=== PATIENT | female | born 1980 | race Two or more races ===

== ENCOUNTER 2020-03-26 11:53 | Emergency (ER) | payer OTHER, SELFPAY ==
--- NOTE | 2020-03-26 12:16 | XR_ITS ---
EXAMINATION: XR CHEST CLINICAL INFORMATION: Cough, possible pneumonia COMPARISON: Chest radiographs 10/08/2017, 04/09/2016 TECHNIQUE: 2 views of the chest were obtained. FINDINGS: Lungs appear clear. There is no airspace consolidation or definite groundglass opacity. The costophrenic sulci are well-defined. The heart is normal in size. The hilar and mediastinal contours are normal. No visible acute bony abnormality. XR/XR chest 2V IMPRESSION: Unremarkable examination.
[2020-03-26 12:18] VITALS: BP 108/67; PULSE 89; RESP 18; TEMP 36.7; O2SAT 98; BMI 32.2
--- NOTE | 2020-03-26 12:27 | ED_ITS ---
HPI - Asthma General Chief Complaint: Asthma Stated Complaint: asthma Time Seen by Provider: 03/26/20 12:16 Source: patient Mode of arrival: ambulatory Limitations: no limitations History of Present Illness HPI Narrative: Patient presents to ED for slight coughing, wheezing, chest tightness since last night. Patient states she is having asthma attack. Patient states she ran out of her albuterol inhalers. Patient states usually around this time every year due to the change in weather she has asthma exacerbation. Patient denies any chest pain, chest pain on inspiration, shortness of breath on exertion, swelling of lower extremities, calf pain, coughing up blood, recent trauma, recent travel, any history of control use, or history of blood clots. Patient states daughter also have similar symptoms. Patient states she was tested for COVID-19 this past Monday and was negative. Patient states she get tested every Monday for COVID-19 due to her job. Patient states having symptoms for about 5 days. Related Data Previous Rx's Medication Instructions Recorded albuterol sulfate 2 puff INHALATION Q6H PRN #18 g 03/26/20 prednisone 40 mg PO DAILY #10 tab 03/26/20 Allergies Allergy/AdvReac Type Severity Reaction Status Date / Time acetaminophen [Percocet] Allergy Unknown swollen, Verified 08/26/19 00:00 red spots oxycodone [Percocet] Allergy Unknown swollen, Verified 08/26/19 00:00 red spots Wellbutrin Allergy Unknown rash Unverified 08/26/19 00:00 From PERCOCET Allergy Intermediate HIVES Uncoded 02/06/20 16:55 A MED FOR DEPRESSION Allergy Unknown ITCHING Uncoded 02/06/20 16:55 Review of Systems Review of Systems: Yes all other systems are reviewed and are negative Constitutional: Constitutional: Denies snoring Eyes: Eyes: Reports as per HPI and Reports no additional eye complaints ENT: Reports system reviewed and no additional complaints, except as documented and Reports as per HPI Cardiovascular: Cardiovascular: Reports as per HPI, Reports no additional cardiovascular complaints, Denies painful fingertips, Denies chest pain, Denies chest pain at rest, Denies chest pain with activity, Denies Epigastric Pain, Denies epigastric discomfort, Denies syncope, Denies rapid heart rate, Denies pedal edema, Denies edema, Denies irregular heart rhythm, Denies dyspnea, Denies dyspnea on exertion, Denies orthopnea and Denies paroxysmal nocturnal dyspnea Respiratory: Respiratory: Reports cough, Denies hemoptysis, Denies excessive phlegm production, Denies pain on inspiration, Denies pain with cough, Denies dyspnea, Denies dyspnea on exertion, Denies snoring and Reports wheezing Gastrointestinal: Gastrointestinal: Reports as per HPI and Reports no additional gastrointestinal complaints Genitourinary: Genitourinary: Reports no additional female genitourinary complaints and Reports as per HPI Musculoskeletal: Musculoskeletal: Reports no additional musculoskeletal complaints and Reports as per HPI Neurologic: Reports system reviewed and no additional complaints, except as documented, Reports as per HPI and Denies syncope Psychiatric: Psychiatric: Reports no additional psychiatric complaints and Reports as per HPI Endocrine: Endocrine: Reports no additional endocrine complaints and Reports as per HPI Allergic/Immunologic: Allergic/Immunologic: Reports wheezing [facility] Past Medical History Medical History (Updated 03/26/20 @ 13:28 by YANET Quinn) Asthma Social History Social History Alcohol intake: never Smoked in Last 30 Days: No Use of substances other than those prescribed or required for medical reasons: No Advance Directives: No Advance Directives Information Provided: Yes Physical Exam Vital Signs: Vital Signs: Vital Signs Temp Pulse Resp BP Pulse Ox 03/26/20 12:18 98.0 F 89 18 108/67 98 Body Mass Index 32.2 Const: General: cooperative, healthy appearing, comfortable, no acute distress, well developed and alert Orientation/consciousness: oriented to person, oriented to place, oriented to time and patient oriented x3 HENMT: Head: Yes normal to inspection and Yes No palpable skull fracture present Eyes: General: appearance normal, both eyes and all related structures Visual Mora: normal visual mora by confrontation Neck: Neck: Yes normal visual inspection, Yes full ROM, Yes no lymphadenopathy, Yes no meningeal signs and Yes trachea midline Chest: Chest palpation & inspection: normal inspection of the chest, normal palpation of entire chest wall and no localized rib tenderness Resp: Effort & Inspection: normal respiratory effort, able to speak in complete sentences, normal respiratory pattern, no audible wheezes, no cough, respiratory effort not decreased, no grunting, not labored, no nasal flaring, no paradoxical thoraco-abdom movements, no pursed lip breathing, not tachypneic, no tracheal deviation and no tripod positioning Auscultation: wheezes (mild) expiratory wheezes Cardio: Jugular venous distension: no JVD Heart sounds: S1 normal heart sound present and S2 normal heart sound present GI: Inspection: Yes normal to inspection and No abdominal wall ecchymosis Palpation (GI): Soft to palpation, not firm, nontender, no guarding and not rigid : General: No CVA tenderness and Yes no CVA tenderness Back/Spine/Pelvis: Back: no CVA tenderness, No CVA tenderness and No back tenderness Skin: General skin exam: no rashes or lesions noted Neuro: General: oriented to person, oriented to place, oriented to time, patient oriented x3, gait normal, no meningeal signs and CN's II-XI intact bilaterally Cranial nerves: Yes CN's II-XII intact bilaterally Extrem: Other: Lower extremities bilaterally negative for any swelling, erythema, calf tenderness, or pitting edema. General: Yes normal to inspection and Yes full ROM Psych: Appearance: grossly normal, well kempt and not disheveled Course Course Course Narrative: History physical exam indicates asthma exacerbation. Patient presently not in any respiratory distress. No indication for labs. History physical exam does not indicate PE or IN. Patient will be given albuterol nebulizer treatment with steroids. Patient also have chest x-ray demonstrates no pneumonia. Patient informed she is not . Reevaluation(s) Reevaluation #1: patient states she feels better and likely be discharged. Patient's chest x-ray is normal. Patient will be discharged with albuterol inhaler and prednisone. Time: 13:27 MDM - Asthma MDM Narrative Medical decision making narrative: asthma exacerbation Discharge Plan Discharge Clinical Impression: Asthma with acute exacerbation Patient Disposition: Home, Self-Care Instructions: Asthma (ED) Additional Instructions: return to ED for shortness of breath, swelling of lower extremities, calf pain, coughing up blood, shortness of breath on exertion, calf pain on inspiration, weakness, fever, chills, chest pain, or any other concerning symptoms. Please follow up with your PCP. Prescriptions: New prednisone 20 mg tablet 40 mg PO DAILY Qty: 10 RF: 0 albuterol sulfate 90 mcg/actuation HFA aerosol inhaler 2 puff inhalation Q6H PRN (Reason: asthma) Qty: 18 RF: 0 Stand Alone Forms: Work/School Release Interventions: ED Discharge Assessment Last Done: 03/26/20 13:57 Discharge Date/Time: 03/26/20 13:57 Print Language: Italian
[2020-03-26] MEDS: Albuterol/Iprat 2.5/0.5MG 3 ML AMPUL.NEB INHALE (12:39)
[2020-03-26] MEDS: predniSONE 20 MG TABLET 60 MG PO (12:45)
== END 2020-03-26 13:57 | disposition home or self-care (01) ==
PROVIDERS: Emergency Provider Emergency Medicine
DX: J45.901 Unspecified asthma with (acute) exacerbation (principal); Z79.899 Other long term (current) drug therapy
CPT/HCPCS: 71046; 99284

== ENCOUNTER 2021-08-11 08:59 | Outpatient (REF) | payer OTHER, SELFPAY ==
[2021-08-11 09:37] LABS: Hematocrit 41.6 % (37.0-47.0); Hemoglobin 13.1 g/dl (12.0-16.0); Mean Corpuscular HGB Conc 31.5 g/dl (31.0-35.0); Mean Corpuscular Hemoglobin 29.4 pg (27.0-33.0); Mean Corpuscular Volume 93.5 fL (80.0-98.0); Mean Platelet Volume 11.8 fL (9.4-12.3); Platelet Count 200 X10*3/uL (160-400); Red Blood Count 4.45 X10*6/uL (4.20-5.50); White Blood Count 6.9 X10*3/uL (4.8-10.8)
[2021-08-11 09:47] LABS: Estimated Average Glucose 111 mg/dL; Hemoglobin A1c % 5.5 %
[2021-08-11 10:12] LABS: Alanine Aminotransferase 18 U/L (0-31); Albumin Level 4.2 g/dL (3.5-5.0); Alkaline Phosphatase 56 U/L (39-117); Anion Gap 10 (12-20); Aspartate Amino Transferase 19 U/L (5-31); Bilirubin Total 0.9 mg/dL (0.0-1.0); Blood Urea Nitrogen 10 mg/dL (9-16); Calcium 9.6 mg/dL (8.4-10.2); Carbon Dioxide 24 mmol/L (22-29); Chloride 109 mmol/L (96-108); Cholesterol 227 mg/dL; Estimated Glomerular Filt Rate > 60; Glucose Fasting 117 mg/dL (60-99); HDL Cholesterol 43 mg/dL; LDL Cholesterol Calculated 163 mg/dl; Sodium 139 mmol/L (135-145); Total Protein 6.7 g/dL (6.5-8.0); Triglycerides 109 mg/dL
[2021-08-11 10:20] LABS: TSH reflex Free T4 0.37 uIU/mL (0.32-4.0)
[2021-08-13 03:17] LABS: Immunoglobulin E 623 kU/L (<OR=114)
== END 2021-08-11 09:00 | disposition home or self-care (01) ==
LOC: HO.LAB 08:59
PROVIDERS: PCP Physician Assistant; Visit Provider Physician Assistant
DX: Z13.1 Encounter for screening for diabetes mellitus (principal); Z13.29 Encounter for screening for other suspected endocrine disorder; Z13.220 Encounter for screening for lipoid disorders; J45.30 Mild persistent asthma, uncomplicated
CPT/HCPCS: 36415; 80053; 80061; 82785; 83036; 84443; 85027

== ENCOUNTER → 2021-09-13 14:33 | Outpatient (BNVA) | payer OTHER, SELFPAY | PROVIDERS: PCP Physician Assistant; Referring Provider Physician Assistant; Visit Provider Surgery | DX: K64.4 Residual hemorrhoidal skin tags (principal) | CPT/HCPCS: 46600; 99202 ==

== ENCOUNTER 2021-10-08 08:37 | Day surgery (SDC) | payer OTHER, SELFPAY ==
[2021-10-04 13:45] VITALS: BMI 28.7
--- NOTE | 2021-10-06 13:19 | P.CONAN_ITS ---
Documented by User: Leigh Varela NP 10/06/21 13:20 HPI - Anesthesia Eval Consult details Narrative: 41yo F for Hemorrhoidectomy PMFSH Active Problems Active Problems: All Active Problems (Updated 09/13/21 @ 15:06 by Sree Merino MD) Hemorrhoids with complication (Acute) Screening for hypercholesterolemia (Acute) External hemorrhoid (Acute) Annual physical exam (Acute) SUJEY (generalized anxiety disorder) (Acute) Swelling of hand (Acute) Screening for hypothyroidism (Acute) Screening for diabetes mellitus (DM) (Acute) Asthma (Acute) Past Medical History Medical History (Updated 09/13/21 @ 15:06 by Sree Merino MD) Asthma Hemorrhoids with complication Family History Family History Mother No problems noted. Father Diabetes High blood pressure CVA (cerebral vascular accident), Onset Age: 59 Brother Brain tumor Surgical History Surgical History History of surgery Social History Social History Housing: Apartment Alcohol intake: current Alcohol intake frequency: holidays/special occasions only Patient Tobacco Use Status: Former Tobacco user Quit Date: 2018 Tobacco use type: Cigarette Years Smoked: 8 Smoked in Last 30 Days: No e-Cigarette/Vaping Use: Never Used Second Hand Smoke Exposure: No Use of substances other than those prescribed or required for medical reasons: No Are you DNR?: No Advance Directives: No Advance Directives Information Provided: Yes service: No Current occupational status: unemployed Cognitive needs: No Hearing needs: No Vision needs: No Meds Allergies Allergy/AdvReac Type Severity Reaction Status Date / Time acetaminophen [Percocet] Allergy Unknown swollen, Verified 10/08/21 09:23 red spots oxycodone [Percocet] Allergy Unknown swollen, Verified 10/08/21 09:23 red spots Wellbutrin Allergy Unknown rash Verified 10/08/21 09:23 From PERCOCET Allergy Intermediate HIVES Uncoded 02/06/20 16:55 A MED FOR DEPRESSION Allergy Unknown ITCHING Uncoded 02/06/20 16:55 Home Medications Medication Instructions Recorded Confirmed Last Taken Type cetirizine 10 mg tablet 10 mg PO DAILY PRN 09/13/21 09/13/21 Unknown History Exam Exam Date and Time: October 06, 2021 1319 Height,Weight and Vital Signs: Height 5 ft Weight 66.678 kg Pertinent Lab Results Pertinent Lab Results: Laboratory Tests 08/11/21 08/11/21 09:13 09:13 WBC 6.9 Hgb 13.1 Hct 41.6 Plt Count 200 Sodium 139 Potassium 4.0 Chloride 109 H Carbon Dioxide 24 BUN 10 Creatinine 0.78 Assessment and Plan Assessment Anesthesia Assessment: Chart Reviewed Documented by User: Andrea Perez MD 10/08/21 10:57 HPI - Anesthesia Eval Consult details Narrative: 41yo F for Hemorrhoidectomy ex smoker [facility] Past Medical History Medical History (Updated 09/13/21 @ 15:06 by Sree Merino MD) Asthma Hemorrhoids with complication Functional capacity: independent ambulation Family History Family History Mother No problems noted. Father Diabetes High blood pressure CVA (cerebral vascular accident), Onset Age: 59 Brother Brain tumor Family history of problems with anesthesia: No Surgical History Surgical History History of surgery History of Problems with Anesthesia: No Social History Social History Housing: Apartment Alcohol intake: current Alcohol intake frequency: holidays/special occasions only Patient Tobacco Use Status: Former Tobacco user Quit Date: 2018 Tobacco use type: Cigarette Years Smoked: 8 Smoked in Last 30 Days: No e-Cigarette/Vaping Use: Never Used Second Hand Smoke Exposure: No Use of substances other than those prescribed or required for medical reasons: No Are you DNR?: No Advance Directives: No Advance Directives Information Provided: Yes service: No Current occupational status: unemployed Cognitive needs: No Hearing needs: No Vision needs: No Meds Allergies Allergy/AdvReac Type Severity Reaction Status Date / Time acetaminophen [Percocet] Allergy Unknown swollen, Verified 10/08/21 09:23 red spots oxycodone [Percocet] Allergy Unknown swollen, Verified 10/08/21 09:23 red spots Wellbutrin Allergy Unknown rash Verified 10/08/21 09:23 From PERCOCET Allergy Intermediate HIVES Uncoded 02/06/20 16:55 A MED FOR DEPRESSION Allergy Unknown ITCHING Uncoded 02/06/20 16:55 Home Medications Medication Instructions Recorded Confirmed Last Taken Type cetirizine 10 mg tablet 10 mg PO DAILY PRN 09/13/21 09/13/21 Unknown History Exam Airway Mallampati Class: II Neck ROM: Full Loose/Missing/Broken Teeth: Yes (Missing and front chipped . ) Heart: S1, S2 Lungs: b/l breath sounds Assessment and Plan Assessment Anesthesia Assessment: Anesthesia Plan Discussed Final Anesthetic Review Family History of Problems with Anesthesia: No History of Problems with Anesthesia: No NPO: Yes ASA Class: II Final Preanesthetic Review: Meds/Allgs Chart Reviewed, Consent Obtained/Reviewed and Anes Risks/Benef Reviewed Patient Risk: Intermediate Procedure Risk: Intermediate Anesthetic Plan Anesthetic Plan: GA Disposition: Standard PACU
[2021-10-08] VITALS (13 sets, daily range): BP systolic 94–123; BP diastolic 48–87; PULSE 52–71; RESP 14–16; TEMP 36.3–37; O2SAT 95–100; BMI 30.2
[2021-10-08 09:34] LABS: UPreg QC Valid YES; Urine Pregnancy NEGATIVE (NEGATIVE)
[2021-10-08] MEDS: Lactated Ringers 1,000 ML 100 ML IVCONT (10:09)
--- NOTE | 2021-10-08 10:16 | MHC.SHP ---
Pre-Procedural Eval Section A Date of Service: 10/08/21 Section B Chief Complaint: hemorrhoids Details of Present Illness: has had chronic problems with pain, bleeding and prolapse with her hemorrhoids Relevant Family History (Specify if Yes): No Relevant Social History: None Present Medications: see Short Stay Collaborative assessment Medical History: Significant History ( depression anxiety) History of Previous Operations: No relevant previous surgery Allergies: Allergies Allergy/AdvReac Type Severity Reaction Status Date / Time acetaminophen [Percocet] Allergy Unknown swollen, Verified 10/08/21 09:23 red spots oxycodone [Percocet] Allergy Unknown swollen, Verified 10/08/21 09:23 red spots Wellbutrin Allergy Unknown rash Verified 10/08/21 09:23 From PERCOCET Allergy Intermediate HIVES Uncoded 02/06/20 16:55 A MED FOR DEPRESSION Allergy Unknown ITCHING Uncoded 02/06/20 16:55 Review of Systems Sugical H&P ROS: Negative: Constitution, Cardiovascular, Respiratory, Neurological, Psychiatric, Hem-Onc, Allergic/Immunologic, Gastrointestinal, Genitourinary, Musculoskeletal, Integumentary, Endocrine and Eyes/Ears/Nose/Throat Exam Surgical H&P Exam: Normal: HEENT, Normal: Heart, Normal: Lungs, Normal: Extremities, Normal: Abdomen, Normal: Skin and Normal: Neurological Plan Diagnosis/Plan: Unchanged I have reviewed the history and physical and performed a pertinent physical examination on my patient. No changes have occurred unless specified.
--- NOTE | 2021-10-08 11:19 | W.PM.OPN ---
Operative Note Operative Note Date of Service: 10/08/21 Narrative: Preop diagnosis: Internal and external hemorrhoids with pain and bleeding Postop diagnosis: The same Procedure: Exam under anesthesia, hemorrhoidectomy x2 columns Surgeon: Sree Merino MD The patient is a 41-year-old female with chronic problems with pain and bleeding with her hemorrhoidal columns.? She wanted to therefore proceed with hemorrhoidectomy.? She understood the technique of the procedure.? She was aware of the risks, benefits, and alternatives She was brought to the operating room.? She was placed in prone earnestine-knife position under general anesthesia via laryngeal mask airway.? ? The buttocks were retracted with wide tape laterally.? The perianal area was prepped and draped in the usual sterile fashion.? A surgical time-out was done. Examination of the anal orifice revealed bulky hemorrhoidal column on the right.? There was a smaller hemorrhoidal column the left.? The tiny anal area was infiltrated with Lidocaine 1%. I inserted a Ani Marr retractor and examined the anal canal circumferentially.? Again these mixed hemorrhoidal columns on both the left and right side were seen.? There were no lesions or any other pathology noted . I applied a Yao grasper at the hemorrhoidal column on the left.? This was retracted into the field.? I made a figure of 8 stitch? with a chromic 3-0 at the pedicle past the dentate line.? I made an incision around the hemorrhoidal column all the way to the perianal skin using blade 15.? I excised this hemorrhoidal column above the plane of the sphincters along this incision all the way to the pedicle.? I closed the incision with a running chromic 3-0 stitch.? Multiple hemostatic [id number] sutures were placed for oozing areas I then applied a Yao grasper at the hemorrhoidal column on the right.? I made a [id number] stitch at the pedicle using chromic 3-0 and made an incision around this? hemorrhoidal column all to the perianal skin using blade 15. I excised this hemorrhoidal column above the plane of sphincters using scissors.? I closed this incision with a running chromic 3-0 stitch.? Again hemostatic [id number] sutures were placed Once hemostasis was ensured, I proceeded to then infiltrated the perianal area with Marcaine 0.5% for postop analgesia.? I placed a rolled Gelfoam as a packing into the anal canal.? The procedure was then completed. The patient tolerated procedure well.? There were no complications noted.? Initial ? and final counts sponges instruments were correct.? Estimated blood loss was about 30 cc The patient was extubated without difficulty and transferred to the recovery room with stable vital signs.
[2021-10-08] MEDS: fentaNYL citrate/PF 100 MCG/2 ML VIAL 25 MCG IVPUSH ×5 (11:48→12:51)
[2021-10-08] MEDS: traMADoL HCL 50 MG TABLET PO (11:50)
== END 2021-10-08 14:00 | disposition home or self-care (01) ==
PROVIDERS: Nurse Practitioner; PCP Physician Assistant; Visit Provider Surgery
PROC: (CPT 46260; principal; 2021-10-08 11:00)
DX: K64.8 Other hemorrhoids (principal); K64.4 Residual hemorrhoidal skin tags; K59.00 Constipation, unspecified; J45.909 Unspecified asthma, uncomplicated; Z79.51 Long term (current) use of inhaled steroids; Z79.899 Other long term (current) drug therapy; Z88.8 Allergy status to other drugs, medicaments and biological substances; Z87.891 Personal history of nicotine dependence
CPT/HCPCS: 46260; 81025; 88304; J0131; J1100; J1885; J2250; J2405; J3010

== ENCOUNTER → 2021-10-20 11:43 | Outpatient (BNVA) | payer OTHER, SELFPAY | PROVIDERS: PCP Physician Assistant; Referring Provider Physician Assistant; Visit Provider Surgery | DX: Z48.815 Encounter for surgical aftercare following surgery on the digestive system (principal); Z87.19 Personal history of other diseases of the digestive system | CPT/HCPCS: 99212 ==

== ENCOUNTER → 2022-01-13 11:22 | Outpatient (BNVA) | payer OTHER, SELFPAY | PROVIDERS: PCP Physician Assistant; Visit Provider Surgery | DX: K64.8 Other hemorrhoids (principal); Z98.890 Other specified postprocedural states | CPT/HCPCS: 99212 ==

== ENCOUNTER 2022-06-20 12:17 | Emergency (ER) | payer OTHER, SELFPAY | END 2022-06-20 14:57 | disposition left against medical advice (07) | PROVIDERS: Emergency Provider Emergency Medicine; PCP Physician Assistant | DX: M79.10 Myalgia, unspecified site (principal) ==

== ENCOUNTER 2022-08-16 10:10 | Emergency (ER) | payer OTHER, SELFPAY ==
[2022-08-16 10:17] VITALS: BP 156/87; PULSE 76; RESP 18; TEMP 37.2; O2SAT 99; BMI 23.4
--- NOTE | 2022-08-16 11:07 | ED.GENADULT ---
HPI - General Adult General Chief complaint: Back Pain/Injury Stated complaint: Muscle spasm/Shoulder and back pain Time Seen by Provider: 08/16/22 11:01 Source: patient, RN notes reviewed and old records reviewed Mode of arrival: ambulatory Limitations: no limitations History of Present Illness HPI narrative: 42-year-old female presents for evaluation muscle pain. History of mostly right-sided upper back that radiates the left upper back and right mid back The pain started about 1 month ago. 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 She also endorses increase stress at home Denies any chest pain shortness of breath, cough Related Data Home Medications Medication Instructions Recorded Confirmed cetirizine 10 mg tablet 10 mg PO DAILY PRN 09/13/21 09/13/21 Previous Rx's Medication Instructions Recorded albuterol sulfate 2.5 mg/3 mL 2.5 mg (3 mL) inhalation Q6H PRN 05/19/20 (0.083 %) solution for nebulization shortness of breath or wheezing 30 days #360 mL hydroxyzine HCl 10 mg tablet 10 mg PO BID PRN panic attack 10 09/29/21 days #20 tabs docusate sodium 100 mg capsule 100 mg PO BID #60 caps 10/08/21 (Colace) tramadol 50 mg tablet 50 mg PO Q6H PRN pain severe #20 10/19/21 tabs ibuprofen 600 mg tablet 600 mg PO TID PRN pain #30 tabs 10/20/21 menthol 0.44 %-zinc oxide 20.6 % 1 appl topical QID PRN skin 11/02/21 topical ointment (Calmoseptine) irritation #113 grams menthol 0.44 %-zinc oxide 20.6 % 1 appl topical QID PRN perianal 01/13/22 topical ointment (Calmoseptine) irritation #113 grams Advair Diskus 100 mcg-50 mcg/dose 1 inh inhalation Q12H 30 days #60 02/03/22 powder for inhalation (fluticasone ea propion-salmeterol) montelukast 10 mg tablet 10 mg PO DAILY 30 days #30 tabs 02/03/22 (Singulair) Ventolin HFA 90 mcg/actuation 2 puff inhalation Q6H PRN 02/23/22 aerosol inhaler (albuterol sulfate) shortness of breath or wheezing 30 days #18 grams ibuprofen 600 mg tablet 600 mg PO Q6H PRN pain #15 tabs 08/16/22 methocarbamol 500 mg tablet 500 mg PO QID PRN muscle spasm #16 08/16/22 tabs Allergies Allergy/AdvReac Type Severity Reaction Status Date / Time bupropion [From Wellbutrin] Allergy Unknown Rash Verified 08/16/22 10:20 oxycodone [Percocet] Allergy Unknown swollen, Verified 08/16/22 10:20 red spots From PERCOCET Allergy Intermediate HIVES Uncoded 01/13/22 11:26 A MED FOR DEPRESSION Allergy Unknown ITCHING Uncoded 01/13/22 11:26 Review of Systems Constitutional: Constitutional: Reports as per HPI, Denies chills and Denies fever(s) Cardiovascular: Cardiovascular: Denies chest pain and Denies dyspnea Respiratory: Respiratory: Denies cough and Denies dyspnea Gastrointestinal: Gastrointestinal: Denies abdominal pain, Denies constipation and Denies vomiting Musculoskeletal: Musculoskeletal: Reports back pain and Reports myalgias Comments: Right upper back pain Neurologic: Denies focal weakness PMFSH Past Medical History Medical History Asthma Hemorrhoids with complication Surgical History History of hemorrhoidectomy History of surgery Family History Family History Mother No problems noted. Father Diabetes High blood pressure CVA (cerebral vascular accident), Onset Age: 59 Brother Brain tumor Social History Social History Housing: Apartment Alcohol intake: current Alcohol intake frequency: holidays/special occasions only Patient Tobacco Use Status: Former Tobacco user Quit Date: 2018 Tobacco use type: Cigarette Years Smoked: 8 e-Cigarette/Vaping Use: Never Used Second Hand Smoke Exposure: No service: No Current occupational status: unemployed Cognitive needs: No Hearing needs: No Vision needs: No Physical Exam ED Vital Signs: Vital Signs - 24 hr 08/16/22 10:17 Temperature 99.0 F Pulse Rate 76 Respiratory Rate 18 Blood Pressure 156/87 H Pulse Oximetry 99 Oxygen Delivery Method Room Air BMI result Body Mass Index 23.4 Const General: healthy appearing, comfortable, no acute distress, alert and awake Nutritional Appearance: well nourished Orientation/consciousness: patient oriented x3 HENMT Head: Yes normocephalic and Yes atraumatic Throat: Yes posterior oropharynx normal Eyes Eyelids: Yes eyelids normal Conjunctivae: conjunctivae normal Sclerae: sclerae normal Corneas: corneas normal Pupils: Equal, round and reactive pupils present EOM: EOMs intact bilaterally Neck Neck: Yes full ROM Resp Effort & Inspection: normal respiratory effort, able to speak in complete sentences, no audible wheezes and not labored Auscultation: clear to auscultation bilaterally Cardio Rate: regular rate Rhythm: regular rhythm GI Inspection: No distended Palpation (GI): Soft to palpation, not firm, nontender, no guarding and not rigid Auscultation: normoactive bowel sounds General: No no CVA tenderness Back/Spine/Pelvis Other: Patient has right upper and right in bowel marked tenderness without any focal vertebral tenderness. No step-offs or deformities. Back: No no CVA tenderness Cervical Spine: No normal cervical lordosis and No collar present Skin General skin exam: no rashes or lesions noted and elasticity normal Neuro General: patient oriented x3 Cranial nerves: Yes Equal, round and reactive pupils present and Yes Bilaterally intact EOM present Cognition (Neuro): normal cognition Extrem Other: Moving all extremities well without any obvious deformities Medical Decision Making Medical Decision Making MDM Narrative: Patient is seen and evaluated, she has reproducible right upper and mid back pain consistent with musculoskeletal etiology. Will treat with methocarbamol and ibuprofen. Differential Diagnosis Muscle spasm Radiculopathy Contusion Back spasm Discharge Plan Discharge Clinical Impression: Muscle spasm Patient Disposition: Home, Self-Care Instructions: Muscle Spasm (ED) Additional Instructions: Use ibuprofen as needed for discomfort. Use methocarbamol organ for muscle spasms. This may you sleepy, do not drink alcohol or drive after taking it Prescriptions: New ibuprofen 600 mg tablet 600 mg PO Q6H PRN (Reason: pain) Qty: 15 0RF methocarbamol 500 mg tablet 500 mg PO QID PRN (Reason: muscle spasm) Qty: 16 0RF No Action hydroxyzine HCl 10 mg tablet 10 mg PO BID PRN (Reason: panic attack) 10 Days Qty: 20 0RF tramadol 50 mg tablet 50 mg PO Q6H PRN (Reason: pain severe) Qty: 20 0RF Rx Instructions: ok to take 1-2 tablets every 6 hours for severe pain menthol-zinc oxide [Calmoseptine] 0.44-20.6 % ointment 1 appl topical QID PRN (Reason: skin irritation) Qty: 113 0RF fluticasone propion-salmeterol [Advair Diskus] 100-50 mcg/dose blister with device 1 inh inhalation Q12H 30 Days Qty: 60 1RF montelukast [Singulair] 10 mg tablet 10 mg PO DAILY 30 Days Qty: 30 1RF albuterol sulfate [Ventolin HFA] 90 mcg/actuation HFA aerosol inhaler 2 puff inhalation Q6H PRN (Reason: shortness of breath or wheezing) 30 Days Qty: 18 3RF docusate sodium [Colace] 100 mg capsule 100 mg PO BID Qty: 60 2RF albuterol sulfate 2.5 mg /3 mL (0.083 %) solution for nebulization 2.5 mg inhalation Q6H PRN (Reason: shortness of breath or wheezing) 30 Days Qty: 360 1RF menthol-zinc oxide [Calmoseptine] 0.44-20.6 % ointment 1 appl topical QID PRN (Reason: perianal irritation) Qty: 113 0RF cetirizine 10 mg tablet 10 mg PO DAILY PRN ibuprofen 600 mg tablet 600 mg PO TID PRN (Reason: pain) Qty: 30 0RF Stand Alone Forms: Work/School Release Interventions: ED Discharge Assessment Last Done: 08/16/22 11:21 Discharge Date/Time: 08/16/22 11:22
== END 2022-08-16 11:22 | disposition home or self-care (01) ==
PROVIDERS: Emergency Provider Emergency Medicine; PCP Physician Assistant
DX: M62.830 Muscle spasm of back (principal); M54.6 Pain in thoracic spine; Z79.899 Other long term (current) drug therapy
CPT/HCPCS: 99282; 99283

== ENCOUNTER 2022-11-23 12:10 | Emergency (ER) | payer OTHER, SELFPAY ==
--- NOTE | ~2022-11-23 | CT_ITS ---
EXAMINATION: CT ABDOMEN AND PELVIS WITH CONTRAST CLINICAL INFORMATION: Question cancer. Hematuria. COMPARISON: None available. TECHNIQUE: Multidetector volumetric images were obtained from the superior aspect of the liver through the pubic symphysis following administration 85 mL of Omnipaque 350 intravenous contrast. 10 minute delay acquisition performed. Sagittal and coronal reformatted images were obtained on the technologist's workstation. Oral contrast: No This CT examination was performed using dose optimization techniques as appropriate, variously including the following: *Automated exposure control *Adjustment of mA and/or kV according to patient size (this includes techniques or standardized protocols for targeted exams where dose is matched to indication/reason for exam; i.e. extremities or head) *Use of iterative reconstruction technique
[2022-11-23 12:46] VITALS: BP 136/76; PULSE 61; RESP 18; TEMP 36.8; O2SAT 100; BMI 26.4
--- NOTE | 2022-11-23 12:46 | ED_ITS ---
HPI - General Adult General Chief complaint: Urogenital-Female Stated complaint: Blood in Urine Low Back Pain Time Seen by Provider: 11/23/22 14:51 Source: patient Mode of arrival: ambulatory Limitations: no limitations History of Present Illness HPI narrative: This is a 42-year-old female history of anxiety, asthma presenting to the emergency department with complaints of bilateral lower back/flank pain, lower a bdominal/pelvic pain, with associated blood in urine for the past 4 days. Patient states this is never happened to her before. Reports pain is constant in nature, severe at times fluctuates in intensity and feels sharp and stabbing particularly with urination. Patient reports she was 170 lb about 2 years ago in is no 130 lb, she states she has changed her diet however has not done too much to lose weight. Patient also reports associated night sweats, chills, fatigue. At this time denies urinary frequency, urgency, fevers, nausea, vomiting, headache, vision changes, bright red blood per rectum, vaginal bleeding or discharge, saddle paresthesias, weakness, numbness and tingling. Patient ambulatory in without difficulty. Related Data Home Medications Medication Instructions Recorded Confirmed cetirizine 10 mg tablet 10 mg PO DAILY PRN 09/13/21 09/13/21 Previous Rx's Medication Instructions Recorded albuterol sulfate 2.5 mg/3 mL 2.5 mg (3 mL) inhalation Q6H PRN 05/19/20 (0.083 %) solution for nebulization shortness of breath or wheezing 30 days #360 mL menthol 0.44 %-zinc oxide 20.6 % 1 appl topical QID PRN perianal 01/13/22 topical ointment (Calmoseptine) irritation #113 grams Ventolin HFA 90 mcg/actuation 2 puff inhalation Q6H PRN 02/23/22 aerosol inhaler (albuterol sulfate) shortness of breath or wheezing 30 days #18 grams ibuprofen 600 mg tablet 600 mg PO Q6H PRN pain #30 tabs 08/23/22 methocarbamol 500 mg tablet 500 mg PO QID PRN muscle spasm #16 08/23/22 tabs Advair Diskus 100 mcg-50 mcg/dose 1 inh inhalation Q12H 30 days #60 09/02/22 powder for inhalation (fluticasone ea propion-salmeterol) montelukast 10 mg tablet 10 mg PO DAILY 30 days #30 tabs 09/02/22 (Singulair) acetaminophen 325 mg tablet (Aphen) 650 mg PO Q6H PRN pain #20 tabs 11/23/22 Allergies Allergy/AdvReac Type Severity Reaction Status Date / Time bupropion [From Wellbutrin] Allergy Unknown Rash Verified 08/23/22 08:01 oxycodone [Percocet] Allergy Unknown swollen, Verified 08/23/22 08:01 red spots From PERCOCET Allergy Intermediate HIVES Uncoded 08/23/22 08:01 A MED FOR DEPRESSION Allergy Unknown ITCHING Uncoded 08/23/22 08:01 Review of Systems Review of Systems: Constitutional : No Weight loss, No Fever, No Chills, ENT/Mouth : No Hearing loss, No Ear Pain, No Nasal Congestion, No Sinus Pain, No Hoarseness, No sore throat, No Rhinorrhea, No Swallowing Difficulty Cardiovascular : No Chest Pain, No SOB Respiratory : No Cough, No Dyspnea Gastrointestinal : No Nausea, No Vomiting, No Diarrhea, + abdominal Pain/ pelvic pain, No Hematochezia, No Melena Genitourinary : No Dysuria, No Urinary Frequency, + Hematuria, No Urinary Incontinence, Musculoskeletal : positive back pain/ flank Skin : No Skin Lesions, No rash Neuro : No Weakness, No Numbness, No Paresthesias, no loss of bowel or bladder incontinence, no saddle anesthesia Yes all other systems are reviewed and are negative PMFSH Past Medical History Attestation statement: The following information was validated with the patient. Source: old records reviewed and nursing notes reviewed Medical History Asthma Hemorrhoids with complication Surgical History History of hemorrhoidectomy History of surgery Family History Family History Mother No problems noted. Father Diabetes High blood pressure CVA (cerebral vascular accident), Onset Age: 59 Brother Brain tumor Social History Social History Housing: Apartment Alcohol intake: current Alcohol intake frequency: holidays/special occasions only Patient Tobacco Use Status: Former Tobacco user Quit Date: 2018 Tobacco use type: Cigarette Years Smoked: 8 Smoked in Last 30 Days: No e-Cigarette/Vaping Use: Never Used Second Hand Smoke Exposure: No Advance Directives: No Advance Directives Information Provided: Yes service: No Current occupational status: unemployed Cognitive needs: No Hearing needs: No Vision needs: Yes Physical Exam ED Vital Signs: Vital Signs - 24 hr 11/23/22 12:46 Temperature 98.3 F Pulse Rate 61 Respiratory Rate 18 Blood Pressure 136/76 Pulse Oximetry 100 Oxygen Delivery Method Room Air BMI result Body Mass Index 26.4 vss Appearance: Alert.? Oriented X3.? No acute distress.? Head: Normocephalic, atraumatic, no step-offs or deformities Eyes: Pupils equal, round and reactive to light.? Neck: Normal inspection.? Neck supple.? CVS: Normal heart rate and rhythm.? Pulses normal.? Respiratory: No respiratory distress.? Breath sounds normal.? Abdomen: Soft and nontender.? Skin: Skin warm and dry.? Normal skin color.? Normal skin turgor.? Extremities: No lower extremity edema.? No calf ttp. 5/5 strength to bilateral upper and lower extremities Back: No midline tenderness, no C-spine tenderness, full range of motion, no CVA tenderness bilaterally Neuro: Oriented X 3.? No motor deficit.? No sensory deficit. CN 2-12 intact Course Course Course Narrative: RME- 42-year-old female presents for evaluation of blood in her urine, lower abdominal pain and flank pain. Any denies dysuria. She reports that she is not sexually active Reevaluation(s) Reevaluation #1: CBC appears to be within normal limits. Chemistry unremarkable. UA with large amount of blood, no bacteria, , not consistent with UTI, likely pyelonephritis. CT scan pending. Time: 16:07 Reevaluation #2: Dr. Beth reecomends CT urogram today. No need for hospital admission at this t [facility]. Will come and see patient in the department. Recommemds f/u w/ Dr. Ruvalcaba. Time: 16:30 Reevaluation #3: Patient's CT scan back. Patient would like to go home. No indication for hospital admission. Advised her to call Dr. Ruvalcaba's office 1st thing tomorrow morning. Patient can take Tylenol for pain. Educated patient on diagnosis and treatment plan, answered all question, patient verbalizes understanding. At this time patient will be discharged home, advised to return with new or worsening symptoms. Educated on worrisome signs and symptoms and when to return. At this time I feel comfortable discharge home. Time: 18:07 Medications Administered Discontinued Medications Generic Name Dose Route Start Last Admin Trade Name Ricardo PRN Reason Stop Dose Admin Acetaminophen 325 mg 11/23/22 16:07 11/23/22 17:08 Acetaminophen 325 Mg Tablet PO 11/23/22 16:08 Not Given ONCE ONE Fentanyl 25 mcg 11/23/22 16:32 11/23/22 17:25 Fentanyl Citrate/Pf 100 Mcg/2 Ml Vial IVPUSH 11/23/22 16:33 25 mcg ONCE ONE Administration Protocol Sodium Chloride 1,000 mls @ 999 mls/hr 11/23/22 16:30 11/23/22 17:18 Ns IV 11/23/22 17:30 999 mls/hr .Q1H1M GWENDOLYN Administration Iohexol 85 ml 11/23/22 17:10 11/23/22 17:10 Iohexol 350 Mg/Ml 100 Ml Infus..Btl IV 11/23/22 17:11 85 ml ONCE ONE Administration Lidocaine 2 patch 11/23/22 16:07 11/23/22 17:09 Lidocaine 4 % Patch Adh..Patch TRANSDERMA 11/23/22 16:08 Not Given ONCE ONE Protocol Medical Decision Making Medical Decision Making MDM Narrative: 42 year old female presents with bilateral lower flank/back pain, abdominal discomfort and pelvic discomfort for the past 4 days also associated hematuria. Does report a few constitutional symptoms under positive night sweats, fatigue, malaise an unintentional weight loss. Physical examination significant for bilateral CVA discomfort. Bilateral lower abdominal discomfort on palpation. Concerns for possible obstructing uropath, UTI versus bloody cystitis versus kidney stones. Also some concerns for malignancy due to constitutional symptoms being positive. Unlikely that this is an acute abdomen, ovarian torsion, ectopic , ruptured ovarian cyst.NOt sexually active low suspicion for STD/PID Plan labs, imaging, urine. Differential Diagnosis Differential Diagnoses: The differential diagnosis associated with the presentation includes Concerns for possible obstructing uropath, UTI versus bloody cystitis versus kidney stones. Also some concerns for malignancy due to constitutional symptoms being positive. Unlikely that this is an acute abdomen, ovarian torsion, ectopic , ruptured ovarian cyst. .NOt sexually active low suspicion for STD/PID Admission/Observation Consideration of admission/observation: Escalation of care including admission/observation considered Possible Consult Healthcare Provider Management of the patient was discussed with: Sub Plant Manager (Dr. Beth ) Lab Data MDM Lab Attestation statement: I reviewed the patient's lab results. 11/23/22 13:21 11/23/22 13:21 Labs: Lab Results 11/23/22 11/23/22 11/23/22 Range/Units 13:19 13:19 13:21 WBC 9.2 (4.8-10.8) X10*3/uL RBC 4.72 (4.20-5.50) X10*6/uL Hgb 14.2 (12.0-16.0) g/dl Hct 43.8 (37.0-47.0) % MCV 92.8 (80.0-98.0) fL MCH 30.1 (27.0-33.0) pg MCHC 32.4 (31.0-35.0) g/dl RDW 12.1 (11.0-16.0) % Plt Count 210 (160-400) X10*3/uL MPV 11.8 (9.4-12.3) fL Immature Gran % (Auto) 0.2 (0.0-0.4) % Neut % (Auto) 56.5 (45-73) % Lymph % (Auto) 35.4 (20-40) % [facility] % (Auto) 6.3 (2-11) % Eos % (Auto) 0.8 (0-4) % Baso % (Auto) 0.8 (0-2) % Lymph # (Auto) 3.3 (1.2-4.9) X10*3/uL [facility] # (Auto) 0.6 (0.1-1.2) X10*3/uL Eos # (Auto) 0.1 (0.0-0.4) X10*3/uL Baso # (Auto) 0.1 (0.0-0.2) X10*3/uL Abs Immat Gran (auto) 0.02 (0.00-0.03) X10*3/uL Absolute Neuts (auto) 5.2 (2.0-8.3) x10*3/uL Absolute Nucleated RBC 0.000 (0.0-0.012) X10*3/uL Nucleated RBC % (auto) 0.0 (0.0-0.2) /100WBC Sodium (135-145) mmol/L Potassium (3.3-5.1) mmol/L Chloride (96-108) mmol/L Carbon Dioxide (22-29) mmol/L Anion Gap (12-20) BUN (9-16) mg/dL Creatinine (0.5-1.4) mg/dL Estim Creat Clear Calc Estimated GFR Random Glucose (60-115) mg/dL Calcium (8.4-10.2) mg/dL Urine Color Yellow Urine Appearance Clear Urine pH 6.5 (5.0-9.0) Ur Specific [place] <= 1.005 (1.005-1.025) Urine Protein Trace (Neg-Trace) mg/dL Urine Glucose (UA) Negative (Negative) mg/dL Urine Ketones Negative (Negative) mg/dL Urine Blood Large (3+) H (Negative) Urine Nitrite Negative (Negative) Ur Leukocyte Esterase Small (1+) H (Negative) Urine RBC 3-5 H (0-2) /HPF Urine WBC 6-10 (0-5) /HPF Ur Squamous Epith Cells 6-10 (0-2) /HPF Urine Bacteria None Seen (None Seen) Hyaline Casts 0-2 (0-2) /LPF Urine Test NEGATIVE (NEGATIVE) 11/23/22 Range/Units 13:21 WBC (4.8-10.8) X10*3/uL RBC (4.20-5.50) X10*6/uL Hgb (12.0-16.0) g/dl Hct (37.0-47.0) % MCV (80.0-98.0) fL MCH (27.0-33.0) pg MCHC (31.0-35.0) g/dl RDW (11.0-16.0) % Plt Count (160-400) X10*3/uL MPV (9.4-12.3) fL Immature Gran % (Auto) (0.0-0.4) % Neut % (Auto) (45-73) % Lymph % (Auto) (20-40) % [facility] % (Auto) (2-11) % Eos % (Auto) (0-4) % Baso % (Auto) (0-2) % Lymph # (Auto) (1.2-4.9) X10*3/uL [facility] # (Auto) (0.1-1.2) X10*3/uL Eos # (Auto) (0.0-0.4) X10*3/uL Baso # (Auto) (0.0-0.2) X10*3/uL Abs Immat Gran (auto) (0.00-0.03) X10*3/uL Absolute Neuts (auto) (2.0-8.3) x10*3/uL Absolute Nucleated RBC (0.0-0.012) X10*3/uL Nucleated RBC % (auto) (0.0-0.2) /100WBC Sodium 142 (135-145) mmol/L Potassium 4.3 (3.3-5.1) mmol/L Chloride 107 (96-108) mmol/L Carbon Dioxide 26 (22-29) mmol/L Anion Gap 13 (12-20) BUN 12 (9-16) mg/dL Creatinine 0.81 (0.5-1.4) mg/dL Estim Creat Clear Calc 75.5 Estimated GFR > 60 Random Glucose 114 (60-115) mg/dL Calcium 10.3 H D (8.4-10.2) mg/dL Urine Color Urine Appearance Urine pH (5.0-9.0) Ur Specific [place] (1.005-1.025) Urine Protein (Neg-Trace) mg/dL Urine Glucose (UA) (Negative) mg/dL Urine Ketones (Negative) mg/dL Urine Blood (Negative) Urine Nitrite (Negative) Ur Leukocyte Esterase (Negative) Urine RBC (0-2) /HPF Urine WBC (0-5) /HPF Ur Squamous Epith Cells (0-2) /HPF Urine Bacteria (None Seen) Hyaline Casts (0-2) /LPF Urine Test (NEGATIVE) Independent Interpretation I performed an independent interpretation of an: CT Scan Radiology Impression Discussion of test interpretation with radiology: I have reviewed the radiologist's reading. Core Measures AMI core measures followed: Yes Measure exclusions: not indicated Critical Care Time Critical Care Time Critical Care Time: Yes Total Critical Care Time: 35 Attestation: I attest to this time spent taking care of the patient, obtaining history, physical, reviewing labs, imaging, speaking to my attending, speaking to specialist. Discharge Plan Discharge Clinical Impression: Kidney mass, Hematuria, Abnormal weight loss, Kidney stone Patient Disposition: Home, Self-Care Instructions: Kidney Stones (ED), Hematuria (ED) Additional Instructions: Take your medications as prescribed. If you were prescribed antibiotics today, it is important that you take your medication to their entirety, do not skip any doses, do not finish them early. Follow-up with your primary care provider this week. Return to the emergency department with new or worsening symptoms. In case of emergency call 911 I hope you feel better. Keep your head up. CT/CT abdomen pelvis wo IV con IMPRESSION: 1.? Grossly abnormal right kidney with high density material filling the upper pole collecting system with associated hydronephrosis. Differential diagnosis would include blood clot with associated malignancy such as transitional cell carcinoma. CT urography and urologic consultation is recommended. 2.? Bilateral nonobstructing renal calculi. 3.? Other incidental findings as described above. CT/CT abdomen pelvis w IV con IMPRESSION: 1.? Abnormal appearance of the right kidney with soft tissue filling defect in the right renal upper pole collecting system extending into the renal pelvis. This is concerning for neoplasm. There is also abnormal soft tissue thickening at the proximal right ureter suggestive of extension of the neoplasm. 2.? Normal excretion from both kidneys. The right ureter is not fully opacified throughout its course. Cannot exclude a distal process, but there is no significant ureteral dilatation to suggest obstruction. 3.? Nonobstructing 0.3 cm right lower pole renal calculus. 4.? No lymphadenopathy. ? Fleischner guidelines were followed. ? Prescriptions: New acetaminophen [Aphen] 325 mg tablet 650 mg PO Q6H PRN (Reason: pain) Qty: 20 0RF No Action albuterol sulfate [Ventolin HFA] 90 mcg/actuation HFA aerosol inhaler 2 puff inhalation Q6H PRN (Reason: shortness of breath or wheezing) 30 Days Qty: 18 3RF fluticasone propion-salmeterol [Advair Diskus] 100-50 mcg/dose blister with device 1 inh inhalation Q12H 30 Days Qty: 60 1RF montelukast [Singulair] 10 mg tablet 10 mg PO DAILY 30 Days Qty: 30 1RF albuterol sulfate 2.5 mg /3 mL (0.083 %) solution for nebulization 2.5 mg inhalation Q6H PRN (Reason: shortness of breath or wheezing) 30 Days Qty: 360 1RF ibuprofen 600 mg tablet 600 mg PO Q6H PRN (Reason: pain) Qty: 30 0RF Rx Instructions: take with food to prevent GI upset methocarbamol 500 mg tablet 500 mg PO QID PRN (Reason: muscle spasm) Qty: 16 0RF menthol-zinc oxide [Calmoseptine] 0.44-20.6 % ointment 1 appl topical QID PRN (Reason: perianal irritation) Qty: 113 0RF cetirizine 10 mg tablet 10 mg PO DAILY PRN Referrals: Gadiel Ruvalcaba MD [Physician] - 2 days Stand Alone Forms: Work/School Release
[2022-11-23 13:28] LABS: MANUAL DIFF FLAG NO
[2022-11-23 13:32] LABS: Basophils Absolute Auto 0.1 X10*3/uL (0.0-0.2); Basophils Percent Auto 0.8 % (0-2); Eosinophils Absolute Auto 0.1 X10*3/uL (0.0-0.4); Eosinophils Percent Auto 0.8 % (0-4); Hematocrit 43.8 % (37.0-47.0); Hemoglobin 14.2 g/dl (12.0-16.0); Imm Gran Abs Auto 0.02 X10*3/uL (0.00-0.03); Imm Gran Pct Auto 0.2 % (0.0-0.4); Lymphocytes Absolute Auto 3.3 X10*3/uL (1.2-4.9); Lymphocytes Percent Auto 35.4 % (20-40); Mean Corpuscular HGB Conc 32.4 g/dl (31.0-35.0); Mean Corpuscular Hemoglobin 30.1 pg (27.0-33.0); Mean Corpuscular Volume 92.8 fL (80.0-98.0); Mean Platelet Volume 11.8 fL (9.4-12.3); Monocytes Absolute Auto 0.6 X10*3/uL (0.1-1.2); Monocytes Percent Auto 6.3 % (2-11); Neutrophils Absolute Auto 5.2 x10*3/uL (2.0-8.3); Neutrophils Percent Auto 56.5 % (45-73); Platelet Count 210 X10*3/uL (160-400); Red Blood Count 4.72 X10*6/uL (4.20-5.50); Red Cell Distribution Width 12.1 % (11.0-16.0); White Blood Count 9.2 X10*3/uL (4.8-10.8)
--- NOTE | 2022-11-23 16:37 | PC.NURSE ---
nurse present at bedside with provider, pt was told Ct scan indicated that there has been a mass identified in the kidney- aware plan is for Urology consult, repeat CT imaging with IV con- pt agrees with plan
--- NOTE | 2022-11-23 17:26 | PC.NURSE ---
PT MEDICATED PER JUL FOR 09/28 LLQ PAIN- CT SCAN TAKEN PENDING RAD READ, CALL [facility] WITHN REACH
== END 2022-11-23 18:19 | disposition home or self-care (01) ==
PROVIDERS: Physician Assistant; Emergency Provider Emergency Medicine; PCP Physician Assistant
DX: N28.89 Other specified disorders of kidney and ureter (principal); N20.0 Calculus of kidney; R31.9 Hematuria, unspecified; R63.4 Abnormal weight loss; Z68.26 Body mass index [BMI] 26.0-26.9, adult; Z87.891 Personal history of nicotine dependence
CPT/HCPCS: 36415; 74176; 74177; 80048; 81001; 81025; 85025; 87086; 88112; 96361; 96374; 99284; J3010; Q9967

== ENCOUNTER 2022-12-01 09:19 | Outpatient (AMB) | payer OTHER, SELFPAY ==
--- NOTE | 2022-12-01 08:16 | A.OFFVIS_ITS ---
Intake Intake Visit Reasons: ER f/u Hematuria Kidney mass Kidney stone Intake Note: * NEW Patient presents today to established treatment for Hematuria, Kidney Mass & Kidney Stone. * Meds- None * Allergies to Antibiotic- None * Blood Thinner- None Raiser Helper Required: No Accompanied by: Sister Allergies bupropion [From Wellbutrin] Allergy (Unknown, Verified 12/01/22 09:51) Rash oxycodone [Percocet] Allergy (Unknown, Verified 12/01/22 09:51) swollen, red spots From PERCOCET Allergy (Intermediate, Uncoded 12/01/22 09:51) HIVES A MED FOR DEPRESSION Allergy (Unknown, Uncoded 12/01/22 09:51) ITCHING Medication List - Last Reconciled 12/01/22 by Lorena Hall MD acetaminophen (Aphen) 650 mg (2 x 325 mg) PO Q6H PRN Advair Diskus 100-50 mcg/dose (fluticasone propion-salmeterol) 1 inh inhalation Q12H 30 days NS albuterol sulfate 2.5 mg (3 mL) inhalation Q6H PRN 30 days cetirizine 10 mg PO DAILY PRN hydromorphone (Dilaudid) 2 mg PO Q8-12H montelukast (Singulair) 10 mg PO DAILY 30 days phenazopyridine (Pyridium) 200 mg PO BID HPI HPI Comments History of Present Illness0 Details Moraima is a 42-year-old female who presents to the office for ER follow-up of hematuria, kidney mass and kidney stone. 12/01/22-- The patient visited the ER on 11/23/22 for complaints of gross hematuria. She also stated that she had some weight loss over the last 2 years about 40 pounds. She had CAT scan done initially without contrast then followed by contrast. The patient mentions having episodes of gross hematuria even after her ER visit. Mentions discomfort in the bladder area. States having swelling in lower extremities and hands. CAT scan results reviewed--11/23/22--soft tissue filling defect in the right renal upper pole collecting system extending into the renal pelvis. Abnormal soft tissue thickening at the renal pelvis and circumferentially in the proximal right ureter. 3 mm right lower pole stone. Evaluation today UA: Blood: 3+, leukocytes: 2+. Under microscopic exam of the urine-- no bacteria visualized. Renal function test results reviewed-- BUN--11/23/22--12, creatinine-0.81. Urine cytology--11/23/22-- Negative for malignant cells. urine culture--collected 11/23/22-- no growth. Plan: Cystoscopy, right ureteroscopy retrograde biopsy and possible stent discussed to be scheduled. Consent for the procedure was obtained. Pyridium 200 mg BID was ordered. Discussed to take Tylenol PRN. Dilaudid 2 mg 6 tablets were ordered. REPLACED BY [facility] Medical History Asthma Hemorrhoids with complication Surgical History History of hemorrhoidectomy History of surgery Family History Mother No problems noted. Father Diabetes High blood pressure CVA (cerebral vascular accident), Onset Age: 59 Brother Brain tumor Social History Housing: Apartment Alcohol intake: current Alcohol intake frequency: holidays/special occasions only Patient Tobacco Use Status: Former Tobacco user Quit Date: 2018 Tobacco use type: Cigarette Years Smoked: 8 e-Cigarette/Vaping Use: Never Used Second Hand Smoke Exposure: No service: No Current occupational status: unemployed Cognitive needs: No Hearing needs: No Vision needs: Yes Review of Systems Const All systems reviewed & are unremarkable except as noted in HPI and below Reports no additional complaints Eyes Reports no additional complaints ENT Reports no additional complaints Card Denies dyspnea Resp Denies cough and Denies dyspnea GI Reports no additional complaints Reports no additional complaints Musc Reports no additional complaints Skin/Breast Denies rash and Denies unusual bruising Neuro Reports no additional complaints Psych Reports no additional complaints Endo Reports no additional complaints Sunil/Lymph Reports no additional complaints Aller/Immun Reports no additional complaints Physical Exam Const General: cooperative, healthy appearing and no acute distress Orientation/consciousness: patient oriented x3 HEENT Head: Yes normal to inspection, Yes normocephalic and Yes atraumatic Eyes Conjunctivae: conjunctivae normal Neck Neck: Yes normal visual inspection and Yes trachea midline Chest Chest palpation & inspection: normal inspection of the chest Resp Effort & Inspection: normal respiratory effort Cardio Rate: regular rate GI Inspection: Yes normal to inspection Palpation (GI): Soft to palpation Skin General skin exam: no rashes or lesions noted Neuro General: patient oriented x3 Extrem Right upper extremity: full ROM Left upper extremity: full ROM Psych Appearance: grossly normal Results AMB Urinalysis, Automated UA Leukoctes 125 Ping/uL Last Edit by JOSEPHINE Torres on 12/01/22 09:55 2+ Brenda Parada 12/01/22 09:55 UA Nitrite Negative Last Edit by JOSEPHINE Torres on 12/01/22 09:55 UA Urobilinogen 0.2 mg/dL Last Edit by JOSEPHINE Torres on 12/01/22 09:5 5 UA Protein 30 mg/dL Last Edit by JOSEPHINE Torres on 12/01/22 09:55 1+ Brenda Parada 12/01/22 09:55 UA pH 7.0 Last Edit by JOSEPHINE Torres on 12/01/22 09:55 UA Blood 200 Buck/uL Last Edit by JOSEPHINE Torres on 12/01/22 09:55 3+ Brenda Parada 12/01/22 09:55 UA Specific [place] 1.005 Last Edit by JOSEPHINE Torres on 12/01/22 09: 55 UA Ketone Negative Last Edit by JOSEPHINE Torres on 12/01/22 09:55 UA Bilirubin 0 mg/dL Last Edit by JOSEPHINE Torres on 12/01/22 09:55 UA Glucose 0 mg/dL Last Edit by JOSEPHINE Torres on 12/01/22 09:55 Results Reviewed Results Reviewed: Laboratory Last Values Urine pH (Auto) 7.0 12/01/22 09:42 Specific [place] (Auto) 1.005 12/01/22 09:42 Urine Protein (Auto) 30 mg/dL 12/01/22 09:42 Glucose (UA)(Auto) 0 mg/dL 12/01/22 09:42 Urine Ketones (Auto) Negative 12/01/22 09:42 Urine Blood (Auto) 200 Buck/uL 12/01/22 09:42 Urine Nitrite (Auto) Negative 12/01/22 09:42 Urine Bilirubin (Auto) 0 mg/dL 12/01/22 09:42 Urine Urobilinogen (Auto) 0.2 mg/dL 12/01/22 09:42 Leukocyte Esterase (Auto) 125 Ping/uL 12/01/22 09:42 Date of Service: 11/23/22 EXAMINATION: CT ABDOMEN AND PELVIS WITH CONTRAST CLINICAL INFORMATION: Question cancer. Hematuria. COMPARISON: None available. TECHNIQUE: Multidetector volumetric images were obtained from the superior aspect of the liver through the pubic symphysis following administration 85 mL of Omnipaque 350 intravenous contrast. 10 minute delay acquisition performed. Sagittal and coronal reformatted images were obtained on the technologist's workstation. Oral contrast: No This CT examination was performed using dose optimization techniques as appropriate, variously including the following: *Automated exposure control *Adjustment of mA and/or kV according to patient size (this includes techniques or standardized protocols for targeted exams where dose is matched to indication/reason for exam; i.e. extremities or head) *Use of iterative reconstruction technique DLP: 760 mGy-cm FINDINGS: LUNG BASES: The visualized lung bases are unremarkable. LIVER, GALLBLADDER, AND BILIARY TREE: The liver is normal in size, shape, and attenuation. No focal hepatic lesion or biliary ductal dilatation is present. The gallbladder is unremarkable with no evidence of radiopaque gallstones, gallbladder wall thickening, or obvious pericholecystic inflammatory changes. PANCREAS: Unremarkable. SPLEEN: Unremarkable. ADRENAL GLANDS: Unremarkable. KIDNEYS AND URETERS: The kidneys are normal in size, shape, and attenuation. Abnormal right kidney with soft tissue filling defect in the right renal upper pole collecting system extending into the renal pelvis. Abnormal soft tissue thickening at the renal pelvis and circumferentially in the proximal right ureter. There is normal excretion from both kidneys. The right ureter is not fully opacified throughout its course. Cannot exclude a distal process, but there is no significant ureteral dilatation to suggest obstruction. There is an additional 0.3 cm right lower pole renal calculus which is 6 cm from the posterior axillary line. BLADDER: Normally distended without wall thickening. GASTROINTESTINAL TRACT: The stomach is unremarkable. Normal caliber small bowel. No obstruction. No colonic wall thickening or inflammation. Normal appendix. No free air. Trace pelvic free fluid. ABDOMINAL WALL: Small fat-containing umbilical hernia. LYMPH NODES: Normal. VASCULAR: Unremarkable. PELVIC VISCERA: The uterus and adnexa are unremarkable. OSSEOUS STRUCTURES: No acute or suspicious osseous abnormality. Bilateral L5 pars defects. IMPRESSION: 1. Abnormal appearance of the right kidney with soft tissue filling defect in the right renal upper pole collecting system extending into the renal pelvis. This is concerning for neoplasm. There is also abnormal soft tissue thickening at the proximal right ureter suggestive of extension of the neoplasm. 2. Normal excretion from both kidneys. The right ureter is not fully opacified throughout its course. Cannot exclude a distal process, but there is no significant ureteral dilatation to suggest obstruction. 3. Nonobstructing 0.3 cm right lower pole renal calculus. 4. No lymphadenopathy. Date of Service: 11/23/22 EXAMINATION: CT ABDOMEN AND PELVIS WITHOUT CONTRAST CLINICAL INFORMATION: Flank pain COMPARISON: CT abdomen pelvis 01/26/2018 TECHNIQUE: Multidetector volumetric imaging was performed from the superior aspect of the liver through the pubic symphysis. Sagittal and coronal reformatted images were obtained on the technologist's workstation. This CT examination was performed using dose optimization techniques as appropriate, variously including the following: *Automated exposure control *Adjustment of mA and/or kV according to patient size (this includes techniques or standardized protocols for targeted exams where dose is matched to indication/reason for exam; i.e. extremities or head) *Use of iterative reconstruction technique DLP: 380 mGy-cm FINDINGS: LUNG BASES: The visualized lung bases are unremarkable. LIVER, GALLBLADDER, AND BILIARY TREE: The liver is normal in size, shape, and attenuation. No focal hepatic lesion or biliary ductal dilatation is present. The gallbladder is unremarkable with no evidence of radiopaque gallstones, gallbladder wall thickening, or obvious pericholecystic inflammatory changes. PANCREAS: Unremarkable. SPLEEN: Unremarkable. ADRENAL GLANDS: Unremarkable. KIDNEYS AND URETERS: Right: The right kidney is grossly abnormal. There is hyperdensity seen within the proximal right ureter extending up to the ureterovesical junction with a crescentic soft tissue density extending into the renal pelvis with associated intrarenal collecting system dilatation. The entire upper pole right renal collecting system appears to be filled with high density material/mass. There are 2 nonobstructing calculi present in the lower pole of the right kidney measuring about 3 mm in size each. Left: The left kidney is unremarkable aside from the presence of a punctate 1 mm lower pole nonobstructing calculus. The left ureter is normal. BLADDER: Unremarkable. GASTROINTESTINAL TRACT: The small and large bowel are unremarkable. The appendix is unremarkable. ABDOMINAL WALL: Small periumbilical hernia seen containing only fat LYMPH NODES: Normal. VASCULAR: Unremarkable. PELVIC VISCERA: The uterus and adnexa are unremarkable. Small amount of free fluid is present in the cul-de-sac. OSSEOUS STRUCTURES: Unremarkable. IMPRESSION: 1. Grossly abnormal right kidney with high density material filling the upper pole collecting system with associated hydronephrosis. Differential diagnosis would include blood clot with associated malignancy such as transitional cell carcinoma. CT urography and urologic consultation is recommended. 2. Bilateral nonobstructing renal calculi. 3. Other incidental findings as described above. _ Collected: 11/23/22 Received: 11/24/22 Diagnosis Urine:? Negative for high-grade urothelial carcinoma.? See comment. COMMENT: Cellular specimen consisting of single urothelial cells, some moderately enlarged with high nuclear density and viral changes (open, clear chromatin); the background has squamous cells, rare red blood cells and mixed inflammatory cells. Clinical History Blood in urine, lower back pain Material Received Urine Gross Description 7 cc clear pale yellow fluid Collected: 11/23/22 Received: 11/23/22 Ordered: Urine Culture Procedure Result Verified Site Urine Culture Final 11/24/22-1325 No growth. Assessment & Plan Assessment & Plan (1) Gross hematuria: Code(s): R31.0 - Gross hematuria (2) Right kidney mass: Code(s): N28.89 - Other specified disorders of kidney and ureter Plan Cystoscopy, right ureteroscopy retrograde biopsy and possible stent discussed to be scheduled. Consent for the procedure was obtained. Pyridium 200 mg BID was ordered. Discussed to take Tylenol PRN. Dilaudid 2 mg 6 tablets were ordered. Orders: Orders AMB Urinalysis Automated Today Z13.9 - Encounter for screening, unspecified Medications: New phenazopyridine (Pyridium) take with food 200 mg PO BID 40 tabs 0RF hydromorphone (Dilaudid) Partial Fill upon patient request. 2 mg PO Q8-12H 6 tabs 0RF Patient Instructions: The patient had an opportunity to ask questions regarding treatment plan. All questions were answered. Imaging, Laboratory studies and physical exam results were discussed and reviewed in detail. No major barriers to understanding were identified. The patient expressed understanding and agreement with the above treatment plan. The patient is aware they should contact our office by phone for worsening of their current condition or the appearance of new symptoms. Compliance is encouraged with any medications and followup testing that is ordered. It is a privilege to be allowed the opportunity to participate in the urologic care of your patient. If you have any questions or concerns regarding treatment for the above conditions please do not hesitate to contact me. The office telephone contact is [phone]. This note is constructed in part using voice recognition software. While every effort has been made to ensure accuracy flight manager errors may have been included. Yours sincerely, Lorena Hall MD Coding Level of Care Code New Pt Level 4 (38665) Diagnoses Gross hematuria R31.0 Right kidney mass N28.89
== END 2022-12-01 10:41 | disposition home or self-care (01) ==
PROVIDERS: PCP Physician Assistant; Visit Provider Urology
DX: R31.0 Gross hematuria (principal); N28.89 Other specified disorders of kidney and ureter
CPT/HCPCS: 99204

== ENCOUNTER → 2022-12-01 09:19 | Outpatient (BNVA) | payer OTHER, SELFPAY | PROVIDERS: PCP Physician Assistant; Visit Provider Urology | DX: R31.0 Gross hematuria (principal); N28.89 Other specified disorders of kidney and ureter | CPT/HCPCS: 99202 ==

== ENCOUNTER 2022-12-24 13:22 | Emergency (ER) | payer OTHER, SELFPAY ==
--- NOTE | ~2022-12-24 | CT_ITS ---
EXAMINATION: CT abdomen pelvis wo IV con CLINICAL INFORMATION: Reason for Exam back pain, hematuria, hx calculi COMPARISON: Prior CT from November 2022 TECHNIQUE: Multidetector volumetric imaging was performed from the superior aspect of the liver through the pubic symphysis , noncontrast CT Sagittal and coronal reformatted images were obtained on the technologist's workstation. This CT examination was performed using dose optimization techniques as appropriate, variously including the following: *Automated exposure control *Adjustment of mA and/or kV according to patient size (this includes techniques or standardized protocols for targeted exams where dose is matched to indication/reason for exam; i.e. extremities or head) *Use of iterative reconstruction technique DLP: 379 mGy-cm FINDINGS: LOWER THORAX: Included lung bases are clear. HEPATOBILIARY: No focal hepatic lesions. No biliary ductal dilatation. GALLBLADDER: Gallbladder unremarkable. SPLEEN: Spleen is normal in size. PANCREAS: No focal mass or ductal dilatation. STOMACH AND GASTROINTESTINAL TRACT: Stomach is grossly unremarkable. There is no bowel distention or thickening. No CT evidence of appendicitis. ADRENALS: No adrenal nodules. KIDNEYS/URETERS: Redemonstration of moderate to severe right renal hydronephrosis with a transition in the proximal right ureter, no stone found along the course of the right ureter to explain this hydronephrosis which could be due to stricture by crossing vessel, versus ureteric kink versus others. This has not changed from recent CT of 11/23/2022. There is thickening of the wall of the ureter proximally. There are nonobstructing stones in the right kidney lower calyx measure up to 4 mm. There is a tiny 2 mm nonobstructing stone lower calyx left kidney. Nephric fat are clear. URINARY BLADDER: Partially decompressed. PELVIC VISCERA: Unremarkable PERITONEUM: There is a small amount of free fluid in the dependent portion of the pelvis. LYMPH NODES: No lymphadenopathy. VASCULAR:Abdominal aorta normal in size, no aneurysm found. BONES, ABDOMINAL WALL AND SOFT TISSUES: Small periumbilical hernia containing fat only measure about [address]/CT abdomen pelvis wo IV con IMPRESSION: * Redemonstration of moderate to severe right renal hydronephrosis with a transition in the proximal right ureter, no stone found along the course of the right ureter to explain this hydronephrosis, this could be due to ureteric stricture by crossing vessel, versus ureteric kink versus, ureteric lesion, versus others. This has not changed from recent CT of 11/23/2022. If not already acquired, surgical Urology evaluation recommended. * Bilateral nonobstructing kidney stones. * Small periumbilical hernia containing fat only.
[2022-12-24 13:29] VITALS: BP 140/72; PULSE 74; RESP 18; TEMP 36.8; O2SAT 100; BMI 26.4
[2022-12-24 13:49] LABS: MANUAL DIFF FLAG NO
[2022-12-24 13:52] LABS: Basophils Absolute Auto 0.1 X10*3/uL (0.0-0.2); Basophils Percent Auto 0.7 % (0-2); Eosinophils Absolute Auto 0.2 X10*3/uL (0.0-0.4); Eosinophils Percent Auto 2.1 % (0-4); Hematocrit 39.3 % (37.0-47.0); Hemoglobin 12.8 g/dl (12.0-16.0); Imm Gran Abs Auto 0.01 X10*3/uL (0.00-0.03); Imm Gran Pct Auto 0.1 % (0.0-0.4); Lymphocytes Absolute Auto 3.4 X10*3/uL (1.2-4.9); Lymphocytes Percent Auto 44.4 % (20-40); Mean Corpuscular HGB Conc 32.6 g/dl (31.0-35.0); Mean Corpuscular Hemoglobin 30.5 pg (27.0-33.0); Mean Corpuscular Volume 93.8 fL (80.0-98.0); Mean Platelet Volume 11.7 fL (9.4-12.3); Monocytes Absolute Auto 0.6 X10*3/uL (0.1-1.2); Monocytes Percent Auto 7.3 % (2-11); Neutrophils Absolute Auto 3.5 x10*3/uL (2.0-8.3); Neutrophils Percent Auto 45.4 % (45-73); Platelet Count 201 X10*3/uL (160-400); Red Blood Count 4.19 X10*6/uL (4.20-5.50); Red Cell Distribution Width 12.2 % (11.0-16.0); White Blood Count 7.6 X10*3/uL (4.8-10.8)
[2022-12-24 14:02] LABS: Anion Gap 14 (12-20); Blood Urea Nitrogen 9 mg/dL (9-16); Calcium 9.5 mg/dL (8.4-10.2); Carbon Dioxide 24 mmol/L (22-29); Chloride 107 mmol/L (96-108); Creatinine Clr Calc Pharmacy 73.6; Estimated Glomerular Filt Rate > 60; Glucose Random 129 mg/dL (60-115); Potassium 4.3 mmol/L (3.3-5.1); Sodium 141 mmol/L (135-145)
[2022-12-24 14:07] LABS: Appearance Urine Cloudy; Color Urine RED; Glucose Urine UA Negative (Negative); Leukocyte Esterase Urine Moderate (2+) (Negative); Nitrite Urine Positive (Negative); PH 8.5 (5.0-9.0); UMIC TRIGGER UACC YES; Urine Blood Large (3+) (Negative); Urine Ketones Trace mg/dL (Negative); Urine Protein 300 (3+) mg/dL (Neg-Trace)
[2022-12-24 14:10] LABS: Urine Pregnancy NEGATIVE (NEGATIVE)
[2022-12-24 14:11] LABS: UPreg QC Valid YES
[2022-12-24 14:12] LABS: Bacteria Urine Trace (None Seen); RBC Urine >20 /HPF (0-2); UACC Culture Trigger YES; WBC Urine >50 /HPF (0-5)
--- NOTE | 2022-12-24 16:27 | PC.NURSE ---
Attempted to reasses patient, not currently in waiting room, will reattempt
[2022-12-24 17:42] VITALS: BP 114/75; PULSE 65; RESP 18; TEMP 36.6; O2SAT 97
[2022-12-24 19:31] LABS: Lactic Acid 0.7 mmol/L (0.5-2.0)
--- NOTE | 2022-12-24 19:41 | ED.ABDPAIN ---
HPI - Abdominal Pain General Chief Complaint: Abdominal Pain Stated Complaint: blood in urine Time Seen by Provider: 12/24/22 18:19 Source: patient and family Mode of arrival: ambulatory Limitations: no limitations History of Present Illness HPI narrative: 42yoF with new PMHx of hematuria, kidney mass and kidney stone that was found on her ER visit when she was seen here on 11/23/2022 who is presenting to the ER with complaints of hematuria in her urine since she was discharged from here with suprapubic abdominal discomfort and lower back pain that has been intermittent. She reports that she is being followed by Dr. Beth has follow up on Dec 27, 2022 for Cystoscopy, right ureteroscopy retrograde biopsy and possible stent discussed to be scheduled. she denies any fevers, nausea vomiting, chest pain or shortness of breath, abnormal vaginal discharge, diarrhea constipation or any other symptoms complaints or concerns at this time. MD elicited complaint: abdominal pain and other (hematuria) Pertinent past history: other (see above ) Onset (ago): day(s) Pain Consistency: constant Location: suprapubic Severity: moderate Quality: aching Radiation: back Exacerbating factors: other ( Urination) Relieving factors: nothing Associated symptoms: hematuria Related Data Home Medications Medication Instructions Recorded Confirmed cetirizine 10 mg tablet 10 mg PO DAILY PRN Allergy Symptoms 09/13/21 12/22/22 Previous Rx's Medication Instructions Recorded albuterol sulfate 2.5 mg/3 mL 2.5 mg (3 mL) inhalation Q6H PRN 05/19/20 (0.083 %) solution for nebulization shortness of breath or wheezing 30 days #360 mL Advair Diskus 100 mcg-50 mcg/dose 1 inh inhalation Q12H 30 days #60 09/02/22 powder for inhalation (fluticasone ea propion-salmeterol) montelukast 10 mg tablet 10 mg PO DAILY 30 days #30 tabs 09/02/22 (Singulair) acetaminophen 325 mg tablet (Aphen) 650 mg PO Q6H PRN pain #20 tabs 11/23/22 hydromorphone 2 mg tablet 2 mg PO Q8-12H #6 tabs 12/01/22 (Dilaudid) phenazopyridine 200 mg tablet 200 mg PO BID #40 tabs 12/01/22 (Pyridium) cefuroxime axetil 250 mg tablet 250 mg PO BID uti 7 days #14 tabs 12/24/22 hydromorphone 2 mg tablet 2 mg PO Q6H PRN pain #10 tabs 12/24/22 (Dilaudid) Allergies Allergy/AdvReac Type Severity Reaction Status Date / Time bupropion [From Wellbutrin] Allergy Intermediate Rash Verified 12/24/22 13:34 oxycodone [Percocet] Allergy Intermediate swollen, Verified 12/24/22 13:34 red spots Review of Systems Review of Systems Constitutional : No Fever, No Chills, No Night Sweats, No Fatigue, No Malaise Cardiovascular : No Chest Pain, No SOB Respiratory : No Cough, No Sputum, No Wheezing, No Dyspnea Gastrointestinal : No Nausea, No Vomiting, No Diarrhea, + abdominal Pain, No Hematochezia, No Melena Genitourinary : No irregular bleeding, No Dysuria, No Urinary Frequency, + Hematuria,No Urinary Incontinence, No Urgency, No Flank Pain Musculoskeletal : No joint pain, No Myalgias, No Joint Swelling Skin : No Skin Lesions, No rash Neuro : No Weakness, No Numbness, No Paresthesias, No Loss of Consciousness, No Dizziness, No Headache Heme/Lymph: No Lymphadenopathy Endocrine : No Temperature Intolerance Yes all other systems are reviewed and are negative PMFSH Past Medical History Attestation statement: The following information was validated with the patient. Source: old records reviewed, obtained from family and nursing notes reviewed Medical History (Updated 12/24/22 @ 19:52 by YANET Kothari) Anxiety Asthma Hemorrhoids with complication Surgical History (Updated 12/22/22 @ 13:38 by Moraima Anguiano RN) History of hemorrhoidectomy History of surgery Family History Family History Mother No problems noted. Father Diabetes High blood pressure CVA (cerebral vascular accident), Onset Age: 59 Brother Brain tumor Social History Social History Housing: Apartment Alcohol intake: current Alcohol intake frequency: holidays/special occasions only Patient Tobacco Use Status: Former Tobacco user Quit Date: 2018 Tobacco use type: Cigarette Years Smoked: 8 e-Cigarette/Vaping Use: Never Used Second Hand Smoke Exposure: No Advance Directives: No Advance Directives Information Provided: No service: No Current occupational status: unemployed Cognitive needs: No Hearing needs: No Vision needs: Yes Physical Exam ED Vital Signs: Vital Signs - 24 hr 12/24/22 13:29 12/24/22 17:42 Temperature 98.2 F 97.9 F Pulse Rate 74 65 Respiratory Rate 18 18 Blood Pressure 140/72 H 114/75 Pulse Oximetry 100 97 Oxygen Delivery Method Room Air Room Air BMI result Body Mass Index 26.4 Vital signs have been reviewed and all within normal limits Appearance: Alert. Oriented X3. No acute distress. Head: Normal external exam. Normocephalic. Eyes: PERRLA. EOMI. Conjunctiva and sclera normal. Eyelids normal. ENT: Pharynx normal. Uvula midline. Moist mucous membranes. No trismus noted. No drooling noted. No muffled voice noted. Neck: Normal inspection. Neck supple. FROM. No adenopathy. No meningeal signs. CVS: Normal heart rate and rhythm. Heart sound normal. No murmurs noted. Pulses normal throughout. Respiratory: No respiratory distress. Painless inspiration. Breath sounds normal. No wheezes/rales/rhonchi noted. Chest nontender. No accessory muscle usage noted or decreased air movement noted. Abdomen: Soft and mild tenderness to palpation suprapubic area. Nondistended. No guarding. No rigidity. Bowel sounds normal in all 4 quadrants. No distention noted. No organomegaly noted. No visible injury noted. No rebound tenderness. Negative Rovsing sign. Negative obturator's sign. Negative psoas sign. Negative Martell sign. Back: No CVA tenderness. Full range of motion noted. Skin: Skin warm and dry. Normal skin color. Normal skin turgor. No rashes/lesions/lacerations noted. Extremities: Extremities exhibit normal range of motion. Extremities nontender. Neuro: Oriented X 3. No motor deficit. No sensory deficit. Reflexes normal. Normal steady gait. CN's II-XII intact bilaterally? Course Course Course Narrative: 42yoF with new PMHx of hematuria, kidney mass and kidney stone that was found on her ER visit when she was seen here on 11/23/2022 who is presenting to the ER with complaints of hematuria in her urine since she was discharged from here with suprapubic abdominal discomfort and lower back pain that has been intermittent. She reports that she is being followed by Dr. Beth has follow up on Dec 27, 2022 for Cystoscopy, right ureteroscopy retrograde biopsy and possible stent discussed to be scheduled. Patient most likely UTI versus kidney stone versus her kidney mass. Abdominal exam without peritoneal signs. No evidence of acute abdomen at this time. Well appearing. Low suspicion for acute hepatobiliary disease (includng acute cholecystitis), acute infectious processes (pneumonia, hepatitis, pyelonephritis), vascular catastrophe, bowel obstruction or viscus perforation. Presentation not consistent with other acute, emergent causes of abdominal pain at this time. Labs were obtained and patient's random glucose 129 otherwise all other labs are within normal limits. UA revealed blood in her UA and positive nitrates therefore consistent with UTI patient negative for . CT scan revealed her chronic findings that was seen on her prior CT. Therefore I discussed this case with Dr. Ruvalcaba and he reported the patient can be discharged due to she has proper follow-up on December 27 and she is tolerating p.o. fluids / solids. Her workup is essentially negative. Patient is comfortable with this reports that she will just need some pain meds to go home with. Therefore at this time will DC home with Ceftin, the Dilaudid that she was prescribed by the urologist instructions to follow-up with urology on December 27 as scheduled and to return if any new or worsening symptoms. Patient with family at bedside understand agree this plan. Medical Decision Making Medical Decision Making [facility] Narrative: see course Differential Diagnosis Differential Diagnoses: The differential diagnosis associated with the presentation includes see course Admission/Observation Consideration of admission/observation: Escalation of care including admission/observation considered Consult Healthcare Provider Management of the patient was discussed with: Supervisor Cook Room I discussed this case with Dr. Ruvalcaba the urologist Lab Data [facility] Lab Attestation statement: I reviewed the patient's lab results. 12/24/22 13:43 12/24/22 13:43 Labs: Lab Results 12/24/22 12/24/22 12/24/22 Range/Units 13:43 13:43 13:57 WBC 7.6 (4.8-10.8) X10*3/uL RBC 4.19 L (4.20-5.50) X10*6/uL Hgb 12.8 (12.0-16.0) g/dl Hct 39.3 (37.0-47.0) % MCV 93.8 (80.0-98.0) fL MCH 30.5 (27.0-33.0) pg MCHC 32.6 (31.0-35.0) g/dl RDW 12.2 (11.0-16.0) % Plt Count 201 (160-400) X10*3/uL MPV 11.7 (9.4-12.3) fL Immature Gran % (Auto) 0.1 (0.0-0.4) % Neut % (Auto) 45.4 (45-73) % Lymph % (Auto) 44.4 H (20-40) % [place] % (Auto) 7.3 (2-11) % Eos % (Auto) 2.1 (0-4) % Baso % (Auto) 0.7 (0-2) % Lymph # (Auto) 3.4 (1.2-4.9) X10*3/uL [place] # (Auto) 0.6 (0.1-1.2) X10*3/uL Eos # (Auto) 0.2 (0.0-0.4) X10*3/uL Baso # (Auto) 0.1 (0.0-0.2) X10*3/uL Abs Immat Gran (auto) 0.01 (0.00-0.03) X10*3/uL Absolute Neuts (auto) 3.5 (2.0-8.3) x10*3/uL Absolute Nucleated RBC 0.000 (0.0-0.012) X10*3/uL Nucleated RBC % (auto) 0.0 (0.0-0.2) /100WBC Sodium 141 (135-145) mmol/L Potassium 4.3 (3.3-5.1) mmol/L Chloride 107 (96-108) mmol/L Carbon Dioxide 24 (22-29) mmol/L Anion Gap 14 (12-20) BUN 9 (9-16) mg/dL Creatinine 0.83 (0.5-1.4) mg/dL Estim Creat Clear Calc 73.6 Estimated GFR > 60 Random Glucose 129 H (60-115) mg/dL Lactic Acid (0.5-2.0) mmol/L Calcium 9.5 D (8.4-10.2) mg/dL Urine Color RED Urine Appearance Cloudy Urine pH 8.5 (5.0-9.0) Ur Specific [place] 1.010 (1.005-1.025) Urine Protein 300 (3+) H (Neg-Trace) mg/dL Urine Glucose (UA) Negative (Negative) mg/dL Urine Ketones Trace (Negative) mg/dL Urine Blood Large (3+) H (Negative) Urine Nitrite Positive H (Negative) Ur Leukocyte Esterase Moderate (2+) H (Negative) Urine RBC >20 H (0-2) /HPF Urine WBC >50 H (0-5) /HPF Ur Squamous Epith Cells 6-10 (0-2) /HPF Urine Bacteria Trace (None Seen) Hyaline Casts 3-5 (0-2) /LPF Urine Test (NEGATIVE) 12/24/22 12/24/22 Range/Units 13:57 19:15 WBC (4.8-10.8) X10*3/uL RBC (4.20-5.50) X10*6/uL Hgb (12.0-16.0) g/dl Hct (37.0-47.0) % MCV (80.0-98.0) fL MCH (27.0-33.0) pg MCHC (31.0-35.0) g/dl RDW (11.0-16.0) % Plt Count (160-400) X10*3/uL MPV (9.4-12.3) fL Immature Gran % (Auto) (0.0-0.4) % Neut % (Auto) (45-73) % Lymph % (Auto) (20-40) % [place] % (Auto) (2-11) % Eos % (Auto) (0-4) % Baso % (Auto) (0-2) % Lymph # (Auto) (1.2-4.9) X10*3/uL [place] # (Auto) (0.1-1.2) X10*3/uL Eos # (Auto) (0.0-0.4) X10*3/uL Baso # (Auto) (0.0-0.2) X10*3/uL Abs Immat Gran (auto) (0.00-0.03) X10*3/uL Absolute Neuts (auto) (2.0-8.3) x10*3/uL Absolute Nucleated RBC (0.0-0.012) X10*3/uL Nucleated RBC % (auto) (0.0-0.2) /100WBC Sodium (135-145) mmol/L Potassium (3.3-5.1) mmol/L Chloride (96-108) mmol/L Carbon Dioxide (22-29) mmol/L Anion Gap (12-20) BUN (9-16) mg/dL Creatinine (0.5-1.4) mg/dL Estim Creat Clear Calc Estimated GFR Random Glucose (60-115) mg/dL Lactic Acid 0.7 (0.5-2.0) mmol/L Calcium (8.4-10.2) mg/dL Urine Color Urine Appearance Urine pH (5.0-9.0) Ur Specific [place] (1.005-1.025) Urine Protein (Neg-Trace) mg/dL Urine Glucose (UA) (Negative) mg/dL Urine Ketones (Negative) mg/dL Urine Blood (Negative) Urine Nitrite (Negative) Ur Leukocyte Esterase (Negative) Urine RBC (0-2) /HPF Urine WBC (0-5) /HPF Ur Squamous Epith Cells (0-2) /HPF Urine Bacteria (None Seen) Hyaline Casts (0-2) /LPF Urine Test NEGATIVE (NEGATIVE) UA positive for nitrates therefore positive for UTI otherwise all other labs are within normal limits/baseline Independent Interpretation I performed an independent interpretation of an: CT Scan Interpretation: CT scan abdomen pelvis without IV contrast reviewed by myself this is my independent interpretation agreeable with radiology reports no acute findings the same changes that were seen on CT scan on 11/23/2022 Radiology Impression Discussion of test interpretation with radiology: I have reviewed the radiologist's reading. Radiologist Impression: Ordering Physician: Joseline Mares CNP Date of Service: 12/24/22 Procedure(s): CT abdomen pelvis wo IV con Accession Number(s): [id number] cc: Joseline Mares CNP~ EXAMINATION: CT abdomen pelvis wo IV con CLINICAL INFORMATION: Reason for Exam back pain, hematuria, hx calculi COMPARISON: Prior CT from November 2022 TECHNIQUE: Multidetector volumetric imaging was performed from the superior aspect of the liver through the pubic symphysis , noncontrast CT? Sagittal and coronal reformatted images were obtained on the technologist's workstation. ? This CT examination was performed using dose optimization techniques as appropriate, variously including the following: *Automated exposure control *Adjustment of mA and/or kV according to patient size (this includes techniques or standardized protocols for targeted exams where dose is matched to indication/reason for exam; i.e. extremities or head) *Use of iterative reconstruction technique DLP: 379 mGy-cm FINDINGS: LOWER THORAX: Included lung bases are clear. HEPATOBILIARY: No focal hepatic lesions. No biliary ductal dilatation. GALLBLADDER: Gallbladder unremarkable. SPLEEN: Spleen is normal in size. PANCREAS: No focal mass or ductal dilatation. STOMACH AND GASTROINTESTINAL TRACT: Stomach is grossly unremarkable. There is no bowel distention or thickening. No CT evidence of appendicitis. ADRENALS: No adrenal nodules. KIDNEYS/URETERS: Redemonstration of moderate to severe right renal hydronephrosis with a transition in the proximal right ureter, no stone found along the course of the right ureter to explain this hydronephrosis which could be due to stricture by crossing vessel, versus ureteric kink versus others. This has not changed from recent CT of 11/23/2022. There is thickening of the wall of the ureter proximally. There are nonobstructing stones in the right kidney lower calyx measure up to 4 mm. There is a tiny 2 mm nonobstructing stone lower calyx left kidney. Nephric fat are clear. URINARY BLADDER: Partially decompressed. PELVIC VISCERA: Unremarkable PERITONEUM: There is a small amount of free fluid in the dependent portion of the pelvis. LYMPH NODES: No lymphadenopathy. VASCULAR:Abdominal aorta normal in size, no aneurysm found. BONES, ABDOMINAL WALL AND SOFT TISSUES: Small periumbilical hernia containing fat only measure about [address]/CT abdomen pelvis wo IV con IMPRESSION: ? *? Redemonstration of moderate to severe right renal hydronephrosis with a transition in the proximal right ureter, no stone found along the course of the right ureter to explain this hydronephrosis, this could be due to ureteric stricture by crossing vessel, versus ureteric kink versus, ureteric lesion, versus others. This has not changed from recent CT of 11/23/2022. If not already acquired, surgical Urology evaluation recommended. ? *? Bilateral nonobstructing kidney stones. ? *? Small periumbilical hernia containing fat only. Independent Historian Clinical information obtained from an independent historian. History obtained from or confirmed by: Friend External Record Review External record reviewed: Inpatient record, Office record, Outpatient record, Prior outpatient labs, Prior outpatient radiology, Primary care record and Outside ED record all prior labs/imaging /EKG and notes that are accessible in our system you had by myself including patient's last visit here on 11/23/2022 and imaging along with urology notes when she was seen by Dr. Beth Prescription Management I considered prescription management with: Pain Medication and Antibiotic Chronic Conditions Patient?s care impacted by: Other ( kidney stone versus mass causing right renal hydronephrosis) Social Determinants Patient?s care significantly limited by Social Determinants of Health including: Low income and Other Social Determinant of Health Critical Care Time Critical Care Time Critical Care Time: Yes Total Critical Care Time: 60 Attestation: I personally attest to this time spent taking care of the patient Discharge Plan Discharge Clinical Impression: UTI (urinary tract infection), Hydronephrosis, Abnormal abdominal CT scan Patient Disposition: Home, Self-Care Instructions: Urinary Tract Infection in Women (DC), Hydronephrosis (ED) Prescriptions: New cefuroxime axetil 250 mg tablet 250 mg PO BID 7 Days Qty: 14 0RF hydromorphone [Dilaudid] 2 mg tablet 2 mg PO Q6H PRN (Reason: pain) Qty: 10 0RF Rx Instructions: Partial Fill upon patient request. No Action fluticasone propion-salmeterol [Advair Diskus] 100-50 mcg/dose blister with device 1 inh inhalation Q12H 30 Days Qty: 60 1RF montelukast [Singulair] 10 mg tablet 10 mg PO DAILY 30 Days Qty: 30 1RF acetaminophen [Aphen] 325 mg tablet 650 mg PO Q6H PRN (Reason: pain) Qty: 20 0RF albuterol sulfate 2.5 mg /3 mL (0.083 %) solution for nebulization 2.5 mg inhalation Q6H PRN (Reason: shortness of breath or wheezing) 30 Days Qty: 360 1RF cetirizine 10 mg tablet 10 mg PO DAILY PRN (Reason: Allergy Symptoms) phenazopyridine [Pyridium] 200 mg tablet 200 mg PO BID Qty: 40 0RF Rx Instructions: take with food hydromorphone [Dilaudid] 2 mg tablet 2 mg PO Q8-12H Qty: 6 0RF Rx Instructions: Partial Fill upon patient request. Referrals: Hansel Orozco PA-C [Primary Care Provider] - 1 day Basia Beth MD [Physician] - 12/27/22 Print Language: Turkmen
[2022-12-24 19:56] VITALS: BP 112/70; PULSE 58; RESP 17; O2SAT 100
[2022-12-24] MEDS: HYDROmorphone HCl 2 MG TABLET PO (20:12)
[2022-12-24] MEDS: cefTRIAXone sodium 1 GM in 0.9 % Sodium Chloride 50 ML IV (20:12)
== END 2022-12-24 20:51 | disposition home or self-care (01) ==
PROVIDERS: Physician Assistant Medical; Emergency Provider Emergency Medicine; PCP Physician Assistant
DX: N39.0 Urinary tract infection, site not specified (principal); N13.30 Unspecified hydronephrosis; R93.5 Abnormal findings on diagnostic imaging of other abdominal regions, including retroperitoneum; Z87.891 Personal history of nicotine dependence
CPT/HCPCS: 36415; 74176; 80048; 81001; 81025; 83605; 85025; 87040; 87086; 96365; 99284; J0696

== ENCOUNTER 2022-12-27 06:35 | Day surgery (SDC) | payer OTHER, SELFPAY ==
[2022-12-22 13:39] VITALS: BMI 26.4
--- NOTE | 2022-12-26 09:40 | HO.ANESPROP2 ---
HPI - Anesthesia Eval Consult details Narrative: 42yo F for Bilateral Cystoscopy Retrograde Pyelogram, Right Cystoscopy Ureteroscopy poss stent, poss bladder biopsy,Renal pelvis Biopsy PMFSH Active Problems Active Problems: All Active Problems (Updated 12/25/22 @ 00:23 by Background Daemon) Asthma (Acute) Screening for diabetes mellitus (DM) (Acute) Screening for hypothyroidism (Acute) Swelling of hand (Acute) SUJEY (generalized anxiety disorder) (Acute) Annual physical exam (Acute) External hemorrhoid (Acute) Screening for hypercholesterolemia (Acute) Gross hematuria (Acute) Right kidney mass (Acute) Hemorrhoids with complication (Acute) Past Medical History Medical History (Updated 12/25/22 @ 00:23 by Background Daemon) Anxiety Asthma Hemorrhoids with complication Family History Family History Mother No problems noted. Father Diabetes High blood pressure CVA (cerebral vascular accident), Onset Age: 59 Brother Brain tumor Family history of problems with anesthesia: No Surgical History Surgical History (Updated 12/22/22 @ 13:38 by Moraima Anguiano RN) History of hemorrhoidectomy History of surgery History of Problems with Anesthesia: No Social History Social History Housing: Apartment Alcohol intake: current Alcohol intake frequency: holidays/special occasions only Patient Tobacco Use Status: Former Tobacco user Quit Date: 2018 Tobacco use type: Cigarette Years Smoked: 8 e-Cigarette/Vaping Use: Never Used Second Hand Smoke Exposure: No Advance Directives: No Advance Directives Information Provided: No service: No Current occupational status: unemployed Cognitive needs: No Hearing needs: No Vision needs: Yes Meds Allergies Allergy/AdvReac Type Severity Reaction Status Date / Time bupropion [From Wellbutrin] Allergy Intermediate Rash Verified 12/24/22 13:34 oxycodone [Percocet] Allergy Intermediate swollen, Verified 12/24/22 13:34 red spots Home Medications Medication Instructions Recorded Confirmed Last Taken Type cetirizine 10 mg tablet 10 mg PO DAILY PRN Allergy Symptoms 09/13/21 12/22/22 Unknown History Exam Exam Date and Time: December 26, 2022 0940 Height,Weight and Vital Signs: Height 5 ft Weight 61.235 kg Pertinent Lab Results Pertinent Lab Results: Laboratory Tests 12/24/22 12/24/22 13:43 13:43 WBC 7.6 Hgb 12.8 Hct 39.3 Plt Count 201 Sodium 141 Potassium 4.3 Chloride 107 Carbon Dioxide 24 BUN 9 Creatinine 0.83 Assessment and Plan Assessment Anesthesia Assessment: Chart Reviewed Final Anesthetic Review Family History of Problems with Anesthesia: No History of Problems with Anesthesia: No
[2022-12-27] VITALS (8 sets, daily range): BP systolic 116–125; BP diastolic 44–97; PULSE 54–76; RESP 16–18; TEMP 36.7–37.1; O2SAT 97–100; BMI 26.0
--- NOTE | ~2022-12-27 | FL_ITS ---
EXAMINATION: XR FLUOROSCOPY WITH IMAGES CLINICAL INFORMATION: Retrograde pyelogram, bilateral. COMPARISON: CT abdomen and pelvis 12/24/2022. TECHNIQUE: Fluoroscopy Supervised By: Dr. Lorena Hall. Fluoroscopy Time: 79.0 seconds. Cumulative Dose: 16.62 mGy. DAP: None available. Images: 8. FINDINGS: Fluoroscopy guidance was provided during bilateral retrograde pyelogram. There is contrast opacifying bilateral kidney pelvises and ureters. There is a large filling defect in right kidney pelvis and proximal ureter probably likely from multiple radiolucent stones or underlying lesion. On CT, the right kidney is enlarged with hydronephrosis and kidney stones. The left kidney pelvis and ureter are well opacified and appear unremarkable. FL/FL guidance in OR IMPRESSION: There are multiple filling defects in the right kidney pelvis and the proximal ureter. Unremarkable left kidney pyelogram and entire ureter.
[2022-12-27 07:32] LABS: UPreg QC Valid YES; Urine Pregnancy NEGATIVE (NEGATIVE)
[2022-12-27] MEDS: Lactated Ringers 1,000 ML 100 ML IVCONT (07:48)
--- NOTE | 2022-12-27 07:58 | HO.ANESPROP2 ---
COUNT INCLUDES THE [facility] Active Problems Active Problems: All Active Problems (Updated 12/25/22 @ 00:23 by Background Daemon) Asthma (Acute) Screening for diabetes mellitus (DM) (Acute) Screening for hypothyroidism (Acute) Swelling of hand (Acute) SUJEY (generalized anxiety disorder) (Acute) Annual physical exam (Acute) External hemorrhoid (Acute) Screening for hypercholesterolemia (Acute) Gross hematuria (Acute) Right kidney mass (Acute) Hemorrhoids with complication (Acute) Past Medical History Medical History (Updated 12/25/22 @ 00:23 by Background Daemon) Anxiety Asthma Hemorrhoids with complication Family History Family History Mother No problems noted. Father Diabetes High blood pressure CVA (cerebral vascular accident), Onset Age: 59 Brother Brain tumor Family history of problems with anesthesia: No Surgical History Surgical History (Updated 12/22/22 @ 13:38 by Moraima Anguiano RN) History of hemorrhoidectomy History of surgery History of Problems with Anesthesia: No Social History Social History Housing: Apartment Alcohol intake: current Alcohol intake frequency: holidays/special occasions only Patient Tobacco Use Status: Former Tobacco user Quit Date: 2021 Tobacco use type: Cigarette Years Smoked: 8 e-Cigarette/Vaping Use: Never Used Second Hand Smoke Exposure: No Use of substances other than those prescribed or required for medical reasons: No Are you DNR?: No Advance Directives: No Advance Directives Information Provided: Yes service: No Current occupational status: unemployed Cognitive needs: No Hearing needs: No Vision needs: Yes Meds Allergies Allergy/AdvReac Type Severity Reaction Status Date / Time bupropion [From Wellbutrin] Allergy Intermediate Rash Verified 12/24/22 13:34 oxycodone [Percocet] Allergy Intermediate swollen, Verified 12/24/22 13:34 red spots Active Medications: Current Medications Albuterol Sulfate (Albuterol Sulfate (0.083%) 2.5 Mg/3 Ml Vial.Neb) 2.5 mg INHALE ONCE PRN PRN Reason: Shortness of Breath/Wheezing Fentanyl (Fentanyl Citrate/Pf 100 Mcg/2 Ml Vial) 25 mcg IVPUSH Q5M PRN; Protocol PRN Reason: Pain, Moderate(Pain Scale 4-6) Lactated Ringer's (Lr) 1,000 mls @ 100 mls/hr IVCONT .Q10H GWENDOLYN Last Admin: 12/27/22 07:48 Dose: 100 mls/hr Ondansetron HCl (Ondansetron Hcl 4 Mg/2 Ml Vial) 4 mg IVPUSH ONCE PRN PRN Reason: Nausea and Vomiting Oxycodone HCl (Oxycodone Hcl Immed Release 5 Mg Tablet) 5 mg PO ONCE PRN PRN Reason: Pain, Severe (Pain Scale 7-10) Home Medications Medication Instructions Recorded Confirmed Last Taken Type cetirizine 10 mg tablet 10 mg PO DAILY PRN Allergy Symptoms 09/13/21 12/22/22 Unknown History Exam Exam Date and Time: December 27, 2022 0758 Height,Weight and Vital Signs: Height 5 ft Weight 60.328 kg Last Vital Signs Temp 98.0 F 12/27/22 07:45 Pulse 60 12/27/22 07:45 Resp 18 12/27/22 07:45 BP 117/68 12/27/22 07:45 Pulse Ox 97 12/27/22 07:45 O2 Del Method Room Air 12/27/22 07:45 Pertinent Lab Results Pertinent Lab Results: Laboratory Tests 12/27/22 07:05 Urine Test NEGATIVE Airway Mallampati Class: I Neck ROM: Full Loose/Missing/Broken Teeth: No Heart: rrr Lungs: clear Assessment and Plan Final Anesthetic Review Family History of Problems with Anesthesia: No History of Problems with Anesthesia: No NPO: Yes ASA Class: II Final Preanesthetic Review: No Changes in Pt Med Stat, Meds/Allgs Chart Reviewed, Consent Obtained/Reviewed and Anes Risks/Benef Reviewed Patient Risk: Intermediate Procedure Risk: Low Anesthetic Plan Anesthetic Plan: GA Disposition: Standard PACU
--- NOTE | 2022-12-27 08:52 | MHC.SHP ---
Pre-Procedural Eval Section A Date of Service: 12/27/22 The History & Physical has been completed within 30 days and I have reviewed it.: Yes Section B Chief Complaint: Gross hematuria,Other specified disorders of kidne Allergies: Allergies Allergy/AdvReac Type Severity Reaction Status Date / Time bupropion [From Wellbutrin] Allergy Intermediate Rash Verified 12/24/22 13:34 oxycodone [Percocet] Allergy Intermediate swollen, Verified 12/24/22 13:34 red spots Plan Diagnosis/Plan: Unchanged I have reviewed the history and physical and performed a pertinent physical examination on my patient. No changes have occurred unless specified. Bilateral retrogrades, Right ureteroscopy, biopsy, cystoscopy possible bladder biopsy Time Spent With Patient Time: Total time managing care of this patient today ____ minutes.
[2022-12-27 10:56] LABS: Urine Cytology See Pathology rpt
--- NOTE | 2022-12-27 11:03 | P.OP_ITS ---
Operative Note Operative Note Date of Service: 12/27/22 Narrative: PreOperative Diagnosis:?? Right renal pelvis mass Gross hematuria Post Operative Diagnosis:?? SAME Procedure: - Cystoscopy, bilateral retrograde, right ureteroscopy biopsy renal pelvis mass. Stent insertion, 6 Cypriot by 24 cm , urine sent from bladder and right kidney separately for cytology Surgeon:?Dr Lorena Hall Anesthesia:? General Indications for procedure: Moraima is a 42-year-old female history of nicotine dependence evaluated for gross hematuria, CT scan urogram notes a right renal pelvic mass suspicious for transitional cell carcinoma. The patient was evaluated in the emergency room for persistent gross hematuria and abdominal pain blood work noted hemoglobin 12.8, hematocrit 39.3. Urine culture sent came back less than 10,000 colonies. Procedure: After informed consent was verified the patient was brought to the operating placed on the OR table in supine position.? General Anesthesia was administered per protocol.? The patient was placed in lithotomy position, prepped and draped in the usual sterile fashion.? Safety pause time-out and side of surgery confirmed.? Antibiotics confirmed. A 22 Cypriot cystoscope was inserted transurethrally, urine was sent for cytology. The bladder was visualized.? There are no suspicious bladder lesions visualized. Both ureteric orifices were in normal position. Clear efflux of urine was noted from the left ureteral orifice. Bloody urine noted from the right ureteral orifice. A left retrograde was done using the open-ended ureteral catheter and the left ureter and left renal pelvis and calices were within normal limits. A retrograde was done on the right side noting a large filling defect in the right renal pelvis. The right ureter was within normal limits. A guidewire was passed through the right ureteral catheter into the kidney. The ureteral catheter was passed up to the kidney over the guidewire, the guidewire was removed urine was drained from the kidney and sent for cytology. The guidewire was replaced. The ureteral catheter was removed. The balloon dilator size 12 fr by 4 cm was passed over the guide -wire the balloon was inflated to 10 mmHg and the intramural ureter was dilated for 60 seconds. The balloon was deflated and removed. After removing the balloon dilator a 2nd guidewire was then passed into the kidney to use as a safety. The cystoscope was removed, leaving both guidewires in place. One guidewire was used as the safety and was attached to the draping. The Access sheath size 12 fr x 26 cm was passed over one guidewire. The flexible ureteroscope was passed into the right kidney, the ureter was within normal limits, there large amount of papillary tumor noted, there was bleeding from the papillary tumor but I was unable to identify the exact location of the bleeding. The guidewire was removed. Using the 0 degree basket, this was passed through the ureteroscope, to try to obtain a biopsy, 3 attempts were made to get some tissue and this was sent to path in formalin. The ureteroscope was removed. The cystoscope was passed over the safety guidewire. A? 6 Cypriot by 24 cm stent was placed over the guidewire, into the ureter and renal pelvis under a combination of fluoroscopy and direct visualization. The guidewire was removed. The bladder was emptied.? The rigid cystoscope was removed. ? 2% lidocaine jelly 10 mL was passed transurethrally. The patient tolerated the procedure w ell and was brought to the recovery room in stable condition. Complications: None Drains: Ureteral stent as dictated above
[2022-12-27] MEDS: Acetaminophen 325 MG TABLET 650 MG PO (11:28)
[2022-12-27] MEDS: traMADoL HCL 50 MG TABLET PO (11:29)
[2022-12-27] MEDS: Phenazopyridine HCL 100 MG TABLET PO ×2 (11:31→11:34)
== END 2022-12-27 12:29 | disposition home or self-care (01) ==
PROVIDERS: Nurse Practitioner; PCP Physician Assistant; Visit Provider Urology
PROC: 0TJB8ZZ Inspection of Bladder, Via Natural or Artificial Opening Endoscopic (ICD-10-PCS; CPT 52005; principal; 2022-12-27 08:30)
PROC: 0TJ98ZZ Inspection of Ureter, Via Natural or Artificial Opening Endoscopic (ICD-10-PCS; CPT 52351; 2022-12-27 08:30)
DX: N28.89 Other specified disorders of kidney and ureter (principal); R31.0 Gross hematuria; N20.0 Calculus of kidney; R10.9 Unspecified abdominal pain; J45.909 Unspecified asthma, uncomplicated; Z79.51 Long term (current) use of inhaled steroids; Z79.899 Other long term (current) drug therapy; Z88.8 Allergy status to other drugs, medicaments and biological substances; Z87.891 Personal history of nicotine dependence
CPT/HCPCS: 52354; 52332; 81025; 88112; 88305; 88342; C1726; C1758; C1769; C1894; C2617; J0690; J1100; J2250; J2371; J2405; J3010; Q9967

== ENCOUNTER → 2022-12-27 06:35 | Outpatient (BNV) | payer OTHER, SELFPAY | PROVIDERS: PCP Physician Assistant; Visit Provider Urology | DX: R31.0 Gross hematuria (principal); N28.89 Other specified disorders of kidney and ureter | CPT/HCPCS: 52204 ==

== ENCOUNTER 2023-01-04 09:52 | Outpatient (AMB) | payer OTHER, SELFPAY ==
--- NOTE | 2023-01-04 03:45 | A.OFFVIS_ITS ---
Intake Intake Visit Reasons: 2wk/stent removal (per dr Beth) Intake Note: Patient presents today for a CYSTOSCOPY with Stent Removal Procedure: Meds: Pyridium Allergies to Antibiotic: No Known Allergies Blood Thinner: None Urinalysis test cleared for Cysto Disposible Uro-G Cystoscope Cannula: Lot: [id number] Exp: Window Shade Installer Required: No Accompanied by: Daughter Allergies bupropion [From Wellbutrin] Allergy (Intermediate, Verified 01/04/23 10:03) Rash oxycodone [Percocet] Allergy (Intermediate, Verified 01/04/23 10:03) swollen, red spots HPI HPI Comments History of Present Illness Details Moraima is a 42-year-old female who presents today to the office for a follow up, cystoscopy with stent removal procedure. 01/04/2023? She was last seen by me on 12/01/2022. She is a status post Cystoscopy with biopsy of the right renal mass. I discussed pathology results with the patient. The tissue specimen was not conclusive, but findings were suggestive of papillary urothelial neoplasm, gross visualization noted papillary mass which was consistent with urothelial cancer of the renal pelvis. Urine cytology sent form the kidney notes some atypical cells. She states that she has not heard from Dr. Galvan office. Referral has been sent to office for robotic assisted right nephrourteretcomy Cystoscopy right ureteral stent removed without difficulty today. Review of charts: Last visit: 12/01/2022? Moraima is a 42-year-old female who presents to the office for ER follow-up of hematuria, kidney mass and kidney stone. 12/01/22-- The patient visited the ER on 11/23/22 for complaints of gross hematuria. She also stated that she had some weight loss over the last 2 years about 40 pounds. She had CAT scan done initially without contrast then followed by contrast. The patient mentions having episodes of gross hematuria even after her ER visit. Mentions discomfort in the bladder area. States having swelling in lower extremities and hands. CAT scan results reviewed--11/23/22--soft tissue filling defect in the right renal upper pole collecting system extending into the renal pelvis. Abnormal soft tissue thickening at the renal pelvis and circumferentially in the proximal right ureter. 3 mm right lower pole stone. Evaluation today UA: Blood: 3+, leukocytes: 2+. Under microscopic exam of the urine-- no bacteria visualized. Renal function test results reviewed-- BUN--11/23/22--12, creatinine-0.81. Urine cytology--11/23/22-- Negative for malignant cells. urine culture--collected 11/23/22-- no growth. Plan: Cystoscopy, right ureteroscopy retrograde biopsy and possible stent discussed to be scheduled. Consent for the procedure was obtained. Pyridium 200 mg BID was ordered. Discussed to take Tylenol PRN. Dilaudid 2 mg 6 tablets were ordered. 01/04/2023--Plan: Referral has been sent to office for robotic assisted right nephrourteretcomy. [facility] Medical History Anxiety Asthma Hemorrhoids with complication Surgical History History of hemorrhoidectomy History of surgery Family History Mother No problems noted. Father Diabetes High blood pressure CVA (cerebral vascular accident), Onset Age: 59 Brother Brain tumor Social History Housing: Apartment Alcohol intake: current Alcohol intake frequency: holidays/special occasions only Patient Tobacco Use Status: Former Tobacco user Quit Date: 2021 Tobacco use type: Cigarette Years Smoked: 8 e-Cigarette/Vaping Use: Never Used Second Hand Smoke Exposure: No service: No Current occupational status: unemployed Cognitive needs: No Hearing needs: No Vision needs: Yes Review of Systems Const All systems reviewed & are unremarkable except as noted in HPI and below Reports no additional complaints Eyes Reports no additional complaints ENT Reports no additional complaints Card Denies dyspnea Resp Denies cough and Denies dyspnea GI Reports no additional complaints Reports no additional complaints Musc Reports no additional complaints Skin/Breast Denies rash and Denies unusual bruising Neuro Reports no additional complaints Psych Reports no additional complaints Endo Reports no additional complaints Sunil/Lymph Reports no additional complaints Aller/Immun Reports no additional complaints Office Procedures Cystoscopy Consent Discussed risk and benefit or proposed procedure with the patient. Information consent for procedure given to the patient. Discussed technical aspects, risks, benefits and alternatives in full. Addressed all of the patient's questions and concerns regarding the procedure. The patient demonstrated knowledge and understanding. They wish to proceed with this procedure. Preparation The patient was prepped in the usual manner. A agile developer was present and in the room. Genitalia was prepped with betadine solution in a sterile manner. Lidocaine Jelly 2% was placed into the urethra and 16Fr flexible Olympus cystoscope was inserted into the meatus after adequate lubrication. Procedure Time out per protocol performed. Bladder Inspection Cystoscopy findings: mild edema right ureteral orifice which is expected, distal end of ureteral stent visualized. The grasping forceps were used and the stent was removed without difficulty. [id number] with stent removal DISPOSABLE SCOPE URO-G FLEXIBLE SCOPE Procedure code (CPT) selection complete Office Meds lidocaine HCl Performing Provider: Lorena Hall MD Administered by: Brianna Zamudio RN on 01/04/23 10:09 Dose Route Admin Location Lot Number Expiration Date ND Powder Blender And Pourer 20 mL intra-urethral naproxen Performing Provider: Lorena Hall MD Administered by: Brianna Zamudio RN on 01/04/23 10:09 Dose Route Admin Location Lot Number Expiration Date ND Powder Blender And Pourer 500 mg PO ciprofloxacin HCl Performing Provider: Lorena Hall MD Administered by: Brianna Zamudio RN on 01/04/23 10:09 Dose Route Admin Location Lot Number Expiration Date NDC Powder Blender And Pourer 500 mg PO Results AMB Urinalysis, Automated UA Leukoctes 125 Ping/uL Last Edit by JOSEPHINE Torres on 01/04/23 10:12 2+ Brenda Parada 01/04/23 10:12 UA Nitrite Negative Last Edit by JOSEPHINE Torres on 01/04/23 10:12 UA Urobilinogen 0.2 mg/dL Last Edit by JOSEPHINE Torres on 01/04/23 10:1 2 UA Protein 30 mg/dL Last Edit by Brenda Parada Suha on 01/04/23 10:12 1mg Brenda Parada 01/04/23 10:12 UA pH 6.0 Last Edit by Brenda Parada A on 01/04/23 10:12 UA Blood 200 Buck/uL Last Edit by Brenda Parada A on 01/04/23 10:12 3+ Brenda Parada 01/04/23 10:12 UA Specific Manning 1.010 Last Edit by Brenda Parada A on 01/04/23 10: 12 UA Ketone Negative Last Edit by Brenda Parada [facility] on 01/04/23 10:12 UA Bilirubin 0 mg/dL Last Edit by Brenda Parada A on 01/04/23 10:12 UA Glucose 0 mg/dL Last Edit by Brenda Parada [facility] on 01/04/23 10:12 Results Reviewed Results Reviewed: Laboratory Last Values Urine pH (Auto) 6.0 01/04/23 10:10 Specific Manning (Auto) 1.010 01/04/23 10:10 Urine Protein (Auto) 30 mg/dL 01/04/23 10:10 Glucose (UA)(Auto) 0 mg/dL 01/04/23 10:10 Urine Ketones (Auto) Negative 01/04/23 10:10 Urine Blood (Auto) 200 Buck/uL 01/04/23 10:10 Urine Nitrite (Auto) Negative 01/04/23 10:10 Urine Bilirubin (Auto) 0 mg/dL 01/04/23 10:10 Urine Urobilinogen (Auto) 0.2 mg/dL 01/04/23 10:10 Leukocyte Esterase (Auto) 125 Ping/uL 01/04/23 10:10 Diagnosis A.? Urine, bladder:??Atypical urothelial cells.? COMMENT: Examination of a monolayer preparation slide shows abundant blood with few small groups and many single cells of poorly-preserved atypical urothelial cells with mildly irregular, hypochromatic nuclei and very high nuclear:cytoplasmic ratios. B.? Urine, right kidney:??Atypical urothelial cells.? COMMENT: Examination of a monolayer preparation slide shows abundant blood with scattered small groups and single cells of poorly-preserved atypical urothelial cells with irregular, hypochromatic nuclei and very high nuclear:cytoplasmic ratios Note: See also concurrent biopsy report, [id number]. Clinical History Gross hematuria, other specified disorders of kidney Material Received A. Urine from bladder B. Urine from right kidney Gross Description A. 43cc cloudy red fluid B. 8cc cloudy red fluid Diagnosis Bladder, right renal pelvis, biopsy:? Small fragments of thickened urothelium with focal papillary architecture; fibrinoid material.? See comment. COMMENT:? The findings raise the possibility of a papillary urothelial neoplasm; however, the CK20 immunostain does not definitively support that diagnosis. Clinical History Gross hematuria, other specified disorders of kidney Microscopic Description Microscopic sections reviewed.? CK20 has only faint focal immunoreactivity in the urothelial cells. Material Received Lesion right renal pelvis biopsy Gross Description Received in formalin labeled ?lesion right renal pelvis biopsy? are 3 minute shards of pink, red-maroon tissue versus blood each measuring less than 0.1 cm in greatest dimension which are submitted in toto in a single cassette labeled A.? CEDS This case was reviewed intradepartmentally. Special studies ordered and performed: immunostain for CK20 Assessment & Plan Assessment & Plan (1) Urothelial carcinoma of kidney: Code(s): C64.9 - Malignant neoplasm of unspecified kidney, except renal pelvis Plan: Referral has been sent to office for robotic assisted right nephrourteretcomy. (2) Gross hematuria: Code(s): R31.0 - Gross hematuria (3) Right kidney mass: Code(s): N28.89 - Other specified disorders of kidney and ureter Orders: Orders AMB Cystoscopy Today N28.89 - Other specified disorders of kidney and ureter, R31.0 - Gross hematuria AMB Urinalysis Automated Today Z13.9 - Encounter for screening, unspecified Patient Instructions: The patient had an opportunity to ask questions regarding treatment plan. All questions were answered. Imaging, Laboratory studies and physical exam results were discussed and reviewed in detail. No major barriers to understanding were identified. The patient expressed understanding and agreement with the above treatment plan.? ? ? The patient is aware they should contact our office by phone for worsening of their current condition or the appearance of new symptoms. Compliance is encouraged with any medications and followup testing that is ordered.? ? ? It is a privilege to be allowed the opportunity to participate in the urologic care of your patient. If you have any questions or concerns regarding treatment for the above conditions please do not hesitate to contact me. The office telephone contact is [phone].? ? ? This note is constructed in part using voice recognition software. While every effort has been made to ensure accuracy wood boring machine operator errors may have been included.? ? ? Yours sincerely,? ? ? Lorena Hall MD? Coding Level of Care Code Procedure Only Diagnoses Urothelial carcinoma of kidney C64.9 Gross hematuria R31.0 Right kidney mass N28.89 CPT Codes Cystoscopy - CPT: 87637-[id number] with stent removal ([id number]) Cystoscopy - CPT: DISPOSABLE SCOPE URO-G FLEXIBLE SCOPE ([id number])
== END 2023-01-04 11:00 | disposition home or self-care (01) ==
PROVIDERS: PCP Physician Assistant; Visit Provider Urology
DX: C64.9 Malignant neoplasm of unspecified kidney, except renal pelvis (principal); N28.89 Other specified disorders of kidney and ureter; R31.0 Gross hematuria; Z96.0 Presence of urogenital implants
CPT/HCPCS: 52310

== ENCOUNTER → 2023-01-04 09:52 | Outpatient (BNVA) | payer OTHER, SELFPAY | PROVIDERS: PCP Physician Assistant; Visit Provider Urology | DX: Z48.816 Encounter for surgical aftercare following surgery on the genitourinary system (principal); R31.0 Gross hematuria; C64.9 Malignant neoplasm of unspecified kidney, except renal pelvis; N28.89 Other specified disorders of kidney and ureter | CPT/HCPCS: 52310; 81003; C1747 ==

== ENCOUNTER 2023-03-29 15:30 | Outpatient (AMB) | payer OTHER, SELFPAY ==
[2023-03-29 16:03] VITALS: BP 122/74; PULSE 75; TEMP 36.8; O2SAT 99; BMI 26.2
--- NOTE | 2023-03-29 16:03 | AM.OFFWIN_ITS ---
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 [facility] Medical History Anxiety Asthma Hemorrhoids with complication Surgical History History of hemorrhoidectomy History of surgery Family History Mother No problems noted. Father Diabetes High blood pressure CVA (cerebral vascular accident), Onset Age: 59 Brother Brain tumor Social History Housing: Apartment Alcohol intake: current Alcohol intake frequency: holidays/special occasions only Patient Tobacco Use Status: Former Tobacco user Quit Date: 2021 Tobacco use type: Cigarette Years Smoked: 8 e-Cigarette/Vaping Use: Never Used Second Hand Smoke Exposure: No service: No Current occupational status: unemployed Cognitive needs: No Hearing needs: No Vision needs: Yes Physical Exam Vital Signs: Last Vital Signs Temp 98.2 F 03/29/23 16:03 Pulse 75 03/29/23 16:03 BP 122/74 03/29/23 16:03 Pulse Ox 99 03/29/23 16:03 Oxygen Delivery Method Room Air 03/29/23 16:03 BMI result Body Mass Index 26.2 Const General: cooperative and healthy appearing Nutritional Appearance: well nourished Orientation/consciousness: patient oriented x3 Limitations: no limitations HEENT Head: Yes normal to inspection Eyes General: appearance normal, both eyes and all related structures Neck Neck: Yes normal visual inspection Chest Chest palpation & inspection: normal palpation of entire chest wall Resp Effort & Inspection: normal respiratory effort Neuro General: patient oriented x3 Assessment & Plan Assessment & Plan (1) School physical exam: Code(s): Z02.0 - Encounter for examination for admission to educational institution Plan: Form to be completed after blood work results are available. Orders: Orders Mumps Virus IgG Antibody 03/30/23 Z11.9 - Encounter for screening for infectious and parasitic diseases, unspecified Hepatitis B Surface Antibody 03/30/23 Z11.9 - Encounter for screening for infectious and parasitic diseases, unspecified T Spot TB 03/30/23 Z02.0 - Encounter for examination for admission to educational institution, Z11.9 - Encounter for screening for infectious and parasitic diseases, unspecified Rubella IgG Antibody 03/30/23 Z11.9 - Encounter for screening for infectious and parasitic diseases, unspecified Rubeola IgG (Measles) 03/30/23 Z11.9 - Encounter for screening for infectious and parasitic diseases, unspecified Varicella IgG Antibody 03/30/23 Z11.9 - Encounter for screening for infectious and parasitic diseases, unspecified Coding Level of Care Code Sports/Work/School Physical Diagnoses School physical exam Z02.0
== END 2023-03-29 16:50 | disposition home or self-care (01) ==
PROVIDERS: PCP Physician Assistant; Visit Provider Internal Medicine
DX: Z02.0 Encounter for examination for admission to educational institution (principal)
CPT/HCPCS: 99080

== ENCOUNTER 2023-03-30 10:33 | Outpatient (REF) | payer OTHER, SELFPAY ==
[2023-03-31 08:14] LABS: HBS Num1 23.16 mIU/mL (0-7.99); ~Hepatitis B Surface Antibody REACTIVE (Nonreactive)
[2023-03-31 18:14] LABS: Varicella IgG Antibody >4000.00 index
[2023-04-01 21:19] LABS: TS Negative Control Passed; TS Panel A 0; TS Panel B 0; TS Positive Control Passed; TSpotTB Negative (Negative)
== END 2023-03-30 10:34 | disposition home or self-care (01) ==
LOC: HO.HMGCLDS 10:33
PROVIDERS: PCP Physician Assistant; Visit Provider Internal Medicine
DX: Z02.0 Encounter for examination for admission to educational institution (principal); Z11.9 Encounter for screening for infectious and parasitic diseases, unspecified; Z11.1 Encounter for screening for respiratory tuberculosis
CPT/HCPCS: 36415; 86481; 86706; 86735; 86762; 86765; 86787

== ENCOUNTER 2023-06-18 19:30 | Inpatient (IN) | payer OTHER, SELFPAY ==
--- NOTE | ~2023-06-18 | XR_ITS ---
EXAMINATION: XR ABDOMEN KUB CLINICAL INDICATION: As VO, contrast progression. COMPARISON: CT abdomen pelvis 06/18/2023 TECHNIQUE: AP view of the abdomen. FINDINGS: There is oral contrast seen visualized throughout the distal small bowel loops, transverse and descending colon. There is no organomegaly. Contrast opacifies left kidney pelvis from previous CT abdomen exam. XR/XR abdomen 1V IMPRESSION: Further progression of oral contrast into the transverse and ascending colon since last night CT abdomen and pelvis exam
--- NOTE | ~2023-06-18 | CT_ITS ---
EXAMINATION: CT ABDOMEN AND PELVIS WITH CONTRAST CLINICAL INFORMATION: Right nephrectomy 06/10/2021. Abdominal pain. Rule out small bowel obstruction. COMPARISON: 12/24/2022 TECHNIQUE: Multidetector volumetric images were obtained from the superior aspect of the liver through the pubic symphysis following administration 85 mL of Omnipaque 350 intravenous contrast. Sagittal and coronal reformatted images were obtained on the technologist's workstation. Oral contrast: Yes This CT examination was performed using dose optimization techniques as appropriate, variously including the following: *Automated exposure control *Adjustment of mA and/or kV according to patient size (this includes techniques or standardized protocols for targeted exams where dose is matched to indication/reason for exam; i.e. extremities or head) *Use of iterative reconstruction technique DLP: 327 mGy-cm FINDINGS: LUNG BASES: The visualized lung bases are unremarkable. LIVER, GALLBLADDER, AND BILIARY TREE: The liver is normal in size, shape, and attenuation. No focal hepatic lesion or biliary ductal dilatation is present. The gallbladder is unremarkable with no evidence of radiopaque gallstones, gallbladder wall thickening, or obvious pericholecystic inflammatory changes. PANCREAS: Unremarkable. SPLEEN: Unremarkable. ADRENAL GLANDS: Unremarkable. KIDNEYS AND URETERS: Right kidney is surgically absent. The left kidney is normal in size and enhancement without focal lesions. No significant nephrolithiasis or hydronephrosis. Left ureter is unremarkable. BLADDER: Unremarkable. GASTROINTESTINAL TRACT: Oral contrast material is present within the jejunum and proximal ileum, terminating at a dilated, fecalized segment of small bowel in the central abdomen. This segment measures up to 3.2 cm in diameter with a focal transition point at the distal margin. There is abnormal wall thickening at the small bowel just distal to the transition point with surrounding fat stranding, concerning for ileitis. The colon is normal in caliber without appreciable wall thickening. Appendix is normal. No appreciable findings of colitis. Trace intraperitoneal free fluid in the pelvis and right paracolic gutter. ABDOMINAL WALL: No significant hernia is appreciated. LYMPH NODES: Normal. VASCULAR: Unremarkable. PELVIC VISCERA: Uterus is normal in size and contour. No adnexal lesions. OSSEOUS STRUCTURES: Bilateral L5 pars defects with grade 1 anterolisthesis of L5 on S1. Minimal osteoarthritis in the hips. No acute osseous findings. CT/CT abdomen pelvis w IV con IMPRESSION: 1. Small bowel obstruction with a transition point in the region of the proximal ileum in the central abdomen. There is abnormal wall thickening and surrounding fat stranding at the small bowel just distal to the transition point, concerning for ileitis. Trace intraperitoneal free fluid. 2. Status post right nephrectomy. 3. Bilateral L5 pars defects with grade 1 anterolisthesis of L5 on S1. Fleischner guidelines were followed.
[2023-06-18 19:34] VITALS: BP 124/70; PULSE 66; RESP 22; TEMP 36.6; O2SAT 99; BMI 25.0
[2023-06-18 20:07] LABS: MANUAL DIFF FLAG NO
[2023-06-18 20:09] LABS: Basophils Absolute Auto 0.1 X10*3/uL (0.0-0.2); Basophils Percent Auto 0.6 % (0-2); Eosinophils Absolute Auto 0.1 X10*3/uL (0.0-0.4); Eosinophils Percent Auto 0.8 % (0-4); Hematocrit 39.3 % (37.0-47.0); Hemoglobin 12.8 g/dl (12.0-16.0); Imm Gran Abs Auto 0.04 X10*3/uL (0.00-0.03); Imm Gran Pct Auto 0.3 % (0.0-0.4); Lymphocytes Absolute Auto 2.7 X10*3/uL (1.2-4.9); Lymphocytes Percent Auto 19.6 % (20-40); Mean Corpuscular HGB Conc 32.6 g/dl (31.0-35.0); Mean Corpuscular Hemoglobin 30.2 pg (27.0-33.0); Mean Corpuscular Volume 92.7 fL (80.0-98.0); Mean Platelet Volume 10.7 fL (9.4-12.3); Monocytes Absolute Auto 0.5 X10*3/uL (0.1-1.2); Monocytes Percent Auto 3.8 % (2-11); Neutrophils Absolute Auto 10.3 x10*3/uL (2.0-8.3); Neutrophils Percent Auto 74.9 % (45-73); Platelet Count 365 X10*3/uL (160-400); Red Blood Count 4.24 X10*6/uL (4.20-5.50); Red Cell Distribution Width 13.2 % (11.0-16.0); White Blood Count 13.8 X10*3/uL (4.8-10.8)
[2023-06-18 20:09] LABS: Appearance Urine Clear; Color Urine Yellow; Glucose Urine UA Negative (Negative); Leukocyte Esterase Urine Trace (Negative); Nitrite Urine Negative (Negative); Specific Gravity - Urine 1.015 (1.005-1.025); UMIC TRIGGER UACC YES; Urine Blood Small (1+) (Negative); Urine Ketones Negative (Negative); Urine Protein Negative (Neg-Trace)
[2023-06-18 20:22] LABS: Bacteria Urine None Seen (None Seen); Hyaline Casts Urine 0-2 /LPF (0-2); RBC Urine 0-2 /HPF (0-2); WBC Urine 0-5 /HPF (0-5)
[2023-06-18 20:24] LABS: UPreg QC Valid YES; Urine Pregnancy NEGATIVE (NEGATIVE)
[2023-06-18 20:26] LABS: Alanine Aminotransferase 22 U/L (0-31); Albumin Level 4.3 g/dL (3.5-5.0); Alkaline Phosphatase 52 U/L (39-117); Anion Gap 14 (12-20); Aspartate Amino Transferase 20 U/L (5-31); Bilirubin Direct 0.1 mg/dL (0.0-0.5); Bilirubin Total 0.3 mg/dL (0.0-1.0); Blood Urea Nitrogen 12 mg/dL (9-16); Calcium 9.7 mg/dL (8.4-10.2); Carbon Dioxide 24 mmol/L (22-29); Chloride 105 mmol/L (96-108); Creatinine Clr Calc Pharmacy 56.8; Estimated Glomerular Filt Rate 58; Glucose Random 112 mg/dL (60-115); Lipase 22 U/L (8-78); Potassium 3.8 mmol/L (3.3-5.1); Sodium 139 mmol/L (135-145); Total Protein 7.4 g/dL (6.5-8.0)
[2023-06-18 20:44] VITALS: BP 107/65; PULSE 53; RESP 19; TEMP 36.7; O2SAT 98
--- NOTE | 2023-06-18 21:08 | ED.ABDPAIN ---
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 Patient states the pain started this morning at 07:00 hours, came on gradually and got progressively worse. She did have a bowel movement at around 10:00. She states that the pain is a constant, sharp pain which is 10/10. Patient does feel bloated. She has nausea with small amounts of vomiting. She denied fever but does have chills. She denied chest pain, shortness of breath, dyspnea on exertion. She denied frequency, urgency or dysuria. This is a 1st episode of this type of pain. Related Data Previous Rx's Medication Instructions Recorded albuterol sulfate 2.5 mg/3 mL 2.5 mg (3 mL) inhalation Q6H PRN 05/19/20 (0.083 %) solution for nebulization shortness of breath or wheezing 30 days #360 mL Allergies Allergy/AdvReac Type Severity Reaction Status Date / Time bupropion [From Wellbutrin] Allergy Intermediate Rash Verified 06/18/23 19:43 Review of Systems Review of Systems Yes all other systems are reviewed and are negative PMFSH Past Medical History Medical History Anxiety Hemorrhoids with complication Asthma Surgical History History of hemorrhoidectomy History of surgery Family History Family History Mother No problems noted. Father Diabetes High blood pressure CVA (cerebral vascular accident), Onset Age: 59 Brother Brain tumor Social History Social History Housing: Apartment Alcohol intake: current Alcohol intake frequency: holidays/special occasions only Patient Tobacco Use Status: Former Tobacco user Quit Date: 2021 Tobacco use type: Cigarette Years Smoked: 8 Smoked in Last 30 Days: No e-Cigarette/Vaping Use: Never Used Second Hand Smoke Exposure: No Use of substances other than those prescribed or required for medical reasons: No Advance Directives: No Advance Directives Information Provided: No service: No Current occupational status: unemployed Cognitive needs: No Hearing needs: No Vision needs: Yes Physical Exam ED Vital Signs: Vital Signs - 24 hr 06/18/23 19:34 06/18/23 20:44 06/18/23 22:28 Temperature 97.9 F 98.0 F 98.2 F Pulse Rate 66 53 61 Respiratory Rate 22 H 19 16 Blood Pressure 124/70 107/65 139/72 Pulse Oximetry 99 98 100 Oxygen Delivery Method Room Air Room Air Room Air BMI result Body Mass Index 25.0 Vital signs were normal Exam: General: Awake, alert , in distress secondary to abdominal Head: Normocephalic, atraumatic EENT: PERRL, Lids normal, sclera normal, conjunctiva normal, nose normal , ears normal, throat without erythema or exudates Neck: Supple, no adenopathy, no trachea midline or C-spine tenderness Lung: breath sounds symmetric, no wheezing, rales or rhonchi Chest: symmetric movement, nontender Heart: regular rate and rhythm, normal S1, S2 no murmurs or rubs Abdomen: Distended, diminished bowel sounds, diffuse tenderness with increased tenderness in the lower abdomen, voluntary guarding of the lower abdomen Back: no vertebral tenderness, no CVAT Extremities: no deformities, moves all extremities symmetrically Neuro: Awake, alert, oriented, normal speech, moves all extremities symmetrically Psych: Pleasant, cooperative Medical Decision Making Medical Decision Making MDM Narrative: 43-year-old female history of asthma, anxiety, 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 Vital signs were normal Patient's abdomen does appear slightly distended, she has diffuse tenderness with increased tenderness in the lower abdomen with voluntary guarding of the lower abdomen, diminished bowel sounds. Differential diagnosis includes but is not limited to pyelonephritis, urinary tract infection, viral syndrome, diverticulitis, pancreatitis, small-bowel obstructions Following evaluation was ordered: CBC, CMP, liver panel, lipase, urinalysis, COVID-19, influenza, test, CT scan abdomen pelvis with oral and IV contrast Patient was treated with the following: Normal saline IV x1 L, morphine 4 mg IV, Zofran 4 mg IV, O2 saturation monitor, ekg monitor 21:33 My interpretation patient's laboratory evaluation as follows: WBC elevated 13,800. BUN currently normal. Liver tests normal. Lipase normal. Urinalysis positive for blood and leukocyte esterase. Microscopic revealed 0-2 RBCs, 0-5 WBCs, no bacteria. Laboratory evaluation is nonspecific and nondiagnostic. 00:36 The patient did require morphine 4 mg IV x2 more doses. At this time she is pain-free. She has not had any vomiting since being in the emergency department. The patient's CT scan of the abdomen pelvis with both IV and oral contrast is consistent with a small-bowel obstruction I did discuss over tiger text, the patient's presentation and findings with the covering surgeon, Dr. Cao Admission/Observation Consideration of admission/observation: Escalation of care including admission/observation considered Consult Healthcare Provider Management of the patient was discussed with: Hospitalist (Dr. Manjarrez) and Process Automation Engineer (Dr. Cao, covering surgeon) Lab Data MDM Lab Attestation statement: I reviewed the patient's lab results. 06/18/23 20:01 06/18/23 20:01 Labs: Lab Results 06/18/23 06/18/23 06/18/23 Range/Units 19:59 20:01 22:33 WBC 13.8 H (4.8-10.8) X10*3/uL RBC 4.24 (4.20-5.50) X10*6/uL Hgb 12.8 (12.0-16.0) g/dl Hct 39.3 (37.0-47.0) % MCV 92.7 (80.0-98.0) fL MCH 30.2 (27.0-33.0) pg MCHC 32.6 (31.0-35.0) g/dl RDW 13.2 (11.0-16.0) % Plt Count 365 D (160-400) X10*3/uL MPV 10.7 (9.4-12.3) fL Immature Gran % (Auto) 0.3 (0.0-0.4) % Neut % (Auto) 74.9 H (45-73) % Lymph % (Auto) 19.6 L (20-40) % [place] % (Auto) 3.8 (2-11) % Eos % (Auto) 0.8 (0-4) % Baso % (Auto) 0.6 (0-2) % Lymph # (Auto) 2.7 (1.2-4.9) X10*3/uL [place] # (Auto) 0.5 (0.1-1.2) X10*3/uL Eos # (Auto) 0.1 (0.0-0.4) X10*3/uL Baso # (Auto) 0.1 (0.0-0.2) X10*3/uL Abs Immat Gran (auto) 0.04 H (0.00-0.03) X10*3/uL Absolute Neuts (auto) 10.3 H (2.0-8.3) x10*3/uL Absolute Nucleated RBC 0.000 (0.0-0.012) X10*3/uL Nucleated RBC % (auto) 0.0 (0.0-0.2) /100WBC Sodium 139 (135-145) mmol/L Potassium 3.8 (3.3-5.1) mmol/L Chloride 105 (96-108) mmol/L Carbon Dioxide 24 (22-29) mmol/L Anion Gap 14 (12-20) BUN 12 (9-16) mg/dL Creatinine 1.04 (0.5-1.4) mg/dL Estim Creat Clear Calc 56.8 Estimated GFR 58 Random Glucose 112 (60-115) mg/dL Calcium 9.7 (8.4-10.2) mg/dL Total Bilirubin 0.3 (0.0-1.0) mg/dL Direct Bilirubin 0.1 (0.0-0.5) mg/dL AST 20 (5-31) U/L ALT 22 (0-31) U/L Alkaline Phosphatase 52 (39-117) U/L Total Protein 7.4 (6.5-8.0) g/dL Albumin 4.3 (3.5-5.0) g/dL Lipase 22 (8-78) U/L Urine Color Yellow Urine Appearance Clear Urine pH 8.0 (5.0-9.0) Ur Specific [place] 1.015 (1.005-1.025) Urine Protein Negative (Neg-Trace) mg/dL Urine Glucose (UA) Negative (Negative) mg/dL Urine Ketones Negative (Negative) mg/dL Urine Blood Small (1+) H (Negative) Urine Nitrite Negative (Negative) Ur Leukocyte Esterase Trace H (Negative) Urine RBC 0-2 (0-2) /HPF Urine WBC 0-5 (0-5) /HPF Ur Squamous Epith Cells 3-5 (0-2) /HPF Urine Bacteria None Seen (None Seen) Hyaline Casts 0-2 (0-2) /LPF Urine Test NEGATIVE (NEGATIVE) COVID-19 (RACHEL) Negative (Negative) COVID-19 Clin Com See Note Influenza Type A (ALEX) Negative (Negative) Influenza Type B (ALEX) Negative (Negative) Influenza A & B Note See Note Radiology Impression Discussion of test interpretation with radiology: I have reviewed the radiologist's reading. Radiologist Impression: CT ABDOMEN AND PELVIS WITH CONTRAST CLINICAL INFORMATION: Right nephrectomy 06/10/2021. Abdominal pain. Rule out small bowel obstruction. COMPARISON: 12/24/2022 FINDINGS: LUNG BASES: The visualized lung bases are unremarkable. LIVER, GALLBLADDER, AND BILIARY TREE: The liver is normal in size, shape, and attenuation. No focal hepatic lesion or biliary ductal dilatation is present. The gallbladder is unremarkable with no evidence of radiopaque gallstones, gallbladder wall thickening, or obvious pericholecystic inflammatory changes. PANCREAS: Unremarkable. SPLEEN: Unremarkable. ADRENAL GLANDS: Unremarkable. KIDNEYS AND URETERS: Right kidney is surgically absent. The left kidney is normal in size and enhancement without focal lesions. No significant nephrolithiasis or hydronephrosis. Left ureter is unremarkable. BLADDER: Unremarkable. GASTROINTESTINAL TRACT: Oral contrast material is present within the jejunum and proximal ileum, terminating at a dilated, fecalized segment of small bowel in the central abdomen. This segment measures up to 3.2 cm in diameter with a focal transition point at the distal margin. There is abnormal wall thickening at the small bowel just distal to the transition point with surrounding fat stranding, concerning for ileitis. The colon is normal in caliber without appreciable wall thickening. Appendix is normal. No appreciable findings of colitis. Trace intraperitoneal free fluid in the pelvis and right paracolic gutter. ABDOMINAL WALL: No significant hernia is appreciated. LYMPH NODES: Normal. VASCULAR: Unremarkable. PELVIC VISCERA: Uterus is normal in size and contour. No adnexal lesions. OSSEOUS STRUCTURES: Bilateral L5 pars defects with grade 1 anterolisthesis of L5 on S1. Minimal osteoarthritis in the hips. No acute osseous findings. IMPRESSION: 1. Small bowel obstruction with a transition point in the region of the proximal ileum in the central abdomen. There is abnormal wall thickening and surrounding fat stranding at the small bowel just distal to the transition point, concerning for ileitis. Trace intraperitoneal free fluid. 2. Status post right nephrectomy. 3. Bilateral L5 pars defects with grade 1 anterolisthesis of L5 on S1. Fleischner guidelines were followed. Dictated By: n Medications Administered Discontinued Medications Generic Name Dose Route Start Last Admin Trade Name Freq PRN Reason Stop Dose Admin Diatrizoate Meglum/Diatrizoate Sod 30 ml 06/18/23 21:35 06/18/23 23:56 Diatrizoate Meglumine, Sodium 30 Ml Solution PO 06/18/23 21:36 30 ml ONCE ONE Administration Hydromorphone HCl 1 mg 06/19/23 00:47 06/19/23 00:52 Hydromorphone Hcl 1 Mg/Ml Syringe IVPUSH 06/19/23 00:48 1 mg ONCE STA Administration Protocol Sodium Chloride 1,000 mls @ 999 mls/hr 06/18/23 21:21 06/18/23 22:45 Ns IV 06/18/23 22:21 Infused .Q1H1M STA Infusion Iohexol 85 ml 06/18/23 23:57 06/18/23 23:58 Iohexol 350 Mg/Ml 100 Ml Infus..Btl IV 06/18/23 23:58 85 ml ONCE ONE Administration Morphine Sulfate 4 mg 06/18/23 21:21 06/18/23 21:30 Morphine Sulfate 4 Mg/Ml Cartridge IVPUSH 06/18/23 21:22 4 mg ONCE STA Administration Protocol Morphine Sulfate 4 mg 06/18/23 22:58 06/18/23 23:05 Morphine Sulfate 4 Mg/Ml Cartridge IVPUSH 06/18/23 22:59 4 mg ONCE STA Administration Protocol Morphine Sulfate 4 mg 06/18/23 23:48 06/18/23 23:57 Morphine Sulfate 4 Mg/Ml Cartridge IVPUSH 06/18/23 23:49 4 mg ONCE STA Administration Protocol Ondansetron HCl 4 mg 06/18/23 21:21 06/18/23 21:30 Ondansetron Hcl 4 Mg/2 Ml Vial IVPUSH 06/18/23 21:22 4 mg ONCE ONE Administration Discharge Plan Discharge Clinical Impression: Complete obstruction of small intestine, Abdominal pain, Ileitis Patient Disposition: Admitted As Inpatient Prescriptions: No Action albuterol sulfate 2.5 mg /3 mL (0.083 %) solution for nebulization 2.5 mg inhalation Q6H PRN (Reason: shortness of breath or wheezing) 30 Days Qty: 360 1RF
[2023-06-18] MEDS: 0.9 % Sodium Chloride 1,000 ML 999 ML IV (21:30)
[2023-06-18] MEDS: Morphine Sulfate 4 MG/ML CARTRIDGE IVPUSH ×3 (21:30→23:57)
[2023-06-18] MEDS: ondansetron HCL 4 MG/2 ML VIAL IVPUSH (21:30)
[2023-06-18 22:28] VITALS: BP 139/72; PULSE 61; RESP 16; TEMP 36.8; O2SAT 100
[2023-06-18 22:59] LABS: COVID-19 Test Negative (Negative); IDNOW Serial# 08D9AD1C; IDNOW Serial# 152EDE1D; Influenza A Negative (Negative); Influenza B2 Negative (Negative)
[2023-06-18] MEDS: Diatrizoate Meglumine, Sodium 30 ML SOLUTION PO (23:56)
[2023-06-18] MEDS: iohexoL 350 MG/ML 100 ML INFUS..BTL 85 ML IV (23:58)
[2023-06-19] VITALS: RESP 18
[2023-06-19] MEDS: HYDROmorphone HCl 1 MG/ML SYRINGE IVPUSH (00:52)
[2023-06-19 02:00] VITALS: RESP 18
[2023-06-19] MEDS: Lactated Ringers 1,000 ML 100 ML IVCONT ×2 (03:05→12:40)
[2023-06-19] MEDS: Ketorolac Tromethamine 15 MG/ML VIAL IVPUSH ×2 (03:11→12:35)
[2023-06-19 03:36] LABS: C Reactive Protein < 0.10 mg/dL (< or = 0.50)
--- NOTE | 2023-06-19 05:15 | P.HPHOSP_ITS ---
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 She denied events of vomiting. She denied diarrhea. Her last bowel movement several hour after the onset of the pain. She denied any fever or chills. She denied any acute urinary symptoms. She denied any headache, palpitations or dizziness. She denied any acute cardiopulmonary symptoms. She denies alcohol abuse, illicit drug use or tobacco smoking. She has been taking oxycodone as needed. In the ED, she was found to have normal vital signs. Blood workup is remarkable for leukocytosis, 13.8. CRP, LFTs and renal function are normal. There are no electrolyte imbalances. Abdomen pelvis CT scan showed a small bowel obstruction with a transition point in the region of the proximal ileum in the central abdomen. There is also a normal wall thickening and surrounding fat stranding and a small woman just distal to the transition point concerning for ileitis with trace intraperitoneal free fluid. ED tx: NS 1 L bolus, Zofran 4 mg IV, Dilaudid 1 g IV, a total of 12 mg of morphine. Review of Systems 2 Review of Systems: All 12 systems were reviewed and normal except as noted in HPI. [facility] Medical History (Updated 06/19/23 @ 05:41 by Mary Amin MD) S/p nephrectomy Anxiety Hemorrhoids with complication Asthma Family History Mother No problems noted. Father Diabetes High blood pressure CVA (cerebral vascular accident), Onset Age: 59 Brother Brain tumor Surgical History History of hemorrhoidectomy History of surgery Social History Housing: Apartment Alcohol intake: current Alcohol intake frequency: holidays/special occasions only Patient Tobacco Use Status: Former Tobacco user Quit Date: 2021 Tobacco use type: Cigarette Years Smoked: 8 Smoked in Last 30 Days: No e-Cigarette/Vaping Use: Never Used Second Hand Smoke Exposure: No Use of substances other than those prescribed or required for medical reasons: No Advance Directives: No Advance Directives Information Provided: No service: No Current occupational status: unemployed Cognitive needs: No Hearing needs: No Vision needs: Yes Meds Allergies Allergy/AdvReac Type Severity Reaction Status Date / Time bupropion [From Wellbutrin] Allergy Intermediate Rash Verified 06/18/23 19:43 Active Medications: Current Medications Acetaminophen (Acetaminophen 325 Mg Tablet) 650 mg PO Q6H PRN PRN Reason: Pain, Mild (Pain Scale 1-3) Heparin Sodium (Porcine) (Heparin Sodium,Porcine 5,000 Unit/Ml Vial) 5,000 unit SUBCUT Q8H GWENDOLYN Lactated Ringer's (Lr) 1,000 mls @ 100 mls/hr IVCONT .Q10H [facility] Last Admin: 06/19/23 03:05 Dose: 100 mls/hr Ketorolac Tromethamine (Ketorolac Tromethamine 15 Mg/Ml Vial) 15 mg IVPUSH Q6H PRN PRN Reason: Pain, Severe (Pain Scale 7-10) Last Admin: 06/19/23 03:11 Dose: 15 mg Ondansetron HCl (Ondansetron Hcl 4 Mg/2 Ml Vial) 4 mg IVPUSH Q6H PRN PRN Reason: Nausea and Vomiting Sodium Chloride (0.9 % Sodium Chloride Flush 3 Ml Syringe) 3 ml IVFLUSH QSHIFT [facility] Physical Exam 2 Vital Signs and Narrative: Vital Signs: Last Vital Signs Temp 98.2 F 06/18/23 22:28 Pulse 61 06/18/23 22:28 Resp 18 06/19/23 02:00 BP 139/72 06/18/23 22:28 Pulse Ox 100 06/18/23 22:28 O2 Del Method Room Air 06/18/23 22:28 BMI result Body Mass Index 25.0 Constitutional - Awake and Alert, No apparent distress. Pleasant. Cooperative. HEENT - Normocephalic. Atraumatic. Dry oral mucosa. No scleral icterus Heart - S1S2, RRR, No edema Lungs - Normal lung expansion, Normal respiratory effort, No respiratory distress, CTA bilaterally Abdomen - Soft. No distention. Hyperactive bowel sounds. Generalized tenderness. (+) guarding. No rebound. - No CVA tenderness Extremities - No calf tenderness bilaterally, no swelling Skin - Warm/Dry Neurological - Alert & oriented x3. Psychological - Appropriate affect Results Labs 06/18/23 20:01 06/18/23 20:01 Labs: Laboratory Results - last 24 hr 06/18/23 06/18/23 06/18/23 19:59 20:01 22:33 MCV 92.7 MCH 30.2 MCHC 32.6 RDW 13.2 Plt Count 365 D MPV 10.7 Immature Gran % (Auto) 0.3 Neut % (Auto) 74.9 H Lymph % (Auto) 19.6 L [place] % (Auto) 3.8 Eos % (Auto) 0.8 Baso % (Auto) 0.6 Lymph # (Auto) 2.7 [place] # (Auto) 0.5 Eos # (Auto) 0.1 Baso # (Auto) 0.1 Abs Immat Gran (auto) 0.04 H Absolute Neuts (auto) 10.3 H Absolute Nucleated RBC 0.000 Nucleated RBC % (auto) 0.0 Anion Gap 14 Estim Creat Clear Calc 56.8 Estimated GFR 58 Random Glucose 112 Calcium 9.7 Total Bilirubin 0.3 Direct Bilirubin 0.1 AST 20 ALT 22 Alkaline Phosphatase 52 C-Reactive Protein < 0.10 Total Protein 7.4 Albumin 4.3 Lipase 22 Urine Color Yellow Urine Appearance Clear Urine pH 8.0 Ur Specific [place] 1.015 Urine Protein Negative Urine Glucose (UA) Negative Urine Ketones Negative Urine Blood Small (1+) H Urine Nitrite Negative Ur Leukocyte Esterase Trace H Urine RBC 0-2 Urine WBC 0-5 Ur Squamous Epith Cells 3-5 Urine Bacteria None Seen Hyaline Casts 0-2 Urine Test NEGATIVE COVID-19 (RACHEL) Negative COVID-19 Clin Com See Note Influenza Type A (ALEX) Negative Influenza Type B (ALEX) Negative Influenza A & B Note See Note Imaging Radiologist's Impressions: Impressions Abdomen/Pelvis CT 06/18/23 23:50 IMPRESSION: 1. Small bowel obstruction with a transition point in the region of the proximal ileum in the central abdomen. There is abnormal wall thickening and surrounding fat stranding at the small bowel just distal to the transition point, concerning for ileitis. Trace intraperitoneal free fluid. 2. Status post right nephrectomy. 3. Bilateral L5 pars defects with grade 1 anterolisthesis of L5 on S1. Fleischner guidelines were followed. Assessment and Plan (1) S/p nephrectomy: Status: Chronic (2) Complete obstruction of small intestine: Status: Acute (3) Ileitis: Status: Acute (4) Abdominal pain: Status: Acute Plan Moraima Jeffrey is a 43 years old woman with past medical history significant for urothelial carcinoma of the kidney s/p recent right nephrectomy admitted with: * Small-bowel obstruction + ? ileitis. Admit to hospitalist service. Keep NPO. Continue IV fluids. Will avoid opiates. Pain control with Toradol as needed (3 doses). Zofran IV as needed. Surgery consult (Dr. Cao contacted by ED). Gastroenterology consult. * History of asthma. No symptoms of acute exacerbation at this time. DVT prophylaxis: Heparin subcut Code status: Full Patient will need hospitalization for at least 2 midnights for SBO treatment and evaluation. Patient will need require NPO status, IV fluids, pain control and evaluation by subspecialty and surgical service. Quality Stroke Does the patient have a stroke diagnosis?: No VTE Prior VTE?: No VTE Risk Level:: Medical - moderate - high VTE Device Contraindication: Treatment Not Indicated VTE Drug Contraindication: N/A - Med Ordered
[2023-06-19 06:39] VITALS: BP 120/69; PULSE 53; RESP 12; TEMP 36.7; O2SAT 98
--- NOTE | 2023-06-19 07:34 | PM.CNGS ---
History of Present Illness Consult details Consult date: 06/19/23 <Jessica Lynne PA-C - Last Filed: 06/19/23 13:34> Narrative: 43 year old female with PMH significant for urothelial carcinoma of the kidney s/p recent BALDEV right nephrectomy on May 29 at [facility] who presents to the emergency department complaining of acute onset of diffuse abdominal pain. She reports the surgery and recovery were uncomplicated. She was discharged to home 3-4 days later feeling well. Yesterday morning she developed severe, crampy, intermittent diffuse abdominal pain. She did have a hard BM after onset of the pain which relieved it a little. The pain was associated with nausea and dry heaving. She denied any fever or chills. She has been taking oxycodone every 8 hours for the pain since the surgery. She had been tolerating a solid diet and has had a few BM since the surgery but reports hard stools and normally goes every day. Due to the severity of the pain and concern with recent surgery, she presented to the ED. Work up included Abdomen pelvis CT scan showed dilated stomach and small bowel with possible transition point and wall thickening. She was admitted to the hospitalist service for further work up. This morning, she reports no abdominal pain except mild incisional. She denies nausea or vomiting. She is passing flatus. She reports a son who was sick with the GI bug a few days prior. <Jessica Lynne PA-C - Last Filed: 06/19/23 13:34> Review of Systems Constitutional: Constitutional: Denies chills and Denies fever(s) <HUSAM Puentes Last Filed: 06/19/23 13:34> ENT: Denies dizziness <HUSAM Puentes Last Filed: 06/19/23 13:34> Cardiovascular: Cardiovascular: Denies chest pain and Denies dyspnea <HUSAM Puentes Last Filed: 06/19/23 13:34> Respiratory: Respiratory: Denies cough and Denies dyspnea <HUSAM Puentes Last Filed: 06/19/23 13:34> Gastrointestinal: Gastrointestinal: Reports as per HPI <HUSAM Puentes Last Filed: 06/19/23 13:34> Genitourinary: Genitourinary: Denies dysuria <Jessica Lynne PA-C Last Filed: 06/19/23 13:34> Integumentary/Breasts: Skin/Breast: Denies rash and Denies jaundice <HUSAM Puentes Last Filed: 06/19/23 13:34> Neurologic: Denies dizziness <HUSAM Puentes Last Filed: 06/19/23 13:34> PMF Past Medical History Medical History: Medical History (Updated 06/19/23 @ 10:30 by Mireille Easley) S/p nephrectomy Anxiety Hemorrhoids with complication Asthma <HUSAM Puentes Last Filed: 06/19/23 13:34> Family History Family History: Family History Mother No problems noted. Father Diabetes High blood pressure CVA (cerebral vascular accident), Onset Age: 59 Brother Brain tumor <HUSAM Puentes Last Filed: 06/19/23 13:34> Surgical History Surgical History: Surgical History History of hemorrhoidectomy History of surgery <HUSAM Puentes Last Filed: 06/19/23 13:34> Social History Social History: Social History Housing: Apartment Alcohol intake: current Alcohol intake frequency: holidays/special occasions only Patient Tobacco Use Status: Former Tobacco user Quit Date: 2021 Tobacco use type: Cigarette Years Smoked: 8 Smoked in Last 30 Days: No e-Cigarette/Vaping Use: Never Used Second Hand Smoke Exposure: No Use of substances other than those prescribed or required for medical reasons: No Advance Directives: No Advance Directives Information Provided: No service: No Current occupational status: unemployed Cognitive needs: No Hearing needs: No Vision needs: Yes <HUSAM Puentes Last Filed: 06/19/23 13:34> Meds Allergies/Adverse reactions: Allergies Allergy/AdvReac Type Severity Reaction Status Date / Time bupropion [From Wellbutrin] Allergy Intermediate Rash Verified 06/18/23 19:43 <Jessica Lynne PA-C - Last Filed: 06/19/23 13:34> Active Medications: Current Medications Acetaminophen (Acetaminophen 325 Mg Tablet) 650 mg PO Q6H PRN PRN Reason: Pain, Mild (Pain Scale 1-3) Heparin Sodium (Porcine) (Heparin Sodium,Porcine 5,000 Unit/Ml Vial) 5,000 unit SUBCUT Q8H [facility] Lactated Ringer's (Lr) 1,000 mls @ 100 mls/hr IVCONT .Q10H [facility] Last Admin: 06/19/23 03:05 Dose: 100 mls/hr Ketorolac Tromethamine (Ketorolac Tromethamine 15 Mg/Ml Vial) 15 mg IVPUSH Q6H PRN PRN Reason: Pain, Severe (Pain Scale 7-10) Last Admin: 06/19/23 03:11 Dose: 15 mg Ondansetron HCl (Ondansetron Hcl 4 Mg/2 Ml Vial) 4 mg IVPUSH Q6H PRN PRN Reason: Nausea and Vomiting Sodium Chloride (0.9 % Sodium Chloride Flush 3 Ml Syringe) 3 ml IVFLUSH QSHIFT [facility] Last Admin: 06/19/23 07:09 Dose: Not Given <Jessica Lynne PA-C - Last Filed: 06/19/23 13:34> Home medications: Home Medications Medication Instructions Recorded Confirmed Last Taken Type fluticasone 100 mcg-salmeterol 50 1 ea inhalation BID PRN Shortness 06/19/23 06/19/23 Unknown History mcg/dose blistr powdr for Of Breath Or Wheezing inhalation (Advair Diskus) montelukast 10 mg tablet 10 mg PO DAILY 06/19/23 06/19/23 Unknown History oxycodone 5 mg tablet 5 mg PO Q4-6H PRN Pain (Scale 06/19/23 06/19/23 Unknown History Score 4-6) <Jessica Lynne PA-C - Last Filed: 06/19/23 13:34> Physical Exam Vital Signs: Vital Signs: Last Vital Signs Temp 98.0 F 06/19/23 06:39 Pulse 53 06/19/23 06:39 Resp 12 06/19/23 06:39 BP 120/69 06/19/23 06:39 Pulse Ox 98 06/19/23 06:39 O2 Del Method Room Air 06/19/23 06:39 BMI result Body Mass Index 25.0 <Jessica WisemanKHANH zunigaWilda Casillas Last Filed: 06/19/23 13:34> Const: General: comfortable, no acute distress and alert <Jessica WisemanYANET zunigaAbigail Casillas Last Filed: 06/19/23 13:34> Orientation/consciousness: patient oriented x3 <Jessica WisemanYANET zunigaAbigail Casillas Last Filed: 06/19/23 13:34> Resp: Effort & Inspection: normal respiratory effort <Jessica WisemanYANET zunigaAbigail Casillas Last Filed: 06/19/23 13:34> GI: Inspection: No distended and Yes incision (clean appearing, well approximated ) <Jessica WisemanYANET zunigaAbigail Casillas Last Filed: 06/19/23 13:34> Palpation (GI): Soft to palpation, Tenderness to palpation present (GI) (mild incisional ), no guarding and not rigid <Jessica WisemanYANET zunigaAbigail Casillas Last Filed: 06/19/23 13:34> Abdomen image: 1. 2. 3. <Jessica WisemanYANET zunigaAbigail Last Filed: 06/19/23 13:34> Skin: General skin exam: no rashes or lesions noted <Jessica WisemanYANET zunigaAbigail Casillas Last Filed: 06/19/23 13:34> Neuro: General: patient oriented x3 and moves all extremities <Jessica WisemanYANET zunigaAbigail Last Filed: 06/19/23 13:34> Results Labs Result diagrams: 06/18/23 20:01 06/18/23 20:01 <Jessica GueraHUSAM zuniga Sonja Last Filed: 06/19/23 13:34> Labs: Abnormal lab results 06/18/23 06/18/23 Range/Units 19:59 20:01 WBC 13.8 H (4.8-10.8) X10*3/uL Neut % (Auto) 74.9 H (45-73) % Lymph % (Auto) 19.6 L (20-40) % Abs Immat Gran (auto) 0.04 H (0.00-0.03) X10*3/uL Absolute Neuts (auto) 10.3 H (2.0-8.3) x10*3/uL Urine Blood Small (1+) H (Negative) Ur Leukocyte Esterase Trace H (Negative) Short CBC 06/18/23 Range/Units 20:01 WBC 13.8 H (4.8-10.8) X10*3/uL Hgb 12.8 (12.0-16.0) g/dl Hct 39.3 (37.0-47.0) % Plt Count 365 D (160-400) X10*3/uL BMP 06/18/23 20:01 Sodium 139 Potassium 3.8 Chloride 105 Carbon Dioxide 24 BUN 12 Creatinine 1.04 Calcium 9.7 Liver Function 06/18/23 Range/Units 20:01 Total Bilirubin 0.3 (0.0-1.0) mg/dL Direct Bilirubin 0.1 (0.0-0.5) mg/dL AST 20 (5-31) U/L ALT 22 (0-31) U/L Alkaline Phosphatase 52 (39-117) U/L Albumin 4.3 (3.5-5.0) g/dL Urine 06/18/23 Range/Units 19:59 Urine Color Yellow Urine Appearance Clear Urine pH 8.0 (5.0-9.0) Ur Specific [place] 1.015 (1.005-1.025) Urine Protein Negative (Neg-Trace) mg/dL Urine Glucose (UA) Negative (Negative) mg/dL Urine Test NEGATIVE (NEGATIVE) All other labs normal. <Jessica Lynne PA-C - Last Filed: 06/19/23 13:34> Imaging Abdominal x-ray: report reviewed and image reviewed <HUSAM Puentes Last Filed: 06/19/23 13:34> Abdomen CT scan report/results: report reviewed and image reviewed <HUSAM Puentes Last Filed: 06/19/23 13:34> Assessment and Plan (1) Ileitis: Status: Acute <HUSAM Puentes Last Filed: 06/19/23 13:34> (2) Abdominal pain: Status: Acute <Jessica Lynne PA-C - Last Filed: 06/19/23 13:34> 43 y/o female who is 3 weeks s/p BALDEV right nephrectomy for urothelial carcinoma who presents with diffuse abdominal pain, nausea and constipation with CT scan showing dilated small bowel. Pain may be multifactorial and likely with gastroenteritis and ileus and constipation from narcotics. She is clinically appearing well with a benign abd exam. Her pain and nausea have resolved and her morning AXR shows contrast in her right colon going against an SBO. Can advance to clear liquids and then further as tolerated. If tolerating solid diet, can dc to home today on bowel regimen for constipation. <Jessica Lynne PA-C - Last Filed: 06/19/23 13:34> Procedures Date of Service Date of Service: 06/19/23 <Jessica Lynne PA-C - Last Filed: 06/19/23 13:34> 06/19/23 <Mike Cao MD - Last Filed: 06/19/23 08:50>
--- NOTE | 2023-06-19 09:05 | PHA.MEDREC ---
Pharmacy Consult ? Medication Reconciliation Pharmacy has completed the medication reconciliation. Spoke to patient. Patient says she was taking Colace but found no relief.
[2023-06-19 10:05] VITALS: BP 106/56; PULSE 60; RESP 13; TEMP 36.4
--- NOTE | 2023-06-19 10:09 | P.DS_ITS ---
DS: Providers Provider Date of Service: 06/19/23 <Mireille aEsley - Last Filed: 06/19/23 10:38> Date of admission: 06/19/23 02:46 <Mireille Easley - Last Filed: 06/19/23 10:38> Primary care physician: Hansel Orozco PA-C <Mireille Easley - Last Filed: 06/19/23 10:38> Consults: 06/19/23 02:56 Consult to Gastroenterology Routine Consulting Provider: Mirta Nova Reason for consultation: SBO w/ ileitis Has provider been notified: No Consult to General Surgery Routine Consulting Provider: Mike Cao Reason for consultation: SBO Has provider been notified: Yes <Mireille Easley - Last Filed: 06/19/23 10:38> DS: Diagnosis Discharge Diagnosis (1) Abdominal pain: Status: Acute <Mireille Easley - Last Filed: 06/19/23 10:38> (2) Ileus: Status: Acute <Mireille Easley - Last Filed: 06/19/23 10:38> DS: Summary Hospital Course Hospital Course: This 43 yo F with past medical history of urothelial carcinoma of the kidney s/p recent right nephrectomy on May 29 at [facility] presented to the ED on 06/19/2023 complaining of abdominal pain and nausea that began the previous morning. She reported that her last bowel movement was several hours after the onset of the abdominal pain. She denied vomiting, diarrhea, changes in urinary habits, fever/chills, or cardiopulmonary symptoms. She was found to have leukocytosis 13.[address] abdomen/pelvis showed a small bowel obstruction with a transition point in the region of the proximal ileum in the central abdomen and normal wall thickening and surrounding fat stranding and a small woman just distal to the transition point concerning for ileitis with trace intraperitoneal free fluid. Remainder of workup including CBC, CRP, CMP were non-ctontributory. In ED she received IVF, Zofran, Dilaudid and morphine. Patient was admitted for small bowel obstruction. Patient was seen by general surgery who concluded that her pain is likely multifactorial with constipation from narcotic use post-op and ileus contributing. Abdominal XR showed contrast in her right colon going against small bowel obstruction. As nausea/abdominal pain had resolved and patient passing flatus with benign abdominal exam, general surgery recommended patient be advanced to clear liquids and then further as tolerated with plan for discharge on a bowel regimen if patient tolerating diet. Diet was advanced and patient tolerated well. Will discharge home on bowel regimen. <Mireille Easley - Last Filed: 06/19/23 10:38> Status at Discharge Functional status at discharge: independent ambulation <Mireille Easley - Last Filed: 06/19/23 10:38> Overall status at discharge: patient is back to baseline <Mireille Easley - Last Filed: 06/19/23 10:38> Time Attestation Discharge coordination time: Greater than 30 minutes <Mireille Easley - Last Filed: 06/19/23 10:38> Quality: Safe Use of Opioids Does Pt have an Active Cancer Diagnosis on the Problem List?: No <Blane Daugherty MD - Last Filed: 06/24/23 18:13> Quality: Stroke Does the patient have a stroke diagnosis?: No <Mireille Easley - Last Filed: 06/19/23 10:38> Physical Exam Vital Signs: Vital Signs: Last Vital Signs Temp 97.6 F 06/19/23 10:05 Pulse 60 06/19/23 10:05 Resp 13 06/19/23 10:05 BP 106/56 L 06/19/23 10:05 Pulse Ox 98 06/19/23 06:39 O2 Del Method Room Air 06/19/23 10:05 BMI result Body Mass Index 25.0 <Mireille Kodakinna Easley - Last Filed: 06/19/23 10:38> General: Patient A&O x 3 and resting comfortably in bed CVS: RRR, no murmurs or lower extremity edema Pulm: No rales, rhonchi, or wheezing Abd: Surgical incisions are d/c/i and healing properly, bowel sounds present x 4, non-tender, non-distended Psych: appropriate affect <Mireille Easley - Last Filed: 06/19/23 10:38> DS: Data Data Completed and Pending Labs on day of discharge: Laboratory Results - last 24 hr 06/18/23 06/18/23 06/18/23 19:59 20:01 22:33 WBC 13.8 H RBC 4.24 Hgb 12.8 Hct 39.3 MCV 92.7 MCH 30.2 MCHC 32.6 RDW 13.2 Plt Count 365 D MPV 10.7 Immature Gran % (Auto) 0.3 Neut % (Auto) 74.9 H Lymph % (Auto) 19.6 L [place] % (Auto) 3.8 Eos % (Auto) 0.8 Baso % (Auto) 0.6 Lymph # (Auto) 2.7 [place] # (Auto) 0.5 Eos # (Auto) 0.1 Baso # (Auto) 0.1 Abs Immat Gran (auto) 0.04 H Absolute Neuts (auto) 10.3 H Absolute Nucleated RBC 0.000 Nucleated RBC % (auto) 0.0 Sodium 139 Potassium 3.8 Chloride 105 Carbon Dioxide 24 Anion Gap 14 BUN 12 Creatinine 1.04 Estim Creat Clear Calc 56.8 Estimated GFR 58 Random Glucose 112 Calcium 9.7 Total Bilirubin 0.3 Direct Bilirubin 0.1 AST 20 ALT 22 Alkaline Phosphatase 52 C-Reactive Protein < 0.10 Total Protein 7.4 Albumin 4.3 Lipase 22 Urine Color Yellow Urine Appearance Clear Urine pH 8.0 Ur Specific [place] 1.015 Urine Protein Negative Urine Glucose (UA) Negative Urine Ketones Negative Urine Blood Small (1+) H Urine Nitrite Negative Ur Leukocyte Esterase Trace H Urine RBC 0-2 Urine WBC 0-5 Ur Squamous Epith Cells 3-5 Urine Bacteria None Seen Hyaline Casts 0-2 Urine Test NEGATIVE COVID-19 (RACHEL) Negative COVID-19 Clin Com See Note Influenza Type A (ALEX) Negative Influenza Type B (ALEX) Negative Influenza A & B Note See Note <Mireille Easley - Last Filed: 06/19/23 10:38> Discharge Plan Discharge Anticipated Discharge Date/Time: 06/19/23 13:26 <Mireille Easley - Last Filed: 06/19/23 10:38> Patient Disposition: Home, Self-Care <Mireille Easley - Last Filed: 06/19/23 10:38> Discharge Diagnosis: Ileus and abdominal pain due to constipation from opioids <Mireille Easley - Last Filed: 06/19/23 10:38> Ileus and abdominal pain due to constipation from opioids <Blane Daugherty MD - Last Filed: 06/24/23 18:13> Referrals: Hansel Orozco PA-C [Primary Care Provider] - 1 Week <Mireille Easley - Last Filed: 06/19/23 10:38> Discharge Medications: New polyethylene glycol 3350 17 gram Powder In Packet 17 g PO DAILY PRN (Reason: Constipation) Qty: 30 0RF magnesium hydroxide [Milk of Magnesia] 400 mg/5 mL Suspension 30 ml PO DAILY PRN (Reason: constipation) Qty: 355 0RF docusate sodium 100 mg Capsule 100 mg PO BID Qty: 60 0RF Continued montelukast 10 mg tablet 10 mg PO DAILY fluticasone propion-salmeterol [Advair Diskus] 100-50 mcg/dose blister with device 1 ea inhalation BID PRN (Reason: Shortness Of Breath Or Wheezing) oxycodone 5 mg tablet 5 mg PO Q4-6H PRN (Reason: Pain (Scale Score 4-6)) <Mireille Easley - Last Filed: 06/19/23 10:38> Discharge Orders: Discharge Order (Routine); Ordered 06/19/23 Ordered By: Blane Daugherty <Mireille Easley - Last Filed: 06/19/23 10:38> Diet: Advance to usual diet <Mireille Easley - Last Filed: 06/19/23 10:38> Advance to usual diet <Blane Daugherty MD - Last Filed: 06/24/23 18:13> Activity on Discharge: As tolerated <Mireille Easley - Last Filed: 06/19/23 10:38> As tolerated <Blane Daugherty MD - Last Filed: 06/24/23 18:13> Stand Alone Forms: Patient Portal Discharge page <Mireille Easley - Last Filed: 06/19/23 10:38> Care Plan Goals: Recover from nephrectomy, ileus, and abdominal pain. Improve constipation and bowel movement frequency. <Mireille Easley - Last Filed: 06/19/23 10:38> Health Concerns: Nephrectomy, constipation, ileus <Mireille Easley - Last Filed: 06/19/23 10:38> Plan of Treatment: Begin bowel regimen (colace, milk of magnesia and Miralax) to keep stools soft especially while taking oxycodone for your previous surgery. Drink plenty of fluids and eat high fiber diet. Follow up with your Surgeon <Mireille Easley - Last Filed: 06/19/23 10:38> Assessment: As above. <Mireille Easley - Last Filed: 06/19/23 10:38> Discharge Date/Time: 06/19/23 18:36 <Mireille Easley - Last Filed: 06/19/23 10:38>
--- NOTE | 2023-06-19 10:11 | PC.NURSE ---
pt changed to clean liquid diet. reports pain 07/29. aware of plan to possibly d/c today
[2023-06-19] MEDS: Heparin Sodium,Porcine 5,000 UNIT/ML VIAL 5000 UNIT SUBCUT (12:35)
[2023-06-19] MEDS: Montelukast Sodium 10 MG TABLET PO (12:58)
[2023-06-19] MEDS: polyethylene glycoL 3350 17 GM POWD.PACK PO (12:58)
--- NOTE | 2023-06-19 13:28 | MHC.CM.PN ---
Pt has been medically cleared for DC. CM met with her to determine if she reqired assistance, she does not. She will call her to pick her up and get her medication from here.
--- NOTE | 2023-06-19 16:05 | PC.NURSE ---
pt tolerating full liquid lunch well. no N/V, pain minimal
== END 2023-06-19 18:36 | disposition home or self-care (01) | DRG 247 ==
LOC: HO.ED 06-19 02:10 → HO.EDOVER 06-19 02:52
PROVIDERS: Admitting Provider Internal Medicine; Emergency Provider Emergency Medicine Emergency Medical Services; PCP Physician Assistant; Visit Provider Internal Medicine
DX: K56.7 Ileus, unspecified (principal); K52.9 Noninfective gastroenteritis and colitis, unspecified; Z20.822 Contact with and (suspected) exposure to COVID-19; K59.03 Drug induced constipation; T40.2X5A Adverse effect of other opioids, initial encounter; Z90.5 Acquired absence of kidney; Z87.891 Personal history of nicotine dependence; Z79.899 Other long term (current) drug therapy
CPT/HCPCS: 36415; 74018; 74177; 80053; 81001; 81025; 82248; 83690; 85025; 86140; 87502; 87635; 99285; J1170; J1644; J1885; J2270; J2405; J7120; Q9967

== ENCOUNTER → 2023-06-19 02:46 | Outpatient (BNV) | payer OTHER, SELFPAY | PROVIDERS: Admitting Provider Internal Medicine; Emergency Provider Emergency Medicine Emergency Medical Services; PCP Physician Assistant; Visit Provider Physician Assistant Surgical | DX: K52.9 Noninfective gastroenteritis and colitis, unspecified (principal); R10.9 Unspecified abdominal pain | CPT/HCPCS: 99222 ==

== ENCOUNTER → 2023-06-19 02:46 | Outpatient (BNV) | payer OTHER, SELFPAY | PROVIDERS: Admitting Provider Internal Medicine; Emergency Provider Emergency Medicine Emergency Medical Services; PCP Physician Assistant; Visit Provider Internal Medicine | DX: K56.601 Complete intestinal obstruction, unspecified as to cause (principal); Z90.5 Acquired absence of kidney; K52.9 Noninfective gastroenteritis and colitis, unspecified; R10.9 Unspecified abdominal pain | CPT/HCPCS: 99222 ==

== ENCOUNTER 2023-07-26 09:57 | Outpatient (AMB) | payer OTHER, SELFPAY ==
--- NOTE | 2023-07-26 10:07 | A.OFFPC_ITS ---
Vital Signs 07/26/23 10:12 Height 5 ft Weight 138 lb 4 oz BMI 27.0 BP 130/74 Blood Pressure Location Lt brachial Position Sitting Pulse 75 Pulse Source Pulse Oximeter Pulse Oximetry (%) 98 Oxygen Delivery Method Room Air Intake Visit Reasons: HMC/HDF-small bowel obstruction Intake Note: Patient is here for hospital discharge follow up. Patient was discharged from [facility] on 07/06/23 . Sports Specialist Required: No [employer] Artistic Director: Not Required per policy Accompanied by: Self / Same As Patient Allergies bupropion [From Wellbutrin] Allergy (Intermediate, Verified 07/28/23 05:13) Rash Medication List - Last Reconciled 07/28/23 by Dwight Zamora MD albuterol sulfate 90 mcg/actuation 1 inh inhalation QID PRN docusate sodium 100 mg PO BID fluticasone propion-salmeterol 100-50 mcg/dose (Advair Diskus) 1 ea inhalation BID PRN magnesium hydroxide (Milk of Magnesia) 30 mL PO DAILY PRN montelukast 10 mg PO DAILY polyethylene glycol 3350 17 grams PO DAILY PRN Tobacco use date assessed: 07/26/23 Dental Screening Dental Screen Date: 07/26/23 Did you have a dental visit in the last 12 months?: No Did you have a dental problem in the last 6 months where you did not have access to dental care?: No Was dental information given to patient?: Patient has dentist HPI HMC/HDF-small bowel obstruction HPI Details 43-year-old female presents to the [facility] for a hospital discharge follow-up. She was diagnosed with urothelial cancer and underwent a right nephrectomy in May of this year. Subsequently she was admitted to [facility] for abdominal pain. Investigations found patient had ileus and excessive use of opioids was attributed to it. Patient recovered by conservative measures. She is here for a follow-up. Abdominal pain symptoms have resolved. She is having regular bowel movements. She is happy to know that she does not have to go through any chemo or radiation. Incidentally patient is feeling a hemorrhoid which at times is causing her to have constipation. She has tried medications without much improvement. [facility] Medical History (Updated 07/28/23 @ 05:18 by Dwight Zamora MD) Urothelial carcinoma of kidney S/p nephrectomy Anxiety Hemorrhoids with complication Asthma Surgical History History of gastric surgery History of hemorrhoidectomy History of surgery Family History Mother No problems noted. Father Diabetes High blood pressure CVA (cerebral vascular accident), Onset Age: 59 Brother Brain tumor Social History Housing: Apartment Alcohol intake: current Alcohol intake frequency: holidays/special occasions only Patient Tobacco Use Status: Former Tobacco user Quit Date: 2021 Tobacco use type: Cigarette Years Smoked: 8 e-Cigarette/Vaping Use: Never Used Second Hand Smoke Exposure: No service: No Current occupational status: unemployed Cognitive needs: No Hearing needs: No Vision needs: Yes (glasses) Questionnaire PHQ-9 Over the last 2 weeks, how often have you been bothered by any of the following problems? 1. Little interest or pleasure in doing things: nearly every day 2. Feeling down, depressed, or hopeless: nearly every day 3. Trouble falling or staying asleep, or sleeping too much: nearly every day 4. Feeling tired or having little energy: nearly every day 5. Poor appetite or overeating: not at all 6. Feeling bad about yourself - or that you are a failure or have let yourself or your family down: several days 7. Trouble concentrating on things, such as reading the newspaper or watching television: not at all 8. Moving or speaking so slowly that other people could have noticed. Or the opposite - being so fidgety or restless that you have been moving around a lot more than usual: several days 9. Thoughts that you would be better off or of hurting yourself in some way: not at all Total score: 14 Depression Screening Interpretation: Positive Depression Screening Done: Yes Source: Developed by Drs. Norbert Nolen, Adelaida Dumont, Felix Curry and colleagues, with an educational puma from [employer]. Thrive Questionnaire Date Thrive assessed: 07/26/23 I am a: Patient What is your living situation today?: I have a steady place to live Within the past 12 months, did the food you bought not last and you didn't have the money to get more?: Never true Within the past 12 months, did you worry whether your food would run out before you got money to buy more?: Never true Do you have trouble paying for medicines?: No Do you have trouble getting transportation to medical appointments?: No Do you have trouble paying your heating and electricity bill?: No Do you have trouble taking care of your child, family member or friend?: No Do you have trouble with day-to-day activities such as bathing, preparing meals, shopping, managing finances, etc.?: No Are you currently unemployed and looking for a job?: No Are you interested in more education?: No Currently or been in a relationship where the following occur: no concerns reported THRIVE Score: 0 AUDIT C Alcohol Use Questionnaire (AUDIT-C) 1. How often do you have a drink containing alcohol?: Never 2. How many drinks containing alcohol do you have on a typical day when you are drinking?: 1 or 2 3. How often do you have six or more drinks on one occasion?: Never Total Score: 0 SUJEY-7 AMB Questionnaire SUJEY-7 Date SUJEY - 7 assessed: 07/26/23 Feeling nervous, anxious, or on edge: 3 = Nearly every day Not being able to stop or control worryin = More than half the days Worrying too much about different things: 2 = More than half the days Trouble relaxin = Several days Being so restless that it is hard to sit still: 3 = Nearly every day Becoming easily annoyed or irritable: 0 = Not at all Feeling afraid as if something awful might happen: 2 = More than half the days Total SUJEY-7 score (0-4 normal; 5-9 mild; 10-14 moderate; 15-21 severe): 13 Source: Developed by Drs. Norbert Nolen, Adelaida Dumont, Felix Curry and colleagues, with an educational puma from [employer]. Physical exam (Primary Care) Vital Signs: Last Vital Signs Pulse 75 07/26/23 10:12 BP 130/74 07/26/23 10:12 Pulse Ox 98 07/26/23 10:12 Oxygen Delivery Method Room Air 07/26/23 10:12 BMI result Body Mass Index 27.0 Tobacco/Smoking Status: Tobacco use Status Tobacco use date assessed 07/26/23 07/26/23 10:34 Patient Tobacco Use Status Former Tobacco user 07/26/23 10:34 Tobacco use type Cigarette 07/26/23 10:34 e-Cigarette/Vaping Use Never Used 07/26/23 10:34 PHQ-9: PHQ-9 Score PHQ-9: Total score 14 07/26/23 10:34 Depression Screening Interpretation: Positive Thrive Assessment: Date of Thrive Assessment Date Thrive assessed 07/26/23 07/26/23 10:34 Currently or been in a relationship where the following occur: no concerns reported Const General: cooperative and healthy appearing Nutritional Appearance: well nourished Orientation/consciousness: patient oriented x3 Limitations: no limitations HENMT Head: Yes normal to inspection Eyes General: appearance normal, both eyes and all related structures Neck Neck: Yes normal visual inspection Chest Chest palpation & inspection: normal palpation of entire chest wall Resp Effort & Inspection: normal respiratory effort Neuro General: patient oriented x3 Assessment and Plan Assessment & Plan (1) Urothelial carcinoma of kidney: Code(s): C64.9 - Malignant neoplasm of unspecified kidney, except renal pelvis Plan: Condition is stable. She has a follow-up with the urologist in 6 months. (2) Ileus: Code(s): K56.7 - Ileus, unspecified Plan: This condition has resolved. She can advance to regular diet. (3) External hemorrhoid: Code(s): K64.4 - Residual hemorrhoidal skin tags Plan: Appointment with general surgeon made for possible excision. Medications: Refilled polyethylene glycol 3350 17 grams PO DAILY PRN 30 ea 0RF Constipation magnesium hydroxide (Milk of Magnesia) 30 mL PO DAILY PRN 355 mL 0RF constipation Coding Level of Care Code Est Pt Level 4 (22083) Diagnoses Urothelial carcinoma of kidney C64.9 Ileus K56.7 External hemorrhoid K64.4
[2023-07-26 10:12] VITALS: BP 130/74; PULSE 75; O2SAT 98; BMI 27.0
== END 2023-07-26 11:26 | disposition home or self-care (01) ==
PROVIDERS: PCP Physician Assistant; Visit Provider Internal Medicine
DX: K56.7 Ileus, unspecified (principal); K64.4 Residual hemorrhoidal skin tags; C64.1 Malignant neoplasm of right kidney, except renal pelvis
CPT/HCPCS: 99214

== ENCOUNTER 2023-10-18 13:56 | Emergency (ER) | payer OTHER, SELFPAY ==
--- NOTE | ~2023-10-18 | XR_ITS ---
EXAMINATION: XR CHEST CLINICAL INFORMATION: Shortness of breath COMPARISON: 03/26/2020 TECHNIQUE: 2 views of the chest were obtained. FINDINGS: No significant abnormality is noted involving the heart, lungs, mediastinum, bony thorax or soft tissues. XR/XR chest 2V IMPRESSION: Unremarkable study
[2023-10-18 14:00] VITALS: BP 119/59; PULSE 83; RESP 18; TEMP 36.6; O2SAT 97; BMI 26.4
--- NOTE | 2023-10-18 14:05 | ED_ITS ---
HPI - URI/Sore Throat General Chief Complaint: Upper Respiratory Symptoms Stated Complaint: SOB, chest tightness Time Seen by Provider: 10/18/23 14:21 Source: patient Mode of arrival: ambulatory Limitations: no limitations History of Present Illness ED Provider: Chelita Amin PA-C HPI Narrative: Patient is a 43 year old assigned female at with a history of asthma presenting to the emergency department today with a cough, body aches, and increased wheezing. Patient states that over the last 3 days she has had a cough, increased wheezing, and body aches. Patient denies any dizziness, lightheadedness, abdominal pain, nausea, vomiting, fever, chills, blurry vision, double vision, loss of vision, chest pain, difficulty breathing, shortness of breath, back pain, night sweats, pain with urination, increased urinary frequency, increased urinary urgency, blood in her urine or stool, syncope or a near syncopal episode, recent trauma or falls, bowel incontinence, bladder incontinence, bowel retention, bladder retention, or any other complaints at this time. MD elicited complaint: cough Pertinent past history: asthma Onset (ago): day(s) (3) Consistency: constant Severity: mild Able to tolerate fluids by mouth: Yes Exacerbating factors: nothing Relieving factors: nothing Associated symptoms: myalgias and cough Treatments prior to arrival: none Related Data Home Medications ?Medication ?Instructions ?Recorded ?Confirmed fluticasone 100 mcg-salmeterol 50 1 ea inhalation BID PRN Shortness 06/19/23 07/28/23 mcg/dose blistr powdr for Of Breath Or Wheezing inhalation (Advair Diskus) Previous Rx's ?Medication ?Instructions ?Recorded docusate sodium 100 mg capsule 100 mg PO BID #60 caps 06/19/23 montelukast 10 mg tablet 10 mg PO DAILY #90 tabs 07/17/23 magnesium hydroxide 400 mg/5 mL 30 ml PO DAILY PRN constipation 07/26/23 oral suspension (Milk of Magnesia) #355 mL polyethylene glycol 3350 17 gram 17 g PO DAILY PRN Constipation #30 07/26/23 oral powder packet ea albuterol sulfate 90 mcg/actuation 1 inh inhalation QID PRN shortness 07/27/23 aerosol inhaler of breath or wheezing #6.7 grams prednisone 20 mg tablet 20 mg PO DAILY 7 days #7 tabs 10/18/23 Allergies Allergy/AdvReac Type Severity Reaction Status Date / Time bupropion [From Wellbutrin] Allergy Intermediate Rash Verified 10/18/23 14:01 Review of Systems 2 Constitutional: Constitutional: Reports no additional constitutional complaints, Reports body ache(s), Denies chills, Denies fever(s) and Denies night sweats Eyes: Eyes: Reports no additional eye complaints, Denies blurry vision, Denies change in vision, Denies diplopia, Denies eye discharge, Denies loss of vision and Denies eye pain ENT: Denies dizziness Cardiovascular: Cardiovascular: Reports no additional cardiovascular complaints, Denies chest pain, Denies lightheadedness, Denies Loss of Consciousness and Denies dyspnea Respiratory: Respiratory: Reports no additional respiratory complaints, Reports cough, Denies dyspnea and Reports wheezing Gastrointestinal: Gastrointestinal: Reports no additional gastrointestinal complaints, Denies abdominal pain, Denies melena, Denies hematochezia, Denies change in bowel habits and Denies change in stool character Genitourinary: Genitourinary: Denies hematuria, Denies urinary frequency, Denies dysuria, Denies urinary incontinence, Denies urinary hesitancy and Denies urinary urgency Musculoskeletal: Musculoskeletal: Reports no additional musculoskeletal complaints, Denies numbness and Denies tingling Neurologic: Denies dizziness, Denies loss of vision, Denies numbness and Denies tingling Psychiatric: Psychiatric: Reports no additional psychiatric complaints Endocrine: Endocrine: Reports no additional endocrine complaints Hematologic/Lymphatic: Hematologic/Lymphatic: Reports no additional hematologic/lymphatic complaints Allergic/Immunologic: Allergic/Immunologic: Reports no additional allergic/immunologic complaints and Reports wheezing PMFSH Past Medical History Attestation statement: The following information was validated with the patient. Source: old records reviewed and nursing notes reviewed Medical History Urothelial carcinoma of kidney S/p nephrectomy Anxiety Hemorrhoids with complication Asthma Surgical History History of gastric surgery History of hemorrhoidectomy History of surgery Family History Family History Mother No problems noted. Father Diabetes High blood pressure CVA (cerebral vascular accident), Onset Age: 59 Brother Brain tumor Social History Social History Housing: Apartment Alcohol intake: current Alcohol intake frequency: holidays/special occasions only Patient Tobacco Use Status: Former Tobacco user Quit Date: 2021 Tobacco use type: Cigarette Years Smoked: 8 e-Cigarette/Vaping Use: Never Used Second Hand Smoke Exposure: No Advance Directives: No Advance Directives Information Provided: Yes service: No Current occupational status: unemployed Cognitive needs: No Hearing needs: No Vision needs: Yes (glasses) Physical Exam 2 Vital Signs: Vital Signs: Last Vital Signs Temp 98 F 10/18/23 14:00 Pulse 86 10/18/23 14:49 Resp 18 10/18/23 14:49 BP 119/59 L 10/18/23 14:00 Pulse Ox 97 10/18/23 14:00 O2 Del Method Room Air 10/18/23 14:00 BMI result Body Mass Index 26.4 Const: General: cooperative, no acute distress, alert and awake Nutritional Appearance: well nourished Orientation/consciousness: patient oriented x3 Limitations: no limitations HEENT: Head: Yes normal to inspection and Yes atraumatic Ears: hearing grossly normal bilaterally and external ears normal General nose exam: Normal external nose present, no nasal discharge noted and no epistaxis Face and sinus: Yes normal facial exam, No abrasion and No laceration Mouth: Normal oral and palatal mucosa present, no drooling and no muffled voice Eyes: General: appearance normal, both eyes and all related structures P eriorbital: periorbital findings normal Eyelids: Yes eyelids normal C onjunctivae: conjunctivae normal Pupils: Equal, round and reactive pupils present EOM: EOMs intact bilaterally Neck: Neck: Yes normal visual inspection, Yes full ROM and Yes no lymphadenopathy Chest: Chest palpation & inspection: normal inspection of the chest Resp: Effort & Inspection: normal respiratory effort and able to speak in complete sentences Auscultation: wheezes throughout GI: Inspection: Yes normal to inspection Neuro: General: patient oriented x3 and moves all extremities Cranial nerves: Yes Equal, round and reactive pupils present Cognition (Neuro): n ormal cognition Motor exam (neuro): 5/5 motor strength present throughout Sensory Exam: Normal double simultaneous stimulation for sensation C oordination: [id number] test normal Extrem: General: Yes normal to inspection, Yes full ROM and Yes capillary refill normal Psych: Appearance: grossly normal Mental Status: mental status grossly normal Affect: normal affect Attitude: cooperative Thought process: N ormal thought process present Thought content: Normal thought content present Insight: Good insight present (Psych) Course Course Course Narrative: This is an RME done by YANET Reyna: Additional HPI, ROS, PE not included below will be deferred to primary provider. 43 yo f presents w/ URI sx X 3 days. Reports fatigue, malaise, myalgias and cough. No sick contacts. CP and sob only with cough. Appearance: Alert.? Oriented X3.? No acute cardiopulmonary distress distress.? Head: Normocephalic, atraumatic, no step-offs or deformities Neck: Normal inspection.? Neck supple.? CVS: Pulses normal.? Respiratory: No respiratory distress.?+ wheezing on exam Abdomen: Soft and nontender.? Skin: ? Normal skin color. Extremities: 5/5 strength to bilateral upper and lower extremities Neuro: Oriented X 3.? No motor deficit.? No sensory deficit. Medications Administered Discontinued Medications Generic Name Dose Route Start Last Admin Trade Name Freq PRN Reason Stop Dose Admin Albuterol Sulfate 2.5 mg/ 0 mg 10/18/23 14:40 10/18/23 14:45 Albuterol/Ipratropium 3 ml INHALE 10/18/23 14:41 1 dose ONCE ONE Administration Methylprednisolone Sodium Succinate 60 mg 10/18/23 14:26 10/18/23 14:48 Methylprednisolone Sod Succ 125 Mg/2 Ml Vial IM 10/18/23 14:27 60 mg ONCE ONE Administration Medical Decision Making Medical Decision Making [facility] Narrative: Patient is a 43 year old assigned female at with a history of asthma presenting to the emergency department today with a cough, body aches, and increased wheezing. Patient's physical exam showed wheezing but was otherwise unremarkable. Patient's blood work was unremarkable. Patient's EKG was unremarkable. Patient's chest x-ray showed no acute process. I explained my physical exam findings as well as all test results to the patient. I answered all questions asked by the patient. Patient received IM Solu-medrol which she stated helped her symptoms significantly. I stressed the importance of the patient taking her medication as prescribed. I stressed the importance of the patient following up with her primary care provider. I stressed the importance of the patient returning to the emergency department immediately if her symptoms were to worsen or if she were to develop any dizziness, shortness of breath, difficulty breathing, chest pain, blurry vision, loss of vision, nausea, vomiting, abdominal pain, fever, chills, back pain, or any other complaints. Patient verbalized agreement and understanding with this treatment plan and discharge. Differential Diagnosis Differential Diagnoses: The differential diagnosis associated with the presentation includes COVID-19 Influenza PNA Asthma Asthma exacerbation Admission/Observation Consideration of admission/observation: Escalation of care including admission/observation considered Patient would have been admitted to the hospital had her work up had any findings where hospital admission was appropriate and her clinical presentation warranted hospital admission. Lab Data [facility] Lab Attestation statement: I reviewed the patient's lab results. My interpretation of these results are in the [facility] Rationale portion of this note. 10/18/23 14:35 10/18/23 14:35 Labs: Lab Results 10/18/23 Range/Units 14:35 WBC 6.5 (4.8-10.8) X10*3/uL RBC 4.37 (4.20-5.50) X10*6/uL Hgb 13.2 (12.0-16.0) g/dl Hct 40.5 (37.0-47.0) % MCV 92.7 (80.0-98.0) fL MCH 30.2 (27.0-33.0) pg MCHC 32.6 (31.0-35.0) g/dl RDW 12.8 (11.0-16.0) % Plt Count 210 D (160-400) X10*3/uL MPV 10.9 (9.4-12.3) fL Immature Gran % (Auto) 0.2 (0.0-0.4) % Neut % (Auto) 58.4 (45-73) % Lymph % (Auto) 29.2 (20-40) % Harmon % (Auto) 8.3 (2-11) % Eos % (Auto) 3.1 (0-4) % Baso % (Auto) 0.8 (0-2) % Lymph # (Auto) 1.9 (1.2-4.9) X10*3/uL Harmon # (Auto) 0.5 (0.1-1.2) X10*3/uL Eos # (Auto) 0.2 (0.0-0.4) X10*3/uL Baso # (Auto) 0.1 (0.0-0.2) X10*3/uL Abs Immat Gran (auto) 0.01 (0.00-0.03) X10*3/uL Absolute Neuts (auto) 3.8 (2.0-8.3) x10*3/uL Absolute Nucleated RBC 0.000 (0.0-0.012) X10*3/uL Nucleated RBC % (auto) 0.0 (0.0-0.2) /100WBC Sodium 144 (135-145) mmol/L Potassium 4.0 (3.3-5.1) mmol/L Chloride 109 H (96-108) mmol/L Carbon Dioxide 25 (22-29) mmol/L Anion Gap 14 (12-20) BUN 11 (9-16) mg/dL Creatinine 1.16 (0.5-1.4) mg/dL Estim Creat Clear Calc 52.1 Estimated GFR 51 Random Glucose 146 H (60-115) mg/dL Calcium 9.8 (8.4-10.2) mg/dL Total Bilirubin 0.4 (0.0-1.0) mg/dL AST 22 (5-31) U/L ALT 15 (0-31) U/L Alkaline Phosphatase 66 (39-117) U/L Troponin I High Sens < 2.7 (<3.5-17.0) ng/L Total Protein 7.2 (6.5-8.0) g/dL Albumin 4.5 (3.5-5.0) g/dL Beta HCG, Quant < 2 mIU/mL Influenza Type A (PCR) NEGATIVE (Negative) Influenza Type B (PCR) NEGATIVE (Negative) RSV RNA Qual (PCR) NEGATIVE (Negative) SARS-CoV-2 RNA (RT-PCR) NEGATIVE (Negative) Independent Interpretation I performed an independent interpretation of an: EKG and Plain X-Ray Interpretation: My interpretation is in agreement with the radiologist's impression of this imaging study. - EXAMINATION: XR CHEST CLINICAL INFORMATION: Shortness of breath COMPARISON: 03/26/2020 TECHNIQUE: 2 views of the chest were obtained. FINDINGS: No significant abnormality is noted involving the heart, lungs, mediastinum, bony thorax or soft tissues. XR/XR chest 2V IMPRESSION: Unremarkable study Dictated By: Les Borden MD Signed By: Electronically signed by Les Borden MD 10/18/23 1522 - Vent. Rate: 076 BPM Atrial Rate: 076 BPM P-R Int: 140 ms QRS Dur: 072 ms QT Int: 368 ms P-R-T Axes: 064 071 042 degrees QTc Int: 414 ms Normal sinus rhythm with sinus arrhythmia Normal ECG No previous ECGs available DD/ [id number] Radiology Impression Discussion of test interpretation with radiology: I have reviewed the radiologist's reading. Critical Care Time Critical Care Time Critical Care Time: Yes Total Critical Care Time: 34 Attestation: I spent 34 minutes of Critical Care Time with this patient. This does not include time spent on separately reported billable procedures. Discharge Plan Discharge Clinical Impression: Asthma, Asthma exacerbation Patient Disposition: Home, Self-Care Instructions: Asthma (DC) Additional Instructions: Follow up with your primary care provider. Return to the emergency department immediately if your symptoms worsen or if you develop any dizziness, shortness of breath, difficulty breathing, chest pain, blurry vision, loss of vision, nausea, vomiting, abdominal pain, fever, chills, back pain, or any other complaints. Prescriptions: New prednisone 20 mg tablet 20 mg PO DAILY 7 Days Qty: 7 0RF No Action montelukast 10 mg tablet 10 mg PO DAILY Qty: 90 1RF albuterol sulfate 90 mcg/actuation HFA aerosol inhaler 1 inh inhalation QID PRN (Reason: shortness of breath or wheezing) Qty: 6.7 1RF fluticasone propion-salmeterol [Advair Diskus] 100-50 mcg/dose blister with device 1 ea inhalation BID PRN (Reason: Shortness Of Breath Or Wheezing) docusate sodium 100 mg Capsule 100 mg PO BID Qty: 60 0RF polyethylene glycol 3350 17 gram powder in packet 17 g PO DAILY PRN (Reason: Constipation) Qty: 30 0RF magnesium hydroxide [Milk of Magnesia] 400 mg/5 mL suspension 30 ml PO DAILY PRN (Reason: constipation) Qty: 355 0RF Referrals: [facility] Family Medicine [Provider Group] (Call to establish and follow up with a primary care provider. If you already have a primary care provider, please follow up with them.) [facility] Primary [facility] [Provider Group] [facility] Primary CareL[facility] [Provider Group] Stand Alone Forms: Work/School Release Print Language: Slovenian
--- NOTE | 2023-10-18 14:05 | ECG_ITS ---
Test Reason : SOB Blood Pressure : / mmHG Vent. Rate : 076 BPM Atrial Rate : 076 BPM P-R Int : 140 ms QRS Dur : 072 ms QT Int : 368 ms P-R-T Axes : 064 071 042 degrees QTc Int : 414 ms Normal sinus rhythm with sinus arrhythmia Normal ECG No previous ECGs available Referred By: Sb Reyna Electronically Signed By:ESTELLA REYES
[2023-10-18 14:39] LABS: MANUAL DIFF FLAG NO
[2023-10-18 14:41] LABS: Basophils Absolute Auto 0.1 X10*3/uL (0.0-0.2); Basophils Percent Auto 0.8 % (0-2); Eosinophils Absolute Auto 0.2 X10*3/uL (0.0-0.4); Eosinophils Percent Auto 3.1 % (0-4); Hematocrit 40.5 % (37.0-47.0); Hemoglobin 13.2 g/dl (12.0-16.0); Imm Gran Abs Auto 0.01 X10*3/uL (0.00-0.03); Imm Gran Pct Auto 0.2 % (0.0-0.4); Lymphocytes Absolute Auto 1.9 X10*3/uL (1.2-4.9); Lymphocytes Percent Auto 29.2 % (20-40); Mean Corpuscular HGB Conc 32.6 g/dl (31.0-35.0); Mean Corpuscular Hemoglobin 30.2 pg (27.0-33.0); Mean Corpuscular Volume 92.7 fL (80.0-98.0); Mean Platelet Volume 10.9 fL (9.4-12.3); Monocytes Absolute Auto 0.5 X10*3/uL (0.1-1.2); Monocytes Percent Auto 8.3 % (2-11); Neutrophils Absolute Auto 3.8 x10*3/uL (2.0-8.3); Neutrophils Percent Auto 58.4 % (45-73); Platelet Count 210 X10*3/uL (160-400); Red Blood Count 4.37 X10*6/uL (4.20-5.50); Red Cell Distribution Width 12.8 % (11.0-16.0); White Blood Count 6.5 X10*3/uL (4.8-10.8)
[2023-10-18] MEDS: Albuterol Sulfate 2.5 MG, Albuterol/Iprat 2.5/0.5MG 3 ML 3 ML INHALE (14:45)
[2023-10-18] MEDS: methylPREDNISolone Sod Succ 125 MG/2 ML VIAL 60 MG IM (14:48)
[2023-10-18 14:49] VITALS: PULSE 86; RESP 18; O2SAT 96
[2023-10-18 14:59] LABS: Alanine Aminotransferase 15 U/L (0-31); Albumin Level 4.5 g/dL (3.5-5.0); Alkaline Phosphatase 66 U/L (39-117); Anion Gap 14 (12-20); Aspartate Amino Transferase 22 U/L (5-31); Bilirubin Total 0.4 mg/dL (0.0-1.0); Blood Urea Nitrogen 11 mg/dL (9-16); Calcium 9.8 mg/dL (8.4-10.2); Carbon Dioxide 25 mmol/L (22-29); Chloride 109 mmol/L (96-108); Creatinine Clr Calc Pharmacy 52.1; Estimated Glomerular Filt Rate 51; Glucose Random 146 mg/dL (60-115); Sodium 144 mmol/L (135-145); Total Protein 7.2 g/dL (6.5-8.0)
[2023-10-18 15:06] LABS: HCG Quantitative < 2 mIU/mL; Troponin-I High Sensitivity < 2.7 ng/L (<3.5-17.0)
[2023-10-18 15:21] LABS: Influenza A PCR NEGATIVE (Negative); Influenza B PCR NEGATIVE (Negative); Resp Syncy Virus RNA Qual PCR NEGATIVE (Negative); SARS COV2 PCR INHOUSE NEGATIVE (Negative)
[2023-10-18 15:52] VITALS: BP 119/59; PULSE 86; RESP 18; TEMP 36.6; O2SAT 97
== END 2023-10-18 15:53 | disposition home or self-care (01) ==
PROVIDERS: Physician Assistant; Physician Assistant Medical; Emergency Provider Emergency Medicine
DX: J45.901 Unspecified asthma with (acute) exacerbation (principal); R06.02 Shortness of breath; R05.9 Cough, unspecified; Z87.891 Personal history of nicotine dependence; Z03.818 Encounter for observation for suspected exposure to other biological agents ruled out
CPT/HCPCS: 0241U; 36415; 71046; 80053; 84484; 84702; 85025; 93005; 94640; 96372; 99284; J2919

== ENCOUNTER → 2023-10-18 14:05 | Outpatient (BNV) | payer OTHER, SELFPAY | PROVIDERS: Emergency Provider Emergency Medicine; Visit Provider Internal Medicine | DX: R06.02 Shortness of breath (principal) | CPT/HCPCS: 93010 ==

== ENCOUNTER 2023-11-09 13:50 | Outpatient (AMB) | payer OTHER, SELFPAY ==
--- NOTE | 2023-11-09 13:55 | A.OFFPC_ITS ---
Vital Signs 11/09/23 13:57 Height 5 ft Weight 138 lb 8 oz BMI 27.0 BP 100/68 Blood Pressure Location Lt brachial Position Sitting Pulse 74 Pulse Source Pulse Oximeter Pulse Oximetry (%) 97 Oxygen Delivery Method Room Air Intake Visit Reasons: ED F/U 10/18/23 Asthma Attack Intake Note: Patient is here to follow-up after a visit the emergency department at [facility] on 10/18/23 Direct Service Professional Required: No Molten Iron Pourer: Present Accompanied by: Daughter Allergies bupropion [From Wellbutrin] Allergy (Intermediate, Verified 11/09/23 14:33) Rash Medication List - Last Reconciled 11/09/23 by Dwight Zamora MD albuterol sulfate 90 mcg/actuation 1 inh inhalation QID PRN fluticasone propion-salmeterol 100-50 mcg/dose (Advair Diskus) 1 ea inhalation BID PRN magnesium hydroxide (Milk of Magnesia) 30 mL PO DAILY PRN montelukast 10 mg PO DAILY polyethylene glycol 3350 17 grams PO DAILY PRN Tobacco use date assessed: 11/09/23 Dental Screening Dental Screen Date: 07/26/23 HPI ED F/U 10/18/23 Asthma Attack HPI Details 43-year-old female [facility] a hospital discharge follow-up. Patient had presented to the emergency room with wheezing and shortness of breath. Exacerbation of asthma was diagnosed. Patient was given Solu-Medrol and nebulizer treatment in the emergency room. She was discharged home on prednisone and antibiotics. Patient is feeling better and is at baseline state of health. She had a nephrectomy for the kidney cancer. She did not need any chemo or radiation. [facility] Medical History (Updated 10/19/23 @ 00:02 by Hayley Donald) Urothelial carcinoma of kidney S/p nephrectomy Anxiety Hemorrhoids with complication Asthma Surgical History (Updated 11/09/23 @ 14:03 by JOSEPHINE Napoles) History of kidney removal History of gastric surgery History of hemorrhoidectomy History of surgery Family History Mother No problems noted. Father Diabetes High blood pressure CVA (cerebral vascular accident), Onset Age: 59 Brother Brain tumor Social History Housing: Apartment Alcohol intake: current Alcohol intake frequency: holidays/special occasions only Patient Tobacco Use Status: Former Tobacco user Tobacco use type: Cigarette Years Smoked: 8 e-Cigarette/Vaping Use: Never Used Second Hand Smoke Exposure: No service: No Current occupational status: unemployed Cognitive needs: No Hearing needs: No Vision needs: Yes (glasses) Questionnaire Thrive Questionnaire Date Thrive assessed: 07/26/23 SUJEY-7 AMB Questionnaire SUJEY-7 Date SUJEY - 7 assessed: 07/26/23 Source: Developed by Drs. Norbert Nolen, Adelaida Dumont, Felix Curry and colleagues, with an educational puma from [employer]. Physical exam (Primary Care) Vital Signs: Last Vital Signs Pulse 74 11/09/23 13:57 BP 100/68 11/09/23 13:57 Pulse Ox 97 11/09/23 13:57 Oxygen Delivery Method Room Air 11/09/23 13:57 BMI result Body Mass Index 27.0 Tobacco/Smoking Status: Tobacco use Status Tobacco use date assessed 11/09/23 11/09/23 14:05 Patient Tobacco Use Status Former Tobacco user 11/09/23 14:05 Tobacco use type Cigarette 11/09/23 14:05 e-Cigarette/Vaping Use Never Used 11/09/23 14:05 Thrive Assessment: Date of Thrive Assessment Date Thrive assessed 07/26/23 11/09/23 14:05 Const General: cooperative and healthy appearing Nutritional Appearance: well nourished Orientation/consciousness: patient oriented x3 Limitations: no limitations HENMT Head: Yes normal to inspection Eyes General: appearance normal, both eyes and all related structures Neck Neck: Yes normal visual inspection Chest Chest palpation & inspection: normal palpation of entire chest wall Resp Effort & Inspection: normal respiratory effort Neuro General: patient oriented x3 Assessment and Plan Assessment & Plan (1) Urothelial carcinoma of kidney: Code(s): C64.9 - Malignant neoplasm of unspecified kidney, except renal pelvis Plan: Patient has a follow-up appointment with the oncologist. (2) Asthma: Code(s): J45.909 - Unspecified asthma, uncomplicated Qualifiers: Asthma severity: mild Asthma persistence: persistent Asthma complication type: uncomplicated Qualified Code(s): J45.30 - Mild persistent asthma, uncomplicated Plan: Completed her treatment. Patient was advised to continue taking Advair and albuterol as prescribed. Orders: Orders MM screening mammo BI Today Z12.31 - Encounter for screening mammogram for malignant neoplasm of breast Medications: Refilled magnesium hydroxide (Milk of Magnesia) 30 mL PO DAILY PRN 355 mL 0RF const ipation montelukast 10 mg PO DAILY 90 tabs 1RF T78.40XA - Allergy, unspecified, initial encounter polyethylene glycol 3350 17 grams PO DAILY PRN 30 ea 0RF Constipation albuterol sulfate 90 mcg/actuation 1 inh inhalation QID PRN 6.7 grams 1RF shortness of breath or wheezing Coding Level of Care Code Est Pt Level 4 (89865) Complex EM visit Add On G2211 Diagnoses Urothelial carcinoma of kidney C64.9 Mild persistent asthma without complication J45.30 Asthma severity: mild Asthma persistence: persistent Asthma complication type: uncomplicated
[2023-11-09 13:57] VITALS: BP 100/68; PULSE 74; O2SAT 97; BMI 27.0
== END 2023-11-09 14:31 | disposition home or self-care (01) ==
PROVIDERS: PCP Physician Assistant; Visit Provider Internal Medicine
DX: C64.9 Malignant neoplasm of unspecified kidney, except renal pelvis (principal); J45.30 Mild persistent asthma, uncomplicated
CPT/HCPCS: 99214; G2211

== ENCOUNTER 2024-07-04 02:12 | Emergency (ER) | payer OTHER, SELFPAY ==
--- NOTE | 2024-07-04 | ECG_ITS ---
Test Reason : SYNCOPE Blood Pressure : */* mmHG Vent. Rate : 57 BPM Atrial Rate : 57 BPM P-R Int : 144 ms QRS Dur : 74 ms QT Int : 432 ms P-R-T Axes : 29 71 66 degrees QTcB Int : 420 ms Sinus bradycardia Otherwise normal ECG When compared with ECG of 18-Oct-2023 14:15, No significant change was found Referred By: Generic ED Physician Electronically Signed By: JUSTYNA REY MD
[2024-07-04 02:15] VITALS: BP 124/84; PULSE 60; RESP 20; TEMP 36.9; O2SAT 99; BMI 23.4
--- OUTSIDE RECORDS SUMMARY | 2024-07-04 02:23 | XMS_ITS | Clinical Summary ---
Demographics Address [address] [place] [address] Mobile Phone Home Phone Preferred Language es Marital Status Single Synagogue Affiliation Unknown Race White Ethnic Group or Author Organization [employer] Address [address] [place] [address] Care Team Providers Care Brim Plater Name Role Phone Unavailable Primary Care Provider Unavailabl e Allergies Active Allergy Reactions Criticality Noted Date Comments Oxycodone 04/04/2013 Medications acetaminophen (Tylenol) 325 MG tablet Take 650 mg by mouth every 6 (six) hours if needed. 11/23/2022 Active Advair Diskus 100-50 MCG/ACT aerosol powder 12/05/2022 Acti ve HYDROmorphone (Dilaudid) 2 MG tablet TAKE ONE TABLET BY MOUTH EVERY 8 TO 12 HOURS 12/01/2022 Active ibuprofen 600 MG tablet TAKE ONE TABLET BY MOUTH EVERY 6 HOURS NEEDED FOR PAIN. TAKE WITH FOOD TO PREVENT GI UPSET 08/23/2022 Active methocarbamol (Robaxin) 500 MG tablet TAKE ONE TABLET BY MOUTH FOUR TIMES A DAY NEEDED FOR MUSCLE SPASM 08/23/2022 Active montelukast (Singulair) 10 MG tablet 12/05/2022 Active phenazopyridine (Pyridium) 200 MG tablet Take 200 mg by mouth. Take with food. 12/01/2022 Active Active Problems No known active problems Social History Tobacco Use Types Packs/Day Years Used Date Smoking Tobacco: Every Day Cigarettes Smokeless Tobacco: Never Tobacco Cessation:Ready to Q uit: Not Asked; Counseling Given: Not Answered Comments Unknown Sex and Gender Information Value Date Recorded Sex Assigned at Female 03/21/2022 10:16 AM EDT Legal Sex Female 10:16 AM EDT Gender Identity Female 03/21/2022 10:16 AM EDT Sexual Orientation Don't know 03/21/2022 10 :16 AM EDT Plan of Treatment Health Maintenance Due Date Last Done Comments Depression Screening 1982 HIV Screening 1982 SDOH Screening 1982 Alcohol/Substance Use Screening 1994 Family Planning (PISQ) 1997 Hepatitis C Screening 2000 Hepatitis B Vaccines (1 of 3 - 19+ 3-dose series) 2001 Pap Smear 2003 Cervical Cancer Screening 2012 HPV/Cotest 2012 Dental Oral Exam 10/05/2018 04/06/2018, 03/25/2013 Dental X-Ray: Bitewings 06/20/2020 06/19/19 20, 04/06/2018, 09/19/2017, Additional history exists Dental Prophylaxis 12/18/2020 06/19/2020, 0 06/19/2019, 10/03/2013, Additional history exists Dental X-Ray: Full Mouth 04/07/2021 04/06/2018, 08/2012 Mammogram 2022 Pneumococcal Vaccine: Pediatrics (0 to 5 Years) and At-Risk Patients (6 to 49) Years) (2 of 2 - PCV) 08/11/2022 08/11/2021 Tobacco Screening 12/24/2023 12/23/2022 COVID-19 Vaccine (2 - season) 2024 05/27/2019 Influenza Vaccine (#1) 2024 0, 05/27/2019, 02/07/2012 DTaP/Tdap/Td Vaccines (3 - Td or Tdap) 07/06/2028 07/06/2018, 02/07/2012 Zoster Vaccines (1 of 2) 2032 RSV Patients and Patients Aged 60 years or older (1 - 1-dose 75+ series) 2057 HIB Vaccines Aged Out No longer eligi ble based on patient's age to complete this topic HPV Vaccines Aged Out No longer eligi ble based on patient's age to complete this topic Hepatitis A Vaccines Aged Out No long er eligible based on patient's age to complete this topic IPV Vaccines Aged Out No longer eligi ble based on patient's age to complete this topic Meningococcal Vaccine Aged Out No irene catherine eligible based on patient's age to complete this topic RSV under 20 months Aged Out No longe r eligible based on patient's age to complete this topic Rotavirus Vaccines Aged Out No longer eligible based on patient's age to complete this topic Procedures Procedure Name Priority Date/Time Associated Diagnosis Comments PROPHYLAXIS - ADULT Routine 06/19/2020 1 2:00 AM EST BITEWINGS - 4 RADIOGRAPHIC IMAGES Routine 06/19/2019 12:00 AM EST INTRAORAL - COMPLETE SERIES OF RADIOGRAPHIC IMAGES Routine 04/06/2018 12:00 AM EST PERIODIC ORAL EVALUATION - ESTABLISHED PATIENT Routine 04/06/2018 12:00 AM EST from Last 3 Months or Most Recently Relevant to Health Maintenance Insurance [facility] MEDICAID STAND ADULT * Guarantor: Moraima Jeffrey Account Type Relation to Patient Date of Phone Billing Address Personal/Family Self [address] [place] [address] * Guarantor: Moraima Jeffrey Account Type Relation to Patient Date of Phone Billing Address Personal/Family Self [address] [place] [address]
--- OUTSIDE RECORDS SUMMARY | 2024-07-04 02:23 | XMS_ITS | Encounter Summary ---
Author Organization [facility] Address [address] [place] [address] Care Team Providers Care Radiotelegrapher Name Role Phone Unavailable Primary Care Provider Unavailabl e Encounter Details Date Type Department Care Team (Late st Contact Info) Description 06/12/2024 Lab Requisition [facility] - Main Lab [address] [place] [phone] Miguel Garcia, YANET [address] [facility] [address] [place] [address] Urinary tract infection, site not specified Social History Tobacco Use Types Packs/Day Years Used Date Smoking Tobacco: Never Assessed Comments Unknown Sex and Gender Information Value Date Recorded Sex Assigned at Not on file Legal Sex Female 12:25 PM EST Gender Identity Not on file Sexual Orientation Not on file documented as of this encounter Plan of Treatment Not on file documented as of this encounter Procedures Procedure Name Priority Date/Time Associated Diagnosis Comments CULTURE URINE Routine 06/12/2024 12:00 AM EST Urinary tract infection, site not specified documented in this encounter Results * Culture urine (06/12/2024 12:00 AM EST) Culture, Urine No growth 06/13/2024 1:16 PM EST [facility] Urine Urine specimen obtained by clean catch procedure / Unknown 06/12/2024 06/12/2024 6:12 PM EST us Miguel [facility] MICROBIOLOGY - GENERAL ORD ERABLES Final Result [facility] [address] [place] [address], documented in this encounter Visit Diagnoses Diagnosis Urinary tract infection, site not specified documented in this encounter
--- OUTSIDE RECORDS SUMMARY | 2024-07-04 02:23 | XMS_ITS | Encounter Summary ---
Demographics Address [address] [place] [address] Mobile Phone Home Phone Preferred Language es Marital Status Single Protestant Affiliation Unknown Race White Ethnic Group or Author Organization [employer] Address [address] [place] [address] Care Team Providers Care Strategic Planning Specialist Name Role Phone Unavailable Primary Care Provider Unavailabl e Encounter Details Date Type Department Care Team (Latest Contact Info) Description 06/19/2020 Abstract [facility] CONVERSIONS Dental, Provider, DDS Social History Tobacco Use Types Packs/Day Years Used Date Smoking Tobacco: Never Assessed Comments Unknown Sex and Gender Information Value Date Recorded Sex Assigned at Female 03/21/2022 10:16 AM EDT Legal Sex Female 10:16 AM EDT Gender Identity Female 03/21/2022 10:16 AM EDT Sexual Orientation Don't know 03/21/2022 10 :16 AM EDT documented as of this encounter Plan of Treatment Not on file documented as of this encounter Visit Diagnoses Not on filedocumented in this encounter
--- OUTSIDE RECORDS SUMMARY | 2024-07-04 02:23 | XMS_ITS | Encounter Summary ---
Demographics Address [address] [place] [address] Mobile Phone Home Phone Preferred Language es Marital Status Single Quaker Affiliation Unknown Race White Ethnic Group or Author Organization [employer] Address [address] [place] [address] Care Team Providers Care Emergency Planning And Response Manager Name Role Phone Unavailable Primary Care Provider Unavailabl e Encounter Details Date Type Department Care Team (Latest Contact Info) Description 06/19/2019 Abstract [facility] CONVERSIONS Dental, Provider, DDS Social History [...]
[2024-07-04 02:38] LABS: MANUAL DIFF FLAG NO
[2024-07-04 02:40] LABS: Basophils Absolute Auto 0.1 X10*3/uL (0.0-0.2); Basophils Percent Auto 0.5 % (0-2); Eosinophils Absolute Auto 0.3 X10*3/uL (0.0-0.4); Eosinophils Percent Auto 2.4 % (0-4); Hematocrit 39.4 % (37.0-47.0); Hemoglobin 13.6 g/dl (12.0-16.0); Imm Gran Abs Auto 0.05 X10*3/uL (0.00-0.03); Imm Gran Pct Auto 0.4 % (0.0-0.4); Lymphocytes Absolute Auto 3.2 X10*3/uL (1.2-4.9); Lymphocytes Percent Auto 24.2 % (20-40); Mean Corpuscular HGB Conc 34.5 g/dl (31.0-35.0); Mean Corpuscular Hemoglobin 30.3 pg (27.0-33.0); Mean Corpuscular Volume 87.8 fL (80.0-98.0); Mean Platelet Volume 10.7 fL (9.4-12.3); Monocytes Absolute Auto 0.8 X10*3/uL (0.1-1.2); Monocytes Percent Auto 5.9 % (2-11); Neutrophils Absolute Auto 8.8 x10*3/uL (2.0-8.3); Neutrophils Percent Auto 66.6 % (45-73); Platelet Count 272 X10*3/uL (160-400); Red Blood Count 4.49 X10*6/uL (4.20-5.50); Red Cell Distribution Width 12.1 % (11.0-16.0); White Blood Count 13.2 X10*3/uL (4.8-10.8)
[2024-07-04 03:00] LABS: Alanine Aminotransferase 16 U/L (0-31); Albumin Level 4.1 g/dL (3.5-5.0); Anion Gap 14 (12-20); Aspartate Amino Transferase 22 U/L (5-31); Bilirubin Total 0.3 mg/dL (0.0-1.0); Blood Urea Nitrogen 19 mg/dL (9-16); Calcium 9.1 mg/dL (8.4-10.2); Carbon Dioxide 23 mmol/L (22-29); Chloride 104 mmol/L (96-108); Creatinine Clr Calc Pharmacy 52.6; Estimated Glomerular Filt Rate > 60; Glucose Random 130 mg/dL (60-115); Lipase 29 U/L (8-78); Potassium 3.7 mmol/L (3.3-5.1); Sodium 137 mmol/L (135-145); Total Protein 7.4 g/dL (6.5-8.0)
[2024-07-04 03:04] LABS: Troponin-I High Sensitivity < 2.7 ng/L (<3.5-17.0)
[2024-07-04 03:16] LABS: Influenza A PCR NEGATIVE (Negative); Influenza B PCR NEGATIVE (Negative); Resp Syncy Virus RNA Qual PCR NEGATIVE (Negative); SARS COV2 PCR INHOUSE NEGATIVE (Negative)
[2024-07-04 03:44] LABS: Alkaline Phosphatase 80 U/L (39-117)
== END 2024-07-04 03:25 | disposition left against medical advice (07) ==
PROVIDERS: Emergency Provider Emergency Medicine; PCP Internal Medicine
DX: R10.9 Unspecified abdominal pain (principal); R11.10 Vomiting, unspecified; R55 Syncope and collapse; R00.1 Bradycardia, unspecified; Z79.899 Other long term (current) drug therapy; Z03.818 Encounter for observation for suspected exposure to other biological agents ruled out
CPT/HCPCS: 0241U; 80053; 83690; 84484; 85025; 93005; 99281

== ENCOUNTER → 2024-07-04 02:24 | Outpatient (BNV) | payer OTHER, SELFPAY | PROVIDERS: Emergency Provider Emergency Medicine; PCP Internal Medicine; Visit Provider Internal Medicine Cardiovascular Disease | DX: R55 Syncope and collapse (principal); R00.1 Bradycardia, unspecified | CPT/HCPCS: 93010 ==

== ENCOUNTER 2024-10-03 17:44 | Emergency (ER) | payer OTHER, SELFPAY ==
[2024-10-03 18:07] VITALS: BP 122/89; PULSE 83; RESP 18; TEMP 37.3; O2SAT 97; BMI 26.3
--- NOTE | 2024-10-03 18:07 | ED.GENADULT ---
HPI - General Adult General Chief complaint: Abdominal Pain Stated complaint: lower abd pain Time Seen by Provider: 10/03/24 18:52 Source: patient, RN notes reviewed and old records reviewed Mode of arrival: ambulatory Limitations: no limitations History of Present Illness ED Provider: Jean Carlos DRISCOLL narrative: 44-year-old female presents for evaluation of lower abdominal pain. Patient reports that she has a history of renal cancer status post nephrectomy. She now has primary bladder cancer in his due to have a tumor removal in a few weeks. She reports that she is able to urinate but has some difficulty doing so end over the last few days and has had increasing lower abdominal pain She also endorses burning with urination. Denies any fevers or chills She called her primary doctor and was told to go to the ER The patient took an ibuprofen prior to arrival and her pain resolved Related Data Previous Rx's ?Medication ?Instructions ?Recorded polyethylene glycol 3350 17 gram 17 g PO DAILY PRN Constipation #30 11/09/23 oral powder packet ea magnesium hydroxide 400 mg/5 mL 30 ml PO DAILY PRN constipation 11/17/23 oral suspension (Milk of Magnesia) #355 mL montelukast 10 mg tablet 10 mg PO DAILY #90 tabs 11/17/23 albuterol sulfate 90 mcg/actuation 1 inh inhalation QID PRN shortness 08/05/24 aerosol inhaler of breath or wheezing #6.7 grams fluticasone 100 mcg-salmeterol 50 1 ea inhalation BID PRN Shortness 08/05/24 mcg/dose blistr powdr for Of Breath Or Wheezing #60 ea inhalation (Advair Diskus) cefuroxime axetil 250 mg tablet 250 mg PO Q12H #14 tabs 10/03/24 tramadol 50 mg tablet 50 mg PO Q8H PRN severe pain 10/03/24 (scale score 7-10) #12 tabs Allergies Allergy/AdvReac Type Severity Reaction Status Date / Time bupropion [From Wellbutrin] Allergy Intermediate Rash Verified 10/03/24 18:10 Review of Systems Constitutional: Constitutional: Denies body ache(s), Denies chills and Denies fever(s) Eyes: Eyes: Denies blurry vision ENT: Denies dysphagia, Denies vertigo and Denies dizziness Gastrointestinal: Gastrointestinal: Reports abdominal pain, Denies dysphagia, Denies nausea and Denies vomiting Genitourinary: Genitourinary: Reports dysuria and Reports pelvic pain Neurologic: Denies vertigo and Denies dizziness [facility] Past Medical History Medical History (Updated 10/03/24 @ 18:53 by Thor Evangelista) Urothelial carcinoma of kidney S/p nephrectomy Anxiety Hemorrhoids with complication Asthma Surgical History (Updated 11/09/23 @ 14:03 by JOSEPHINE Napoles) History of kidney removal History of gastric surgery History of hemorrhoidectomy History of surgery Family History Family History Mother No problems noted. Father Diabetes High blood pressure CVA (cerebral vascular accident), Onset Age: 59 Brother Brain tumor Social History Social History Housing: Apartment Alcohol intake: current Alcohol intake frequency: holidays/special occasions only Patient Tobacco Use Status: Former Tobacco user Tobacco use type: Cigarette Years Smoked: 8 e-Cigarette/Vaping Use: Never Used Second Hand Smoke Exposure: No Advance Directives: No Advance Directives Information Provided: No service: No Current occupational status: unemployed Cognitive needs: No Hearing needs: No Vision needs: Yes (glasses) Physical Exam ED Vital Signs: Vital Signs - 24 hr 10/03/24 18:07 10/03/24 19:03 Temperature 99.1 F 99.1 F Pulse Rate 83 83 Respiratory Rate 18 18 Blood Pressure 122/89 122/89 Pulse Oximetry 97 97 Oxygen Delivery Method Room Air Room Air BMI result Body Mass Index 26.3 Const General: healthy appearing, comfortable, no acute distress, alert and awake Nutritional Appearance: well nourished Orientation/consciousness: patient oriented x3 HENMT Head: Yes normocephalic and Yes atraumatic Eyes Eyelids: Yes eyelids normal Conjunctivae: conjunctivae normal Sclerae: sclerae normal Corneas: corneas normal Pupils: Equal, round and reactive pupils present EOM: EOMs intact bilaterally Neck Neck: Yes full ROM Resp Effort & Inspection: normal respiratory effort, able to speak in complete sentences and not labored GI Inspection: No distended Palpation (GI): Soft to palpation, not firm, no guarding and not rigid Auscultation: normoactive bowel sounds Skin General skin exam: elasticity normal Neuro General: patient oriented x3 Cranial nerves: Yes Equal, round and reactive pupils present and Yes Bilaterally intact EOM present Cognition (Neuro): normal cognition Extrem Other: Moving all extremities well without any obvious deformities Course Course Course Narrative: RME, this is a rapid medical exam performed by Soy Evangelista please refer to primary provider for complete H&P- 44-year-old female presents for evaluation of lower abdominal pain and burning with urination. She has a known bladder tumor and has plans for removal. She reports taking ibuprofen and her pain has resolved. She does note that she only has 1 kidney due to previous renal cancer and nephrectomy. Plan for UA Medical Decision Making Medical Decision Making MDM Narrative: 44-year-old female presents for evaluation of abdominal pain. Her past medical history is as above, she has known bladder cancer. She presents to the ER today because she was looking for some type of analgesia and did not know what she could safely take due to her history of renal cancer. Her primary doctor encouraged her to go to the ER for evaluation. Urinalysis is consistent with a UTI most of the patient's discomfort is with urinating. I do not see any indication for further emergent workup at this time. We will treat her pain with tramadol if Tylenol is unsuccessful and she will be given a week's worth of cefuroxime for UTI. She will follow up with her outpatient providers Differential Diagnosis Differential Diagnoses: The differential diagnosis associated with the presentation includes UTI Bladder cancer Flank pain Pyelonephritis Ovarian cyst Lab Data Labs: Lab Results 10/03/24 Range/Units 18:24 Urine Color Yellow Urine Appearance Turbid Urine pH 7.5 (5.0-9.0) Ur Specific [place] 1.020 (1.005-1.025) Urine Protein 300 (3+) H (Neg-Trace) mg/dL Urine Glucose (UA) Negative (Negative) mg/dL Urine Ketones Trace (Negative) mg/dL Urine Blood Large (3+) H (Negative) Urine Nitrite Negative (Negative) Ur Leukocyte Esterase Moderate (2+) H (Negative) Urine RBC >20 H (0-2) /HPF Urine WBC >50 H (0-5) /HPF Ur Squamous Epith Cells 3-5 (0-2) /HPF Urine Bacteria 4+ (None Seen) Hyaline Casts 3-5 (0-2) /LPF Discharge Plan Discharge Clinical Impression: Urinary tract infection Patient Disposition: Home, Self-Care Instructions: Urinary Tract Infection in Women (ED) Additional Instructions: Your urinalysis was consistent with a UTI. Take the cefuroxime twice daily for 1 full week. Use Tylenol as needed for pain. You may use tramadol for more severe breakthrough pain. This may make you drowsy, do not drink alcohol or drive after taking it You should avoid excessive use of ibuprofen or other NSAIDs such as Aleve since he will need have 1 kidney Prescriptions: New cefuroxime axetil 250 mg tablet 250 mg PO Q12H Qty: 14 0RF tramadol 50 mg tablet 50 mg PO Q8H PRN (Reason: severe pain (scale score 7-10)) Qty: 12 0RF No Action magnesium hydroxide [Milk of Magnesia] 400 mg/5 mL suspension 30 ml PO DAILY PRN (Reason: constipation) Qty: 355 0RF montelukast 10 mg tablet 10 mg PO DAILY Qty: 90 1RF albuterol sulfate 90 mcg/actuation HFA aerosol inhaler 1 inh inhalation QID PRN (Reason: shortness of breath or wheezing) Qty: 6.7 1RF fluticasone propion-salmeterol [Advair Diskus] 100-50 mcg/dose blister with device 1 ea inhalation BID PRN (Reason: Shortness Of Breath Or Wheezing) Qty: 60 1RF polyethylene glycol 3350 17 gram powder in packet 17 g PO DAILY PRN (Reason: Constipation) Qty: 30 0RF Interventions: ED Discharge Assessment Last Done: 10/03/24 19:03 Discharge Date/Time: 10/03/24 19:03 Print Language: Danish
[2024-10-03 18:33] LABS: Appearance Urine Turbid; Color Urine Yellow; Glucose Urine UA Negative (Negative); Leukocyte Esterase Urine Moderate (2+) (Negative); Nitrite Urine Negative (Negative); PH 7.5 (5.0-9.0); UMIC TRIGGER UACC YES; Urine Blood Large (3+) (Negative); Urine Ketones Trace mg/dL (Negative); Urine Protein 300 (3+) mg/dL (Neg-Trace)
[2024-10-03 18:43] LABS: Bacteria Urine 4+ (None Seen); RBC Urine >20 /HPF (0-2); UACC Culture Trigger YES; WBC Urine >50 /HPF (0-5)
[2024-10-03 19:03] VITALS: BP 122/89; PULSE 83; RESP 18; TEMP 37.3; O2SAT 97
--- OUTSIDE RECORDS SUMMARY | 2024-10-03 19:04 | XMS_ITS | Encounter Summary ---
Author Organization [employer] Address [address] [place] [address] Care Team Providers Care Tax Technician Name Role Phone Unavailable Primary Care Provider Unavailabl e Encounter Details Date Type Department Care Team (Latest Contact Info) Description 06/19/2020 Abstract [facility] CONVERSIONS Dental, Provider, DDS Social History Tobacco [...] as of this encounter Plan of Treatment Upcoming Encounters Date Type Department Care Team (Late st Contact Info) Description 11/15/2024 1:30 PM EDT Office Visit [facility] [address] [place] [address] Lamont, Tessa, OD [address] [place] [address] documented as of this encounter Visit Diagnoses Not on filedocumented in this encounter
--- OUTSIDE RECORDS SUMMARY | 2024-10-03 19:04 | XMS_ITS | Encounter Summary ---
Author Organization [facility] Address [address] [place] [address] Care Team Providers Care Caretaker Resort Name Role Phone Physician, Pcp Unknown Primary Care Provider Heather vailable Encounter Details Date Type Department Care Team (Late st Contact Info) Description 06/12/2024 Lab Requisition [facility] - Main Lab [address] [place] [phone] Miguel Garcia PA [address] [facility] [address] [place] [address] Urinary tract infection, site not specified Social [...] Urine No growth 06/13/2024 1:16 PM EST [facility] Urine Urine specimen obtained by clean catch procedure / Unknown 06/12/2024 06/12/2024 6:12 PM EST Miguel [facility] MICROBIOLOGY - GENERAL ORD ERABLES Final Result [facility] [address] [place] [address], [place] [phone] documented in this encounter Visit Diagnoses Diagnosis Urinary tract infection, site not specified documented in this encounter Care Teams Caretaker Resort Relationship Specialty Start Date End Date Physician, Pcp Unknown PCP - General 07/16/24 documented as of this encounter
--- OUTSIDE RECORDS SUMMARY | 2024-10-03 19:04 | XMS_ITS | Encounter Summary ---
Author Organization [employer] Address [address] [place] [address] Care Team Providers Care Bar Back Name Role Phone Unavailable Primary Care Provider Unavailabl e Encounter Details Date Type Department Care Team (Latest Contact Info) Description 06/19/2019 Abstract [facility] Dental, Provider, DDS Social History [...] Description 11/15/2024 1:30 PM EDT Office Visit [facility] [address] [place] [address] Lamont, Tessa, OD [address] [place] [address] documented as of this encounter Visit Diagnoses Not on filedocumented in this encounter
--- OUTSIDE RECORDS SUMMARY | 2024-10-03 19:04 | XMS_ITS | Clinical Summary ---
Demographics Address [address] [place] [address] Mobile Phone Work Phone Preferred Language es Marital Status Single Methodist Affiliation Unknown Race White Ethnic Group Unknown Author Organization [employer] Address [address] [place] [address] Care Team Providers Care Civil Engineer In Training Name Role Phone Unavailable Primary Care Provider [...] 10 :16 AM EDT Plan of Treatment Upcoming Encounters Date Type Department Care Team (Late st Contact Info) Description 11/15/2024 1:30 PM EDT Office Visit [facility] [address] [place] [address] Tessa Miguel, OD [address] [place] [address] Health Maintenance Due Date Last Done Comments [...] patient's age to complete this topic Meningococcal B Vaccine Aged Out No l onger eligible based on patient's age to complete [...] Most Recently Relevant to Health Maintenance Insurance [facility] * Guarantor: Moraima Jeffrey Account Type Relation to Patient Date of Phone Billing Address Dental Self [address] [place] [address] [facility] STAND ADULT * Guarantor: Moraima Jeffrey Account Type Relation to Patient Date of Phone Billing Address Personal/Family Self [address] [place] [address] * Guarantor: Moraima Jeffrey Account Type Relation to Patient Date of Phone Billing Address Personal/Family Self [address] [place] [address] * Guarantor: Moraima Jeffrey Account Type Relation to Patient Date of Phone Billing Address Personal/Family Self [address] [place] [address]
== END 2024-10-03 19:03 | disposition home or self-care (01) ==
PROVIDERS: Physician Assistant; Emergency Provider Emergency Medicine; PCP Internal Medicine
DX: N39.0 Urinary tract infection, site not specified (principal); R10.30 Lower abdominal pain, unspecified; R30.0 Dysuria
CPT/HCPCS: 81001; 87086; 99282; 99283

== ENCOUNTER 2025-02-03 18:01 | Emergency (ER) | payer OTHER, SELFPAY ==
--- NOTE | ~2025-02-03 | XR_ITS ---
CLINICAL HISTORY: cough 2 view chest x-ray Comparison: 10/18/2023 Findings: Lungs are clear without acute infiltrates. No pneumothorax. Heart size normal. No acute bony abnormalities. Impression: No acute processes This document has been electronically signed by: Collin Alonso MD on 02/03/2025 21:03:58
--- OUTSIDE RECORDS SUMMARY | 2025-02-03 08:30 | XMS_ITS | Encounter Summary ---
Author Organization [facility] Address [address] [place] [phone] Phone Care Team Providers Care Power Generating Plant Operator Name Role Phone Rupesh Monroe MD Unavailable Alicia Vanegas MD Unavailable Hansel Orozco Primary Care Provider + Edson Washington WIND TURBINE PERFORMANCE ENGINEER Unavailable [email or web address] Amanda Johnson WIND TURBINE PERFORMANCE ENGINEER Unavailable Encounter Details Date Type Department Care Team (Late st Contact Info) Description 02/03/2025 8:30 AM EDT Office Visit [facility] [address] [place] [address] Belén Chowdhury PA-C [address] [place] [address] Department of Radiation Oncology -ASB1 [address] [place] [address] [email or web address] Alicia Vanegas MD [address] Jasmin [facility] for [facility], [address] [address] [email or web address] Malignant neoplasm of overlapping sites of bladder (Primary Dx) Social History Tobacco Use Types Packs/Day Years Used Date Smoking Tobacco: Never Assessed Child or Family Care Answer Date Record ed Do you have problems with on e of the following making it difficult for you to work, study, or receive health care? No 01/28/2025 Education Answer Date Recorded Are you interested in help w ith more adult education (for example, completing high school, GED, job training, learning the Fijian language, technical skills, or developing parenting skills)? Yes 01/28/2025 Are you concerned about learning? Not on file 01/28/2025 Yes 01/28/2025 No 01/28/2025 Food Answer Date Recorded Within the past 6 months we worried whether our food would run out before we got money to buy more. Often True 01/28/2025 Within the past 6 months the food we bought just didn't last and we didn't have enough money to get more. Often True Residential Stability Answer Date Recor ded What is your housing situation today? I choose n ot to answer 01/28/2025 How many times have you move d in the past 12 months? Zero (I did not move) 01/28/2025 Paying for Meds Answer Date Recorded Do you have trouble paying for medicines? No 01/28/2025 Paying Utility Bills Answer Date Record ed Do you have trouble paying your heating or elect ricity bill? Yes 01/28/2025 Transportation Answer Date Recorded Has the lack of transportati on kept you from medical appointments or from getting medications? No 01/28/2025 Unemployment Answer Date Recorded Are you currently unemployed or working on a part-time or temporary basis, and looking for work? No 01/28/2025 Digital Access Answer Date Recorded No 12/25/2024 No 12/25/2024 Reliable internet access at home? Not on file 12/25/2024 Device with a working camera? Not on file Intimate Partner Violence Answer Date R ecorded Are you denied basic needs s uch as food, clothing, or medical care? No 02/03/2025 In the past 12 months have y ou been in a relationship with a person who hurts, threatens, or tries to control you? No 02/03/2025 Are you denied basic needs s uch as food, clothing, or medical care? No 02/03/2025 In the past 12 months have y ou been in a relationship with a person who hurts, threatens, or tries to control you? No 02/03/2025 Comments Unknown Sex and Gender Information Value Date Recorded Sex Assigned at Female 12/24/2024 3:32 PM EDT Legal Sex Female 11:16 AM EDT Gender Identity Female 12/24/2024 3:32 PM EDT Sexual Orientation Straight 12/24/2024 3: 32 PM EDT documented as of this encounter Last Filed Vital Signs Vital Sign Reading Time Taken Comments Blood Pressure 121/75 02/03/2025 9:01 AM EDT Pulse 67 02/03/2025 9:01 AM EDT Temperature 36.7 C (98.1 F) 02/03/2025 9:01 AM EDT Respiratory Rate 16 02/03/2025 9:01 AM EDT Oxygen Saturation 97% 02/03/2025 9:01 AM EDT Inhaled Oxygen Concentration - - Weight 62.3 kg (137 lb 5.6 oz) 02/03/2025 9:01 A M EDT Height 154.4 cm (5' 0.79 ) 02/03/2025 9:01 AM ED T Body Mass Index 26.13 02/03/2025 9:01 AM EDT documented in this encounter Functional Status * Calculated C-SSRS Risk Score (Lifetime/Recent) Answer Date of Assessment Author No Risk Indicated 02/03/2025 11:58 AM EDT Krupa Good RN * [place]ond Suicide Severity Rating Scale (Screener/Recent Self-Report) Question Answer Date of Assessment Author 1. Wish to be (Past 1 Month) No 02/03/2025 11:58 AM EDT Hossein Dillard RN 2. Non-Specific Active Suicidal Thoughts (Past 1 Month) No 02/03/2025 11:58 AM EDT Hossein Dillard RN 6. Suicidal Behavior (Lifetime) No 02/03/2025 11:58 AM EDT Hossein Dillard RN documented as of this encounter Progress Notes * Belén Chowdhury PA-C - 02/03/2025 8:30 AM EDT Images from the original note were not included. ? [facility]? ?[address] [place] [address]? 02/03/2025 Name:Moraima Jeffrey MR:[id number] :1980 Oncology Attending:Alicia Vanegas MD, MSc ID: Moraima Jeffrey is a 44 y.o. 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 Here for neoadjuvant cisplatin/gemcitabine/durvalumab. 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 There also appears to be heterogeneous fluid and soft tissue attenuation within this level of activity on noncontrast CT, consistent with mixture of tumor in urine. No evidence of lymphadenopathy. No specific findings of metastatic disease. Small nodular focus of hypermetabolic activity adjacent to the upper pole of the right thyroid lobe. This could represent a benign or malignant thyroid nodule or possibly parathyroid lesion. It is likely incidental. Consider correlation with thyroid ultrasound. Small, nonobstructing calculus in each kidney. 05/29/2023: Right nephro ureterectomy - no pathology reports available TURBT in 2022 TURBT spring 2024 - over 10 large bladder tumors resected 07/30/2024: [facility] CTAP Impression: Multiple new enhancing nodular masses in the urinary bladder, the largest conglomeration measuring approximately 6.5 x 3.4 x 2.3 cm extending to the right UVJ. This most likely represents urothelial neoplasm. Complex cystic mass in the right adnexa with peripheral septation and suspected mural nodularity. This measures approximately 7.0 x 7.3 x 8.2 cm. Further assessment with pelvic MRI is recommended. No abnormal soft tissue in the right nephrectomy bed. 10/16/2024 labs ([facility]) Creatinine 1.14 eGFR 62 10/09/2024: TURBT Pathology ([facility] lab) Papillary urothelial carcinoma high-grade Tumor focally invades lamina propria No muscularis present for evaluation No lymphovascular invasion identified No urothelial carcinoma in situ identified 10/25/2024: TURBT Pathology ([facility] lab) Papillary urothelial carcinoma high-grade Tumor focally invades lamina propria No muscularis present for evaluation No lymphovascular invasion identified No urothelial carcinoma in situ identified 11/27/2024: TURBT Pathology ([facility] lab) Papillary urothelial carcinoma high-grade Tumor invades muscularis propria (detrussor muscle) No lymphovascular invasion identified No urothelial carcinoma in situ identified 12/06/2024 PET/CT ([facility]) Status post right nephrectomy Comparison: PET/CT dated 03/26/2023. CT abdomen and pelvis with and without contrast dated 07/30/2024. Impression: 1. Noncontrast CT suggest presence of soft tissue mass along the right posterolateral wall of the urinary bladder, likely representing residual known bladder neoplasm. Metabolic activity cannot be assessed due to the presence of adjacent intense physiologic FDG activity in the urine. 2. No FDG avid lymphadenopathy in the abdomen/pelvis. 3. Interval further increase in the size of a slightly thick walled septated right adnexal cyst, with focal increased FDG uptake within the solid component along the superior aspect of the cyst and low-grade faint FDG avid uptake along the wall, suspicious for ovarian neoplasm. Please note that given the size of the cyst, this places the patient at high risk for ovarian torsion. As previously recommended, further evaluation with MRI pelvis with contrast and MANAGER STATE consultation recommended. 4. No FDG avid metastatic disease in the head and neck or chest or osseous structures. 12/12/2024 MRI pelvis ([facility]) Impression: Bladder is mildly underdistended making assessment of known bladder tumor somewhat challenging. There is masslike enhancement in the tumor resection bed measuring up to 5.1 cm consistent with known residual bladder tumor. There is clear soft tissue extension beyond the arellano of the posterior right bladder with invasion to the anterior right lower uterine cervix. Multiple prominent pelvic lymph nodes which are nonspecific. 4.8 cm multiloculated mixed solid and cystic presumably right ovarian mass containing thickened enhancing septations and papillary projections. Solid components correspond to FDG avidity seen on recent CT PET study. An additional larger mostly cystic presumably right ovarian mass is seen containingenhancing septations, measuring up to 10.9 cm. These masses are concerning for neoplasia, benign ormalignant although they appear new or significantly increased in size since PET CT from 2022. Then the morphology is much more suggestive of possible papillary or mucinous cystadenocarcinoma's then urothelial cancer. Gynecology consultation is recommended Globular uterus with evidence of adenomyosis CT Chest 01/30/2025 Impression 1. No evidence of metastases within the chest. 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 TECHNIQUE: Multidetector-row CT of the abdomen and pelvis was performed after administration of intravenous contrast using tailored dose modulation techniques. Images were reconstructed in the axial,coronal, and sagittal planes. COMPARISON: CT scan the abdomen and pelvis from 07/30/2024 and pelvic MRI from 12/12/2024 and PET/CT from 12/05/2024 FINDINGS: Lower Chest: See same-day chest CT report. Liver: Focal fat adjacent to the falciform ligament. No liver lesions. Biliary:Contracted gallbladder. No biliary ductal dilatation. Spleen: No splenomegaly or focal lesions. Pancreas: No masses or ductal dilatation. Adrenal Glands: Similar minimal nodularity of the right adrenal (1:20). Similar mild thickening of the left adrenal. Kidneys/Ureters: Prior right nephroureterectomy. Left kidney enhances normally. Bowel: No distention or wall thickening. Peritoneum/Retroperitoneum: No masses, pneumoperitoneum, or fluid. Lymph Nodes: No lymphadenopathy. Pelvic Organs/Bladder: There is a mostly cystic mass in the right adnexa with a few septations and some soft tissue nodularity measuring 11.7 x 9.6 cm (1:59). Compared to the more remote CT scan from07/30/2024, this is increased previously measuring 7.9 x 7.1 cm. As seen on the more recent MRI there is a ill-defined soft tissue mass along the right pelvis measuring 5.3 x 2.7 cm (1:68) involving the right posterolateral bladder wall and invading the right sideof the uterus/cervix. Vessels: No abdominal aortic aneurysm. Bones/Soft Tissues: No destructive osseous lesions. Impression 1. Mixed cystic and solid mass in the right adnexa increased compared to 07/30/2024 concerning for primary ovarian cancer. 2. Similar soft tissue mass involving the right posterolateral bladder wall representing patient's known primary bladder cancer (compared to the more recent pelvic MRI from 12/12/2024) with extravesical extension and invasion of the adjacent uterus/cervix. Chief Complaint: Labs, symptom monitoring, and continued management of bladder cancer. Here for C1D1 neoadjuvant cisplatin/gemcitabine/durvalumab. Interval history: The patient presents to clinic accompanied today by her supportive sister, Karon. Reports she has been more tired faster. Not doing as much during the day as she normally does. Prior to this recurrence, she was very active in the gym/walking/yoga, but has not really been able to exercise for the past 3 months due to pain. Has noticed she has been more tired faster. Not doing as much during the day. Normal appetite. Weight stable. Reports she started her menstrual cycle yesterday, and this is the worst it has ever been in terms of heaviness of bleeding. Today, she is saturating a maxi pad 3x/hr and having quarter-sized blood clots. Has had burning with urination since TURBT and blood in the urine. Reports she urinates frequently but also hydrates well. Constipation managed better with miralax daily. No diarrhea or blood in the stool. Denies fever, n/v. Has had some night sweat/chills since kidney removed in May 2023. Some nights she soaks through the sheets and others she does not. Has a mild cough/sore throat which started yesterday. Has asthma and allergies so not sure if it isthat or something else. Sister also has cough. Has SOB at baseline due to asthma. No chest pain or leg swelling. No rashes or peripheral neuropathy. No tinnitus or hearing issues at baseline. No new pain. Has RLQ pain that can radiate to the front/back relieved with oxycodone 1-2 per day, not taking tylenol. No other symptoms or concerns today. Smoking: Former smoker, stopped 2022 Alcohol: None PMH Asthma Nephrolithiasis Gross hematuria Colon obstruction Depression Anxiety disorder - has not needed medications for many years CKD PSH May 2023 nephroureterectomy for Upper tract urothelial carcinoma Colon surgery Hemorrhoidectomy Cholecystectomy Bladder surgery Medications Advair 100-50 Ventolin HFA Montelukast Shaan orozco - pcp [place] Family history Brother had colon cancer at a very young age Dad's GM ca (unknown type) Ma cousin lymphoma and her daughter lymphoma Social history Lives with her 4 children 21 yo daughter who is 20 [address] 19 [facility] 12 Karon her sister comes with her today and lives close by. Allergies Oxycodone-hives/urticaria Bupropion-skin rashes/irruption of the skin Current Outpatient Medications Ordered in Epic Medication Sig acetaminophen (TYLENOL) 500 MG tablet Take 1,000 mg by mouth daily as needed for pain (specific location in comments). ADVAIR DISKUS 100-50 mcg/dose DISKUS Inhale 100 mcg/actuation of fluticasone into the lungs 2 (two)times a day as needed. dexAMETHasone (DECADRON) 4 MG tablet Take 2 tablets by mouth each morning on days 2-4 of chemotherapy cycle. docusate sodium (COLACE) 100 MG capsule Take 100 mg by mouth daily as needed for mild constipation. LORazepam (ATIVAN) 0.5 MG tablet Take 1 tablet (0.5 mg total) by mouth every 6 (six) hours as needed for anxiety (nausea). OLANZapine (ZYPREXA) 2.5 MG tablet Take 1 tablet by mouth nightly on days 2-4 of chemotherapy cycle. ondansetron (ZOFRAN-ODT) 8 MG disintegrating tablet Take 1 tablet by mouth every 8 hours on days 2-4 of chemotherapy cycle. Can use every 8 hours as needed thereafter. oxyCODONE 5 MG immediate release tablet Take 1 tablet (5 mg total) by mouth every 6 (six) hours as needed for pain (specific location in comments). CancerPain-partial fill ok polyethylene glycol (MIRALAX) 17 gram packet Take 17 g by mouth nightly at bedtime. For constipation. prochlorperazine (COMPAZINE) 10 MG tablet Take 1 tablet (10 mg total) by mouth every 6 (six) hours as needed (nausea). VENTOLIN HFA 90 mcg/actuation inhaler Inhale 2 puffs into the lungs every 4 (four) hours as needed. Allergies Allergen Reactions Bupropion Physical Exam BP 121/75 (BP Location: Left arm, Patient Position: Sitting, Cuff Size: Medium) Pulse 67 Temp 36.7 ??C (98.1 ??F) (Temporal) Resp 16 Ht 154.4 cm (5' 0.79 ) Wt 62.3 kg (137 lb 5.6 oz) DbN123% BMI 26.13 kg/m?? ECOG PS=1 General Appearance: Alert, cooperative, appears stated age. HEENT: Normocephalic, nontraumatic. Extraocular movements are intact. Sclera non-icteric. Lungs/Chest: No increased WOB. Speaking in complete sentences. Genitourinary: Deferred. Extremities: Extremities normal, atraumatic, no edema or cyanosis. Skin: No rashes or jaundice on exposed skin. Neurologic: Normal gait, no focal neurological deficits, normal speech, answers questions appropriately. Psychiatric: Anxious and intermittently tearful. Labs Blood Draw on 02/03/2025 Component Date Value Ref Range Status MED LAV 02/03/2025 PENDING Incomplete CIRCULATING TUMOR DNA 02/03/2025 PENDING Incomplete Fake Streck 2 02/03/2025 PENDING Incomplete Fake Tissue 1 02/03/2025 CREDITED: NO SPECIMEN RECEIVED Final SODIUM 02/03/2025 137 136 - 145 mmol/L Final POTASSIUM 02/03/2025 3.4 3.4 - 5.1 mmol/L Final CHLORIDE 02/03/2025 103 98 - 107 mmol/L Final CO2 02/03/2025 20 (L) 22 - 31 mmol/L Final BUN 02/03/2025 15 6 - 23 mg/dL Final CREATININE 02/03/2025 1.03 0.50 - 1.20 mg/dL Final GLUCOSE 02/03/2025 125 (H) 70 - 100 mg/dL Final ALBUMIN 02/03/2025 4.0 3.5 - 5.2 g/dL Final TOTAL PROTEIN 02/03/2025 7.0 6.4 - 8.3 g/dL Final CALCIUM 02/03/2025 9.0 8.8 - 10.7 mg/dL Final ALKALINE PHOSPHATASE 02/03/2025 85 35 - 104 U/L Final TOTAL BILIRUBIN 02/03/2025 0.5 0.2 - 1.2 mg/dL Final AST 02/03/2025 17 <33 U/L Final ALT 02/03/2025 11 <34 U/L Final GLOBULIN 02/03/2025 3.0 2.3 - 4.2 g/dL Final EGFR 02/03/2025 70 >59 mL/min/1.73m2 Final ANION GAP 02/03/2025 14 7 - 17 mmol/L Final WBC 02/03/2025 10.01 (H) 4.00 - 10.00 K/uL Final RBC 02/03/2025 4.07 3.90 - 6.00 M/uL Final HGB 02/03/2025 11.9 11.5 - 16.4 g/dL Final HCT 02/03/2025 37.4 36.0 - 48.0 % Final PLT 02/03/2025 318 150 - 450 K/uL Final MCV 02/03/2025 91.9 80.0 - 100.0 fL Final MCH 02/03/2025 29.2 27.0 - 32.0 pg Final MCHC 02/03/2025 31.8 (L) 32.0 - 36.0 g/dL Final RDW 02/03/2025 13.0 11.5 - 14.5 % Final MPV 02/03/2025 10.8 8.4 - 12.0 fL Final NRBC 02/03/2025 0.00 0.00 /100 WBCs Final ABSOLUTE NRBC 02/03/2025 0.00 0 K/uL Final DIFF METHOD 02/03/2025 Auto Final NEUTS 02/03/2025 72.6 48.0 - 76.0 % Final LYMPHS 02/03/2025 18.8 18.0 - 41.0 % Final MONOS 02/03/2025 5.4 4.0 - 11.0 % Final EOS 02/03/2025 2.3 0.0 - 5.0 % Final BASOS 02/03/2025 0.6 0.00 - 1.50 % Final % IMMATURE GRANS 02/03/2025 0.3 0.00 - 1.00 % Final ABSOLUTE NEUTS 02/03/2025 7.27 1.92 - 7.60 K/uL Final ABSOLUTE LYMPHS 02/03/2025 1.88 0.72 - 4.10 K/uL Final ABSOLUTE MONOS 02/03/2025 0.54 0.16 - 1.10 K/uL Final ABSOLUTE EOS 02/03/2025 0.23 0.00 - 0.50 K/uL Final ABSOLUTE BASOS 02/03/2025 0.06 0.00 - 0.15 K/uL Final ABS IMMATURE GRANS 02/03/2025 0.03 0.00 - 0.10 K/uL Final CEA 02/03/2025 3.8 (H) 0 - 3.7 ng/mL Final CA125 02/03/2025 20 6 - 38 U/mL Final CA 19-9 02/03/2025 <1 0 - 35 U/mL Final TSH 02/03/2025 2.59 0.27 - 4.20 uIU/mL Final Assessment and Plan: Moraima Jeffrey is a 44 y.o. 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 She is presenting for discussion of further management. The encounter diagnosis was Malignant neoplasm of overlapping sites of bladder. We discussed that she has recurrent locally advanced muscle invasive urothelial cancer with a largecystic adnexal mass. We reviewed that her bladder tumor extends through the wall of the bladder andis invading the uterine cervix. We discussed that her care will be multidisciplinary and that she will need to meet both aurist oncology and urologic oncology doctors. She has discussed surgery with . Missed appt with Dr. Dawson in aurist onc which needs to be rescheduled. Confirmed she is not concerned with fertility and does not plan to have more children. Baseline CT CAP on 01/30/25 showed no disease in the chest, mixed cystic and solid mass in the right adnexa increased compared to 07/30/2024 concerning for primary ovarian cancer, and similar soft tissue mass involving the right posterolateral bladder wall representing patient's known primary bladder cancer (compared to the more recentpelvic MRI from 12/12/2024) with extravesical extension and invasion of the adjacent uterus/cervix. After multi-D discussion, decided on the following plan: Administer neoadjuvant chemo/immuno therapy per the NIAA trial with split dose cisplatin + gemcitabine and durvalumab. Side effects of chemo/immunotherapy were reviewed in detail and informed consent was obtained. Get repeat imaging (will confirm with Drs. Manley and Eunice exact type of scan they prefer) after 2cycles of neoadjuvant chemo to inform surgical strategies. Schedule cystectomy and pelvic mass resection after neoadjuvant therapy is completed. Discuss surgical options for urinary diversion: neobladder vs. external bag with repeat clinic visit in [address] Manley. Here today 02/03/25 for consideration of C1D1 cisplatin/gemcitabine/durvalumab. CEA 3.8, (upper limit of normal), CA-125 20 (normal) and CA 19-9 <1 (normal). Tito and Inhibin A/B pending. Safetylabs notable for WBC 10.01 (lower than in mid December), Hgb 11.9 keon from 13.1 in mid December, [id number], otherwise stable/WNL. VSS. Given concern for active vaginal bleeding (worst period of life, saturating 3 maxi pads/hr, quarter-sized clots) and known invasion of tumor into uterus/cervix, will hold on starting treatment today and send to [facility] ED for aurist onc work-up/management. Informed consent was signed for when we do start treatment. Will plan on following anti-emetic regimen when she starts treatment (all sent to local pharmacy) and will get baseline EKG prior to treatment start. See management of cancer sx below: Nausea: Dexamethasone 8 mg qAM D2-4 chemo cycle. Zofran 8 mg TID D2-4 chemo cycle, q8hr prn thereafter. Olanzapine 2.5 mg qHS D2-4 chemo cycle. Compazine 10 mg q6 hr prn. Ativan 0.5 mg q6 hr prn. Bowel regimen: Miralax 1 packet qHS Pain Tylenol 1000 mg TID Oxycodone 5 mg q6hr prn Social Engaged with social work, primary SW = Amanda Suarezbloom Will help designate HCP and help with guardianship paperwork for kids Patient has after hours number and knows to call if any sx or concerns develop. Teaching sheet alsoprovided. Patient understands and agrees to the plan. TREATMENT PLAN: HOLD with C1D1 cisplatin/gemcitabine/durvalumab today. ED for work-up of vaginal bleeding, follow clinical course. Reschedule appt with Dr. Dawson in aurist onc. EKG prior to starting C1D1 treatment, day will pend on clinical course The above information has been copied for clinical reference. Updates to assessment and plan are below. A&P 02/03/2025: [facility] ED per above Review of Systems, Physical Exam, and Assessment and Plan reviewed and/or performed today 02/03/2025 and there are no changes except as documented. Total time spent on 02/03/2025 for this visit in vdop-gr-fayr and non [id number]-bn-[id number] time reviewing, documenting, and obtaining, clinical information, coordinating with the care team and/or other specialists, and counseling the patient: 60 minutes. Belén Chowdhury PA-C [facility] for Genitourinary Oncology [facility] Cancer [address] [place] [address] documented in this encounter Plan of Treatment Upcoming Encounters Date Type Department Care Team (Late st Contact Info) Description 02/06/2025 9:00 AM EDT Office Visit [facility] for Genitourinary Oncology, [facility] [place] at [address] [place] [address] [place] Quintanilla FNP [address] [place] [id number] [email or web address] Alicia Vanegas MD [address] [place] [address] for Oncology, [address] [address] [email or web address]@[email or web address] 02/10/2025 7:30 AM EDT Blood Draw Laboratory Services, [facility] at [address] [address] Alicia Vanegas MD [address] [facility] Oncology[address] [address] Melida@[facility] 02/10/2025 8:30 AM EDT Office Visit [facility] for Genitourinary Oncology, [facility] at [address] [address] Belén Chowdhury PA-C [address] [place] [address] Department of Radiation Oncology -[facility] [address] [place] [address] [email or web address] 02/10/2025 9:30 AM EDT Infusion Infusion Therapy Services [facility] at [address] [address] Alicia Vanegas MD [address] [facility] Oncology, [address] [address] [email or web address]@[email or web address] Chrissy Langston RN [address] [place] [address] [email or web address] 03/11/2025 1:40 PM EDT Office Visit [facility] Urology [address] [facility]2[address] [place] [address] Edson Manley MD, MPH [facility] [place] [address] [email or web address] Scheduled Orders Name Type Priority Associated Diagnoses Orde r Schedule Urinalysis Lab Routine Malignant neoplasm of overlapping sites of bladder Expected: 02/03/2025, Expires: 02/03/2026 documented as of this encounter Procedures Procedure Name Priority Date/Time Associated Diagnosis Comments LAB ADD ON Routine 02/03/2025 9:05 AM EDT Malignant neoplasm of overlapping sites of bladder documented in this encounter Results * Lab Add On: TSH (02/03/2025 9:05 AM EDT) TEST REQUESTED [facility] Comments (Chemistry) TEST TO BE ADDED ON TO EXISTING SPECIMEN [facility] Blood 02/03/2025 9:05 AM EDT 02/03/2025 9:18 AM EDT us Belén Chowdhury PA-C LAB BLOOD ORDERABLE S Final Result Performing Organization Address City/State/[facility] Co de Phone Number [facility] [address] [place] [address], [facility] documented in this encounter Visit Diagnoses Diagnosis Malignant neoplasm of overlapping sites of bladder- Primary documented in this encounter Care Teams Power Generating Plant Operator Relationship Specialty Start Date End Date Hansel Orozco PA [address] [place] [address] PCP - General Physician Teacher Dancing 01/01/25 Rupesh Monroe MD 100 [facility] [address] [place] [address] [email or web address] Referring Physician Urology 12/24/24 Alicia Vanegas MD [address] [facility] 9 [place] [address] [email or web address] Medical Oncology 12/25/24 Edson Washington, [facility] [address] [place] [address] [email or web address] Roll Forming Machine Set Up Mechanic Oncology 01/07/25 Amanda Johnson, [facility] [address] [place] [address] [email or web address] Roll Forming Machine Set Up Mechanic Licensed Clinical Roll Forming Machine Set Up Mechanic 02/03/25 documented as of this encounter Additional Source Comments The information contained in this document represents components of the legal health record. It is not the complete legal health record.[facility]
--- OUTSIDE RECORDS SUMMARY | 2025-02-03 11:08 | XMS_ITS | Encounter Summary ---
Author Organization [facility] Address [address] [facility] [address] [place] [phone] Phone Care Team Providers Care Shrimp Trawler Captain Name Role Phone Rupesh Monroe MD Unavailable [phone] Alicia Vanegas MD Unavailable Hansel Orozco Primary Care Provider + Edson Washington CUTTER HELPER Unavailable [email or web address] Amanda Johnson CUTTER HELPER Unavailable Reason for Visit * Reason Comments Vaginal Bleeding Abdominal Pain Encounter Details Date Type Department Care Team (Late st Contact Info) Description 02/03/2025 11:08 AM EDT - 02/03/2025 1:47 PM EDT Emergency [facility] Emergency Department [address] [place] [id number] Taylor Mcgraw MD [address] [place] [id number] [email or web address] Discharge Disposition: Home or Self Care Social History Tobacco Use Types Packs/Day Years [...] Sign Reading Time Taken Comments Blood Pressure 124/70 02/03/2025 1:06 PM EDT Pulse 76 02/03/2025 1:06 PM EDT Temperature 37 C (98.6 F) 02/03/2025 1:06 PM EDT Respiratory Rate 16 02/03/2025 1:06 PM EDT Oxygen Saturation 99% 02/03/2025 1:06 PM EDT Inhaled Oxygen Concentration - - Weight - - Height - - Body Mass Index - - documented in this encounter Functional Status * Calculated C-SSRS Risk Score (Lifetime/Recent) Answer Date of Assessment Author No Risk Indicated 02/03/2025 11:58 AM EDT Krupa Good RN * [place] Suicide Severity Rating Scale (Screener/Recent Self-Report) Question Answer Date of Assessment Author 1. Wish to be (Past 1 Month) No 02/03/2025 11:58 AM EDT Hossein Dillard RN 2. Non-Specific Active Suicidal Thoughts (Past 1 Month) No 02/03/2025 11:58 AM EDT Hossein Dillard RN 6. Suicidal Behavior (Lifetime) No 02/03/2025 11:58 AM EDT Hossein Dillard RN documented as of this encounter Discharge Instructions * Discharge Instructions* Taylor Mcgraw MD - 02/03/2025 12:58 PM EDT Thank you for visiting the [facility] Emergency Department today. It was a pleasure to take care of you. You were seen in the Emergency Department for vaginal bleeding. You were evaluated by the [facility] team who were re-assured by your exam. Your blood levels were stable. We believe that you are safe toleave the hospital at this time, but we would like you to follow-up with your primary care physician. Please tell them that you were seen in the Emergency Department today. Recommendations: - Please follow up with your primary care doctor within 3 days. Please tell them that you were seenin the Emergency Department Today. - You can take dkfr-hvr-xnwgnla acetaminophen (for example: Tylenol) as needed for pain or fever. You can take up to 650 mg every 4-6 hours for your symptoms, but do not exceed 4000 mg in a day. Makesure to follow all additional bottle label instructions and do not exceed the maximum daily dose. - You may continue to take your oxycodone 5 mg as needed for additional pain control - Your chemo has been rescheduled for at [place]. Please Return to the Hospital: - Please call your primary doctor or return to the nearest Emergency Department if you develop worsening abdominal pain, uncontrollable nausea or vomiting, a change in the character of your pain, temperature > 100.5F, or any other acute concern. For any perceived medical emergency, please call 911 or go to the nearest Emergency Department. documented in this encounter Medications at Time of Discharge acetaminophen (TYLENOL) 500 MG tablet Take 1,000 mg by mouth daily as needed for pain (specific location in comments). ADVAIR DISKUS 100-50 mcg/dose DISKUS Inhale 100 mcg/actuation of fluticasone into the lungs 2 (two) times a day as needed. 5 dexAMETHasone (DECADRON) 4 MG tabletIndications:M alignant neoplasm of overlapping sites of bladder Take 2 tablets by mouth each morning on days 2-4 of chemotherapy cycle. 30 tablet 5 docusate sodium (COLACE) 100 MG capsule Take 100 mg by mouth daily as needed for mild constipation. LORazepam (ATIVAN) 0.5 MG tabletIndications:M alignant neoplasm of overlapping sites of bladder Take 1 tablet (0.5 mg total) by mouth every 6 (six) hours as needed for anxiety (nausea). 30 tablet 5 OLANZapine (ZYPREXA) 2.5 MG tabletIndications:M alignant neoplasm of overlapping sites of bladder Take 1 tablet by mouth nightly on days 2-4 of chemotherapy cycle. 30 tablet 5 ondansetron (ZOFRAN-ODT) 8 MG disintegrating tabletIndications:M alignant neoplasm of overlapping sites of bladder Take 1 tablet by mouth every 8 hours on days 2-4 of chemotherapy cycle. Can use every 8 hours as needed thereafter. 30 tablet 2 5 oxyCODONE 5 MG immediate release tablet Take 1 tablet (5 mg total) by mouth every 6 (six) hours as needed for pain (specific location in comments). CancerPain-[place]ia l fill ok 30 tablet 5 polyethylene glycol (MIRALAX) 17 gram packetIndications:M alignant neoplasm of overlapping sites of bladder Take 17 g by mouth nightly at bedtime. For constipation. 30 packet 2 5 prochlorperazine (COMPAZINE) 10 MG tabletIndications:M alignant neoplasm of overlapping sites of bladder Take 1 tablet (10 mg total) by mouth every 6 (six) hours as needed (nausea). 30 tablet 2 5 VENTOLIN HFA 90 mcg/actuation inhaler Inhale 2 puffs into the lungs every 4 (four) hours as needed. 5 documented as of this encounter Consult Notes * Corinna Flaherty - 02/03/2025 10:36 AM EDT GYNECOLOGIC ONCOLOGY INITIAL CONSULT SERVICE DATE: 02/03/2025 SERVICE TIME: 11:30 AM REASON FOR CONSULT: Vaginal bleeding REQUESTING PHYSICIAN: Taylor Mcgraw MD PRIMARY CARE PHYSICIAN: Hansel Orozco PA PRIMARY MEDICAL ONCOLOGIST: Dr. Alicia Vanegas GYNECOLOGIC ONCOLOGY CONSULT ATTENDING: Dr. Angélica DRISCOLL Moraima Jeffrey is a 44 y.o. 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 She had presented for neoadjuvant cisplatin/gemcitabine/durvalumab today (02/03) but was transferred to the ED for abnormal vaginal bleeding. She is currently on her period, day 3. She notes that her first day of bleeding was fairly regular but her second day she had more bleeding than usually, changing heavy pads around 3x an hour and hadthree-4 quarter sized clots passed. She reports she never used to have periods like this. Today shenotes her bleeding is fairly minimal and she has only used one pad so far. Notes her cramps have been worsening with each of her periods. She notes her periods typically last 3-4 days. She denies hematochezia, melena or visible hematuria. Denies dizziness, lightheadedness or presyncopal episodes. Oncology History Malignant neoplasm of overlapping sites of bladder 01/28/2025 Initial Diagnosis Malignant neoplasm of overlapping sites of bladder 02/04/2025 - Systemic Therapy Adjuvant/Neoadjuvant; CISPLATIN 35 MG/M2 D1,8 + GEMCITABINE 1000 MG/M2 D1,8 + DURVALUMAB Q3W X 4 CYCLES FOLLOWED BY DURVALUMAB Q4W X 8 CYCLES Alicia Vanegas MD 03/16/2023 ([facility] health review of 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) Tumor #1 right renal pelvis biopsy: Disaggregated cytologically atypical cells including scattered a proptotic cells in a background offibrinous debris Note: The histologic findings are in this scant specimen are suspicious for but not diagnostic of aurothelial neoplasm. Tumor #2, right renal pelvis biopsy: Papillary urothelial carcinoma, low-grade No invasive carcinoma identified 03/26/2023: PET scan ([facility]) Impression: Prominent distention of the right renal [...] over 10 large bladder tumors resected 07/30/2024: [facility] CTAP Impression: Multiple new enhancing nodular masses [...] Creatinine 1.14 eGFR 62 10/09/2024: TURBT Pathology ([facility] lab) Papillary urothelial carcinoma high-grade Tumor focally invades lamina propria No muscularis present for evaluation No lymphovascular invasion identified No urothelial carcinoma in situ identified 10/25/2024: TURBT Pathology ([facility] lab) Papillary urothelial carcinoma high-grade Tumor focally invades lamina propria No muscularis present for evaluation No lymphovascular invasion identified No urothelial carcinoma in situ identified 11/27/2024: TURBT Pathology ([facility] lab) Papillary urothelial carcinoma high-grade Tumor invades muscularis propria (detrussor muscle) No lymphovascular invasion identified No urothelial carcinoma in situ identified 12/06/2024 PET/CT ([facility]) Status post right nephrectomy Comparison: PET/CT dated [...] evaluation with MRI pelvis with contrast and H[employer] consultation recommended. 4. No FDG avid metastatic disease in the head and neck or chest or osseous structures. 12/12/2024 MRI pelvis ([facility]) Impression: Bladder is mildly underdistended making assessment [...] then urothelial cancer. Gynecology consultation is recommended Past History Patient Active Problem List Diagnosis Date Noted Vaginal bleeding 02/03/2025 Malignant neoplasm of overlapping sites of bladder 01/28/2025 Menstrual History: LMP: currently on period, started 02/01 Cycle every 30 days Flow 3-4 days, Period pattern: regular Menstrual flow: moderate , Dysmenorrhea: no Patient on Hormone Replacement Therapy? no PMH Asthma Nephrolithiasis Gross hematuria Colon obstruction Depression Anxiety disorder - has not needed medications for many years CKD PSH May 2023 nephroureterectomy for Upper tract urothelial carcinoma Colon surgery Hemorrhoidectomy Cholecystectomy Bladder surgery Family history Brother had colon cancer at a very young age Dad's GM ca (unknown type) Maternal cousin lymphoma and her daughter lymphoma Social history Lives with her 4 children ages 21, 20, 17 and 12 Medications Advair 100-50 Ventolin HFA Montelukast ROS Pertinent items are noted in HPI. Exam Vitals signs within last 24 hours: [min/max] and last filed value, Last vitals 36.4 ??C (97.6 ??F) P 72 BP 113/67 RR 20 SpO2 99 % FiO2 Temperature: [36.4 ??C (97.6 ??F)-36.7 ??C (98.1 ??F)] 36.4 ??C (97.6 ??F) Heart Rate: [67-72] 72 Blood Pressure: (113-121)/(67-75) 113/67 RR: Respiratory Rate: [16-20] 20 SpO2: SpO2: [97 %-99 %] 99 % O2 Device: None (Room air) FiO2 -- Weight: Height: BSA: No intake or output data in the 24 hours ending 02/03/25 1250 General: healthy, alert, no distress, cooperativein no apparent distress, non- toxic, alert, oriented times 3, afebrile, and normal vitals Skin: negative Neck: no jugulovenous distention, carotid pulse normal contour, supple Lungs: negative Cardiac: normal S1 and S2; no rubs, murmurs, or gallops Abdomen: soft, nontender and mild tenderness to palpation of suprapubic region. Well-healed midlinescar Pelvic:deferred per pt request. Patient's pad was assessed on exam which showed minimal dark brown blood around 1-2 cm in diameter on pad. Neuro: Alert, oriented X 3, Gait normal. Reflexes normal and symmetric. Sensation grossly intact., Grossly normal cognition, motor function, and cranial nerves III-XII ECOG Performance Status: 0- Fully active, able to carry on all pre-disease performance without restriction Data/Results Office Visit on 02/03/2025 Component Date Value Ref Range Status TEST REQUESTED 02/03/2025 TSH Final Comments (Chemistry) 02/03/2025 TEST TO BE ADDED ON TO EXISTING SPECIMEN Final Blood Draw on 02/03/2025 Component Date Value [...] Final EGFR 02/03/2025 70 >59 mL/min/1.73m2 Final Estimated glomerular filtration rate calculated using the CKD-EPI refit equation. ANION GAP 02/03/2025 14 7 - 17 [...] 3.8 (H) 0 - 3.7 ng/mL Final Comment: CEA REFERENCE RANGE: NON-SMOKERS: < 3.8 ng/mL SMOKERS: < 5.0 ng/mL CA125 02/03/2025 20 6 - 38 U/mL Final Comment: CA 125 REFERENCE RANGE: POSTMENOPAUSAL 6-32 U/mL PREMENOPAUSAL 6-46 U/mL CA 19-9 02/03/2025 <1 0 - 35 U/mL Final TSH 02/03/2025 2.59 0.27 - 4.20 uIU/mL Final Assessment & Plan Vaginal bleeding Patient had minimal bleeding on her pad during exam in the emergency department today and is not having any active bleeding at this time. She does not have any dizziness or lightheadedness and her bleeding has been decreasing since the start of her period, thus these is a lower concern for excessive bleeding that would be contra-indicated to resume chemotherapy. Her last hemoglobin was 11.9 this morning, hematocrit of 37.4. Reassuringly she is currently asymptomatic with regards to her hgb and recent heavy vaginal bleeding. Recommend trending serial CBC - next this afternoon- to confirm pts stability. Recommend continuingwith chemotherapy- continue with cycle of neoadjuvant cisplatin/gemcitabine/durvalumab as was planned for today (9/15). Discussed with [facility] Oncology fellow Dr Flaherty and attending Dr Dawson who agrees with above plan. Talia Roberts, MS4 + Katiuska Murray PA-C She/her Gynecologic Oncology [id number] Quality Clinical Documentation: Gynecology Oncology Fellow Addendum I have reviewed the above note and made the appropriate edits as needed, agree with plan above. In brief, Moraima Jeffrey is a 44 y.o. 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 [facility] for abnormal [facility]D1 of cisplatin/gemcitabine/durvalumab. Pt endorsed a day of heavy bleeding yesterday, but has not needed to change her pad yet today since it has been so light. Pad with scant amount of dark/ols blood. VSS, Hgb 11.9 (in chemo clinic)-> 11.1 in ED, Plt & coags also wnl. Per patient, she was expecting her period, and thinks this was a heavier than usual period. Discussed return precautions including saturating a pad <1h for >1h. Given spontaneously lightening of bleeding however don't suspect this is related to more concerning invasion of her cancer but likely just her period. Regardless, agree with outpatient med onc plan for chemo before consideration of surgery and discussed with Dr. Ibarra-- patient able to be rescheduled to start chemo on [facility] @8AM for labs, 9AM appt with chemo nurse. Pt updated and plans to attend. Plan of care d/w Dr. Dawson, Gynecology Oncology attending. Please page [phone] as needed to reach the [facility] [employer] resident covering the pager 12/12. Corinna Flaherty MD (she/her) Gynecology Oncology Fellow, PGY-6 Pager: [phone] 02/03/2025 documented in this encounter ED Notes * Jb Noriega RN - 02/03/2025 1:43 PM EDT ED Discharge Nursing Note 44F presented to the ED for vaginal bleeding. ED team reassessed patient and reassured with findings patient can manage care outpatient. Plan to get chemo on . AVS printed and reviewed. PIV removed. Nurse answered all questions. Ambulated out the ED with a steady gait * Krupa Dillard RN - 02/03/2025 11:35 AM EDT ED Admission Nursing Note 44 y.o. 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 Pt states the bleeding started 3 days ago. States the past 3 days, she was changing her pad q2h. Does report bleeding has decreased, has not changed her pad today. Was seen at [facility] today to start chemo, however, due H/H drop (13.1/40.7 from a month ago to 11.9/37.4), pt was sent to ED for further evaluation. Denies any CP, VALDERRAMA, SOB, N/V, fever, chills, dizziness or lightheadedness. Does report 4/10 lower abdominal pain. * Asael Key RN - 02/03/2025 11:04 AM EDT Pt arrived [facility] from [facility], [place], pt came in for routine appointment for ovarian CA and bladder CA diagnosed 4 months ago and had XRT initially during diagnosis has not started chemo yet. Started her menses yesterday 2 pads q2h has not stopped, chronic abd pain at baseline, denies any dizziness/lightheaded, PIV in place. * Cinthia Thomas MD - 02/03/2025 11:00 AM EDT Images from the original note were not included. EMERGENCY DEPARTMENT NOTE CHIEF COMPLAINT Chief Complaint Patient presents with Vaginal Bleeding Abdominal Pain TRIAGE NOTE Triage note reviewed. HPI Moraima Jeffrey is a 44 y.o. 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 Pt reports vaginal bleeding that started 3days ago. Yesterday was changing pads x3 in one hour. Has not had to change pad today. Plan to start chemo today. Reports lower abdominal pain for 3 days, currently 4/10. No N/V. No dizziness/lightheadedness. Scheduled to start neoadjuvant C1D1 durva/cis/gem today. Sent from clinic given one point h emoglobin drop (since last month). VSS. REVIEW OF SYSTEMS As described above in the HPI. Otherwise, all other systems reviewed and negative as reported by the patient. PAST MEDICAL HISTORY No past medical history on file. Patient Active Problem List Diagnosis Malignant neoplasm of overlapping sites of bladder Vaginal bleeding PAST SURGICAL HISTORY No past surgical history on file. FAMILY HISTORY No family history on file. SOCIAL HISTORY HOME MEDICATIONS Discharge Medication List as of 02/03/2025 1:39 PM CONTINUE these medications which have NOT CHANGED Details acetaminophen (TYLENOL) 500 MG tablet Take 1,000 mg by mouth daily as needed for pain (specific location in comments)., Historical Med ADVAIR DISKUS 100-50 mcg/dose DISKUS Inhale 100 mcg/actuation of fluticasone into the lungs 2 (two)times a day as needed., Starting [facility] 11/14/2024, Historical Med dexAMETHasone (DECADRON) 4 MG tablet Take 2 tablets by mouth each morning on days 2-4 of chemotherapy cycle., Normal docusate sodium (COLACE) 100 MG capsule Take 100 mg by mouth daily as needed for mild constipation., Historical Med LORazepam (ATIVAN) 0.5 MG tablet Take 1 tablet (0.5 mg total) by mouth every 6 (six) hours as needed for anxiety (nausea)., Starting 02/03/2025, Normal OLANZapine (ZYPREXA) 2.5 MG tablet Take 1 tablet by mouth nightly on days 2-4 of chemotherapy cycle., Normal ondansetron (ZOFRAN-ODT) 8 MG disintegrating tablet Take 1 tablet by mouth every 8 hours on days 2-4 of chemotherapy cycle. Can use every 8 hours as needed thereafter., Normal oxyCODONE 5 MG immediate release tablet Take 1 tablet (5 mg total) by mouth every 6 (six) hours as needed for pain (specific location in comments). CancerPain-partial fill ok, Starting Mon01/29/2025,Normal polyethylene glycol (MIRALAX) 17 gram packet Take 17 g by mouth nightly at bedtime. For constipation., Starting 02/03/2025, Normal prochlorperazine (COMPAZINE) 10 MG tablet Take 1 tablet (10 mg total) by mouth every 6 (six) hours as needed (nausea)., Starting Mon02/03/2025, Normal VENTOLIN HFA 90 mcg/actuation inhaler Inhale 2 puffs into the lungs every 4 (four) hours as needed., Starting [facility] 11/14/2024, Historical Med ALLERGIES Allergies Allergen Reactions Bupropion PHYSICAL EXAM General: BP 124/70 Pulse 76 Temp 37 ??C (98.6 ??F) (Oral) Resp 16 SpO2 99% . Well appearing, no acute distress Head: Normocephalic, atraumatic Eyes: Anicteric ENT: Atraumatic nose. Resp: Normal resp rate. Speaking full sentences. Lungs clear bilaterally. CV: RRR. No murmurs, rubs, or gallops. GI: Nondistended. Suprapubic tenderness to palpation. No rebound, guarding, or rigidity. MSK: No deformity. Skin: Warm, dry. Neuro: GCS 15. Psych: Normal mood. ASSESSMENT Moraima Jeffrey is a 44 y.o. 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 Plan to trend hemoglobin and will recheck CBC 4 hours from prior. Reassuringly patient reports vaginal bleeding is significantly slowed since yesterday therefore low concern for active hemorrhage. Oncology concerned regarding possible further invasion of cancer into the cervix. Will discuss with [facility] regarding additional workup she may require prior to receiving initiation of chemotherapy. Mild lower abdominal tenderness to palpation consistent with known cancer. No fevers, nausea, vomiting, diarrhea to suggest intra-abdominal infectious process. PLAN Medications: Oxycodone which patient is on outpatient Lab Studies: CBC, DIC panel Interventions: [facility] ON[facility] consult LABS Results for orders placed or performed during the hospital encounter of 02/03/25 DIC screen Specimen: Blood Result Value Ref Range PT 11.0 10.0 - 13.0 sec INR 1.0 0.9 - 1.1 APTT 29.1 24.0 - 37.5 sec FIBRINOGEN 459 (H) 200 - 400 mg/dL CBC Specimen: Blood Result Value Ref Range WBC 9.21 4.00 - 11.00 K/uL RBC 3.77 (L) 4.00 - 5.20 M/uL HGB 11.1 (L) 12.0 - 16.0 g/dL HCT 35.2 (L) 36.0 - 46.0 % PLT 307 150 - 450 K/uL MCV 93.4 80.0 - 100.0 fL MCH 29.4 27.0 - 31.0 pg MCHC 31.5 (L) 32.0 - 36.0 g/dL RDW 13.0 11.5 - 14.5 % MPV 10.8 8.4 - 12.0 fL NRBC 0.00 0.00 /100 WBCs ABSOLUTE NRBC 0.00 0.00 K/uL IMAGING No orders to display ED Medications Ordered Medications oxyCODONE tablet 5 mg (5 mg Oral Given 02/03/25 1308) ED Consults Ordered No consults were ordered If consults were ordered, please refer to the consult documentation for additional information) ED VS Patient Vitals for the past 24 hrs: BP Temp Temp src Pulse Resp SpO2 02/03/25 1306 124/70 37 ??C (98.6 ??F) Oral 76 16 99 % 02/03/25 1107 113/67 36.4 ??C (97.6 ??F) Oral 72 20 99 % ED COURSE and MDM ED Course as of 02/03/25 1614 MonFeb 03, 2025 1117 Hgb 11.9 from 13.1 [JASON] 1118 12:45 CBC [JASON] 1119 Dr. Alicia Vanegas - primary oncologist [JASON] 1124 Paged [facility] consult [JASON] 1129 Page [facility] onc pager [JASON] [address] Alicia Vanegas - primary oncologist [JASON] 1143 [facility] [employer] onc requesting DIC panel [JASON] 1229 Per dog walker, she is not currently bleeding [JASON] 1307 Chemo rescheduled for at [facility] [JASON] 1332 Hgb(!): 11.1 11.9, no active bleeding on [facility] exam [JASON] 1344 D/w Onc PA who confirmed IV should not be kept in place, they are working on rescheduling chemo and will contact patient. [CC] ED Course User Index [CC] Taylor Mcgraw MD [JASON] Cinthia Thomas MD Clinical Impressions as of 02/03/25 1614 Vaginal bleeding Bladder cancer DISPOSITION/CONDITION Patient discharged with strict return precautions and was advised to follow-up with their primary care provider. The patient's condition was stable at the time of discharge. Cinthia Thomas MD Department of Emergency Medicine [facility] Res[facility], PGY-3 Pager: [phone] This note was completed with the assistance of voice recognition software. Although it has been reviewed for errors, please excuse any typos or word replacements. Cinthia Thomas MD Resident 02/03/25 161 documented in this encounter Miscellaneous Notes * Assessment & Plan Note - Corinna Flaherty - 02/03/2025 1:08 PM EDTAssociated Problem(s): Vaginal bleeding Patient had minimal bleeding on her pad during exam in the emergency department today and is not having any active bleeding at this time. She does not have any dizziness or lightheadedness and her bleeding has been decreasing since the start of her period, thus these is a lower concern for excessive bleeding that would be contra-indicated to resume chemotherapy. Her last hemoglobin was 11.9 this morning, hematocrit of 37.4. Reassuringly she is currently asymptomatic with regards to her hgb and recent heavy vaginal bleeding. Recommend trending serial CBC - next this afternoon- to confirm pts stability. Recommend continuingwith chemotherapy- continue with cycle of neoadjuvant cisplatin/gemcitabine/durvalumab as was planned for today (02/03). documented in this encounter Plan of Treatment Upcoming Encounters Date Type Department Care Team (Late st Contact Info) Description 02/06/2025 9:00 AM EDT Office Visit [facility], [facility] at [address] [address] [place] Quintanilla FNP [address] [place] [address] [email or web address] Alicia Vanegas MD [address] [place] [address] for Oncology, [address] [address] [email or web address] 02/10/2025 7:30 AM EDT Blood Draw Laboratory Services, [facility] at [address] [address] Alicia Vanegas MD 450 [facility] On[address] [address] [email or web address] 02/10/2025 8:30 AM EDT [facility], [facility] at [address] [address] Belén Chowdhury PA-C [address] [place] [address] Department of Radiation Oncology -ASB1 L2 [place] [address] [email or web address] 02/10/2025 9:30 AM EDT Infusion Infusion Therapy Services [facility] at [address] [address] Alicia Vanegas MD 450 [facility] Oncology[address] [address] [email or web address] Chrissy Langston, RN 300 [place] [address] [email or web address] 03/11/2025 1:40 PM EDT Office Visit [facility] Urology 45 [facility]2-3 [place] [address] Edson Manley MD, MPH 45 [facility] [place] [address] [email or web address] documented as of this encounter Procedures Procedure Name Priority Date/Time Associated Diagnosis Comments DIC SCREEN STAT 02/03/2025 12:38 PM EDT CBC STAT 02/03/2025 12:38 PM EDT documented in this encounter Results * (ABNORMAL) DIC screen (02/03/2025 12:38 PM EDT) PT 11.0 10.0 - 13.0 sec [facility] INR 1.0 0.9 - 1.1 [facility] APTT 29.1 24.0 - 37.5 sec [facility] Comment:Emicizumab (Hemlibra ) treatment can result in falsely lowered aPTT test results. FIBRINOGEN 459(H) 200 - 400 mg/dL [facility] Blood 02/03/2025 12:3 8 PM EDT 02/03/2025 12:55 PM EDT us Taylor Mcgraw MD LAB BLOOD TIMO MICHELE Final Result Performing Organization Address City/State/[facility] Co de Phone Number [facility] [address] [place] [phone] * (ABNORMAL) CBC (02/03/2025 12:38 PM EDT) WBC 9.21 4.00 - 11.00 K/uL [facility] RBC 3.77(L) 4.00 - 5.20 M/uL [facility] HGB 11.1(L) 12.0 - 16.0 g/dL [facility] HCT 35.2(L) 36.0 - 46.0 % [facility] PLT 307 150 - 450 K/uL [facility] MCV 93.4 80.0 - 100.0 fL [facility] MCH 29.4 27.0 - 31.0 pg [facility] MCHC 31.5(L) 32.0 - 36.0 g/dL [facility] RDW 13.0 11.5 - 14.5 % [facility] MPV 10.8 8.4 - 12.0 fL [facility] NRBC 0.00 0.00 /100 WBCs [facility] ABSOLUTE NRBC 0.00 0.00 K/uL [facility] Blood 02/03/2025 12:3 8 PM EDT 02/03/2025 12:55 PM EDT us Taylor Mcgraw MD LAB BLOOD TIMO MICHELE Final Result [facility] [address] [place] [address] documented in this encounter Visit Diagnoses Diagnosis Vaginal bleeding- Primary Other specified noninflammatory disorder of vagina Vaginal bleeding Other specified noninflammatory disorder of vagina Bladder cancer Malignant neoplasm of bladder, part unspecified documented in this encounter Administered Medications Inactive Administered Medications - up to 3 most recent administrations Medication Order MAR Action Action Date Dose Rate Site oxyCODONE tablet 5 mg 5 mg, Oral, Once, On Mon02/03/25 at 1300, For 1 dose Given 02/03/2025 1:08 PM EDT 5 mg documented in this encounter Active and Recently Administered Medications Times are shown in EDT. Scheduled Medication Order 02/01/2025 02/02/2025 02/03/2025 oxyCODONE tablet 5 mg (COMPLETED) 5 mg, Oral, Once, On Mon02/03/25 at 1300, For 1 dose 1308 (Given - Provid er: Krupa Dillard RN) documented in this encounter Care Teams Shrimp Trawler Captain Relationship Specialty Start Date End Date Hansel Orozco PA [facility]1 [place] [address] PCP - General Physician Hydraulic Repairer 01/01/25 Rupesh Monroe MD [facility] [address] [place] [address] [email or web address] Referring Physician Urology 12/24/24 Alicia Vanegas MD [address] [place] [address] for Oncology, [place] 9 [place] [address] [email or web address] Medical Oncology 12/25/24 Edson Washington, [facility] 35 [place] [address] [email or web address] Water Operator Oncology 01/07/25 Amanda Johnson, [facility] 300 [place] [address] [email or web address] Water Operator Licensed Clinical Water Operator 02/03/25 documented as of this encounter Additional Source Comments The information contained in this document represents components of the legal health record. It is not the complete legal health record.[facility]
[2025-02-03 18:13] VITALS: BP 142/69; PULSE 97; RESP 20; TEMP 36.8; O2SAT 97; BMI 26.9
--- NOTE | 2025-02-03 18:13 | ED_ITS ---
HPI - General Adult General Chief complaint: Upper Respiratory Symptoms Stated complaint: Asthma Related Data Previous Rx's ?Medication ?Instructions ?Recorded polyethylene glycol 3350 17 gram 17 g PO DAILY PRN Con stipation #30 11/09/23 oral powder packet ea magnesium hydroxide 400 mg/5 mL 30 ml PO DAILY PRN con stipation 11/17/23 oral suspension (Milk of Magnesia) #355 mL cefuroxime axetil 250 mg tablet 250 mg PO Q12H #14 tab s 10/03/24 tramadol 50 mg tablet 50 mg PO Q8H PRN severe pain 10/03/24 (scale score 7-10) #12 tabs albuterol sulfate 90 mcg/actuation 1 inh inhalation QI D PRN shortness 01/23/25 aerosol inhaler of breath or wheezing #6.7 g richard fluticasone 100 mcg-salmeterol 50 1 ea inhalation BID PRN Shortness 01/23/25 mcg/dose blistr powdr for Of Breath Or Wheezing #60 ea inhalation (Advair Diskus) montelukast 10 mg tablet 10 mg PO DAILY #90 tabs 09/13 Allergies Allergy/AdvReac Type Severity Reaction Status Date / Time bupropion (From Wellbutrin) AdvReac Intermediate Rash Verified 02/03/25 18:15 [facility] Past Medical History Medical History (Updated 02/07/25 @ 10:25 by Chrissy Lewis NP) Urothelial carcinoma of kidney S/p nephrectomy Anxiety Hemorrhoids with complication Asthma Surgical History (Updated 11/09/23 @ 14:03 by JOSEPHINE Napoles) History of kidney removal History of gastric surgery History of hemorrhoidectomy History of surgery Family History Family History Mother No problems noted. Father Diabetes High blood pressure CVA (cerebral vascular accident), Onset Age: 59 Brother Brain tumor Social History Social History Housing: Apartment Alcohol intake: current Alcohol intake frequency: holidays/special occasions only Patient Tobacco Use Status: Former Tobacco user Tobacco use type: Cigarette Years Smoked: 8 e-Cigarette/Vaping Use: Never Used Second Hand Smoke Exposure: No Advance Directives: No Advance Directives Information Provided: No service: No Current occupational status: unemployed Cognitive needs: No Hearing needs: No Vision needs: Yes (glasses) Physical Exam ED Vital Signs: BMI result Body Mass Index 26.9 Course Course Course Narrative: This is a rapid medical exam performed by Geovanny Lewis NP: Additional HPI, ROS, PE not included below will be deferred to primary provider. Patient is a 44-year-old F with history of asthma, bladder and ovarian CA presenting with complaint of shortness of breath for the past few days. Feels like she is coming down with URI, has headache, cough, body aches, sweats/chills. Has inhaler at home, has neb machine but no albuterol ampules. Plan: viral swabs, labs Patient left the emergency department before myself or any of the other clinicians could review or explain physical exam findings, test results, need or lack there of for additional testing, treatment options, or a treatment plan. Medical Decision Making Lab Data 02/03/25 18:24 02/03/25 18:23 Labs: Lab Results 02/03/25 02/03/25 Range/Units 18:23 18:24 WBC 9.4 (4.8-10.8) X10*3/uL RBC 3.91 L (4.20-5.50) X10*6/uL Hgb 11.6 L (12.0-16.0) g/dl Hct 35.7 L (37.0-47.0) % MCV 91.3 (80.0-98.0) fL MCH 29.7 (27.0-33.0) pg MCHC 32.5 (31.0-35.0) g/dl RDW 13.1 (11.0-16.0) % Plt Count 328 (160-400) X10*3/uL MPV 10.8 (9.4-12.3) fL Immature Gran % (Auto) 0.3 (0.0-0.4) % Neut % (Auto) 72.5 (45-73) % Lymph % (Auto) 16.3 L (20-40) % [place] % (Auto) 7.5 (2-11) % Eos % (Auto) 2.8 (0-4) % Baso % (Auto) 0.6 (0-2) % Lymph # (Auto) 1.5 (1.2-4.9) X10*3/uL [place] # (Auto) 0.7 (0.1-1.2) X10*3/uL Eos # (Auto) 0.3 (0.0-0.4) X10*3/uL Baso # (Auto) 0.1 (0.0-0.2) X10*3/uL Abs Immat Gran (auto) 0.03 (0.00-0.03) X10*3/uL Absolute Neuts (auto) 6.8 (2.0-8.3) x10*3/uL Absolute Nucleated RBC 0.000 (0.0-0.012) X10*3/uL Nucleated RBC % (auto) 0.0 (0.0-0.2) /100WBC PT 11.1 (10.9-12.4) SEC INR 1.0 (0.9-1.1) Sodium 141 (135-145) mmol/L Potassium 4.0 (3.3-5.1) mmol/L Chloride 108 (96-108) mmol/L Carbon Dioxide 25 (22-29) mmol/L Anion Gap 12 (12-20) BUN 14 (9-16) mg/dL Creatinine 1.17 (0.5-1.4) mg/dL Estim Creat Clear Calc 51.7 Estimated GFR 51 Random Glucose 123 H (60-115) mg/dL Calcium 9.4 (8.4-10.2) mg/dL Total Bilirubin 0.3 (0.0-1.0) mg/dL AST 23 (5-31) U/L ALT 12 (0-31) U/L Alkaline Phosphatase 80 (39-117) U/L Total Protein 7.3 (6.5-8.0) g/dL Albumin 4.3 (3.5-5.0) g/dL COVID-19 (RACHEL) Negative (Negative) COVID-19 Clin Com See Note Influenza Type A (ALEX) Negative (Negative) Influenza Type B (ALEX) Negative (Negative) Influenza A & B Note See Note Discharge Plan Discharge Clinical Impression: Shortness of breath Patient Disposition: Left W/O Completing Treatment Prescriptions: No Action magnesium hydroxide [Milk of Magnesia] 400 mg/5 mL suspension 30 ml PO DAILY PRN (Reason: constipation) Qty: 355 0RF fluticasone propion-salmeterol [Advair Diskus] 100-50 mcg/dose blister with device 1 ea inhalation BID PRN (Reason: Shortness Of Breath Or Wheezing) Qty: 60 1RF albuterol sulfate 90 mcg/actuation HFA aerosol inhaler 1 inh inhalation QID PRN (Reason: shortness of breath or wheezing) Qty: 6.7 1RF montelukast 10 mg tablet 10 mg PO DAILY Qty: 90 1RF cefuroxime axetil 250 mg tablet 250 mg PO Q12H Qty: 14 0RF tramadol 50 mg tablet 50 mg PO Q8H PRN (Reason: severe pain (scale score 7-10)) Qty: 12 0RF polyethylene glycol 3350 17 gram powder in packet 17 g PO DAILY PRN (Reason: Constipation) Qty: 30 0RF Discharge Date/Time: 02/04/25 00:11
[2025-02-03 18:28] LABS: MANUAL DIFF FLAG NO
[2025-02-03 18:38] LABS: INTERNATIONAL NORM RATIO 1.0 (0.9-1.1); Prothrombin Time 11.1 SEC (10.9-12.4)
[2025-02-03 18:45] LABS: COVID-19 Test Negative (Negative); IDNOW Serial# 55D5AD1C; IDNOW Serial# 58CA691E; Influenza B2 Negative (Negative)
[2025-02-03 18:51] LABS: Alanine Aminotransferase 12 U/L (0-31); Albumin Level 4.3 g/dL (3.5-5.0); Alkaline Phosphatase 80 U/L (39-117); Anion Gap 12 (12-20); Blood Urea Nitrogen 14 mg/dL (9-16); Calcium 9.4 mg/dL (8.4-10.2); Carbon Dioxide 25 mmol/L (22-29); Chloride 108 mmol/L (96-108); Creatinine Clr Calc Pharmacy 51.7; Estimated Glomerular Filt Rate 51; Potassium 4.0 mmol/L (3.3-5.1); Sodium 141 mmol/L (135-145); Total Protein 7.3 g/dL (6.5-8.0)
[2025-02-03 18:54] LABS: Hematocrit 35.7 % (37.0-47.0); Hemoglobin 11.6 g/dl (12.0-16.0); Imm Gran Abs Auto 0.03 X10*3/uL (0.00-0.03); Imm Gran Pct Auto 0.3 % (0.0-0.4); Lymphocytes Absolute Auto 1.5 X10*3/uL (1.2-4.9); Mean Corpuscular HGB Conc 32.5 g/dl (31.0-35.0); Mean Corpuscular Hemoglobin 29.7 pg (27.0-33.0); Mean Corpuscular Volume 91.3 fL (80.0-98.0); NRBC Abs Auto 0.000 X10*3/uL (0.0-0.012); NRBC Pct Auto 0.0 /100WBC (0.0-0.2); Platelet Count 328 X10*3/uL (160-400); Red Blood Count 3.91 X10*6/uL (4.20-5.50); White Blood Count 9.4 X10*3/uL (4.8-10.8)
[2025-02-03 19:04] LABS: Aspartate Amino Transferase 23 U/L (5-31)
--- OUTSIDE RECORDS SUMMARY | 2025-02-04 00:13 | XMS_ITS | Encounter Summary ---
Demographics Address [address], [facility] [address] [place] [address] Mobile Phone Home Phone Preferred Language en Marital Status Unknown Church Affiliation Unknown Race Unknown Ethnic Group or Author Organization [facility] Address [address] [place] [address] Care Team Providers Care Systems Analysis Manager Name Role Phone Physician, No Pcp Primary Care Provider Unavaila ble Encounter Details Date Type Department Care Team (Late st Contact Info) Description 10/11/2024 Lab Requisition [facility] - Main Lab 299 [facility] [place] [address] Rupesh Monroe MD [address] [facility] 120 [place] [address] Dysuria Social History Tobacco Use Types Packs/Day Years [...] Procedure Name Priority Date/Time Associated Diagnosis Comments AP OUTSIDE CONSULT Routine 10/09/2024 Dysuria documented in this encounter Results * Anatomic pathology outside consult (10/09/2024) Final Diagnosis Urinary Bladder, Transurethral resection: -PAPILLARY UROTHELIAL CARCINOMA, HIGH GRADE -Tumor focally invades lamina propria (subepithelial connective tissue) -No muscularis propria, (Detrusor muscle) present for evaluation -Lymphovascular invasion: Not identified -Urothelial carcinoma in situ: Not identified 10/11/2024 4:38 PM EDT [facility] ([facility]) [facility] Clinical Information Z85.51 - H/O bladder neoplasm (malignant) R30.0 [id number] 10/11/2024 4:38 PM EDT [facility] Gross Description A. Urinary Bladder, Tumor: Labeled bladder tumor . Received in formalin is a 2.3 x 2.1 x 1.6 cm aggregate of friable, pink-shaw tissue fragments. The specimen is wrapped in paper and submitted in toto in 6 cassettes, multiple pieces each. /al 10/11/2024 4:38 PM EDT [facility] Disclaimer Unless otherwise specified, all tissue is 10% NB formalin fixed and paraffin embedded. Technical pathology services provided by [facility] Urology at [address] [facility] [address], [place] [address] (CLIA #[id number]/Emma Mullins MD, Field Sales Manager) 10/11/2024 4:38 PM EDT [facility] Tissue Urinary bladder structure / Unknown 10/09/2024 10/11/2024 11:06 AM EDT us Rupesh Monroe MD LAB PATHOLOGY ORDERABLES Final Result [facility] 299 [place] [address], documented in this encounter Visit Diagnoses Diagnosis Dysuria documented in this encounter Care Teams Systems Analysis Manager Relationship Specialty Start Date End Date Physician, No Pcp PCP - General 11/28/24 documented as of this encounter
--- OUTSIDE RECORDS SUMMARY | 2025-02-04 00:13 | XMS_ITS | Encounter Summary ---
Author Organization [facility] Address [address] [place] [address] Phone Care Team Providers Care Mechanical Maintenance Engineer Name Role Phone Rupesh Monroe MD Unavailable [phone] Alicia Vanegas MD Unavailable [phone] Hansel Orozco Primary Care Provider + Edson Washington [facility] Unavailable [email or web address] Encounter Details Date Type Department Care Team (Late st Contact Info) Description 01/01/2025 Orders Only [facility] Health Information Services [address] [place] [address] Provider, MD Teresa [address] [place] [address] Social History Tobacco Use Types Packs/Day Years [...] high school, GED, job training, learning the Macanese language, technical skills, or developing parenting skills)? [...] with a working camera? Not on file Comments Unknown Sex and Gender Information Value Date Recorded Sex Assigned at Female 12/24/2024 3:32 PM EDT Legal Sex Female 11:16 AM EDT Gender Identity Female 12/24/2024 3:32 PM EDT Sexual Orientation Straight 12/24/2024 3: 32 PM EDT documented as of this encounter Plan of Treatment Upcoming Encounters Date Type Department Care Team (Late st Contact Info) Description 02/06/2025 9:00 AM EDT Office Visit [facility] for Genitourinary On[facility], [facility] [place] [address] [address] [place] Quintanilla FNP [address] [place] [address] [email or web address] Alicia Vanegas MD [address] [place] [address] for Oncology, [address] [address] [email or web address] 02/10/2025 7:30 AM EDT Blood Draw Laboratory Services, [facility] at [place] [address] [address] Alicia Vanegas MD 450 [facility] Oncology, [address] [address] [email or web address] 02/10/2025 8:30 AM EDT Office Visit [facility], [facility] at [address] [address] Belén Chowdhury PA-C [address] [place] [address] Department of Radiation Oncology -[facility] L[address] [place] [address] [email or web address] 02/10/2025 9:30 AM EDT Infusion Infusion Therapy Services [facility] at [address] [address] Alicia Vanegas MD 450 [facility] Oncology, [address] [address] [email or web address] Chrissy Langston RN 300 [place] [address] [email or web address] 03/11/2025 1:40 PM EDT Office Visit [facility] Urology [address] [place] [address] Edson Manley MD, MPH [address] [address] [email or web address] documented as of this encounter Procedures Procedure Name Priority Date/Time Associated Diagnosis Comments OUTSIDE PATHOLOGY Routine 10/25/2024 10:38 AM EDT OUTSIDE LAB Routine 10/16/2024 10:39 AM EDT OUTSIDE LAB Routine 05/19/2023 10:36 AM EST documented in this encounter Results * Outside Pathology (10/25/2024 10:38 AM EDT) Historical Provider MD PATHOLOGY ORDERABLES Constance l Result * Outside Lab (10/16/2024 10:39 AM EDT) Historical Provider MD LAB BLOOD ORDERABLES Constance l Result * Outside Lab (05/19/2023 10:36 AM EST) Historical Provider MD LAB BLOOD ORDERABLES Constance l Result documented in this encounter Visit Diagnoses Not on filedocumented in this encounter Care Teams Mechanical Maintenance Engineer Relationship Specialty Start Date End Date Hansel Orozco PA [address] [place] [address] PCP - General Physician Swat Team Member 01/01/25 Rupesh Monroe MD 100 [facility] 120 [place] [address] [email or web address] Referring Physician Urology 12/24/24 Alicia Vanegas MD 450 [facility] for Oncology, [place] 9 [place] [address] [email or web address] Medical Oncology 12/25/24 Edson Washington, [facility] [address] [place] [address] [email or web address] Form Grader Operator Oncology 01/07/25 documented as of this encounter Additional Source Comments The information contained in this document represents components of the legal health record. It is not the complete legal health record.[facility]
--- OUTSIDE RECORDS SUMMARY | 2025-02-04 00:13 | XMS_ITS | Encounter Summary ---
Demographics Address [address], [place] [address] [place] [address] Mobile Phone Home Phone Preferred Language en Marital Status Unknown Hinduism Affiliation Unknown Race Unknown Ethnic Group or Author Organization [facility] Address [address] [place] [address] Care Team Providers Care Naval Aircrewman Operator Name Role Phone Physician, No Pcp Primary Care Provider Unavaila ble Encounter Details Date Type Department Care Team (Late st Contact Info) Description 06/12/2024 Lab Requisition [facility] - Main Lab 299 [place] [address] Miguel Garcia PA [address] [place] [phone] Urinary tract infection, site not specified Social [...] Urine No growth 06/13/2024 1:16 PM EST [facility] Urine Urine specimen obtained by clean catch procedure / Unknown 06/12/2024 06/12/2024 6:12 PM EST us Miguel [facility] MICROBIOLOGY - GENERAL ORD ERABLES Final Result [facility] 299 [place] [address], documented in this encounter Visit Diagnoses Diagnosis Urinary tract infection, site not specified documented in this encounter Care Teams Naval Aircrewman Operator Relationship Specialty Start Date End Date Physician, No Pcp PCP - General 11/28/24 documented as of this encounter
--- OUTSIDE RECORDS SUMMARY | 2025-02-04 00:14 | XMS_ITS | Encounter Summary ---
Demographics Address [address], [facility] [address] [place] [address] Mobile Phone Home Phone Preferred Language en Marital Status Unknown Spiritism Affiliation Unknown Race Unknown Ethnic Group or Author Organization [facility] Address [address] [place] [address] Care Team Providers Care Director Of Athletics Name Role Phone Physician, No Pcp Primary Care Provider Unavaila ble Encounter Details Date Type Department Care Team (Late st Contact Info) Description 11/28/2024 Lab Requisition [facility] - Main Lab 299 [facility] [place] [address] Rupesh Monroe MD [address] [facility] 120 [place] [address] Malignant neoplasm of lateral wall of bladder ([facility] V24, [facility] V28) Social History Tobacco Use Types Packs/Day Years [...] Associated Diagnosis Comments AP OUTSIDE CONSULT Routine 11/27/2024 Malignant neoplasm of lateral wall of bladder (CMS/HCC V24, [facility] V28) documented in this encounter Results * Anatomic pathology outside consult (11/27/2024) Final Diagnosis Urinary bladder-trans urethral resection bladder: -PAPILLARY UROTHELIAL CARCINOMA, HIGH GRADE -Tumor invades muscularis propria, (Detrusor muscle): -Lymphovascul ar invasion: Not identified -Urothelial carcinoma in situ: Not identified 12/02/2024 2:01 PM EDT [facility] HOSP[facility] LAB Clinical Information Z85.51 H/O bladder neoplasm (malignant) C67.2 [id number] 12/02/2024 2:01 PM EDT [facility] Gross Description A. Urinary Bladder, Tumor: Labeled bladder tumor . Received in formalin is a 1.5 x 1.5 x 0.2 cm aggregate of friable, pink-shaw tissue fragments which are filtered through paper and submitted in toto in one cassette, multiple pieces, multiple levels. /rc 12/02/2024 2:01 PM EDT [facility] Disclaimer Unless otherwise specified, all tissue is 10% NB formalin fixed and paraffin embedded. Technical pathology services provided by [facility]rology at [address] [facility] [address], [place] [address] (CLIA #[id number]/S neftali Mullins MD, Assurance Engineer) 12/02/2024 2:01 PM EDT [facility] Tissue Urinary bladder structure / Unknown 11/27/2024 11/28/2024 4:24 PM EDT us Rupesh Monroe MD LAB PATHOLOGY ORDERABLES Final Result [facility] [address] [place] [address], documented in this encounter Visit Diagnoses Diagnosis Malignant neoplasm of lateral wall of bladder (CMS/HCC V24, CMS/HCC V28) Malignant neoplasm of lateral wall of urinary bladder documented in this encounter Care Teams Director Of Athletics Relationship Specialty Start Date End Date Physician, No Pcp PCP - General 11/28/24 documented as of this encounter
--- OUTSIDE RECORDS SUMMARY | 2025-02-04 00:14 | XMS_ITS | Clinical Summary ---
Author Organization [address] [facility] Address [address] [place] [address] Phone Care Team Providers Care Machine Quilt Stuffer Name Role Phone Physician, No Pcp Primary Care Provider Unavaila ble Encounters Date Type Department Care Team Description 11/28/2024 Lab Requisition [facility] - Main Lab [address] [facility] [address] Rupesh Monroe MD Malignant neoplasm of lateral wall of bladder (CMS/HCC V24, CMS/HCC V28) from Last 3 Months Social History Tobacco Use Types Packs/Day Years Used Date Smoking Tobacco: Never Assessed Comments Unknown Sex and Gender Information Value Date Recorded Sex Assigned at Not on file Legal Sex Female 12:25 PM EST Gender Identity Not on file Sexual Orientation Not on file Plan of Treatment Health Maintenance Due Date Last Done Comments Breast Cancer Screening 1980 Hepatitis B Vaccines (1 of 3 - 19+ 3-dose series) 2001 Cervical Cancer Screening: P ap Smear 2003 DTaP,Tdap,and Td Vaccines (2 - Td or Tdap) 02/06/2022 02/07/2012 Depression Screening 05/22/2024 Cholesterol Screening (Lipid Panel) 06/13/2024 HIV Screening 06/13/2024 Hepatitis C Screening 06/13/2024 Social Influencers of Health Screening 06/13/2024 COVID-19 Vaccine (2023-2 5 season) 2025 Influenza Vaccine (#1) 2025 02/07/2012 HIB Vaccines Aged Out No longer eligi [...] on patient's age to complete this topic MMR Vaccines Aged Out No longer eligi ble based on patient's age to complete this topic Meningococcal ACWY Vaccine Aged Out N o longer eligible based on patient's age to complete this topic Meningococcal B Vaccine Aged Out No l onger eligible based on patient's age to complete this topic Pneumococcal Vaccine: Pediat rics (0 to 5 Years) and At-Risk Patients (6 to 49 Years) Aged Out No longer eligi ble based on patient's age to complete this topic RSV Immunization Patients Un shyla 20 months Aged Out No longer eligible b ased on patient's age to complete this topic Varicella Vaccines Aged Out No longer eligible based on patient's age to complete this topic Procedures Procedure Name Priority Date/Time Associated Diagnosis Comments AP OUTSIDE CONSULT Routine 11/27/2024 Malignant neoplasm of lateral wall of bladder ([facility] V24, [facility] V28) from Last 3 Months Results * Anatomic pathology outside consult (11/27/2024) Final Diagnosis Urinary bladder-trans urethral resection bladder: -PAPILLARY UROTHELIAL CARCINOMA, HIGH GRADE -Tumor invades muscularis propria, (Detrusor muscle): -Lymphovascul ar invasion: Not identified -Urothelial carcinoma in situ: Not identified 12/02/2024 2:01 PM EDT [facility] Clinical Information Z85.51 H/O bladder neoplasm (malignant) C67.2 [id number] 12/02/2024 2:01 PM EDT [facility] Gross Description A. Urinary Bladder, Tumor: Labeled bladder tumor . Received in formalin is a 1.5 x 1.5 x 0.2 cm aggregate of friable, pink-shaw tissue fragments which are filtered through paper and submitted in toto in one cassette, multiple pieces, multiple levels. /rc 12/02/2024 2:01 PM EDT [facility] Disclaimer Unless otherwise specified, all tissue is 10% NB formalin fixed and paraffin embedded. Technical pathology services provided by [facility] at [address], [place] [address] (CLIA #[id number]/S neftali Mullins MD, Priest) 12/02/2024 2:01 PM EDT [facility] Tissue Urinary bladder structure / Unknown 11/27/2024 11/28/2024 4:24 PM EDT us Rupesh Monroe MD LAB PATHOLOGY ORDERABLES Final Result [facility] [address] [place] [address], [place] [phone] from Last 3 Months Insurance * Guarantor: Sunny Jeffrey Account Type Relation to Patient Date of Phone Billing Address Personal/Family Self 1980 [address], [address] [place] [address] [facility] [employer] [facility] Care Teams Machine Quilt Stuffer Relationship Specialty Start Date End Date Physician, No Pcp PCP - General 11/28/24
--- OUTSIDE RECORDS SUMMARY | 2025-02-04 00:14 | XMS_ITS | Clinical Summary ---
Author Organization [facility] Address [address] [facility] [address] [place] [phone] Phone Care Team Providers Care Oral Communication Instructor Name Role Phone Rupesh Monroe MD Unavailable Salma Garcia MD Unavailable Hansel Orozco Primary Care Provider + Edson Washington TOBACCO SAMPLE PULLER Unavailable [email or web address] Amanda Johnson TOBACCO SAMPLE PULLER Unavailable [phone] Allergies Active Allergy Reactions Criticality Noted Date Comments Bupropion 01/03/2025 Medications VENTOLIN HFA 90 mcg/actuation inhaler Inhale 2 puffs into the lungs every 4 (four) hours as needed. 11/15/19 25 Active ADVAIR DISKUS 100-50 mcg/dose DISKUS Inhale 100 mcg/actuation of fluticasone into the lungs 2 (two) times a day as needed. 11/15/19 25 Active acetaminophen (TYLENOL) 500 MG tablet Take 1,000 mg by mouth daily as needed for pain (specific location in comments). Active docusate sodium (COLACE) 100 MG capsule Take 100 mg by mouth daily as needed for mild constipation. Active oxyCODONE 5 MG immediate release tablet Take 1 tablet (5 mg total) by mouth every 6 (six) hours as needed for pain (specific location in comments). CancerPain-parti al fill ok 30 tablet 01/30/20 25 Active prochlorperazine (COMPAZINE) 10 MG tabletIndications: Malignant neoplasm of overlapping sites of bladder Take 1 tablet (10 mg total) by mouth every 6 (six) hours as needed (nausea). 30 tablet 2 02/04/20 25 Active LORazepam (ATIVAN) 0.5 MG tabletIndications: Malignant neoplasm of overlapping sites of bladder Take 1 tablet (0.5 mg total) by mouth every 6 (six) hours as needed for anxiety (nausea). 30 tablet 02/04/20 25 Active dexAMETHasone (DECADRON) 4 MG tabletIndications: Malignant neoplasm of overlapping sites of bladder Take 2 tablets by mouth each morning on days 2-4 of chemotherapy cycle. 30 tablet 02/04/20 25 Active ondansetron (ZOFRAN-ODT) 8 MG disintegrating tabletIndications: Malignant neoplasm of overlapping sites of bladder Take 1 tablet by mouth every 8 hours on days 2-4 of chemotherapy cycle. Can use every 8 hours as needed thereafter. 30 tablet 2 02/04/20 25 Active OLANZapine (ZYPREXA) 2.5 MG tabletIndications: Malignant neoplasm of overlapping sites of bladder Take 1 tablet by mouth nightly on days 2-4 of chemotherapy cycle. 30 tablet 02/04/20 25 Active polyethylene glycol (MIRALAX) 17 gram packetIndications: Malignant neoplasm of overlapping sites of bladder Take 17 g by mouth nightly at bedtime. For constipation. 30 packet 2 02/04/20 25 Active Active Problems Problem Noted Date Diagnosed Date Vaginal bleeding 02/03/2025 Assessment & Plan (02/03/2025 6:59 PM EDT): Patient had minimal bleeding on her pad [...] this afternoon- to confirm pts stability. Recommend continuing with chemotherapy- continue with cycle of neoadjuvant cisplatin/gemcitabine/durvalumab as was planned for today (02/03). Malignant neoplasm of overlapping sites of bladd er 01/28/2025 Encounters Date Type Department Care Team Description 02/03/2025 11:08 AM EDT - 02/03/2025 1:47 PM EDT Emergency [facility] Emergency Department [address] [place] [address] Taylor Mcgraw MD Discharge Disposition: Home or Self Care 02/03/2025 8:30 AM EDT Office Visit [facility], [facility] [address] [facility] [address] [place] [address] Belén Chowdhury PA-C Kilbridge, Kerry E, MD Malignant neoplasm of overlapping sites of bladder (Primary Dx) 01/30/2025 1:46 PM EDT - 01/30/2025 11:59 PM EDT Hospital Encounter [facility] [place] [place] [address] [facility] [address] [place] [address] Belén Chowdhury PA-C Kilbridge, Kerry E, MD Arrived Discharge Disposition: Home or Self Care 01/30/2025 Documentation [facility], [facility] [address], [place] [address] Salma Garcia MD 01/30/[address] [facility] Urology [address] [facility] [address] [place] [address] Ely Perry 01/30/2025 Orders Only [facility], [facility] [place] [address] [place] [address] Belén hCowdhury PA-C Malignant neoplasm of overlapping sites of bladder (Primary Dx) 01/29/2025 7:30 AM EDT Telemedicine [facility], [facility] [address] [place] [address] Salma Garcia MD Malignant neoplasm of overlapping sites of bladder (Primary Dx); Ovarian mass 01/29/2025 Procedure [facility], [place] [address] [facility] [address] [place] [address] 01/29/2025 Procedure [facility], [place] [address] [facility] [address] [place] [address] 01/29/2025 Orders Only [facility] Genitourinary Oncology, [facility] [address], [address] [place] [address] Florida Quintanilla FNP 01/29/2025 Orders Only [facility] Genitourinary Oncology, [address], [place] [address] Belén Chowdhury PA-C 01/29/2025 Orders Only [facility] Gen[facility]cology, [address], [address] [place] [address] Belén Chowdhury PA-C Malignant neoplasm of overlapping sites of bladder (Primary Dx) 01/28/2025 1:30 PM EDT Office Visit [facility], [facility] [address] [address] Edson Manley MD, MPH Malignant neoplasm of urinary bladder, unspecified site (Primary Dx); Ovarian mass 01/28/2025 Orders Only [facility], [facility] [address] [place] [address] Salma Garcia MD Malignant neoplasm of overlapping sites of bladder (Primary Dx) 01/14/2025 Telephone [facility], [facility] [address] [place] [address] Jacqueline Saravia, MARIJA Care Coordination 01/13/2025 11:07 AM EDT - 01/13/2025 11:59 PM EDT Hospital Encounter [facility], [address] [address] Discharge Disposition: Home or Self Care 01/13/2025 Orders Only [facility], [address], [address] [place] [address] Salma Garcia MD Malignant neoplasm of urinary bladder, unspecified site (Primary Dx) 01/07/2025 9:00 AM EDT Social Work Social Work Department, [address] [address] Leila Jay MD Mossanen, Matthew, MD, MPH Salma Garcia MD Bronheim, Matthew S, TOBACCO SAMPLE PULLER 01/07/2025 Ancillary Orders [facility] IM[facility] OUTSIDE IMG [address] [place] [address] Salma Garcia MD 01/07/2025 Ancillary Orders [facility] OUTS[facility] IMG [address] [place] [address] Salma Garcia MD 01/07/2025 Ancillary Orders [facility] OUTSIDE IMG [address] [place] [address] Salma Garcia MD 01/07/2025 Ancillary Orders [facility] OUTSIDE IMG [address] [place] [address] Salma Garcia MD 01/06/2025 Social Work Social Work Department, [address] [address] Edson Washington, TOBACCO SAMPLE PULLER 01/01/2025 7:30 AM EDT Office Visit [facility], [address], [address] [place] [address] Salma Garcia MD 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); Ovarian mass 01/01/2025 Orders Only [facility] [address] [place] [address] Teresa Pickett MD 12/31/2024 9:25 AM EDT - 12/31/2024 11:59 PM EDT Hospital Encounter [facility], [address] [address] Discharge Disposition: Home or Self Care 12/26/2024 Orders Only [facility], [address], [address] [place] [address] Salma Garcia MD Malignant neoplasm of urinary bladder, unspecified site (Primary Dx) 12/12/2024 Ancillary Procedure [facility] OUTSIDE IMG [address] [place] [phone] Salma Garcia MD 12/05/2024 Ancillary Procedure [facility] OUTSIDE IMG [address] [place] [address] Salma Garcia MD from Last 3 Months Social History Tobacco [...] high school, GED, job training, learning the [place] language, technical skills, or developing parenting skills)? [...] Orientation Straight 12/24/2024 3: 32 PM EDT Last Filed Vital Signs Vital Sign Reading [...] Mass Index 26.13 02/03/2025 9:01 AM EDT Plan of Treatment Upcoming Encounters Date Type Department Care Team (Late st Contact Info) Description 02/06/2025 9:00 AM EDT Office Visit [facility], [facility] at [address] [address] Florida Quintanilla, OIL WELL SERVICE OPERATOR HELPER [address] [place] [address] [email or web address] Salma Garcia MD [address] [place] [address] for Oncology, [address] [address] [email or web address] 02/10/2025 7:30 AM EDT Blood Draw Laboratory Services, [facility] at [address] [address] Salma Garcia MD [address] [place] [address] for Oncology, [address] [address] [email or web address] 02/10/2025 8:30 AM EDT Office Visit [facility], [facility] at [address] [address] Belén Chowdhury PA-C [address] [place] [address] Department of Radiation Oncology -ASB1 [address]2 [place] [address] [email or web address] 02/10/2025 9:30 AM EDT Infusion Infusion Therapy Services [place], [facility] at [address] [address] Salma Garcia MD [address] [place] [address] Oncology, [address] [address] [email or web address] Chrissy Langston, MARIJA [address] [place] [address] [email or web address] 03/11/2025 1:40 PM EDT Office Visit [facility] Urology [address] [address] Edson Manley MD, MPH [address] [address] [email or web address] Health Maintenance Due Date Last Done Comments DEPRESSION SCREENING 1994 SMOKING Hx and SMOKELESS TOBACCO SCREENING 1995 HEPATITIS C SCREENING 2000 HIV ONE-TIME SCREENING (18-6 5 YEARS) 2000 PAP SMEAR 2003 MAMMOGRAM 2022 PNEUMOCOCCAL VACCINES (0-49 years) (2 of 2 - PCV) 08/11/2022 08/11/2021 INFLUENZA VACCINE (#1) 2024 0, 05/27/2019 COVID-19 VACCINE (1 - 2023-2 5 season) 2025 SCREENING FOR DIABETES 02/04/2028 02/03/2025 Adult Td,Tdap Booster 07/06/2028 07/06/2018 HEPATITIS A VACCINES Aged Out No long er eligible based on patient's age to complete this topic HIB VACCINES Aged Out No longer eligi ble based on patient's age to complete this topic MENINGOCOCCAL VACCINES (ACWY) Aged Out No longer eligible based on patient's age to complete this topic MENINGOCOCCAL VACCINES (B) Aged Out N o longer eligible based on patient's age to complete this topic Medical Devices Not on file Procedures Procedure Name Priority Date/Time Associated Diagnosis Comments DIC SCREEN STAT 02/03/2025 12:38 PM EDT CBC STAT 02/03/2025 12:38 PM EDT LAB ADD ON Routine 02/03/2025 9:05 AM EDT Malignant neoplasm of overlapping sites of bladder TSH Routine 02/03/2025 8:44 AM EDT CA-19-9 Routine 02/03/2025 8:44 AM EDT Malignant neoplasm of overlapping sites of bladder Ovarian mass CA-125 Routine 02/03/2025 8:44 AM EDT Malignant neoplasm of overlapping sites of bladder Ovarian mass CARCINOEMBRYONIC ANTIGEN (CEA) Routine 02/03/2025 8:44 AM EDT Malignant neoplasm of overlapping sites of bladder Ovarian mass CBC AND DIFFERENTIAL Routine 02/03/2025 8:44 AM EDT Malignant neoplasm of overlapping sites of bladder COMPREHENSIVE METABOLIC PANEL Routine 02/03/2025 8:44 AM EDT Malignant neoplasm of overlapping sites of bladder MRD JULIANNA PACKAGE Routine 02/03/2025 8: 44 AM EDT Malignant neoplasm of overlapping sites of bladder CT ABDOMEN/PELVIS WITH CONTRAST Routine 01/30/2025 3:27 PM EDT Malignant neoplasm of overlapping sites of bladder CT CHEST WITH CONTRAST Routine 3:27 PM EDT Malignant neoplasm of overlapping sites of bladder COMPREHENSIVE METABOLIC PANEL Routine 01/01/2025 9:42 AM EDT Malignant neoplasm of posterior wall of urinary bladder Ovarian mass HC BLOOD COUNT COMPLETE AUTO&AUTO DIFRNTL WBC Routine 01/01/2025 9:42 AM EDT Malignant neoplasm of posterior wall of urinary bladder Ovarian mass CA-125 Routine 01/01/2025 9:42 AM EDT Malignant neoplasm of posterior wall of urinary bladder Ovarian mass CA-19-9 Routine 01/01/2025 9:42 AM EDT Malignant neoplasm of posterior wall of urinary bladder Ovarian mass INHIBIN A & B, TUMOR MARKER Routine 01/01/2025 9:42 AM EDT Malignant neoplasm of posterior wall of urinary bladder Ovarian mass CARCINOEMBRYONIC ANTIGEN (CEA) Routine 01/01/2025 9:42 AM EDT Malignant neoplasm of posterior wall of urinary bladder Ovarian mass OUTSIDE PROCEDURE 12/24/2024 OUTSIDE PROCEDURE 12/24/2024 MRI PELVIS (BONE) OUTSIDE (NO INTERPRETATION) Routine 12/12/2024 12:00 AM EDT OUTSIDE IMAGING 12/12/2024 OUTSIDE IMAGING 12/12/2024 NM PET WHOLE BODY OUTSIDE (NO INTERPRETATION) Routine 12/05/2024 12:00 AM EDT OUTSIDE IMAGING 12/05/2024 OUTSIDE IMAGING 12/05/2024 OUTSIDE PATHOLOGY REVIEW Routine 025 12:00 AM EDT OUTSIDE PATHOLOGY 11/27/2024 OUTSIDE PROCEDURE 11/27/2024 OUTSIDE LAB 11/08/2024 OUTSIDE LAB 11/08/2024 OUTSIDE LAB 11/08/2024 from Last 3 Months Results * (ABNORMAL) DIC screen (02/03/2025 12:38 PM EDT) PT 11.0 10.0 - 13.[address] [facility] INR 1.0 0.9 - 1.1 [facility] APTT 29.1 24.0 - 37.[address] [facility] Comment:Emicizumab (Hemlibra ) treatment can result in falsely lowered aPTT test results. FIBRINOGEN 459(H) 200 - 400 mg/dL [facility] Blood 02/03/2025 12:3 8 PM EDT 02/03/2025 12:55 PM EDT us Taylor Mcgraw MD LAB BLOOD TIMO MICHELE Final Result [facility] [address] [place] [address] * (ABNORMAL) CBC (02/03/2025 12:38 PM EDT) WBC 9.21 4.00 - 11.00 K/uL [facility] RBC 3.77(L) 4.00 - 5.20 M/uL [facility] HGB 11.1(L) 12.0 - 16.0 g/dL [facility] HCT 35.2(L) 36.0 - 46.0 % [facility] PLT 307 150 - 450 K/uL [facility] MCV 93.4 80.0 - 100.[address] [facility] MCH 29.4 27.0 - 31.[address] [facility] MCHC 31.5(L) 32.0 - 36.0 g/dL [facility] RDW 13.0 11.5 - 14.5 % [facility] MPV 10.8 8.4 - 12.[address] [facility] NRBC 0.00 0.00 /[address] [facility] ABSOLUTE NRBC 0.00 0.00 K/uL [facility] Blood 02/03/2025 12:3 8 PM EDT 02/03/2025 12:55 PM EDT us Taylor Mcgraw MD LAB BLOOD TIMO MICHELE Final Result [facility] [address] [place] [address] * Lab Add On: TSH (02/03/2025 9:05 AM EDT) TEST REQUESTED [facility] Comments (Chemistry) TEST TO BE ADDED ON TO EXISTING SPECIMEN [facility] Blood 02/03/2025 9:05 AM EDT 02/03/2025 9:18 AM EDT us Belén Grigsby Siemens PA-C LAB BLOOD ORDERABLE S Final Result [facility] [address] * (ABNORMAL) Comprehensive metabolic panel (02/03/2025 8:44 AM EDT) Only the most recent of2 resultswithin the time period is included. SODIUM 137 136 - 145 mmol/L [facility] POTASSIUM 3.4 3.4 - 5.1 mmol/L [facility] CHLORIDE 103 98 - 107 mmol/L [facility] CO2 20(L) 22 - 31 mmol/L [facility] BUN 15 6 - 23 mg/dL [facility] CREATININE 1.03 0.50 - 1.20 mg/dL [facility] GLUCOSE 125(H) 70 - 100 mg/dL [facility] ALBUMIN 4.0 3.5 - 5.2 g/dL [facility] TOTAL PROTEIN 7.0 6.4 - 8.3 g/dL [facility] CALCIUM 9.0 8.8 - 10.7 mg/dL [facility] ALKALINE PHOSPHATASE 85 35 - 104 U/L [facility] TOTAL BILIRUBIN 0.5 0.2 - 1.2 mg/dL [facility] AST 17 <33 U/L [facility] ALT 11 <34 U/L [facility] GLOBULIN 3.0 2.3 - 4.2 g/dL [facility] EGFR 70 >59 mL/min/1.7 3m2 [facility] Comment:Estimated glomerular filtration rate calculated using the CKD-EPI refit equation. ANION GAP 14 7 - 17 mmol/L [facility] Blood 02/03/2025 8:44 AM EDT 02/03/2025 8:51 AM EDT us Salma Garcia MD LAB BLOOD ORDERABLES Final Result [facility] [address] [place], [place] [address] * CA-19-9 (02/03/2025 8:44 AM EDT) Only the most recent of2 resultswithin the time period is included. CA 19-9 <1 0 - 35 U/mL [facility] Blood 02/03/2025 8:44 AM EDT 02/03/2025 8:51 AM EDT us Salma Garcia MD LAB BLOOD ORDERABLES Final Result [facility] [address] [place] [address], [facility] * (ABNORMAL) CBC and differential (02/03/2025 8:44 AM EDT) Only the most recent of2 resultswithin the time period is included. [facility] WBC 10.01(H) 4.00 - 10.00 K/uL [facility] RBC 4.07 3.90 - 6.00 M/uL [facility] HGB 11.9 11.5 - 16.4 g/dL [facility] HCT 37.4 36.0 - 48.0 % [facility] PLT 318 150 - 450 K/uL [facility] MCV 91.9 80.0 - 100.0 fL [facility] MCH 29.2 27.0 - 32.0 pg [facility] MCHC 31.8(L) 32.0 - 36.0 g/dL [facility] RDW 13.0 11.5 - 14.5 % [facility] MPV 10.8 8.4 - 12.0 fL [facility] NRBC 0.00 0.00 /100 WBCs [facility] ABSOLUTE NRBC 0.00 0 K/uL [facility] DIFF METHOD Auto [facility] NEUTS 72.6 48.0 - 76.0 % [facility] LYMPHS 18.8 18.0 - 41.0 % [facility] MONOS 5.4 4.0 - 11.0 % [facility] EOS 2.3 0.0 - 5.0 % [facility] BASOS 0.6 0.00 - 1.50 % [facility] % IMMATURE GRANS 0.3 0.00 - 1.00 % [facility] ABSOLUTE NEUTS 7.27 1.92 - 7.60 K/uL [facility] ABSOLUTE LYMPHS 1.88 0.72 - 4.10 K/uL [facility] ABSOLUTE MONOS 0.54 0.16 - 1.10 K/uL [facility] ABSOLUTE EOS 0.23 0.00 - 0.50 K/uL [facility] ABSOLUTE BASOS 0.06 0.00 - 0.15 K/uL [facility] ABS IMMATURE GRANS 0.03 0.00 - 0.10 K/uL [facility] Blood 02/03/2025 8:44 AM EDT 02/03/2025 8:51 AM EDT us Salma Garcia MD LAB BLOOD ORDERABLES Final Result Performing Organization Address City/[facility] Co de Phone Number [address] * CA-125 (02/03/2025 8:44 AM EDT) Only the most recent of2 resultswithin the time period is included. CA125 20 6 - 38 U/mL [facility] Comment: CA 125 REFERENCE RANGE: POSTMENOPAUSAL 6-32 U/mL PREMENOPAUSAL 6-46 U/mL Blood 02/03/2025 8:44 AM EDT 02/03/2025 8:51 AM EDT us Salma Garcia MD LAB BLOOD ORDERABLES Final Result Performing Organization Address City/State/[facility] Co de Phone Number [address] * TSH (02/03/2025 8:44 AM EDT) TSH 2.59 0.27 - 4.20 uIU/mL [facility] 02/03/2025 8:44 AM EDT 02/03/2025 8:51 AM EDT us Salma Garcia MD LAB BLOOD ORDERABLES Final Result Performing Organization Address [facility] de Phone Number [address] * (ABNORMAL) Carcinoembryonic antigen (CEA) (02/03/2025 8:44 AM EDT) Only the most recent of2 resultswithin the time period is included. CEA 3.8(H) 0 - 3.7 ng/mL [facility] Comment: CEA REFERENCE RANGE: NON-SMOKERS: < 3.8 ng/mL SMOKERS: < 5.0 ng/mL Blood 02/03/2025 8:44 AM EDT 02/03/2025 8:51 AM EDT us Salma Garcia MD LAB BLOOD ORDERABLES Final Result Performing Organization Address [facility] de Phone Number [address] * CT CHEST WITH CONTRAST (01/30/2025 3:27 PM EDT) Anatomical Region Laterality Modality Chest Computed Tomogra phy Other 01/31/2025 6:58 AM EDT Impressions 01/31/2025 7:03 AM EDT 1. No evidence of metastases within the chest. Narrative 01/31/2025 7:[address] CHEST WITH CONTRAST Referring clinician's provided indication for this examination in Epic: *Urologic cancer, staging; inital staging ahead of starting neoadjuvant cisplatin/gemcitabine/durvalumab TECHNIQUE: Multidetector CT of the chest was performed with intravenous contrast using tailored dose modulation techniques. COMPARISON: NM PET WHOLE BODY OUTSIDE (NO INTERPRETATION) FINDINGS: Devices/Tubes/Lines: None. Lungs: Unchanged 5 mm subpleural nodule at the lateral left lung base (series 4 image 319), likely benign. No new or growing suspicious nodules. The central airways are patent. Tracheal diverticulum (series 2 image 13). Pleura: No pleural effusion or pneumothorax. Mediastinum: No thyroid nodules. Heart and pericardium are normal. Lymph Nodes: No enlarged supraclavicular, axillary, mediastinal, or hilar lymph nodes. Upper Abdomen: Please see concurrent abdominal CT for abdominal findings. Chest Wall: No chest wall mass. Bones: No suspicious lytic or blastic lesions. Mild degenerative changes of the visualized spine. Procedure Note Efren Coats MD, PhD - 01/31/2025 CT CHEST WITH CONTRAST Referring clinician's provided indication for this examination in [facility]:*Urologic cancer, staging; inital staging ahead of starting neoadjuvantcisplatin/gemcitabine/durvalumab TECHNIQUE: Multidetector CT of the chest was performed with intravenouscontrast using tailored dose modulation techniques. COMPARISON: NM PET WHOLE BODY OUTSIDE (NO INTERPRETATION) FINDINGS: Devices/Tubes/Lines: None. Lungs: Unchanged 5 mm subpleural nodule at the lateral left lung base(series 4 image 319), likely benign. No new or growing suspicious nodules.The central airways are patent. Tracheal diverticulum (series 2 image13). Pleura: No pleural effusion or pneumothorax. Mediastinum: No thyroid nodules. Heart and pericardium are normal. Lymph Nodes: No enlarged supraclavicular, axillary, mediastinal, or hilarlymph nodes. Upper Abdomen: Please see concurrent abdominal CT for abdominalfindings. Chest Wall: No chest wall mass. Bones: No suspicious lytic or blastic lesions. Mild degenerative changesof the visualized spine. IMPRESSION: 1. No evidence of metastases within the chest. us Belén Grigsby Siemens PA-C IMG CT CHEST Fin al Result * CT ABDOMEN/PELVIS WITH CONTRAST (01/30/2025 3:27 PM EDT) Anatomical Region Laterality Modality Abdomen, Pelvis Computed Tomogra phy Other 01/31/2025 4:31 AM EDT Impressions 01/31/2025 5:56 AM EDT 1. Mixed cystic and solid mass in the right adnexa increased compared to 07/30/2024 concerning for primary ovarian cancer. 2. Similar soft tissue mass involving the right posterolateral bladder wall representing patient's known primary bladder cancer (compared to the more recent pelvic MRI from 12/12/2024) with extravesical extension and invasion of the adjacent uterus/cervix. Narrative 01/31/2025 5:[address] ABDOMEN/PELVIS WITH CONTRAST Referring clinician's provided indication for this examination in Epic: *Urologic cancer, staging; inital staging ahead of [...] modulation techniques. Images were reconstructed in the axial, coronal, and sagittal planes. COMPARISON: CT scan the [...] Compared to the more remote CT scan from 07/30/2024, this is increased previously measuring 7.9 x 7.1 cm. As seen on the more recent MRI there is a ill-defined soft tissue mass along the right pelvis measuring 5.3 x 2.7 cm (1:68) involving the right posterolateral bladder wall and invading the right side of the uterus/cervix. Vessels: No abdominal aortic aneurysm. Bones/Soft Tissues: No destructive osseous lesions. 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 TECHNIQUE: Multidetector-row CT of the abdomen and pelvis was performedafter administration of intravenous contrast using tailored dosemodulation techniques. Images were reconstructed in the axial, coronal,and sagittal planes. COMPARISON: CT scan the abdomen and pelvis from 07/30/2024 and pelvic MRIfrom 12/12/2024 and PET/CT from 12/05/2024 FINDINGS: Lower Chest: See same-day chest CT report. Liver: Focal fat adjacent to the falciform ligament. No liver lesions. Biliary:Contracted gallbladder. No biliary ductal dilatation. Spleen: No splenomegaly or focal lesions. Pancreas: No masses or ductal dilatation. Adrenal Glands: Similar minimal nodularity of the right adrenal (1:20).Similar mild thickening of the left adrenal. Kidneys/Ureters: Prior right nephroureterectomy. Left kidney enhancesnormally. Bowel: No distention or wall thickening. Peritoneum/Retroperitoneum: No masses, pneumoperitoneum, or fluid. Lymph Nodes: No lymphadenopathy. Pelvic Organs/Bladder: There is a mostly cystic mass in the right adnexawith a few septations and some soft tissue nodularity measuring 11.7 x 9.6cm (1:59). Compared to the more remote CT scan from 07/30/2024, this isincreased previously measuring 7.9 x 7.1 cm. As seen on the more recent MRI there is a ill-defined soft tissue massalong the right pelvis measuring 5.3 x 2.7 cm (1:68) involving the rightposterolateral bladder wall and invading the right side of theuterus/cervix. Vessels: No abdominal aortic aneurysm. Bones/Soft Tissues: No destructive osseous lesions. IMPRESSION: 1. Mixed cystic and solid mass in the right adnexa increased compared to07/30/2024 concerning for primary ovarian cancer. 2. Similar soft tissue mass involving the right posterolateral bladderwall representing patient's known primary bladder cancer (compared to themore recent pelvic MRI from 12/12/2024) with extravesical extension andinvasion of the adjacent uterus/cervix. us Belén Grigsby Siemens PA-C IMG CT ABD/PELVIS F inal Result * Inhibin A & B, tumor marker (01/01/2025 9:42 AM EDT) INHBN A TUMOR SUNI. 40 pg/mL [facility] Comment: (NOTE) REFERENCE VALUE <98 (Premenopausal) <5.0 (Postmenopausal) ADDITIONAL INFORMATION This test has been modified from the rumper's instructions. Its performance characteristics were determined by [facility] in a manner consistent with CLIA requirements. This test has not been cleared or approved by the U.S. Food and Drug Administration. The testing method is an immunoenzymatic assay manufactured by [employer] and performed on the [employer] DxI 800. Values obtained with different assay methods or kits may be different and cannot be used interchangeably. Test results cannot be interpreted as absolute evidence for the presence or absence of malignant disease. Inhibin A values are not interpretable in females for the investigation of malignant disease. INHIBN B, INFERTILITY <10 pg/mL [facility] Comment: (NOTE) REFERENCE VALUE Premenopausal: <108 pg/mL (Follicular) <80 pg/mL (Luteal) Postmenopausal: <12 pg/mL ADDITIONAL INFORMATION The testing method is a manual immunoenzymatic assay manufactured by [employer]. Values obtained with different assay methods or kits may be different and cannot be used interchangeably. If this test is being ordered as a tumor marker, results cannot be interpreted as absolute evidence for the presence or absence of malignant disease. This test was developed and its performance characteristics determined by [facility] in a manner consistent with CLIA requirements. This test has not been cleared or approved by the U.S. Food and Drug Administration. Blood 01/01/2025 9:42 AM EDT 01/01/2025 9:49 AM EDT us Salma Garcia MD LAB BLOOD ORDERABLES Final Result Performing Organization Address City/State/[facility] Co de Phone Number [facility] [address] [place] [address] * Outside Procedure (12/24/2024) us Scanning Interface Provider PROCEDURE/MINOR SURG ICAL PERFORMABLES Final Result * Outside Procedure (12/24/2024) us Scanning Interface Provider PROCEDURE/MINOR SURG ICAL PERFORMABLES Final Result * Outside Imaging Report Only (12/12/2024) us Scanning Interface Provider IMG XR CHEST Constance l Result * Outside Imaging Report Only (12/12/2024) us Scanning Interface Provider IMG XR CHEST Constance l Result * MRI Pelvis (Bone) Outside (No Interpretation) (12/12/2024 12:00 AM EDT) Other Narrative [facility] - 01/07/2025 9:24 AM EDT This study is for PACS storage only and not for interpretation. us Salma Garcia MD IMG OUTSIDE IMAGING W/OUT I NTERPRETATION Final Result Performing Organization Address [facility] Co de Phone Number [email or web address] * Outside Imaging Report Only (12/05/2024) us Scanning Interface Provider IMG XR CHEST Constance l Result * Outside Imaging Report Only (12/05/2024) us Scanning Interface Provider IMG XR CHEST Constance l Result * NM PET Whole Body Outside (No Interpretation) (12/05/2024 12:00 AM EDT) Other Narrative [facility] - 01/07/2025 9:24 AM EDT This study is for PACS storage only and not for interpretation. us Salma Garcia MD IMG OUTSIDE IMAGING W/OUT I NTERPRETATION Final Result Performing Organization Address [facility] de Phone Number [email or web address] * Outside Procedure (11/27/2024) us Scanning Interface Provider PROCEDURE/MINOR SURG ICAL PERFORMABLES Final Result * Outside Pathology (11/27/2024) us Scanning Interface Provider PATHOLOGY ORDERABLES Final Result * Outside Pathology Review (11/27/2024 12:00 AM EDT) 11/27/2024 12/31/[address] [facility] - 01/21/2025 4:57 PM EDT CASE: [id number] PATIENT: MORAIMA JEFFREY Date: 1980 Sex: Female [facility] Department of Pathology [address] [place], [place] [address]IA License No.: [id number] Relations Coordinator: Dr. Guille Braun MD, PhD Physician: SALMA GARCIA MD Resident: Meche Fatima M.D. Pathologist: Kayce Peters M.D., Ph.D. PATHOLOGIC DIAGNOSIS: CONSULT SLIDES FROM [facility] [place] A. 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 Tumor invades muscularis propria. COMMENT: The tumor demonstrates an unusual growth pattern, including areas with papillary exophytic architecture as well as areas with endophytic growth and broad-based invasion of tumor into lamina propria and around muscle bundles (highlighted by immunohistochemistry for desmin). 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 Also notable are the imaging findings of candidate involvement of the uterine cervix by bladder mass. Immunohistochemistry for GATA3 is strongly positive in tumor cells, while p16 shows a patchy/multifocal (and not block-positive) pattern in the tumor. Immunohistochemistry for mismatch repair proteins MLH1, MSH2, MSH6, and PMS2 reveals intact nuclear staining in tumor cells. Overall the findings are most consistent with a papillary urothelial carcinoma, however, clinical correlation is needed. The immunoperoxidase, immunofluorescence and in-situ hybridization tests performed at [facility] were developed and their performance characteristics determined by the Immunohistochemistry Laboratories in the Department of Pathology at [facility]. They have not been cleared or approved by the U.S. Food and Drug Administration (FDA). The FDA has determined that such clearance or approval is not necessary. CLINICAL DATA: History: None provided. TISSUE SUBMITTED: Consult slides. GROSS DESCRIPTION: Received from [facility], Department of Pathology, [address] [place] [id number], are two (2) slides. Two (2) stained slides are labeled [id number] and sublabeled A1-1 and A1-2 which correspond to material obtained on 11/27/24, according to the accompanying pathology report bearing the patient's name and date of . Subsequently received on 01/13/2025 from [facility], is a paraffin block, labeled [id number] and sublabeled A , which corresponds to the above case. By his/her signature below, the senior physician certifies that he/she personally conducted a microscopic examination ( gross only exam if so stated) of the described specimen(s) and rendered or confirmed the diagnosis(es) related thereto. Final Diagnosis by Kayce Peters M.D., Ph.D., Electronically signed on Tuesday January 21, 2025 at 04:57:23PM us Salma Garcia MD PATHOLOGY ORDERABLES Final Result Performing Organization Address City/State/[facility] de Phone Number [facility] [address] [place] [phone] * Outside Lab (11/08/2024) Only the most recent of3 resultswithin the time period is included. us Scanning Interface Provider LAB BLOOD ORDERABLES Final Result from Last [address] [place] [address] [place] [address] [place] [address] [place] [address] [place] [address] [place] [address] ACO [facility] ACO Care Teams Oral Communication Instructor Relationship Specialty Start Date End Date Hansel Orozco PA [address] [place] [address] PCP - General Physician Looper Fixer 01/01/25 Rupesh Monroe MD 100 [facility] [address] [place] [address] [email or web address] Referring Physician Urology 12/24/24 Salma Garcia MD 450 [facility] [address] [address] [email or web address]@[email or web address] Medical Oncology 12/25/24 Edson Washington [facility] [address] [place] [address] Ramo@[email or web address] Oncology 01/07/25 Amanda Johnson [facility] [address] [place] [address] [email or web address] Fudger Licensed Clinical Fudger 02/03/25 Additional Source Comments The information contained in this document represents components of the legal health record. It is not the complete legal health record.[facility]
--- OUTSIDE RECORDS SUMMARY | 2025-02-04 00:14 | XMS_ITS | Encounter Summary ---
Author Organization [facility] Address [address] [place] [address] Phone Care Team Providers Care Tube Drawer Name Role Phone Rupesh Monroe MD Unavailable [phone] Alicia Vanegas MD Unavailable [phone] Hansel Orozco Primary Care Provider + Edson Washington PEDIGREE RESEARCHER Unavailable [email or web address] Amanda Johnson PEDIGREE RESEARCHER Unavailable [phone] Encounter Details Date Type Department Care Team (Late st Contact Info) Description 01/29/2025 Procedure Pass [facility] [place] 300 [facility] [address] [place] [address] Social History Tobacco Use Types Packs/Day Years [...] high school, GED, job training, learning the Montserratian language, technical skills, or developing parenting skills)? [...] Description 02/06/2025 9:00 AM EDT Office Visit [facility] Center for Genitourinary Oncology, [facility] [place] at [address] [address] [place] Quintanilla FNP [address] [place] [address] [email or web address] Alicia Vanegas MD [address] [place] [address] for Oncology, [address] [address] [email or web address] 02/10/2025 7:30 AM EDT Blood Draw Laboratory Services, [facility] [place] [address] [address] Alicia Vanegas MD 450 [facility] On[address] [address] Melida@[email or web address] 02/10/2025 8:30 AM EDT Office Visit [facility] Center for Genitourinary Oncology, [facility] at [address] [address] Belén Chowdhury PA-C [address] [place] [address] Department of Radiation Oncology -[facility] [address] [place] [address] [email or web address] 02/10/2025 9:30 AM EDT Infusion Infusion Therapy Services [place], [facility] at [address] [address] Alicia Vanegas MD 450 [facility] Oncology, [address] [address] Melida@[email or web address] Chrissy Langston RN [address] [place] [address] [email or web address]@[email or web address] 03/11/2025 1:40 PM EDT Office Visit [facility] Urology 45 [facility]2-3 [place] [address] Edson Manley MD, MPH [address] [facility] [place] [address] [email or web address] documented as of this encounter Visit Diagnoses Not on filedocumented in this encounter Care Teams Tube Drawer Relationship Specialty Start Date End Date Hansel Orozco PA [address] [place] [address] PCP - General Physician [employer] Manager 01/01/25 Rupesh Monroe MD [address] [place] [address] [email or web address] Referring Physician Urology 12/24/24 Alicia Vanegas MD 450 [facility] for Oncology, [address] [address] [email or web address] Medical Oncology 12/25/24 Edson Washington, [facility] [address] [place] [address] Ramo@[email or web address] Academic Affairs Vice President Oncology 01/07/25 Amanda Johnson, [facility] [address] [place] [address] [email or web address] Academic Affairs Vice President Licensed Clinical Academic Affairs Vice President 02/03/25 documented as of this encounter Additional Source Comments The information contained in this document represents components of the legal health record. It is not the complete legal health record.[facility]
--- OUTSIDE RECORDS SUMMARY | 2025-02-04 00:14 | XMS_ITS | Encounter Summary ---
Author Organization [facility] Address [address] [facility] [address] [place] [address] Phone Care Team Providers Care Boat Diesel Motor Mechanic Name Role Phone Rupesh Monroe MD Unavailable [phone] Alicia Vanegas MD Unavailable [phone] Hansel Orozco Primary Care Provider + Edson Washington SUPERINTENDENT CONSTRUCTION Unavailable Isabella [email or web address] Amanda Johnson SUPERINTENDENT CONSTRUCTION Unavailable [phone] Encounter Details Date Type Department Care Team (Late st Contact Info) Description 01/29/2025 Procedure Pass [facility] [place], [place] 300 [facility] [address]rd [place] [address] Social History Tobacco Use Types [...] high school, GED, job training, learning the Beninese language, technical skills, or developing parenting skills)? [...] Description 02/06/2025 9:00 AM EDT Office Visit [facility] Center for Genitourinary Oncology, [facility] [place] at [address] [address] [place] Quintanilla FNP [address] [place] [address] [email or web address] Alicia Vanegas MD [address] [place] [address] for Oncology, [address] [address] [email or web address] 02/10/2025 7:30 AM EDT Blood Draw Laboratory Services, [facility] [address] [address] Alicia Vanegas MD 450 [facility] On[address] [address] Melida@[email or web address] 02/10/2025 8:30 AM EDT Office Visit [facility] Center for Genitourinary Oncology, [facility] at [address] [address] Belén Chowdhury PA-C [address] [place] [address] Department of Radiation Oncology -[facility] [address] [place] [address] [email or web address] 02/10/2025 9:30 AM EDT Infusion Infusion Therapy Services [place], [facility] at [address] [address] Alicia Vanegas MD 450 [facility] Oncology, [address] [address] Melida@[email or web address] Chrissy Langston RN [address] [place] [address] [email or web address] 03/11/2025 1:40 PM EDT Office Visit [facility] Urology 45 [facility]2-3 [place] [address] Edson Manley MD, MPH 45 [facility] [place] [address] [email or web address] documented as of this encounter Visit Diagnoses Not on filedocumented in this encounter Care Teams Boat Diesel Motor Mechanic Relationship Specialty Start Date End Date Hansel Orozco PA [address] [place] [address] PCP - General Physician Gas Maker 01/01/25 Rupesh Monroe MD [address] [facility] [address] [place] [address] [email or web address] Referring Physician Urology 12/24/24 Alicia Vanegas MD 450 [facility] for Oncology, [address] [address] Melida@[email or web address] Medical Oncology 12/25/24 Edson Washington, [facility] [address] [place] [address] Ramo@[email or web address] Clerical Investigator Oncology 01/07/25 Amanda Johnson, [facility] [address] [place] [address] [email or web address] Clerical Investigator Licensed Clinical Clerical Investigator 02/03/25 documented as of this encounter Additional Source Comments The information contained in this document represents components of the legal health record. It is not the complete legal health record.[facility]
--- OUTSIDE RECORDS SUMMARY | 2025-02-04 00:14 | XMS_ITS | Encounter Summary ---
Demographics Address [address] [place] [address] Mobile Phone Work Phone Home Phone Preferred Language es Marital Status Single Faith Affiliation Unknown Race White Ethnic Group Unknown Author Organization [employer] Address [address] [place] [address] Care Team Providers Care Firearms Assembly Supervisor Name Role Phone Unavailable Primary Care Provider Unavailabl e Encounter Details Date Type Department Care Team (Latest Contact Info) Description 06/19/2019 Abstract [facility] CONVERSIONS Dental, Provider, DDS Social History [...]
--- OUTSIDE RECORDS SUMMARY | 2025-02-04 00:14 | XMS_ITS ---
Author Organization [facility] Address [address] [facility] [address] [place] [address] Phone Care Team Providers Care Retail Merchandising Coordinator Name Role Phone Rupesh Monroe MD Unavailable [phone] Alicia Vanegas MD Unavailable [phone] Hansel Orozco Primary Care Provider + Edson Washington CABLE REELER Unavailable Isabella [email or web address] Amanda Johnson CABLE REELER Unavailable [phone] Active Problems Problem Noted Date Diagnosed Date [...] of overlapping sites of bladd er 01/28/2025 Current Treatment and Therapy Plans ACCESS AND FLUSH??([facility])* Plan Start Date:02/03/2025 Linked Problems Malignant neoplasm of overla pping sites of bladder Treatment Medications No medications scheduled. CISPLATIN 35 MG/M2 D1,8 + GEMCITABINE 1000 MG/M2 D1,8 + DURVALUMAB Q3W X 4 CYCLES FOLLOWED BY DURVALUMAB Q4W X 8 CYCLES* Plan Start Date:02/04/2025 Plan Provider:Alicia Vanegas MD Linked Problems Malignant neoplasm of overla pping sites of bladder Treatment Medications Current Day (Day 1 , Cycle 1 - Planned for 02/04/2025) Next Day (Day 8, Cycle 1 - Planned for 02/11/2025) CISplatin (PLATINOL)durvalumab (IMFINZI)gemcitabine (GEMZAR) IVPB CISplatin (PLATINOL) 57 mg in sodium chloride 0.9% 327 mL IVPBdurvalumab (IMFINZI) 1,500 mg in sodium chloride 0.9% 140 mL IVPBgemcitabine (GEMZAR) 1,620 mg in sodium chloride 0.9% 312.61 mL IVPB CISplatin (PLATINOL) 57 mg in sodium chloride 0.9% 327 mL IVPBgemcitabine (GEMZAR) 1,620 mg in sodium chloride 0.9% 312.61 mL IVPB Past Treatment and Therapy Plans No past plan information found.
--- OUTSIDE RECORDS SUMMARY | 2025-02-04 00:14 | XMS_ITS | Encounter Summary ---
Demographics Address [address] [place] [address] Mobile Phone Work Phone Home Phone Preferred Language es Marital Status Single Jainism Affiliation Unknown Race White Ethnic Group Unknown Author Organization [employer] Address [address] [facility] [address] [place] [address] Care Team Providers Care Assistant Pressman Name Role Phone Unavailable Primary Care Provider Unavailabl e Encounter Details Date Type Department Care Team (Latest Contact Info) Description 06/19/2020 Abstract [facility] CONVERSIONS Dental, Provider, DDS Social History [...]
--- OUTSIDE RECORDS SUMMARY | 2025-02-04 00:14 | XMS_ITS | Encounter Summary ---
Author Organization [facility] Address 399 [facility] [address] [place] [address] Phone Care Team Providers Care Gis Scientist Name Role Phone Rupesh Monroe MD Unavailable Alicia Vanegas MD Unavailable Hansel Orozco Primary Care Provider + Edson Washington INTERNATIONAL TRADE SPECIALIST Unavailable Isabella [email or web address] Amanda Johnson INTERNATIONAL TRADE SPECIALIST Unavailable Encounter Details Date Type Department Care Team (Late st Contact Info) Description 01/29/2025 Orders Only [facility], [facility] [place] [address] [place] [address], 11th [place] [address] Belén Chowdhury PA-C [address] [place] [address] Department of Radiation Oncology -ASB1 L2 [place] [address] [email or web address] Social History Tobacco Use Types Packs/Day Years [...] high school, GED, job training, learning the Citizen [place] language, technical skills, or developing parenting skills)? [...] Description 02/06/2025 9:00 AM EDT Office Visit [facility], [facility] [place] at [address] [address] rAron Quintanilla, REFRIGERATOR CRATER [address] [place] [address] [email or web address] Alicia Vanegas MD 450 [facility], [address] [address] Melida@[email or web address] 02/10/2025 7:30 AM EDT Blood Draw Laboratory Services, [facility] at [address] [address] Alicia Vanegas MD 450 [facility], [address] [address] Melida@[email or web address] 02/10/2025 8:30 AM EDT Office Visit [facility] for Gen[facility]ourinary On[facility], [facility] at [address] [address] Belén Chowdhury PA-C 75 [facility] Department of Radiation Oncology -ASB1 L2 [place] [address] [email or web address] 02/10/2025 9:30 AM EDT Infusion Infusion Therapy Services [facility] at [address] [address] Alicia Vanegas MD 450 [facility], [address] [address] Melida@[email or web address] Chrissy Langston RN [address] [place] [address] Elsy@[email or web address] 03/11/2025 1:40 PM EDT Office Visit [facility] Urology 45 [facility]2-3 [place] [address] Edson Manley MD, MPH 45 [facility] [place] [address] [email or web address] documented as of this encounter Visit Diagnoses Not on filedocumented in this encounter Care Teams Gis Scientist Relationship Specialty Start Date End Date Hansel Orozco PA [address] [place] [address] PCP - General Physician International First Officer 01/01/25 Rupesh Monroe MD 100 [facility] 120 [place] [address] [email or web address] Referring Physician Urology 12/24/24 Alicia Vanegas MD 450 [facility] Oncology, [place] 9 [place] [address] Melida@[email or web address] Medical Oncology 12/25/24 Edson Washington, [facility] [address] [place] [address] Ramo@[email or web address] Refrigeration Houseman Oncology 01/07/25 Amanda Johnson, [facility] [address] [place] [address] [email or web address] Refrigeration Houseman Licensed Clinical Refrigeration Houseman 02/03/25 documented as of this encounter Additional Source Comments The information contained in this document represents components of the legal health record. It is not the complete legal health record.[facility]
--- OUTSIDE RECORDS SUMMARY | 2025-02-04 00:14 | XMS_ITS | Clinical Summary ---
Author Organization [employer] Address 75 [facility] 7t [place] [address] Care Team Providers Care Chest Painting Leader Name Role Phone Unavailable Primary Care Provider [...] by mouth. Take with food. 12/01/2022 Active Ventolin HFA 108 (90 Base) MCG/ACT inhaler 11/14/2024 Act martha Active Problems No known active problems Encounters Date Type Department Care Team Description 01/06/2025 9:15 AM EDT Office Visit [facility] OPTOMETRY [address] [place], [place] [phone] Tessa Miguel, OD Myopia of both eyes (Primary Dx) 11/15/2024 1:30 PM EDT Office Visit [facility] [address] [place], [place] [phone] Tessa Miguel, OD Lattice degeneration, left (Primary Dx); Age-related nuclear cataract of both eyes; Myopia of both eyes 11/15/2024 Travel from Last 3 Months Social History Tobacco [...] Comments Depression Screening 1982 HIV Screening 1982 Lipid Panel 1982 SDOH Screening 1982 Disability Screening 1982 Alcohol/Substance Use Screening 1994 Family Planning (PISQ) 1997 HPV Vaccines (1 - 3-dose series) 1997 Hepatitis C Screening 2000 Hepatitis B Vaccines (1 of 3 - 19+ 3-dose series) 2001 Pap Smear 2003 Cervical Cancer Screening 2012 HPV/Cotest 2012 Dental Oral Exam 10/05/2018 04/06/2018, 03/25/2013 Dental X-Ray: Bitewings 06/20/2020 06/19/19 20, 04/06/2018, 09/19/2017, Additional history exists Dental Prophylaxis 12/18/2020 06/19/2020, 0 06/19/2019, 10/03/2013, Additional history exists Dental X-Ray: Full Mouth 04/07/2021 04/06/2018, 1108/2012 Mammogram 2022 Pneumococcal Vaccine: Pediatrics (0 to 5 Years) and At-Risk Patients (6 to 49) Years (2 of 2 - PCV) 08/11/2022 08/11/2021 COVID-19 Vaccine (2 - season) 2025 05/27/2019 Influenza Vaccine (#1) 2025 0, 05/27/2019, 02/07/2012 Tobacco Screening 12/02/2025 12/02/2024 DTaP/Tdap/Td Vaccines (3 - Td or Tdap) [...] Most Recently Relevant to Health Maintenance Insurance * Guarantor: Moraima Jeffrey Account Type Relation to Patient Date of Phone Billing Address Personal/Family Self 1980 [address] [facility] [address] [place] [address] [facility] STAND ADULT
--- OUTSIDE RECORDS SUMMARY | 2025-02-04 00:14 | XMS_ITS | Encounter Summary ---
Author Organization [facility] Address [address] [facility] [address] [place] [address] Phone Care Team Providers Care Care Taker Name Role Phone Rupesh Monroe MD Unavailable Alicia Vanegas MD Unavailable Hansel Orozco Primary Care Provider + Edson Washington [facility] Unavailable Isabella [email or web address] Encounter Details Date Type Department Care Team (Late st Contact Info) Description 01/30/2025 Documentation [facility], [facility] [place] 450 [facility], 11th [place] [address] Alicia Vanegas MD 450 [facility], [address] [address] [email or web address] Social History Tobacco Use Types Packs/Day Years [...] high school, GED, job training, learning the Guamanian language, technical skills, or developing parenting skills)? [...] PM EDT documented as of this encounter Progress Notes * Alicia Vanegas MD - 01/30/2025 5:00 PM EDT Spoke to the patient by phone to review the wet read of her CT CAP this afternoon. It shows enlargement of her known sites of disease but no new metastases. Her pain is controlled with oxycodone and tylenol. We reviewed the oxycodone is NOT a scheduled medication but as needed and that she can keep taking tylenol - until her chemotherapy starts. We also reviewed that she should take senna and miralax because the oxycodone is constipating. She verbalized understanding and will return to on Monday to start chemotherapy. Alicia Vanegas MD [facility] Department of Medical Oncology [facility] documented in this encounter Plan of Treatment Upcoming Encounters Date Type Department Care Team (Late st Contact Info) Description 02/06/2025 9:00 AM EDT Office Visit [facility], [facility] at [address] [address] [place] Quintanilla FNP [address] [place] [address] [email or web address] Alicia Vanegas MD [address] [place] [address] [address] Melida@[facility] 02/10/2025 7:30 AM EDT Blood Draw Laboratory Services, [facility] at [address] [address] Alicia Vanegas MD [address] [place] [address] [address] Melida@[facility] 02/10/2025 8:30 AM EDT Office Visit [facility], [facility] at [address] [address] Belén Chowdhury PA-C [address] [place] [address] Department of Radiation Oncology -ASB1 L2 [place] [address] [email or web address] 02/10/2025 9:30 AM EDT Infusion Infusion Therapy Services [facility], [facility] [place] at [place] 300 [facility] 4th [place] [address] Alicia Vanegas MD 450 [facility], [address] [address] Melida@[email or web address] .[email or web address] Chrissy Langston RN 300 [place] [address] Elsy@[facility] 03/11/2025 1:40 PM EDT Office Visit [facility] Urology [address] [address] Edson Manley MD, MPH [address] [address] [email or web address] documented as of this encounter Visit Diagnoses Not on filedocumented in this encounter Care Teams Care Taker Relationship Specialty Start Date End Date Hansel Orozco PA [address] [place] [address] PCP - General Physician Java Solutions Architect 01/01/25 Rupesh Monroe MD 100 [facility] 120 [place] [address] [email or web address] Referring Physician Urology 12/24/24 Alicia Vanegas MD 450 [facility], [address] [address] Melida@[facility] Medical Oncology 12/25/24 Edson Washington, [facility] 35 [place] [address] Ramo@[email or web address] [employer] Tube Repairer Oncology 01/07/25 documented as of this encounter Additional Source Comments The information contained in this document represents components of the legal health record. It is not the complete legal health record.[facility]
--- OUTSIDE RECORDS SUMMARY | 2025-02-04 00:14 | XMS_ITS | Encounter Summary ---
Author Organization [facility] Address [address] [facility] [address] [place] [address] Phone Care Team Providers Care Precision Assembly Inspector Name Role Phone Rupesh Monroe MD Unavailable [phone] Alicia Vanegas MD Unavailable [phone] Hansel Orozco Primary Care Provider + Edson Washington [facility] Unavailable Isabella [email or web address] Encounter Details Date Type Department Care Team (Late st Contact Info) Description 01/30/2025 Refill [facility] Urology 45 [facility] ASB2-3 [place] [address] Ely Perry 75 [place] [address] [email or web address] Social History Tobacco Use Types Packs/Day Years [...] high school, GED, job training, learning the Portuguese language, technical skills, or developing parenting skills)? [...] as of this encounter Progress Notes * Dioni Nieves - 01/30/2025 5:40 PM EDTAddended by: DIONI NIEVES on: 01/30/2025 05:40 PM Modules accepted: Orders * Eyl Perry - 01/30/2025 4:56 PM EDT Hi Team, Can you please send oxy prescription to pharmacy on file? Thank you documented in this encounter Plan of Treatment Upcoming Encounters Date Type Department Care Team (Late st Contact Info) Description 02/06/2025 9:00 AM EDT Office Visit [facility], [facility] [place] at [address] [address] [place] Quintanilla FNP 450 [place] [address] [email or web address]@[email or web address] Alicia Vanegas MD [address] [place] [address] for Oncology, [address] [address] Melida@[facility] 02/10/2025 7:30 AM EDT Blood Draw Laboratory Services, [facility] at [address] [address] Alicia Vanegas MD [address] [place] [address] for Oncology, [address] [address] Melida@[facility] 02/10/2025 8:30 AM EDT Office Visit [facility] Center for Genitourinary Oncology, [facility] at [address] [address] Belén Chowdhury PA-C [address] [place] [address] Department of Radiation Oncology -ASB1 L2 [place] [address] [email or web address] 02/10/2025 9:30 AM EDT Infusion Infusion Therapy Services West, [facility] at [address] [address] Alicia Vanegas MD [address] [place] [address] for Oncology, [address] [address] Melida@[facility] Chrissy Langston RN [address] [place] [address] [email or web address] 03/11/2025 1:40 PM EDT Office Visit [facility] Urology [address] [place] [address] Edson Manley MD, MPH 45 [facility]3 [place] [address] [email or web address]@[email or web address] documented as of this encounter Visit Diagnoses Not on filedocumented in this encounter Care Teams Precision Assembly Inspector Relationship Specialty Start Date End Date Hansel Orozco PA [address] [place] [address] PCP - General Physician Pot Maker 01/01/25 Rupesh Monroe MD 100 [facility] 120 [place] [address] [email or web address] g Referring Physician Urology 12/24/24 Alicia Vanegas MD 450 [facility] for Oncology[address] [address] Melida@[facility] Medical Oncology 12/25/24 Edson Washington, [facility] 35 [place] [address] Ramo@[email or web address] Three Dimensional Art Instructor Oncology 01/07/25 documented as of this encounter Additional Source Comments The information contained in this document represents components of the legal health record. It is not the complete legal health record.[facility]
--- OUTSIDE RECORDS SUMMARY | 2025-02-04 00:14 | XMS_ITS | Encounter Summary ---
Author Organization [facility] Address [address] [place] [address] Care Team Providers Care Truck Bracer Name Role Phone Physician, No Pcp Primary Care Provider Unavaila ble Encounter Details Date Type Department Care Team (Late st Contact Info) Description 10/28/2024 Lab Requisition [facility] - Main Lab 299 [facility] [place] [address] Rupesh Monroe MD 100 Alfredo Castell[facility] 120 [place] [address] Malignant neoplasm of lateral wall of bladder (CMS/HCC V24, CMS/[facility] V28) Social History Tobacco Use Types Packs/Day [...] Associated Diagnosis Comments AP OUTSIDE CONSULT Routine 10/25/2024 Malignant neoplasm of lateral wall of bladder (CMS/HCC V24, CMS/HCC V28) documented in this encounter Results * Anatomic pathology outside consult (10/25/2024) Final Diagnosis Urinary bladder, transurethral resection: -PAPILLARY UROTHELIAL CARCINOMA, HIGH GRADE -Tumor focally invades lamina propria (subepithelial connective tissue) -No muscularis propria, (Detrusor muscle) present for evaluation -Lymphovascular invasion: Not identified -Urothelial carcinoma in situ: Not identified 10/30/2024 1:01 PM EDT [facility] HOSPITAL LAB Clinical Information Z85.51 H/O bladder neoplasm (malignant) C67.2 [id number] 10/30/2024 1:01 PM EDT [facility] Gross Description A. Urinary Bladder, tumor: Labeled Bladder tumor . Received in formalin is a 1.7x1.0x0.6cm aggregate of friable, pink-shaw tissue fragments. The specimen is wrapped in paper and submitted in toto in 3 cassettes, multiple pieces each. /al 10/30/2024 1:01 PM EDT [facility] Disclaimer Unless otherwise specified, all tissue is 10% NB formalin fixed and paraffin embedded. Technical pathology services provided by [facility] at [address] [place] [address] [address], [place] [address] (CLIA #[id number]/Emma Mullins MD, Oyster Fisherman) 10/30/2024 1:01 PM EDT [facility] Tissue Urinary bladder structure / Unknown 10/25/2024 10/28/2024 3:26 PM EDT us Rupesh Monroe MD LAB PATHOLOGY ORDERABLES Final Result [facility] [address] [place] [address], documented in this encounter Visit Diagnoses Diagnosis Malignant neoplasm of lateral wall of bladder (CMS/HCC V24, CMS/HCC V28) Malignant neoplasm of lateral wall of urinary bladder documented in this encounter Care Teams Truck Bracer Relationship Specialty Start Date End Date Physician, No Pcp PCP - General 11/28/24 documented as of this encounter
== END 2025-02-04 00:11 | disposition left against medical advice (07) ==
PROVIDERS: Registered Nurse Emergency; Emergency Provider Emergency Medicine; PCP Internal Medicine
DX: R06.02 Shortness of breath (principal); R51.9 Headache, unspecified; R05.9 Cough, unspecified; R68.83 Chills (without fever); J45.909 Unspecified asthma, uncomplicated; Z03.818 Encounter for observation for suspected exposure to other biological agents ruled out
CPT/HCPCS: 36415; 71046; 80053; 85025; 85610; 87502; 87635; 99281; 99283

== ENCOUNTER → 2025-02-03 18:17 | Outpatient (BNV) | payer OTHER, SELFPAY | PROVIDERS: PCP Internal Medicine; Visit Provider Radiology Diagnostic Radiology | DX: R05.9 Cough, unspecified (principal) | CPT/HCPCS: 71046 ==

== ENCOUNTER 2025-04-10 09:52 | Outpatient (AMB) | payer OTHER, SELFPAY ==
[2025-04-10 09:58] VITALS: BP 92/64; RESP 18; O2SAT 100; BMI 27.4
--- NOTE | 2025-04-10 09:58 | A.OFFPC_ITS ---
Vital Signs 04/10/25 09:58 Height 5 ft Weight 140 lb 6 oz BMI 27.4 BP 92/64 Blood Pressure Location Lt brachial Position Sitting Respiration 18 Pulse Source Pulse Oximeter Temp Source Temporal Artery Scan Pulse Oximetry (%) 100 Oxygen Delivery Method Room Air Intake Visit Reasons: Annual Exam- PHQ-9 needed. Technical Services Manager Required: No Accompanied by: Self / Same As Patient Allergies bupropion (From Wellbutrin) Adverse Reaction (Intermediate, Verified 04/10/25 10:38) Rash Medication List - Last Reconciled 04/10/25 by LISA Young albuterol sulfate 90 mcg/actuation 1 inh inhalation QID PRN fluticasone propion-salmeterol 100-50 mcg/dose (Advair Diskus) 1 ea inhalation BID PRN montelukast 10 mg PO DAILY oxycodone 5 mg PO BID PRN Tobacco use date assessed: 04/10/25 Dental Screening Dental Screen Date: 04/10/25 Did you have a dental visit in the last 12 months?: No Did you have a dental problem in the last 6 months where you did not have access to dental care?: No Was dental information given to patient?: Patient has dentist HPI HPI Comments History of Present Illness Details Dentist:up to date Eye: up to date Snellen: Right: Left: Corrected vision: yes, glasses STI screening: Colonoscopy: Pap Smer: Had this done in [address] mammogram:not completed. The patient had a PET scan of her whole body. PHQ-9: Flu:she does not get the flu vaccine COVID: has not had any covid-19 Tdap:2 years ago after graduated form medical assistance Diet:regular, diet but trying to eat healthier, she is getting medication for nausea due to the chemo; she cannot eat ice cream or else she will vomit, along with other food items Exercise: not able to at this time cancer bladder, mass in the ovaries-not sure if this is cancer has yet currently getting chemo, already done chemo recent had PET scan, then going for MRI then they will decide when she needs surgery --After surgery she will be having anoth er cycle of chemo ---The patient has a history of right ki dney cancer, which was removed The patient is a 44 year old individual presenting for a physical examination. The patient has been diagnosed with bladder cancer and also has an ovarian mass, which is suspected to be cancerous. The patient has completed three cycles of chemotherapy and is scheduled for an MRI to prepare for surgery to remove the bladder and ovaries. Post-surgery, another cycle of chemotherapy is planned, followed by oral chemotherapy medication. This is the patient's second occurrence of cancer, with a prior history of kidney cancer, and now has only one kidney. Side effects from the current chemotherapy regimen include a weakened immune system, anemia, severe stomach pain, fatigue, puffiness, shortness of breath, and constipation. For constipation, the patient has been prescribed a stool softener and uses MiraLax as needed. The patient also reports experiencing depression and emotional distress related to the diagnosis and has been referred to a therapist by the cancer center, with an appointment scheduled for April. The patient expresses feeling that a delay in seeking regular medical care may have led to a later cancer diagnosis. BUILDING CONSTRUCTION IRONWORKER-form The patient daughter has been her caregiver through out the process. The patient reports getting extremely weaken after chemo to the point of needing assistance with her ADLs, plus cooking and cleaning. Her daughter is also assisting her to her appointments. Discussion of making her daughter her BUILDING CONSTRUCTION IRONWORKER, since she is already doing all the qualified work and extra. Health Maintenance The patient is up-to-date with the Pap smear and tetanus immunization. It was recommended to defer the initial mammogram until after the scheduled PET scan, as the PET scan will provide comprehensive imaging. A follow-up visit was scheduled for July, with the option for the patient to reschedule if needed. Social History - Nutrition: The patient follows a speci al diet and tries to eat healthier. - Social Support: The patient's daughter was present at the visit and reports deriving strength and motivation from the patient's children. - Mental Health: The patient reports sym ptoms of depression and is scheduled to see a therapist. Results - Labs: Blood work from January showed mild anemia, which is an expected consequence of chemotherapy. [facility] Medical History Urothelial carcinoma of kidney S/p nephrectomy Anxiety Hemorrhoids with complication Asthma Surgical History History of kidney removal History of gastric surgery History of hemorrhoidectomy History of surgery Family History Mother No problems noted. Father Diabetes High blood pressure CVA (cerebral vascular accident), Onset Age: 59 Brother Brain tumor Social History Housing: Apartment Alcohol intake: current Alcohol intake frequency: holidays/special occasions only Patient Tobacco Use Status: Former Tobacco user Tobacco use type: Cigarette Years Smoked: 8 e-Cigarette/Vaping Use: Never Used Second Hand Smoke Exposure: No service: No Current occupational status: unemployed Cognitive needs: No Hearing needs: No Vision needs: Yes (glasses) Questionnaire PHQ-9 Over the last 2 weeks, how often have you been bothered by any of the following problems? 1. Little interest or pleasure in doing things: more than half the days 2. Feeling down, depressed, or hopeless: more than half the days 3. Trouble falling or staying asleep, or sleeping too much: more than half the days 4. Feeling tired or having little energy: more than half the days 5. Poor appetite or overeating: not at all 6. Feeling bad about yourself - or that you are a failure or have let yourself or your family down: not at all 7. Trouble concentrating on things, such as reading the newspaper or watching television: not at all 8. Moving or speaking so slowly that other people could have noticed. Or the opposite - being so fidgety or restless that you have been moving around a lot more than usual: more than half the days 9. Thoughts that you would be better off or of hurting yourself in some way: not at all Total score: 10 Depression Screening Interpretation: Positive Depression Screening Done: Yes 68566 - PHQ-9 Billing: Yes Source: Developed by Drs. Norbert Nolen, Adelaida Dumont, Felix Curry and colleagues, with an educational puma from [employer]. Thrive Questionnaire Date Thrive assessed: 04/10/25 I am a: Patient What is your living situation today?: I have a steady place to live Within the past 12 months, did the food you bought not last and you didn't have the money to get more?: Sometimes True Within the past 12 months, did you worry whether your food would run out before you got money to buy more?: Sometimes True Do you have trouble paying for medicines?: Yes Do you have trouble getting transportation to medical appointments?: No Do you have trouble paying your heating and electricity bill?: Yes Do you have trouble taking care of your child, family member or friend?: No Do you have trouble with day-to-day activities such as bathing, preparing meals, shopping, managing finances, etc.?: Yes Are you currently unemployed and looking for a job?: No Are you interested in more education?: Yes Please select the resources that you would like help with: Food, Utilities and None Currently or been in a relationship where the following occur: Controlled Emotionally THRIVE Score: 4 AUDIT C Alcohol Use Questionnaire (AUDIT-C) 1. How often do you have a drink containing alcohol?: Never Total Score: 0 SUJEY-7 AMB Questionnaire SUJEY-7 Date SUJEY - 7 assessed: 04/10/25 Feeling nervous, anxious, or on edge: 2 = More than half the days Not being able to stop or control worryin = More than half the days Worrying too much about different things: 2 = More than half the days Trouble relaxin = More than half the days Being so restless that it is hard to sit still: 2 = More than half the days Becoming easily annoyed or irritable: 1 = Several days Feeling afraid as if something awful might happen: 2 = More than half the days Total SUJEY-7 score (0-4 normal; 5-9 mild; 10-14 moderate; 15-21 severe): 13 Source: Developed by Drs. Norbert Nolen, Adelaida Dumont, Felix Curry and colleagues, with an educational puma from [employer]. SUJEY-7 Assessment Billing SUJEY-7 Assessment Tool: SUJEY-7 Assessment 98950 Review of Systems Narrative Review of Systems - General: Reports fatigue. - HEENT: Reports tinnitus. - Respiratory: Reports shortness of breath. - Cardiovascular: Denies chest pain. - Gastrointestinal: Reports abdominal pain and constipation. - Denies heartburn. - Neurological: Reports dizziness. - Musculoskeletal: Denies specific musculoskeletal complaints but reports feeling shaky. - Psychiatric: Reports feeling depressed. Const Reports fatigue, Denies headache(s), Reports poor appetite and Reports weight loss Eyes Denies loss of vision ENT Denies vertigo, Denies dizziness, Denies headache(s), Reports tinnitus and Denies sore throat Card Denies chest pain, Denies leg edema, Denies lightheadedness and Reports dyspnea (on and off when she gets tired) Resp Denies cough, Denies hemoptysis, Reports dyspnea (on and off when she gets tired) and Denies wheezing GI Denies abdominal pain, Denies melena, Denies constipation, Denies diarrhea and Denies vomiting Denies urinary frequency, Denies dysuria, Denies urinary urgency and Reports other (reports bladder pain) Musc Denies arthralgias, Denies joint swelling, Denies numbness and Denies tingling Skin/Breast Denies lesions and Denies rash Neuro Denies Abnormal speech present, Denies behavioral changes, Denies vertigo, Denies dizziness, Denies headache(s), Denies loss of vision, Denies memory loss, Denies numbness and Denies tingling Psych Denies anxiety, Denies behavioral changes, Reports depression, Denies memory loss and Denies panic attacks Endo Reports fatigue Sunil/Lymph Denies easy bleeding and Denies easy bruising Aller/Immun Denies wheezing Physical exam (Primary Care) Vital Signs: Last Vital Signs Resp 18 04/10/25 09:58 BP 92/64 04/10/25 09:58 Pulse Ox 100 04/10/25 09:58 Oxygen Delivery Method Room Air 04/10/25 09:58 BMI result Body Mass Index 27.4 Tobacco/Smoking Status: Tobacco use Status Tobacco use date assessed 04/10/25 04/10/25 09:59 Patient Tobacco Use Status Former Tobacco user 04/10/25 09:59 Tobacco use type Cigarette 04/10/25 09:59 e-Cigarette/Vaping Use Never Used 04/10/25 09:59 PHQ-9: PHQ-9 Score PHQ-9: Total score 10 04/10/25 09:59 Depression Screening Interpretation: Positive Thrive Assessment: Date of Thrive Assessment Date Thrive assessed 04/10/25 04/10/25 09:59 Currently or been in a relationship where the following occur: Controlled Emotionally Narrative Physical Exam - Constitutional: General appearance consistent with ongoing chemotherapy treatment. - Eyes: Extraocular movements intact. - HEENT: Bilateral cerumen impaction noted. - Neck: Supple, no thyroid nodules or thyromegaly noted on palpation. - Respiratory: Lungs auscultated. - Abdomen: Examination deferred due to patient comfort. - Skin/Extremities: Pitting edema noted on the face and hands. Const General: healthy appearing, no acute distress, alert and awake Nutritional Appearance: well nourished Orientation/consciousness: oriented to person, oriented to place and oriented to time HENMT Ears: Abnormal EAC present cerumen impaction bilateral General nose exam: Normal nasal mucous membranes and turbinates present Eyes Conjunctivae: conjunctivae normal Sclerae: sclerae normal Pupils: Equal, round and reactive pupils present Neck Neck: Yes no lymphadenopathy and Yes no JVD Thyroid: Thyroid normal Carotids: no bruits Resp Effort & Inspection: normal respiratory effort and not tachypneic Auscultation: no crackles, no rales, no rhonchi and no wheezes Cardio Rate: regular rate Rhythm: regular rhythm Heart sounds: no murmurs and normal S1 and S2 GI Palpation (GI): Soft to palpation, nontender, no hepatomegaly and no splenomegaly Auscultation: normal bowel sounds General: Yes no CVA tenderness Back/Spine/Pelvis Back: no CVA tenderness Skin General skin exam: no rashes or lesions noted and dry skin Neuro General: oriented to person, oriented to place and oriented to time Cranial nerves: Yes Equal, round and reactive pupils present Speech: No Abnormal speech present Gait exam (Neuro): Normal gait present Motor exam (neuro): no tremor noted Deep tendon reflexes (DTR's): Right triceps reflex intensity grade: 2+, Left triceps reflex intensity grade: 2+, Rt Biceps (C5, C6): 2+, Left biceps reflex intensity grade: 2+, Right brachioradialis reflex intensity grade: 2+, Left brachioradialis reflex intensity grade: 2+, Right patellar reflex intensity grade: 2+ and Left patellar reflex intensity grade: 2+ Extrem Right upper extremity: full ROM Left upper extremity: full ROM Right lower extremity: full ROM; no edema Left lower extremity: full ROM; no edema Psych Mental Status: mental status grossly normal Speech and movement: Normal speech and movement present Affect: normal affect Attitude: cooperative Thought process: Normal thought process present Coding Level of Care Code Est Pt Prev Care 18-39y(30804) Diagnoses Annual physical exam Z00.00 Mild persistent asthma without complication J45.30 Asthma severity: mild Asthma persistence: persistent Asthma complication type: uncomplicated 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 Laterality: right Swelling of hand M79.89 Malignant neoplasm of urinary bladder, unspecified site C67.9 Bladder location: unspecified site Depression, unspecified depression type F32.A Depression Type: unspecified Constipation, unspecified constipation type K59.00 Constipation type: unspecified constipation type Bilateral impacted cerumen H61.23 Laterality: bilateral Additional Codes PHQ-9 - 85247 - PHQ-9 Billing: Yes ([id number]) SUJEY-7 Assessment Billing - SUJEY-7 Assessment Tool: SUJEY-7 Assessment 53853 ([id number]) Time Spent (min) 41 Assessment & Plan Assessment & Plan (1) Annual physical exam: Code(s): Z00.00 - Encounter for general adult medical examination without abnormal findings Category: Medical (2) Asthma: Code(s): J45.909 - Unspecified asthma, uncomplicated Category: Medical Qualifiers: Asthma severity: mild Asthma persistence: persistent Asthma complication type: uncomplicated Qualified Code(s): J45.30 - Mild persistent asthma, uncomplicated (3) Urothelial carcinoma of kidney: Code(s): C64.9 - Malignant neoplasm of unspecified kidney, except renal pelvis Category: Medical Qualifiers: Laterality: right Qualified Code(s): C64.1 - Malignant neoplasm of right kidney, except renal pelvis (4) Swelling of hand: Code(s): M79.89 - Other specified soft tissue disorders Category: Medical (5) Bladder cancer: Code(s): C67.9 - Malignant neoplasm of bladder, unspecified Category: Medical Qualifiers: Bladder location: unspecified site Qualified Code(s): C67.9 - Malignant neoplasm of bladder, unspecified (6) Depression: Code(s): F32.A - Depression, unspecified Category: Medical Qualifiers: Depression Type: unspecified Qualified Code(s): F32.A - Depression, unspecified (7) Constipation: Code(s): K59.00 - Constipation, unspecified Category: Medical Qualifiers: Constipation type: unspecified constipation type Qualified Code(s): K59.00 - Constipation, unspecified (8) Cerumen impaction: Code(s): H61.20 - Impacted cerumen, unspecified ear Category: Medical Qualifiers: Laterality: bilateral Qualified Code(s): H61.23 - Impacted cerumen, b ilateral Plan Plan Patient was informed and verbally consented to the use of an ambient scribe for clinic note documentation during this visit. Preventative guidelines and recent labs from her cancer Center reviewed with the patient. 1. Bladder Cancer And Ovarian Mass The patient is undergoing active treatment with chemotherapy under the care of an oncology team. An MRI is scheduled to guide the upcoming surgery for removal of the bladder and ovaries. A PET scan is also planned to assess for metastasis. No additional management will be initiated from this office; care continues to be directed by oncology. 2. Anemia The patient's anemia is understood to be a side effect of chemotherapy. No new lab work was ordered to avoid further blood draws. It was explained that if the anemia becomes severe, a blood transfusion would be the safest and most effective treatment, as oral supplements are slow to work in this context. M anagement remains with the oncology team. 3. Constipation The constipation is likely exacerbated by oxycodone. The patient was advised to increase fluid intake and to take MiraLax daily to maintain regular bowel movements, rather than waiting for constipation to develop. 4. Cerumen Impaction The patient was found to have significant bilateral cerumen impaction causing tinnitus. The plan is for the patient to use Debrox eardrops to soften the wax, with a follow-up appointment for an ear flush to remove the impaction. 5. Depressive Symptoms The patient's emotional distress was acknowledged and validated. The patient is scheduled to see a therapist through the cancer center in April. Discussion Notes I conducted a physical exam for the patient, who is currently undergoing extensive treatment for bladder cancer and an ovarian mass. We discussed the patient's side effects from chemotherapy, including anemia. I explained that this is an expected outcome of treatment and that no additional bloodwork would be ordered from our office to spare the patient from more needle sticks, as the oncology team is closely monitoring labs. I also explained that a blood transfusion is the standard of care if hemoglobin levels drop too low. I addressed the patient's constipation, likely from pain medication, and recommended daily MiraLax for prevention. On exam, I found significant cerumen impaction and recommended Debrox drops followed by an ear lavage at a future appointment. We acknowledged the emotional toll of the diagnosis, and I validated the patient's feelings and supported the plan to engage in therapy. We scheduled a follow-up appointment for July, which the patient can reschedule if needed due to conflicts with oncology appointments. Patient Instructions - Continue to follow the treatment plan from your cancer doctors. - For constipation, take MiraLax mixed with water or juice every day to help keep your bowels regular. - Also, be sure to drink plenty of fluids. - For the wax buildup in your ears, use Debrox eardrops as directed to help soften the wax. - We will schedule a follow-up visit to flush your ears out. - You do not need to schedule a mammogram at this time. - Your upcoming PET scan will provide the necessary imaging of your whole body. - We have scheduled a follow-up appointment for you in July. - Please call our office to reschedule if you have a conflict with your appointments in [place]. - Remember that it is normal to have difficult days and feel emotional; continue to stay strong and allow yourself to process these feelings.
--- OUTSIDE RECORDS SUMMARY | 2025-04-10 14:20 | XMS_ITS | Encounter Summary ---
Author Organization [facility] Address [address] [place] [phone] Phone Care Team Providers Care Electrical And Instrument Engineer Name Role Phone Rupesh [place] MD Unavailable [phone] Alicia Vanegas MD Unavailable [phone] Hansel Orozco Primary Care Provider + Edson Washington SCHEDULER Unavailable [email or web address] Amanda Johnson SCHEDULER Unavailable [phone] Tati Ford RN Unavailable [email or web address] Lianna Ramires RN Unavailable [phone] Amanda Adams Unavailable [email or web address] Gilbert Stinson RN Unavailable [email or web address] Lianna Ramires RN Unavailable [phone] Encounter Details Date Type Department Care Team (Late st Contact Info) Description 01/29/2025 Procedure Pass [facility] [place], [place] [address] [facility] [address] [place] [address] Social History Tobacco Use Types [...] high school, GED, job training, learning the Japanese language, technical skills, or developing parenting skills)? [...] Care Team (Late st Contact Info) Description 03/11/2025 Procedure Pass [facility] MR Imaging, [place] [address] [address] 04/28/2025 1:00 PM EST Office Visit Adult Palliative Care, [facility] [place] [address] [place] [address], [address] [place] [address] Geno Victor MD [address] [place] [phone] [email or web address] 06/11/2025 1:15 PM EST Appointment [facility] MR Imaging, [place] [address] [place] [address] Edson Manley MD, MPH [address] [place] [phone] [email or web address] 06/18/2025 2:40 PM EST Office Visit [address] [address] Edson Manley MD, MPH [address] [place] [phone] [email or web address] documented as of this encounter Visit Diagnoses Not on filedocumented in this encounter Care Teams Electrical And Instrument Engineer Relationship Specialty Start Date End Date Hansel Orozco PA [address] [place] [phone] PCP - General Physician House Wrecker 01/01/25 Rupesh [place] MD [address] [place] [address] [place] [phone] [email or web address] Referring Physician Urology 12/24/24 Alicai Vanegas MD [address] [place] [phone] [email or web address] Primary Oncologist Medical Oncology 12/25/24 Edson [place], [address] [address] [email or web address] Refinery Operator Polymerization Plant Oncology 01/07/25 Amanda Johnson LICSW [address] [place] [address] [email or web address] Refinery Operator Polymerization Plant Licensed Clinical Refinery Operator Polymerization Plant 02/03/25 Tati Ford RN [address] [place] [address] [email or web address] Primary Infusion Nurse 02/13/25 04/02/25 Lianna Ramires RN [address] [place] [phone] [email or web address] Associate Infusion Nurse 02/20/25 Amanda Mancini [address] [place] [phone] [email or web address] Chipper Feeder 02/21/25 Gilbert Stinson RN [address] [place] [phone] [email or web address] Primary Infusion Nurse 04/03/25 Lianna Ramires RN [address] [place] [phone] [email or web address] Associate Infusion Nurse 02/19/25 documented as of this encounter Additional Source Comments The information contained in this document represents components of the legal health record. It is not the complete legal health record.[facility]
--- OUTSIDE RECORDS SUMMARY | 2025-04-10 14:20 | XMS_ITS | Encounter Summary ---
Demographics Address [address] [place] [address] Mobile Phone Work Phone Home Phone Preferred Language es Marital Status Single Jehovah'S Witness Affiliation Unknown Race White Ethnic Group Unknown Author Organization [employer] Address [address] [place] [address] Care Team Providers Care Truck Spotter Name Role Phone Unavailable Primary Care Provider Unavailabl e Encounter Details Date Type Department Care Team (Latest Contact Info) Description 06/19/2019 Abstract [facility] CONVERSIONS Dental, Provider, DDS Social History [...]
--- OUTSIDE RECORDS SUMMARY | 2025-04-10 14:20 | XMS_ITS | Encounter Summary ---
Author Organization [facility] Address [address] [facility] [address] [place] [address] Phone Care Team Providers Care Powder Line Repairer Name Role Phone Rupesh Monroe MD Unavailable [phone] Alicia Vanegas MD Unavailable [phone] Hansel Orozco Primary Care Provider + Edson Washington SECTION LABORER Unavailable [email or web address] Amanda Johnson SECTION LABORER Unavailable [phone] Tati Ford RN Unavailable [email or web address] Lianna Ramires RN Unavailable [phone] Amanda Adams Unavailable [email or web address] Gilbert Stinson RN Unavailable [email or web address] Lianna Ramires RN Unavailable [phone] Encounter Details Date Type Department Care Team (Late st Contact Info) Description 01/29/2025 Procedure Pass [facility] [place], [place] [address] [facility] [address] [place] [address] Social History Tobacco Use Types [...] st Contact Info) Description 03/11/2025 Procedure Pass [facility], [place] [address] [place] [address] 04/28/2025 1:00 PM EST Office Visit Adult Palliative Care, [facility] [place] [address] [place] [address], [address] [place] [address] Geno Victor MD [address] [place] [address] [email or web address] 06/11/2025 1:15 PM EST Appointment [facility], [place] [address] [place] [address] Edson Manley MD, MPH [address] [place] [id number] [email or web address] 06/18/2025 2:40 PM EST Office Visit [address] [address] Edson Manley MD, MPH [address] [place] [address] [email or web address] documented as of this encounter Visit Diagnoses Not on filedocumented in this encounter Care Teams Powder Line Repairer Relationship Specialty Start Date End Date Hansel Orozco PA [address] [place] [address] PCP - General Physician Grain Buyer 01/01/25 Rupesh Monroe MD [address] [place] [address] [place] [phone] [email or web address] Referring Physician Urology 12/24/24 Alicia Vanegas MD [address] [place] [id number] [email or web address] Primary Oncologist Medical Oncology 12/25/24 Edson Washington, [address] [address] [email or web address] Hand Ii Cutter Oncology 01/07/25 Amanda Johnson LICSW [address] [place] [address] [email or web address] Hand Ii Cutter Licensed Clinical Hand Ii Cutter 02/03/25 Tati Ford RN [address] [place] [address] [email or web address] Primary Infusion Nurse 02/13/25 04/02/25 Lianna Ramires RN [address] [place] [id number] [email or web address] Associate Infusion Nurse 02/20/25 Amanda Mancini [address] [place] [address] [email or web address] Machine Joiner Cementer 02/21/25 Gilbert Stinson RN [address] [place] [phone] [email or web address] Primary Infusion Nurse 04/03/25 Lianna Ramires RN [address] [place] [phone] [email or web address] Associate Infusion Nurse 02/19/25 documented as of this encounter Additional Source Comments The information contained in this document represents components of the legal health record. It is not the complete legal health record.[facility]
--- OUTSIDE RECORDS SUMMARY | 2025-04-10 14:21 | XMS_ITS | Encounter Summary ---
Demographics Address [address] [place] [address] Mobile Phone Work Phone Home Phone Preferred Language es Marital Status Single Buddhist Affiliation Unknown Race White Ethnic Group Unknown Author Organization [employer] Address [address] [place] [address] Care Team Providers Care Instrument Person Name Role Phone Unavailable Primary Care Provider Unavailabl e Encounter Details Date Type Department Care Team (Latest Contact Info) Description 06/19/2020 Abstract [facility] CONVERSIONS Dental, Provider, DDS Social History [...]
--- OUTSIDE RECORDS SUMMARY | 2025-04-10 14:21 | XMS_ITS | Clinical Summary ---
Demographics Address [address] [place] [address] Mobile Phone Work Phone Home Phone Preferred Language es Marital Status Single Sikhism Affiliation Unknown Race White Ethnic Group Unknown Author Organization [employer] Address [address] [facility] [address] [place] [address] Care Team Providers Care Associate Professor Of Music Name Role Phone Unavailable Primary Care Provider [...] martha Active Problems No known active problems Social [...] Most Recently Relevant to Health Maintenance [facility] * Guarantor: Moraima Jeffrey Account Type Relation to Patient Date of Phone Billing Address Dental Self [address] [place] [address] [facility] [place] [place] [id number] [place] [address] [place] [address]
--- OUTSIDE RECORDS SUMMARY | 2025-04-10 14:22 | XMS_ITS ---
Author Organization [facility] Address [address] [facility] [address] [place] [address] Phone Care Team Providers Care Tin Worker Name Role Phone Rupesh Monroe MD Unavailable [phone] Alicia Vanegas MD Unavailable [phone] Hansel Orozco Primary Care Provider + Edson Washington TAPPER BIT Unavailable [email or web address] Amanda Johnson TAPPER BIT Unavailable [phone] Amanda Adams Unavailable [email or web address] Gilbert Stinson RN Unavailable [email or web address] Lianna Ramires RN Unavailable [phone] Active Problems Patient Care Coordination No te Formatting of this note migh t be different from the original. Pt w/ syncopal episode 02/12 after IV placement and lab draw on Y2. Noted to have severe anxiety. Should have all future lab appointments in a reclining chair. Problem Noted Date Diagnosed Date Vaginal bleeding [...] Current Treatment and Therapy Plans ACCESS AND FLUSH??([facility]I)* Plan Start Date:02/03/2025 Linked Problems Malignant neoplasm of overla pping sites of bladder Treatment Medications No medications scheduled. CISPLATIN 35 MG/M2 D1,8 + GEMCITABINE 1000 MG/M2 D1,8 + DURVALUMAB Q3W X 4 CYCLES FOLLOWED BY DURVALUMAB Q4W X 8 CYCLES* Plan Start Date:02/12/2025 Plan Provider:Alicia Vanegas MD Linked Problems Malignant neoplasm of overla pping sites of bladder Treatment Medications Current Day (Day 1 , Cycle 4 - Planned for 04/16/2025) Next Day (Day 8, Cycle 4 - Planned for 04/23/2025) CISplatin (PLATINOL)CISplatin (PLATINOL) IVPB 270 mLdurvalumab (IMFINZI)durvalumab (IMFINZI) IVPB Baggemcitabine (GEMZAR) IVPB CISplatin (PLATINOL) 59 mg in sodium chloride 0.9% 329 mL IVPBdurvalumab (IMFINZI) 1,500 mg in sodium chloride 0.9% 140 mL IVPBgemcitabine (GEMZAR) 1,690 mg in sodium chloride 0.9% 314.45 mL IVPB CISplatin (PLATINOL) 59 mg in sodium chloride 0.9% 329 mL IVPBgemcitabine (GEMZAR) 1,690 mg in sodium chloride 0.9% 314.45 mL IVPB Past Treatment and Therapy Plans No past plan information found.
--- OUTSIDE RECORDS SUMMARY | 2025-04-10 14:22 | XMS_ITS | Clinical Summary ---
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 3.72(L) 4.00 - 5.20 M/uL 04/02/2025 11:02 AM EST [facility] Hemoglobin 11.1(L) 12.0 - 16.0 g/dL 04/02/2025 11:02 AM EST [facility] Hematocrit 34.0(L) 36.0 - 46.0 % 04/02/2025 11:02 AM EST [facility] MCV 91.4 80.0 - 100.0 fL 04/02/2025 11:02 AM EST [facility] MCH 29.8 27.0 - 31.0 pg 04/02/2025 11:02 AM EST [facility] MCHC 32.6 32.0 - 36.0 g/dL 04/02/2025 11:02 AM EST [facility] MPV 9.2 8.4 - 12.0 fL 04/02/2025 11:02 AM EST [facility] RDW-CV 14.0 11.5 - 14.5 % 04/02/2025 11:02 AM EST [facility] PLT 358 150 - 450 K/uL 04/02/2025 11:02 AM EST [facility] NRBC 0.0 <=0.0 /100 WBCs 04/02/2025 11:02 AM EST [facility] Absolute NRBC 0.00 <=0.00 K cells/uL 04/02/2025 11:02 AM EST [facility] Absolute Neutrophils 04/02/2025 11:02 AM EST [facility] Comment:See Note: SEE MANUAL DIFF Diff Type Manual 04/02/2025 11:02 AM EST [facility] Blood (Blood) Venipuncture / Unknown 04/02/2025 10:12 AM EST 04/02/2025 10:20 AM EST us Alicia Vanegas MD LAB BLOOD BKR ORDERABLES Fi nal Result [facility] [address] [place] [address] * Red Blood Cell (RBC) Morphology (04/02/2025 10:12 AM EST) RBC Morphology Reviewed 04/02/2025 11:02 AM EST [facility] Elliptocytes/Ov alocytes present 04/02/2025 11:02 AM EST [facility] Blood (Blood) Venipuncture / Unknown 04/02/2025 10:12 AM EST 04/02/2025 10:20 AM EST us Alicia Vanegas MD LAB BLOOD BKR ORDERABLES Fi nal Result Performing Organization Address [facility] Co de Phone Number [facility] [address] [place] [address] * Thyroid Stimulating Hormone (TSH), with Reflex (04/02/2025 10:12 AM EST) TSH 0.53 0.40 - 5.00 uIU/mL 04/02/2025 10:54 AM EST [facility] Blood (Blood) Venipuncture / Unknown 04/02/2025 10:12 AM EST 04/02/2025 10:20 AM EST us Alicia Vanegas MD LAB BLOOD BKR ORDERABLES Fi nal Result Performing Organization Address [facility] Co de Phone Number [facility] [address] [place] [phone] * Phosphorus (04/02/2025 10:12 AM EST) Phosphorus 2.7 2.5 - 4.5 mg/dL 04/02/2025 12:07 PM EST [facility] Blood (Blood) Venipuncture / Unknown 04/02/2025 10:12 AM EST 04/02/2025 10:20 AM EST us Jeniffer Grimaldo CNP LAB BLOOD BKR ORDERABLES Fi nal Result Performing Organization Address City/[facility] Co de Phone Number [facility] [address] [place] [phone] * Magnesium (04/02/2025 10:12 AM EST) Only the most recent of3 resultswithin the time period is included. Magnesium 2.3 1.7 - 2.6 mg/dL 04/02/2025 12:07 PM EST [facility] Blood (Blood) Venipuncture / Unknown 04/02/2025 10:12 AM EST 04/02/2025 10:20 AM EST us Jeniffer Grimaldo [employer]ICAL INSURANCE VERIFIER LAB BLOOD BKR ORDERABLES Fi nal Result [facility] [address] [place] [address] * NM PET CT Skull Base to Mid Thighs (04/02/2025 9:01 AM EST) Anatomical Region Laterality Modality Positron Emissio n Tomography (PET) 04/02/2025 9:32 AM EST Impressions 04/02/2025 12:13 PM EST Compared to FDG PET/CT 12/05/2024: 1. Similar right posterolateral bladder wall thickening representing known bladder cancer with extravesical invasion of the adjacent uterus/cervix, with anatomic details and radiologic features better evaluated on MR pelvis 12/12/2024. Metabolic activity of the lesion cannot be adequately assessed due to physiologic FDG excretion in the bladder. 2. Slightly increased size of predominantly cystic right adnexal mass with mild peripheral FDG uptake, concerning for primary ovarian neoplasm. 3. New focal uptake in the right neck anterolateral to the C5 vertebra without definite CT correlate, may represent inflammatory change or a small lymph node. Attention on subsequent imaging is recommended. 4. New FDG avid cutaneous thickening along the medial proximal right thigh, likely inflammatory. Clinical correlation with direct visual inspection is recommended. ATTESTATION: Susanne Salazar, as teaching physician have reviewed the images, if any, for this patient's exam, and if necessary, have edited the report originally created by Julia Duffy. Narrative 04/02/2025 12:13 PM EST Reason for exam (per EHR order): *Urologic cancer, staging Additional clinical information obtained from the EHR: 44-year-old female. Urothelial cancer status post right nephroureterectomy 2022, multiple TURBT, most recently 11/2024. Additional history of cystic right adnexal mass concerning for primary ovarian cancer. Currently on therapy. Subsequent treatment strategy. TECHNIQUE: Radiopharmaceutical: F-18-FDG. Dose: 10.3 mCi. Blood glucose: 124 mg/dL. Image acquisition: At 76 minutes following IV tracer administration via a left forearm vein, positron emission tomography was performed from the base of the skull through the mid thigh. Non-contrast low-dose helical CT imaging was performed over the same range without breath-hold for attenuation correction of PET images and anatomic correlation. COMPARISON: FDG PET/CT 12/05/[address] chest, abdomen/pelvis 01/30/2025, MR pelvis 12/12/2024 FINDINGS: Direct quantitative comparison of FDG uptake to prior examination at outside hospital is difficult due to differences in technique. Therefore, quantification will be provided for the current examination and only qualitative statements will be made about changes in FDG uptake. HEAD AND NECK: New focal uptake in the right neck anterolateral to the C5 vertebra without discretely measurable anatomic correlate, SUV max 5.8 (image 50), may represent a small lymph node. Right lateral tracheal diverticulum. CHEST: Ports and devices: None. Lungs: No abnormal FDG uptake. Pleura: No abnormal FDG uptake. Lymph Nodes: No abnormal FDG uptake. Mediastinum: No abnormal FDG uptake. Breasts/Chest Wall: No abnormal FDG uptake. ABDOMEN/PELVIS: Liver/biliary system: No abnormal FDG uptake. Pancreas: No abnormal FDG uptake. Spleen: No abnormal FDG uptake. Adrenal Glands: No abnormal FDG uptake. Kidneys: No abnormal FDG uptake. Status post right nephroureterectomy. Bowel: No abnormal FDG uptake. Normal caliber appendix. Mesentery, Omentum and Peritoneum: No abnormal FDG uptake. Pelvic Organs: Heterogeneous predominantly photopenic and cystic right adnexal mass with internal septations measuring 12.2 x 10.5 cm with mild peripheral FDG uptake in the solid component, SUV max 2.6 (image 205), similar in size compared to CT from 01/30/2025 and increased compared to PET/CT from 12/05/2024 when it measured approximately 9.6 x 9.5 cm. Asymmetric thickening of the right posterolateral bladder wall, likely reflecting known bladder mass. Avidity is not well assessed due to excretion of radiotracer in the bladder. There is adjacent masslike thickening in the right adnexa, likely reflecting extension and invasion of the bladder mass into the uterus/cervix as was best seen on MR pelvis 12/12/2024. There is associated mild FDG uptake in the right adnexa, SUV max 4.1 (image 237), similar to prior PET/CT. Lymph Nodes: No abnormal FDG uptake. MUSCULOSKELETAL: No FDG avid or suspicious osseous lesions. New FDG avid cutaneous thickening along the medial proximal right thigh, SUV max 7.3 (image 268). Procedure Note Susanne Davies MD - 04/02/2025 Reason for exam (per EHR order): *Urologic cancer, staging Additional clinical information obtained from the EHR: 44-year-old female.Urothelial cancer status post right nephroureterectomy 2022, multipleTURBT, most recently 11/2024. Additional history of cystic right adnexalmass concerning for primary ovarian cancer. Currently on therapy.Subsequent treatment strategy. TECHNIQUE: Radiopharmaceutical: F-18-FDG. Dose: 10.3 mCi. Blood glucose: 124 mg/dL. Image acquisition: At 76 minutes following IV tracer administration via aleft forearm vein, positron emission tomography was performed from thebase of the skull through the mid thigh. Non-contrast low-dose helical CTimaging was performed over the same range without breath-hold forattenuation correction of PET images and anatomic correlation. COMPARISON: FDG PET/CT 12/05/[address] chest,abdomen/pelvis 01/30/2025, MR pelvis 12/12/2024 FINDINGS: [facility] to differences in technique. Therefore,quantification will be provided for the current examination and onlyqualitative statements will be made about changes in FDG uptake. HEAD AND NECK: New focal uptake in the right neck anterolateral to the P2sqfsrnwy without discretely measurable anatomic correlate, SUV max 5.8(image 50), may represent a small lymph node. Right lateral trachealdiverticulum. CHEST: Ports and devices: None. Lungs: No abnormal FDG uptake. Pleura: No abnormal FDG uptake. Lymph Nodes: No abnormal FDG uptake. Mediastinum: No abnormal FDG uptake. Breasts/Chest Wall: No abnormal FDG uptake. ABDOMEN/PELVIS: Liver/biliary system: No abnormal FDG uptake. Pancreas: No abnormal FDG uptake. Spleen: No abnormal FDG uptake. Adrenal Glands: No abnormal FDG uptake. Kidneys: No abnormal FDG uptake. Status post right nephroureterectomy. Bowel: No abnormal FDG uptake. Normal caliber appendix. Mesentery, Omentum and Peritoneum: No abnormal FDG uptake. Pelvic Organs: Heterogeneous predominantly photopenic and cystic rightadnexal mass with internal septations measuring 12.2 x 10.5 cm with mildperipheral FDG uptake in the solid component, SUV max 2.6 (image 205),similar in size compared to CT from 01/30/2025 and increased compared toPET/CT from 12/05/2024 when it measured approximately 9.6 x 9.5 cm. Asymmetric thickening of the right posterolateral bladder wall, likelyreflecting known bladder mass. Avidity is not well assessed due toexcretion of radiotracer in the bladder. There is adjacent masslikethickening in the right adnexa, likely reflecting extension and invasionof the bladder mass into the uterus/cervix as was best seen on MR pelvis12/12/2024. There is associated mild FDG uptake in the right adnexa, SUVmax 4.1 (image 237), similar to prior PET/CT. Lymph Nodes: No abnormal FDG uptake. MUSCULOSKELETAL: No FDG avid or suspicious osseous lesions. New FDG avidcutaneous thickening along the medial proximal right thigh, SUV max 7.3(image 268). IMPRESSION: Compared to FDG PET/CT 12/05/2024: 1. Similar right posterolateral bladder wall thickening representingknown bladder cancer with extravesical invasion of the adjacentuterus/cervix, with anatomic details and radiologic features betterevaluated on MR pelvis 12/12/2024. Metabolic activity of the lesion cannotbe adequately assessed due to physiologic FDG excretion in the bladder. 2. Slightly increased size of predominantly cystic right adnexal masswith mild peripheral FDG uptake, concerning for primary ovarianneoplasm. 3. New focal uptake in the right neck anterolateral to the C5 vertebrawithout definite CT correlate, may represent inflammatory change or asmall lymph node. Attention on subsequent imaging is recommended. 4. New FDG avid cutaneous thickening along the medial proximal rightthigh, likely inflammatory. Clinical correlation with direct visualinspection is recommended. ATTESTATION: Susanne Salazar, as teaching physician have reviewed theimages, if any, for this patient's exam, and if necessary, have edited thereport originally created by Julia Duffy. us [place] Qiuntanilla BOTANY PROFESSOR IMG NM PET Final Result * (ABNORMAL) POCT Glucose (04/02/2025 7:36 AM EST) Glucose 124(H) 70 - 99 mg/dL 04/02/2025 7:42 AM EST [facility] CT & MRI SUITE Blood (Blood) 04/02/2025 7:3 6 AM EST 04/02/2025 7:42 AM EST us [place] Castillo Dwight BOTANY PROFESSOR LAB POCT DOCKED DEVIC E UNSOLICTED RESULTS Final Result Performing Organization Address City/[facility]/ZIP Co de Phone Number [facility] CT & MRI [address] [place], [place] [id number] * Thyroid Stimulating Hormone (TSH) (03/24/2025 2:30 PM EST) Only the most recent of4 resultswithin the time period is included. TSH 0.40 0.40 - 5.00 uIU/mL 03/24/2025 4:51 PM EST [facility] Blood (Blood) Venipuncture / Unknown 03/24/2025 2:30 PM EST 03/24/2025 3:13 PM EST us Alicia Vanegas MD LAB BLOOD BKR ORDERABLES Fi nal Result Performing Organization Address [facility] Co de Phone Number [facility] [address] [place] [address] * Type and Screen (Conversion) (03/23/2025 8:49 AM EST) Hold Tube Completed? Yes 03/23/2025 8:57 AM EST [facility] TRANSFUSION SERVICE AND [facility] BLOOD [facility] Blood (Blood) 03/23/2025 8:4 9 AM EST 03/23/2025 8:49 AM EST us Heber Boyd MD, MPH LAB BLOOD BANK TEST ORDERAB LES Final Result Performing Organization Address City/[facility]/ZIP Co de Phone Number [facility] TRANSFUSION SERVICE AND [facility] BLOOD DONOR [place] [address] [id number] * Inhibin A & B, tumor marker (03/19/2025 2:12 PM EDT) Only the most recent of2 resultswithin the time period is included. INHBN A TUMOR SUNI. 16 pg/mL [facility] [place] Comment: (NOTE) REFERENCE VALUE <98 (Premenopausal) <5.0 (Postmenopausal) ADDITIONAL INFORMATION This test has been modified from the industrial sociologist's instructions. Its performance characteristics were determined by [facility] in a manner consistent with CLIA requirements. This test has not been cleared or approved by the U.S. Food and Drug Administration. The testing method is an immunoenzymatic assay manufactured by [employer]. and performed on the [employer] 800. Values obtained with different assay methods or kits may be different and cannot be used interchangeably. Test results cannot be interpreted as absolute evidence for the presence or absence of malignant disease. Inhibin A values are not interpretable in females for the investigation of malignant disease. INHIBN B, INFERTILITY <10 pg/mL [facility] [place] Comment: (NOTE) REFERENCE VALUE Premenopausal: <108 pg/mL (Follicular) <80 pg/mL (Luteal) Postmenopausal: <12 pg/mL ADDITIONAL INFORMATION The testing method is a manual immunoenzymatic assay manufactured by [employer]. Values obtained with different assay methods or kits may be different and cannot be used interchangeably. If this test is being ordered as a tumor marker, results cannot be interpreted as absolute evidence for the presence or absence of malignant disease. This test was developed and its performance characteristics determined by [facility] in a manner consistent with CLIA requirements. This test has not been cleared or approved by the U.S. Food and Drug Administration. Blood 03/19/2025 2:12 PM EDT 03/19/2025 2:26 PM EDT Angélica Dawson MD MSc LAB BLOOD ORDERABLES Final Re sult Performing Organization Address City/[facility]/ZIP Co de Phone Number [facility] [address] [place] [address] * CA-19-9 (03/19/2025 2:12 PM EDT) Only the most recent of2 resultswithin the time period is included. CA 19-9 <1 0 - 35 U/mL [facility] Blood 03/19/2025 2:12 PM EDT 03/19/2025 2:26 PM EDT Angélica Dawson MD, MSc LAB BLOOD BKR ORDERABLES Constance l Result Performing Organization Address [facility] Co de Phone Number [facility] [address] [place] [phone] * HCG (tumor marker) (03/19/2025 2:12 PM EDT) HCG BETA 1.8 <2.1 mIU/mL [facility] Comment: PREMENOPAUSAL REF.RANGE - <=2.0 mIU/mL POSTMENOPAUSAL REF.RANGE - <=8.0 mIU/mL Blood 03/19/2025 2:12 PM EDT 03/19/2025 2:26 PM EDT Angélica Dawson MD, MSc LAB BLOOD ORDERABLES Final Re sult Performing Organization Address [facility] Co de Phone Number [facility] [address] [place] [phone] * AFP (non-maternal specimens) (03/19/2025 2:12 PM EDT) Pathologist [facility] AFP (NON-MATERNAL) 3.6 <8.4 ng/mL [facility] Blood 03/19/2025 2:12 PM EDT 03/19/2025 2:26 PM EDT Angélica Dawson MD, MSc LAB BLOOD BKR ORDERABLES Constance anjali Result [facility] [address] [place] [address] * (ABNORMAL) CBC and differential (03/19/2025 2:12 PM EDT) Only the most recent of6 resultswithin the time period is included. Pathologist [facility] WBC 7.95 4.00 - 10.00 K/uL [facility] RBC 4.01 3.90 - 6.00 M/uL [facility] HGB 12.0 11.5 - 16.4 g/dL [facility] HCT 36.0 36.0 - 48.0 % [facility] PLT 188 150 - 450 K/uL [facility] MCV 89.8 80.0 - 100.0 fL [facility] MCH 29.9 27.0 - 32.0 pg [facility] MCHC 33.3 32.0 - 36.0 g/dL [facility] RDW 13.3 11.5 - 14.5 % [facility] MPV 10.2 8.4 - 12.0 fL [facility] NRBC 0.00 0 /100 WBCs [facility] ABSOLUTE NRBC 0.00 0 K/uL [facility] DIFF METHOD Auto [facility] NEUTS 61.4 48.0 - 76.0 % [facility] LYMPHS 37.2 18.0 - 41.0 % [facility] MONOS 0.6(L) 4.0 - 11.0 % [facility] EOS 0.1 0.0 - 5.0 % [facility] BASOS 0.3 0.0 - 1.5 % [facility] % IMMATURE GRANS 0.4 0.0 - 1.0 % [facility] ABSOLUTE NEUTS 4.88 1.92 - 7.60 K/uL [facility] ABSOLUTE LYMPHS 2.96 0.72 - 4.10 K/uL [facility] ABSOLUTE MONOS 0.05(L) 0.16 - 1.10 K/uL [facility] ABSOLUTE EOS 0.01 0.00 - 0.50 K/uL [facility] ABSOLUTE BASOS 0.02 0.00 - 0.15 K/uL [facility] ABS IMMATURE GRANS 0.03 0.00 - 0.10 K/uL [facility] Blood 03/19/2025 2:12 PM EDT 03/19/2025 2:26 PM EDT Angélica Dawson MD, MSc LAB BLOOD BKR ORDERABLES Constance alba Result [facility] [address] [place] [phone] * Type and Screen (ABO,Rh,Antibody Screen) (03/19/2025 2:12 PM EDT) Expiration Date of Sample 03/22/2025 11:59 PM 03/19/2025 3:37 PM EDT [facility] Resulting Agency [facility] ABO Type O 03/19/2025 3:37 PM EDT [facility] Rh Type Positive 03/19/2025 3:37 PM EDT [facility] Antibody Screen Negative 03/19/2025 3:37 PM EDT [facility] Blood 03/19/2025 2:12 PM EDT 03/19/2025 2:26 PM EDT Angélica Dawson MD, MSc LAB BLOOD BANK TEST ORDERABLE S Final Result [facility] [address] [place] [phone] * CA-125 (03/19/2025 2:12 PM EDT) Only the most recent of2 resultswithin the time period is included. CA125 25 6 - 38 U/mL [facility] Comment: CA 125 REFERENCE RANGE: POSTMENOPAUSAL 6-32 U/mL PREMENOPAUSAL 6-46 U/mL Blood 03/19/2025 2:12 PM EDT 03/19/2025 2:26 PM EDT Angélica Dawson MD, MSc LAB BLOOD BKR ORDERABLES Constance l Result Performing Organization Address City/[facility] Co de Phone Number [facility] [address] [place] [address] * (ABNORMAL) Carcinoembryonic antigen (CEA) (03/19/2025 2:12 PM EDT) Only the most recent of2 resultswithin the time period is included. CEA 4.7(H) 0 - 3.7 ng/mL [facility] Comment: CEA REFERENCE RANGE: NON-SMOKERS: < 3.8 ng/mL SMOKERS: < 5.0 ng/mL Blood 03/19/2025 2:12 PM EDT 03/19/2025 2:26 PM EDT Angélica Dawson MD, MSc LAB BLOOD BKR ORDERABLES Constance l Result Performing Organization Address City/[facility]/ZIP Co de Phone Number [facility] [address] [place] [address] * Lab Add On: magnesium (03/14/2025 2:38 PM EDT) Only the most recent of2 resultswithin the time period is included. TEST REQUESTED MAGN[facility]IUM [facility] Comments (Chemistry) TEST TO BE ADDED ON TO EXISTING SPECIMEN [facility] Blood 03/14/2025 2:38 PM EDT 03/14/2025 2:40 PM EDT us Ana Kidd [employer] LAB BLOOD ORDERABLES Constance l Result [facility] [address] [place] [address] * ECG 12-LEAD (02/12/2025 1:31 PM EDT) Ventricular Rate EKG/MIN 60 BPM [facility] Atrial Rate 60 BPM [facility] MN Interval 138 ms [facility] QRS Duration 82 ms [facility] QT Interval 398 ms [facility] QTC Interval 398 ms [facility] P [place] 65 degrees [facility] R Wave [place] 73 degrees [facility] T Wave [place] 64 degrees [facility] Other 02/12/2025 1:31 PM EDT Narrative [facility] - 02/13/2025 4:27 PM EDT Normal sinus rhythm Nonspecific T wave abnormality Abnormal ECG No previous ECGs available us Belén Grigsby Siemens PA-C ECG ORDERABLES Fin al Result [facility] * Outside Lab (02/04/2025) us Scanning Interface Provider LAB BLOOD BKR ORDERA BLES Final Result * (ABNORMAL) DIC screen (02/03/2025 12:38 PM EDT) PT 11.0 10.0 - 13.0 sec [facility] INR 1.0 0.9 - 1.1 [facility] APTT 29.1 24.0 - 37.5 sec [facility] Comment:Emicizumab (Hemlibra ) treatment can result in falsely lowered aPTT test results. FIBRINOGEN 459(H) 200 - 400 mg/dL [facility] Blood 02/03/2025 12:3 8 PM EDT 02/03/2025 12:55 PM EDT Taylor Mcgraw MD LAB BLOOD BKR ORDERABLES Final Result Performing Organization Address [facility] Co de Phone Number [facility] [address] [place] [phone] * (ABNORMAL) CBC (02/03/2025 12:38 PM EDT) WBC 9.21 4.00 - 11.00 K/uL [facility] RBC 3.77(L) 4.00 - 5.20 M/uL [facility] HGB 11.1(L) 12.0 - 16.0 g/dL [facility] HCT 35.2(L) 36.0 - 46.0 % [facility] PLT 307 150 - 450 K/uL [facility] MCV 93.4 80.0 - 100.0 fL [facility] MCH 29.4 27.0 - 31.0 pg [facility] MCHC 31.5(L) 32.0 - 36.0 g/dL [facility] RDW 13.0 11.5 - 14.5 % [facility] MPV 10.8 8.4 - 12.0 fL [facility] NRBC 0.00 0.00 /100 WBCs [facility] ABSOLUTE NRBC 0.00 0.00 K/uL [facility] Blood 02/03/2025 12:3 8 PM EDT 02/03/2025 12:55 PM EDT Taylor Mcgraw MD LAB BLOOD BKR ORDERABLES Final Result Performing Organization Address [facility]/ZIP Co de Phone Number [facility] [address] [place] [phone] * Tito Signatera Initial (02/03/2025 8:44 AM EDT) Pathologist [facility] MED LAV SEE MANUAL REPORT [facility] CIRCULATING TUMOR DNA SEE MANUAL REPORT [facility] Quan Galvez 2 SEE MANUAL REPORT [facility] Blood 02/03/2025 8:44 AM EDT 02/03/2025 8:52 AM EDT us Alicia Vanegas MD LAB BLOOD BKR ORDERABLES Fi nal Result [facility] [address] [place] [address] * Outside Imaging Report Only (02/03/2025) us Scanning Interface Provider IMG XR CHEST Constance l Result * (ABNORMAL) Signatera only (02/03/2025) Pathologist [facility] Signatera Test Result POSITIVE( A) TITO Signatera MTM Readout 6.91(A) TITO Comment: Please see the attached PDF for more information. Limitations Signatera is a personalized, tumor-informed test for the longitudinal detection of circulating tumor DNA (ctDNA). Interval testing is recommended for all patients. Studies have demonstrated that when ctDNA is detected (Signatera Positive) following surgery or definitive treatment, the risk for disease relapse is high without further treatment. Conversely, when ctDNA is not detected, the patient may be considered at lower risk for relapse. For those with multiple timepoints, upward trending ctDNA levels are suggestive of increasing tumor burden (1,2). For a single time point in isolation, the absolute MTM/mL value has no known clinical significance and should not be compared across patients. Test results should be interpreted in context of other clinicopathological features. ctDNA detection sensitivity may be limited due to blood collection within two weeks of surgery and while the patient is on therapy. Signatera is a quantitative test and reports in units of mean tumor molecules per ml (MTM/mL), which is comprised of three measured components (plasma volume, cell free DNA (cfDNA) concentration, and Variant Allele Frequency (VAF)). The MTM/mL number will be qualified if any measured component falls outside the analytical measurement range for that component. The analytical sensitivity is 95% at the limit of detection (0.3 MTM/mL). Results obtained are specific to the assessed time point. A negative test result does not definitively indicate the absence of cancer. This test is not designed to detect or report germline variation, nor does it infer hereditary cancer risk for the patient. Each Signatera assay is designed to a single tumor for a given patient. At this time, multiple personalized Signatera assays cannot be developed for the same patient. This test is designed to detect ctDNA from the assayed tumor only; new primary tumors will not be detected. There is a low risk that a new primary may share a variant that could interfere with the Signatera test. Testing cannot be performed in patients who are , have a history of bone marrow transplant, or history of blood transfusion within three months. This test is expected to have limited sensitivity in cancer types such as GIST, renal cell carcinomas, primary brain tumors, and lymphoma due to limited ctDNA shed. 1 Claudia SV, Miki NAVASC, Jazlyn ROBERT, et al. Personalized circulating tumor DNA analysis as a predictive biomarker in solid tumor patients treated with pembrolizumab. Nature Cancer. 2020;1(9):873-881. 2 Dariusz WEINER, Diallo Allen, et al., Circulating Tumor DNA in Stage III Colorectal Cancer, beyond Minimal Residual Disease Detection, toward Assessment of Adjuvant Therapy Efficacy and Clinical Behavior of Recurrences. Clin Cancer Res. 2020; 28(3):507-517. Methodology FFPE samples are reviewed by a pathologist to assess tumor content and percent tumor nuclei. Tumor DNA is extracted using [employer] [employer] Mag-Bind FFPE DNA/RNA kit. Whole genomic DNA is isolated from peripheral blood using QIAamp DNA Blood MiniKit to provide DNA for germline sequencing. Circulating tumor DNA (ctDNA) is extracted from plasma derived from whole blood samples collected in cell-free DNA blood tubes (Hublished) using the QIASTEERadsmphony automated or manual extraction method (Qiagen). Whole-exome sequencing is performed on tumor and peripheral blood DNA using the LK FREEMAN whole-exome sequencing assay. Using a proprietary algorithm, putative, clonal variants present in the tumor but absent in the germline DNA are identified to design the customized multiplex PCR assay. The customized PCR assays are run to detect presence or absence of these variants within circulating plasma. A patient s plasma sample is considered ctDNA positive when at least two individual- specific tumor variants are detected. When fewer than two individual-specific tumor variants are observed, a negative result is issued. Pathology services and whole exome sequencing is performed at [facility] (CLIA ID# [id number]), [facility] [address] Disclaimer The extraction, library preparation, and sequencing for this test were performed by [facility] [address] [address] (CLIA ID [id number]). The data analysis and reporting for this test were performed by [facility] [address] [address] (CLIA ID [id number]). This test was developed and its performance characteristics determined by [facility]. The test has not been cleared or approved by the U.S. Food and Drug Administration (FDA). CAP accredited, ISO 73063 certified, and CLIA certified. Pathology services and whole exome sequencing for this test were performed by [facility] [address] [address] (CLIA ID [id number]). 2020 [employer]. All Rights Reserved. 02/03/2025 us Alicia Vanegas MD LAB BLOOD ORDERABLES Final Result [facility] [address] [phone] * CT CHEST WITH CONTRAST (01/30/2025 3:27 PM EDT) Anatomical Region Laterality Modality Chest Computed Tomogra phy Other 01/31/2025 6:58 AM EDT Impressions 01/31/2025 7:03 AM EDT 1. No evidence of metastases within the chest. Narrative 01/31/2025 7:[address] CHEST WITH CONTRAST Referring clinician's provided indication for this examination in [facility]: *Urologic cancer, staging; inital staging ahead of [...] clinician's provided indication for this examination in [facility]:*Urologic cancer, staging; inital staging ahead of [...] evidence of metastases within the chest. us BelénLaunchPointCalista Siemens PA-C IMG CT CHEST Fin al [...] extravesical extension andinvasion of the adjacent uterus/cervix. Belén Grigsby Biolase PA-C IMG CT ABD/PELVIS F inal Result from Last [address] [place] [address] [place] [address] [place] [address] [place] [address] ACO Member Subscriber Plan / Payer (Ef fective 2017-Present) Name:Moraima Jeffrey Relation to Subscriber:Self Name:Moraima Jeffrey Payer ID:[id number] Group ID:Not on file Type:Medicaid Address: [address] [place] [address] [place] [address] [place] [place] [address] ACO [facility] ACO Advance Directives For more information, please contact: [phone] (9AM - 5PM Aleksandra/[facility], Monday-Monday) Documents on File Type Date Recorded Patient Avionics Shop Supervisor Expl anation Healthcare Proxy 02/19/2025 11:26 AM Care Teams Polisher Balance Screwhead Relationship Specialty Start Date End Date Hansel Orozco PA [facility] [place] [address] PCP - General Physician Rehabilitation Supervisor 01/01/25 Rupesh Monroe MD [address] [facility] [address] [place] [address] [email or web address] Referring Physician Urology 12/24/24 Alicia Vaengas MD [address] [place] [address] [email or web address]. [facility] Primary Oncologist Medical Oncology 12/25/24 Edson Washington, [address] [address] [email or web address] Senior Commercial Loan Officer Oncology 01/07/25 Amanda Johnson, [facility] [address] [place] [address] [email or web address] Senior Commercial Loan Officer Licensed Clinical Senior Commercial Loan Officer 02/03/25 Amanda Adams [address] [place] [address] [email or web address] 02/21/25 Gilbert Stinson RN [address] [place] [phone] [email or web address] Primary Infusion Nurse 04/03/25 Lianna Ramires RN [address] [place] [phone] [email or web address]. [facility] Associate Infusion Nurse 02/19/25 Additional Source Comments The information contained in this document represents components of the legal health record. It is not the complete legal health record.[facility]
== END 2025-04-10 13:35 | disposition home or self-care (01) ==
LOC: HO.HMCH 09:53
PROVIDERS: PCP Internal Medicine
DX: Z00.00 Encounter for general adult medical examination without abnormal findings (principal); C64.1 Malignant neoplasm of right kidney, except renal pelvis; C67.9 Malignant neoplasm of bladder, unspecified; J45.30 Mild persistent asthma, uncomplicated; M79.89 Other specified soft tissue disorders; F32.A Depression, unspecified; K59.00 Constipation, unspecified; H61.23 Impacted cerumen, bilateral

== ENCOUNTER → 2025-04-10 09:52 | Outpatient (BNVA) | payer OTHER, SELFPAY | PROVIDERS: PCP Internal Medicine | DX: Z00.00 Encounter for general adult medical examination without abnormal findings (principal); J45.30 Mild persistent asthma, uncomplicated; C64.1 Malignant neoplasm of right kidney, except renal pelvis; H61.23 Impacted cerumen, bilateral; C67.9 Malignant neoplasm of bladder, unspecified; M79.89 Other specified soft tissue disorders; F32.A Depression, unspecified; K59.00 Constipation, unspecified | CPT/HCPCS: 96127; 99396 ==

== ENCOUNTER 2025-05-17 14:18 | Emergency (ER) | payer OTHER, SELFPAY ==
--- OUTSIDE RECORDS SUMMARY | 2025-05-12 13:18 | XMS_ITS | Encounter Summary ---
Author Organization [facility] Address [address] [facility] [address] [place] [address] Phone Care Team Providers Care Round Corner Cutter Operator Name Role Phone Rupesh Monroe MD Unavailable [phone] Alicia Vanegas MD Unavailable [phone] Hansel Orozco Primary Care Provider + Edson [place] FUR IRONER Unavailable [email or web address] Amanda Johnson FUR IRONER Unavailable [phone] Amanda Adams Unavailable [email or web address] Gilbert Stinson RN Unavailable [email or web address]@ [email or web address] Lianna Ramires RN Unavailable [phone] Pat Mcgill RN Unavailable [email or web address] Reason for Referral * MRI/CAT Scan - Closed Specialty Diagnoses / Procedures Referred By Conteben t Referred To Contact Radiology Diagnoses Malignant neoplasm of urinary bladder, unspecified site Procedures CT Neck CHG CT NECK TISSUE CONTRAST Jeniffer Grimaldo, GUIDANCE COUNSELOR [address] [place] [address] Phone: tel: fax: mailto:[email or web address] Referral ID Status Reason Start Date Expiration Date Visits Re quested Visits Authorized [id number] Closed 04/28/2025 06/29/2025 1 1 * MRI/CAT Scan - Closed Specialty Diagnoses / Procedures Referred By Contac t Referred To Contact Radiology Diagnoses Malignant neoplasm of urinary bladder, unspecified site Procedures CT Abdomen/Pelvis CT CHEST CHG CT SCAN,ABDOMENT AND PELVIS,W CONTRAST Jeniffer Grimaldo CNP [address] [place] [address] Phone: tel: fax: mailto:[email or web address] Referral ID Status Reason Start Date Expiration Date Visits Re quested Visits Authorized Closed 04/28/2025 07/05/2025 1 1 * MRI/CAT Scan - Closed Specialty Diagnoses / Procedures Referred By Contac t Referred To Contact Radiology Diagnoses Malignant neoplasm of urinary bladder, unspecified site Procedures CT Chest CT ABDOMEN/PELVIS CHG DIAGNOSTIC COMPUTED TOMOGRAPHY THORAX W/CONTRAST Jeniffer Grimaldo CNP [address] [place] [address] Phone: tel: fax: mailto:[email or web address] Referral ID Status Reason Start Date Expiration Date Visits Re quested Visits Authorized [id number] Closed 04/28/2025 07/05/2025 1 1 Reason for Visit * MRI/CAT Scan - Closed Specialty Diagnoses / Procedures Referred By Contac t Referred To Contact Radiology Diagnoses Malignant neoplasm of urinary bladder, unspecified site Procedures CT Neck CHG CT NECK TISSUE CONTRAST Jeniffer Grimaldo CNP [address] [place] [address] Phone: tel: fax: mailto:[email or web address] Referral ID Status Reason Start Date Expiration Date Visits Re quested Visits Authorized [id number] Closed 04/28/2025 06/29/2025 1 1 Encounter Details Date Type Department Care Team (Late st Contact Info) Description 05/12/2025 1:18 PM EST - 05/12/2025 11:59 PM EST Hospital Encounter [facility], Ct Scan - [facility] [address] [place] [address] Jeniffer Grimaldo, GUIDANCE COUNSELOR [address] [place] [address] [email or web address] Discharge Disposition: Home or Self Care [...] high school, GED, job training, learning the [place] language, technical skills, or developing parenting skills)? [...] PM EDT documented as of this encounter Medications at Time of Discharge [...] needed for anxiety (nausea). 30 tablet 5 montelukast (SINGULAIR) 10 mg tablet Take 1 tablet by mouth every morning. 5 OLANZapine (ZYPREXA) 2.5 MG tabletIndications:M alignant [...] location in comments). CancerPain-[facility] l fill ok 12 tablet 5 polyethylene glycol (MIRALAX) 17 gram packetIndications:M alignant neoplasm of overlapping sites of bladder Take 17 g by mouth nightly at bedtime. For constipation. 30 packet 2 5 predniSONE (DELTASONE) 20 MG tablet TAKE 2 TABLETS BY MOUTH EVERY DAY FOR 4 DAYS 5 prochlorperazine (COMPAZINE) 10 MG tabletIndications:M alignant neoplasm of overlapping sites of bladder Take 1 tablet (10 mg total) by mouth every 6 (six) hours as needed (nausea). 30 tablet 2 5 senna (SENOKOT) 8.6 mg tablet Take 2 tablets by mouth 2 (two) times a day. 120 tablet 3 5 VENTOLIN HFA 90 mcg/actuation inhaler Inhale 2 puffs into the lungs every 4 (four) hours as needed. 5 oseltamivir (TAMIFLU) 75 mg capsule Take 1 capsule (75 mg total) by mouth 2 (two) times a day for 5 days. 10 capsule 5 05/13/20 25 documented as of this encounter Plan of Treatment Upcoming Encounters Date Type Department Care Team (Late st Contact Info) Description 03/11/2025 Procedure Pass [facility] MR Imaging, [place] [place] [address] 06/06/2025 2:10 PM EST Blood Draw Laboratory Services, [address] [place] [address] Alicia Vanegas MD [address] [place] [id number] [email or web address] 06/06/2025 3:00 PM EST Office Visit [facility], [address] [place] [address] Alicia Vanegas MD [address] [place] [id number] [email or web address] 06/06/2025 3:30 PM EST Office Visit Adult Palliative Care, [address] [place] [address] Julianna Kenney MD, MS [address] [place] [address] and [facility], Palliative Medicine JF [address] [place] [address] [email or web address] 06/06/2025 4:00 PM EST Infusion Infusion Therapy Services [address], [address] [place] [address] Alicia Vanegas MD [address] [place] [id number] [email or web address] .[email or web address] Lianna Ramires RN [address] [place] [phone] [email or web address] 06/11/2025 1:15 PM EST Appointment [facility] Imaging, [place] [address] Edson Manley MD, MPH [address] [place] [phone] [email or web address] 06/18/2025 2:40 PM EST Office Visit [facility] [address] [place] [address] Edson Manley MD, MPH [address] [place] [phone] [email or web address] Scheduled Procedures Name Priority Associated Diagnoses Date/Ti me CYSTECTOMY WITH ILEAL CONDUIT Malignant neoplasm of posterior wall of urinary bladder documented as of this encounter Procedures Procedure Name Priority Date/Time Associated Diagnosis Comments CT CHEST WITH CONTRAST Routine 05/12/2025 2:23 PM EST Malignant neoplasm of urinary bladder, unspecified site CT ABDOMEN/PELVIS WITH CONTRAST Routine 05/12/2025 2:23 PM EST Malignant neoplasm of urinary bladder, unspecified site CT NECK SOFT TISSUE WITH CONTRAST Routine 05/12/2025 2:23 PM EST Malignant neoplasm of urinary bladder, unspecified site documented in this encounter Results * CT NECK SOFT TISSUE WITH CONTRAST (05/12/2025 2:23 PM EST) Anatomical Region Laterality Modality Neck Computed Tomogra phy 05/13/2025 8:42 AM EST Impressions 05/13/2025 8:49 AM EST 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 Narrative 05/13/2025 8:[address] NECK SOFT TISSUE WITH CONTRAST Referring clinician's provided indication for this examination in Epic: * Neck mass, initial workup TECHNIQUE: Multidetector-row CT of the neck was performed with intravenous contrast using tailored dose modulation techniques. Images were reconstructed in the axial, coronal, and sagittal planes. COMPARISON: None. FINDINGS: Brain and Orbits: Normal. No detectable abnormality is present in the imaged portions of the brain and orbits. Paranasal Sinuses and Mastoids: The visualized paranasal sinuses are clear. The mastoid air cells are clear. Aerodigestive Tract: The mucosa appears symmetrical. 1.5 cm x 0.8 cm air-filled structure to the right posterior of the trachea at the level of the thoracic inlet likely represents a tracheal diverticulum. Lymph Nodes: Normal. There are no nodes meeting CT criteria for pathologic involvement. Salivary Glands: Normal. No obvious lesion is present. Thyroid Gland: The gland is homogenous in attenuation. Vessels: The major cervical vessels enhance normally. Lung Apices: Assessed on same-day chest CT. Bones: Normal. No suspicious osseous lesions are present. Soft tissues: Unremarkable. Procedure Note Charles Madera MD - 05/13/2025 CT NECK SOFT TISSUE WITH CONTRAST Referring clinician's provided indication for this examination in Epic: *Neck mass, initial workup TECHNIQUE: Multidetector-row CT of the neck was performed with intravenouscontrast using tailored dose modulation techniques. Images werereconstructed in the axial, coronal, and sagittal planes. COMPARISON: None. FINDINGS: Brain and Orbits: Normal. No detectable abnormality is present in theimaged portions of the brain and orbits. Paranasal Sinuses and Mastoids: The visualized paranasal sinuses areclear. The mastoid air cells are clear. Aerodigestive Tract: The mucosa appears symmetrical. 1.5 cm x 0.8 cmair-filled structure to the right posterior of the trachea at the level ofthe thoracic inlet likely represents a tracheal diverticulum. Lymph Nodes: Normal. There are no nodes meeting CT criteria for pathologicinvolvement. Salivary Glands: Normal. No obvious lesion is present. Thyroid Gland: The gland is homogenous in attenuation. Vessels: The major cervical vessels enhance normally. Lung Apices: Assessed on same-day chest CT. Bones: Normal. No suspicious osseous lesions are present. Soft tissues: Unremarkable. 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 us Jeniffer Grimaldo [facility] IMG CT XSPECIALTY ORDERABLE S Final Result * CT ABDOMEN/PELVIS WITH CONTRAST (05/12/2025 2:23 PM EST) Anatomical Region Laterality Modality Abdomen, Pelvis Computed Tomogra phy 05/13/2025 6:10 AM EST Impressions 05/13/2025 6:23 AM EST 1. Interval decrease in size of right pelvic mass originating from the bladder and extending into the uterine cervix. No evidence for tumor extension elsewhere. 2. 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 Narrative 05/13/2025 6:[address] ABDOMEN/PELVIS WITH CONTRAST Referring clinician's provided indication for this examination in Epic: *Urologic cancer, staging TECHNIQUE: Multidetector-row CT of the abdomen and pelvis was performed after administration of intravenous contrast using tailored dose modulation techniques. Images were reconstructed in the axial, coronal, and sagittal planes. COMPARISON: NM PET CT SKULL BASE TO MID THIGHS ; CT ABDOMEN/PELVIS WITH CONTRAST ; MRI PELVIS (BONE) OUTSIDE (NO INTERPRETATION) FINDINGS: Lower Chest: Reported separately Liver: No focal lesions. Biliary: No biliary ductal dilatation. Noninflamed gallbladder. Spleen: No splenomegaly or focal lesions. Pancreas: No masses or ductal dilatation. Adrenal Glands: No nodules. Kidneys/Ureters: Right kidney is surgically absent. No enhancing mass, hydronephrosis or stones in left kidney. Bowel: No distention or wall thickening. Noninflamed appendix. Peritoneum/Retroperitoneum: No masses, free air, or fluid. Lymph Nodes: No lymphadenopathy. Pelvic Organs/Bladder: Bladder is decompressed. Again seen is a soft tissue mass extending from the right posterior lateral bladder involving the uterine cervix. It measures 54 x 39 mm on series 5 image 679 and has decreased in size since prior CT of January 2025 where it measured 70 mm in maximal dimension. Uterus is of normal size. Again seen is a right adnexal fluid density lesion measuring 12 cm on series 5 image 612 and unchanged in size. Left ovary is of normal size. Vessels: No abdominal aortic aneurysm. Main portal vein is patent. Bones/Soft Tissues: No destructive osseous lesions. Procedure Note Diana Pichardo MD, PhD - 05/13/2025 CT ABDOMEN/PELVIS WITH CONTRAST Referring clinician's provided indication for this examination in [facility]:*Urologic cancer, staging TECHNIQUE: Multidetector-row CT of the abdomen and pelvis was performedafter administration of intravenous contrast using tailored dosemodulation techniques. Images were reconstructed in the axial, coronal,and sagittal planes. COMPARISON: NM PET CT SKULL BASE TO MID THIGHS ; CTABDOMEN/PELVIS WITH CONTRAST ; MRI PELVIS (BONE) OUTSIDE (NOINTERPRETATION) FINDINGS: Lower Chest: Reported separately Liver: No focal lesions. Biliary: No biliary ductal dilatation. Noninflamed gallbladder. Spleen: No splenomegaly or focal lesions. Pancreas: No masses or ductal dilatation. Adrenal Glands: No nodules. Kidneys/Ureters: Right kidney is surgically absent. No enhancing mass,hydronephrosis or stones in left kidney. Bowel: No distention or wall thickening. Noninflamed appendix. Peritoneum/Retroperitoneum: No masses, free air, or fluid. Lymph Nodes: No lymphadenopathy. Pelvic Organs/Bladder: Bladder is decompressed. Again seen is a softtissue mass extending from the right posterior lateral bladder involvingthe uterine cervix. It measures 54 x 39 mm on series 5 image 679 and hasdecreased in size since prior CT of January 2025 where it measured 70 mmin maximal dimension. Uterus is of normal size. Again seen is a rightadnexal fluid density lesion measuring 12 cm on series 5 image 612 andunchanged in size. Left ovary is of normal size. Vessels: No abdominal aortic aneurysm. Main portal vein is patent. Bones/Soft Tissues: No destructive osseous lesions. IMPRESSION: 1. Interval decrease in size of right pelvic mass originating from thebladder and extending into the uterine cervix. No evidence for tumorextension elsewhere. 2. Unchanged right centimeter cystic cystic lesion previouslycharacterized as likely epithelial ovarian neoplasm. us Jeniffer Grimaldo GUIDANCE COUNSELOR IMG CT ABD/PELVIS Final Res ult * CT CHEST WITH CONTRAST (05/12/2025 2:23 PM EST) Anatomical Region Laterality Modality Chest Computed Tomogra phy 05/13/2025 6:11 AM EST Impressions 05/13/2025 6:31 AM EST No evidence for metastases. Narrative 05/13/2025 6:[address] CHEST WITH CONTRAST Referring clinician's provided indication for this examination in [facility]: *Urologic cancer, staging TECHNIQUE: Multidetector CT of the chest was performed with intravenous contrast using tailored dose modulation techniques. COMPARISON: NM PET CT SKULL BASE TO MID THIGHS ; CT CHEST WITH CONTRAST FINDINGS: Devices/Tubes/Lines: None Lungs: No consolidation. No new or enlarging pulmonary nodules. Central airways are clear. Pleura: No effusions or pneumothorax Mediastinum: Heart and great vessels are within normal limits. Lymph Nodes: No lymphadenopathy. Upper Abdomen: Reported separately Chest Wall: No mass Bones: No destructive osseous lesions. Procedure Note Diana Pichardo MD, PhD - 05/13/2025 CT CHEST WITH CONTRAST Referring clinician's provided indication for this examination in [facility]:*Urologic cancer, staging TECHNIQUE: Multidetector CT of the chest was performed with intravenouscontrast using tailored dose modulation techniques. COMPARISON: NM PET CT SKULL BASE TO MID THIGHS ; CT CHEST WITHCONTRAST FINDINGS: Devices/Tubes/Lines: None Lungs: No consolidation. No new or enlarging pulmonary nodules. Centralairways are clear. Pleura: No effusions or pneumothorax Mediastinum: Heart and great vessels are within normal limits. Lymph Nodes: No lymphadenopathy. Upper Abdomen: Reported separately Chest Wall: No mass Bones: No destructive osseous lesions. IMPRESSION: No evidence for metastases. Jeniffer Grimaldo [facility] CT CHEST Final Resul t documented in this encounter Visit Diagnoses Diagnosis Malignant neoplasm of urinary bladder, unspecified site documented in this encounter Administered Medications Inactive Administered Medications - up to 3 most recent administrations Medication Order MAR Action Action Date Dose Rate Site iohexoL (OMNIPAQUE) 9 mg iodine/mL 500 mL 500 mL, Oral, Once as needed, pre procedure/treatment, Starting on Mon05/12/25 at 1336, For 1 dose, Procedural Contrast/Med Active Now, Administer 30 minutes prior to exam. Given 05/12/2025 1:37 PM EST 500 mL iohexoL (OMNIPAQUE-350) 350 mg iodine/mL solution 100 mL 100 mL, Intravenous, Once as needed, pre procedure/treatment, Starting on Mon05/12/25 at 1404, For 1 dose, Procedural Contrast/Med Active Now, Each mL contains 755 mg of iohexol equivalent to 350 mg of organic iodine. Given 05/12/2025 2:13 PM EST 100 mL documented in this encounter Care Teams Round Corner Cutter Operator Relationship Specialty Start Date End Date Hansel Orozco PA [address] [place] [phone] PCP - General Physician Used Car Manager 01/01/25 Rupesh Monroe MD [address] [place] [id number] [email or web address] Referring Physician Urology 12/24/24 Alicia Vanegas MD [address] [place] [id number] [email or web address] Primary Oncologist Medical Oncology 12/25/24 Edson [place], [facility] [address] [place] [address] [email or web address]. [facility] Web Services Manager Oncology 01/07/25 Amanda oJhnson, [facility] [address] [place] [address] [email or web address] Web Services Manager Licensed Clinical Web Services Manager 02/03/25 Amanda Adams [address] [place] [address] [email or web address] Buyer Liaison 02/21/25 Gilbert Stinson RN [address] [place] [address] [email or web address] Primary Infusion Nurse 04/03/25 Lianna Ramires RN [address] [place] [phone] [email or web address] Associate Infusion Nurse 02/19/25 Pat Mcgill RN [address] [place] [phone] [email or web address] Primary Infusion Nurse 05/05/25 documented as of this encounter Additional Source Comments The information contained in this document represents components of the legal health record. It is not the complete legal health record.[facility]
--- OUTSIDE RECORDS SUMMARY | 2025-05-13 10:30 | XMS_ITS | Encounter Summary ---
Author Organization [facility] Address [address] [facility] [address] [place] [phone] Phone Care Team Providers Care Candle Wrapping Machine Operator Name Role Phone Rupesh Monroe MD Unavailable Alicia Vanegas MD Unavailable [phone] Hansel Orozco Primary Care Provider + Edson Washington ROOF TRUSS DETAILER Unavailable [email or web address] Amanda Johnson ROOF TRUSS DETAILER Unavailable [phone] Amanda Adams Unavailable [email or web address] Gilbert Stinson RN Unavailable [email or web address] Lianna Ramires RN Unavailable [phone] Pat Mcgill RN Unavailable [email or web address] Encounter Details Date Type Department Care Team (Latest Contact Info) Description 05/13/2025 10:30 AM EST Office Visit [facility], [facility] [place] [facility] [place] [address] [address] Edson Manley MD, MPH [address] [place] [phone] [email or web address] Malignant neoplasm of overlapping sites of bladder [...] high school, GED, job training, learning the Palestinian language, technical skills, or developing parenting skills)? [...] Sign Reading Time Taken Comments Blood Pressure 116/66 05/13/2025 10:34 AM EST Pulse 82 05/13/2025 10:34 AM EST Temperature 36.4 C (97.5 F) 05/13/2025 10:34 AM EST Respiratory Rate 16 05/13/2025 10:3 4 AM EST Oxygen Saturation 100% 05/13/2025 10: 34 AM EST Inhaled Oxygen Concentration - - Weight 66.2 kg (145 lb 15.1 oz) 025 10:34 AM EST Height - - Body Mass Index 27.55 02/12/2025 1:11 PM EDT documented in this encounter Progress Notes * Edson Manley MD, MPH - 05/13/2025 10:30 AM EST History of Present Illness Moraima Jeffrey is a 44 year old female who presents for a consultation regarding chemotherapy and immunotherapy treatment options. She has a history of hemorrhoids but denies any previous colon surgery or removal of colon polyps. No history of colon resection. 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 Pathology not available. 02/19/2023renal pelvis biopsy low-grade papillary urothelial carcinoma. July [address]24 CT abdomen pelvis multiple bladder masses largest measuring approximately 7 cm. November TURBT muscle-invasive urothelial carcinoma. On TURBT over 10 large bladder tumors. Imaging is also demonstrated a 10 cm cystic adnexal mass. November PET/CT without metastatic disease. November MRI pelvis soft to extension beyond the arellano of the bladder into the cervix. Here with her supportive sister. Case discussed with . Plan to proceed with gem cis durvalumab. 02/2025 Accompanied by her supportive daughter and sister. Has received 2 cycles to [address]. PET CT 03/19. Case discussed with Dr. Vanegas by phone 04/[address] Vanegas. Systemic therapy completed 05/06/25, 4 cycles of neoadjuvant cisplatin/gemcitabine/durvalumab. Here with supportive daughter. PET CT 03/2026 bladder wall thickening with concern for extravesical extension into the uterus cervix. Increased size of right adnexal mass, concerning for ovarian neoplasm. CT CAP right pelvic mass originating from the bladder, extending into cervix, no chest disease. PET/CT also noted a neck lesion. 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 PMH Asthma Nephrolithiasis Gross hematuria Colon obstruction Depression Anxiety disorder - has not needed medications for many years CKD PSH May 2023 nephroureterectomy for Upper tract urothelial carcinoma Hemorrhoidectomy Bladder surgery Medications Advair 100-50 Ventolin HFA Montelukast Shaan orozco - pcp [place] Family history Brother had colon cancer at a very young age Dad's GM ca (unknown type) Ma cousin lymphoma and her daughter lymphoma Social history Lives with her 4 children 21 yo daughter who is 20 stella 17 unique 12 Karon her sister comes with her today and lives close by Current Outpatient Medications Ordered in Epic Medication [...] (six) hours as needed for anxiety (nausea). montelukast (SINGULAIR) 10 mg tablet Take 1 tablet by mouth every morning. OLANZapine (ZYPREXA) 2.5 MG tablet Take 1 tablet by mouth nightly on days 2-4 of chemotherapy cycle. ondansetron (ZOFRAN-ODT) 8 MG disintegrating tablet Take 1 tablet by mouth every 8 hours on days 2-4 of chemotherapy cycle. Can use every 8 hours as needed thereafter. oseltamivir (TAMIFLU) 75 mg capsule Take 1 capsule (75 mg total) by mouth 2 (two) times a day for 5days. oxyCODONE 5 MG immediate release tablet Take 1 tablet (5 mg total) by mouth every 6 (six) hours as needed for pain (specific location in comments). CancerPain-partial fill ok polyethylene glycol (MIRALAX) 17 gram packet Take 17 g by mouth nightly at bedtime. For constipation. predniSONE (DELTASONE) 20 MG tablet TAKE 2 TABLETS BY MOUTH EVERY DAY FOR 4 DAYS prochlorperazine (COMPAZINE) 10 MG tablet Take 1 tablet (10 mg total) by mouth every 6 (six) hours as needed (nausea). senna (SENOKOT) 8.6 mg tablet Take 2 tablets by mouth 2 (two) times a day. VENTOLIN HFA 90 mcg/actuation inhaler Inhale 2 puffs into the lungs every 4 (four) hours as needed. No Known Allergies No family history on file. Physical Exam BP 117/70 (BP Location: Left arm, Patient Position: Sitting, Cuff Size: Medium) Pulse 69 Temp 36.7 ??C (98 ??F) (Temporal) Resp 12 Ht 155.5 cm (5' 1.22 ) Wt 62.3 kg (137 lb 5.6 oz) SpO2 98% BMI 25.77 kg/m?? Constitutional: The patient is well developed, well nourished, alert and oriented, and appears her stated age. Head and Neck: PERRLA. Oropharynx is clear. There is no cervical lymphadenopathy. Resp: no respiratory distress Abdomen: Soft, non-tender, non-distended. Back: No spinal tenderness. There is no costovertebral angle tenderness bilaterally. Extremities: No edema. Warm and well perfused. Neurologic: No deficits noted. Skin: No lesions noted. Results Assessment & Plan Bladder cancer with extension to adjacent organs radiographically Right pelvic mass concerning for ovarian neoplasm Solitary kidney left History of chemotherapy/immunotherapy Today we discussed the plan for surgery. We reviewed details of the operation, anticipated recovery timeline and risk of complications. Focused on reviewing cystectomy with resection of ovarian mass that would be done with gynecologic oncology. We reviewed the plan for cystectomy, hysterectomy, bilateral salpingo- oophorectomy, anterior vaginectomy, pelvic node dissection open and robotic approaches discussed. Given the size of the pelvic cyst discussed an open approach.. Surgical options for urinary reconstruction include neobladder or ileal conduit. Risks and benefitsof surgery discussed including the possibility of complications resulting in morbidity and mortality. She has given this extensive thought and would like to proceed with an ileal conduit. Impact to sexual function were reviewed. Resources from the bladder Cancer [facility] for additional information including handouts, webinars, and other patients were offered. Had questions regarding ovarian sparing though given the imaging findings discussed the rationale behind bilateral salpingo-oophorectomy and will arrange for her to meet with gynecologic oncology prior to surgery as well for further discussion. Email sent today to facilitate setting up an appointment. She will continue to work on optimizing her functional status and nutritional intake. - MRI 06/11/2025 for local staging with clinic visit 06/10/2025 - Schedule surgery in approximately 6 to 8 weeks, tentatively mid June - coordinate care with Dr. Sears - Coordinate care with gynecologic oncology Total time spent on 05/13/2025 for this visit in pfxp-ea-uijo and non lqrg-di-jlak time reviewing, obtaining, and documenting clinical information, coordinating with the care team and other specialists, and counseling the patient: 40 minutes. I have maintained a long-term relationship with the patient, overseeing the care of their complex urologic problem. This has significantly influenced my decision-making and treatment plans during today???s encounter. documented in this encounter Plan of Treatment Upcoming Encounters Date Type Department Care Team (Late st Contact Info) Description 03/11/2025 Procedure Pass [facility] MR Imaging, [place] [address] [place] [address] 06/06/2025 2:10 PM EST Blood Draw Laboratory Services, [facility] [place] [address] [place] [address], 2nd [place] [address] Alicia Vanegas MD [address] [place] [phone] [email or web address] 06/06/2025 3:00 PM EST Office Visit [facility], [address] [place] [address] Alicia Vanegas MD [address] [place] [phone] [email or web address] 06/06/2025 3:30 PM EST Office Visit Adult Palliative Care, [address] [place] [address] Julianna Kenney MD, MS [address] [place] [address], Palliative Medicine [address] [place] [address] [email or web address] 06/06/2025 4:00 PM EST Infusion Infusion Therapy Services [address], [address] [place] [address] Alicia Vanegas MD [address] [place] [phone] [email or web address] Lianna Ramires RN [address] [place] [phone] [email or web address] 06/11/2025 1:15 PM EST Appointment [facility] MR Imaging, [place] [address] [place] [address] Edson Manley MD, MPH [address] [address] [email or web address] 06/18/2025 2:40 PM EST Office Visit [facility] [address] [place] [address] Edson Manley MD, MPH [address] [place] [phone] [email or web address] Scheduled Procedures Name Priority Associated Diagnoses Date/Ti me CYSTECTOMY WITH ILEAL CONDUIT Malignant neoplasm of posterior wall of urinary bladder documented as of this encounter Visit Diagnoses Diagnosis Malignant neoplasm of overlapping sites of bladder- Primary documented in this encounter Care Teams Candle Wrapping Machine Operator Relationship Specialty Start Date End Date Hansel Orozco PA [address] [place] [phone] PCP - General Physician Poultry Service Technician 01/01/25 Rupesh Monroe MD [address] [place] [phone] [email or web address] Referring Physician Urology 12/24/24 Alicia Vanegas MD [address] [place] [phone] [email or web address] Primary Oncologist Medical Oncology 12/25/24 Edson Washington, [facility] [address] [place] [address] [email or web address] Application Release Manager Oncology 01/07/25 Amanda Johnson, [facility] [address] [place] [address] [email or web address] Application Release Manager Licensed Clinical Application Release Manager 02/03/25 Amanda Adams [address] [place] [address] [email or web address] Professor Of Art 02/21/25 Gilbert Stinson RN [address] [place] [phone] [email or web address] Primary Infusion Nurse 04/03/25 Lianna Ramires RN [address] [place] [phone] [email or web address] Associate Infusion Nurse 02/19/25 Pat Mcgill, MARIJA [address] [place] [address] [email or web address] Primary Infusion Nurse 05/05/25 documented as of this encounter Additional Source Comments The information contained in this document represents components of the legal health record. It is not the complete legal health record.[facility]
[2025-05-17 14:41] VITALS: BP 109/55; PULSE 86; RESP 18; TEMP 36.9; O2SAT 99; BMI 29.4
--- NOTE | 2025-05-17 14:51 | ED.GENADULT ---
HPI - General Adult General Chief complaint: Eye Problems Stated complaint: pressure behind eyes Time Seen by Provider: 05/17/25 14:49 Source: patient, RN notes reviewed and old records reviewed Mode of arrival: ambulatory Limitations: no limitations History of Present Illness ED Provider: Jean Carlos DRISCOLL narrative: 45-year-old female presents for evaluation of pressure behind her eyes, eye redness and discharge from the eyes pain She was treated with Tamiflu for the flu 2 weeks ago. She reports 5 days of discharge from the eyes pain She reports that the eyes are very itchy and they seems swollen pain She denies getting anything in the eyes. She wears glasses but does not wear contacts ever Related Data Home Medications ?Medication ?Instructions ?Recorded ?Confirmed oxycodone 5 mg tablet 5 mg PO BID PRN 04/10/25 04/10/25 Previous Rx's ?Medication ?Instructions ?Recorded albuterol sulfate 90 mcg/actuation 1 inh inhalation QID PRN shortness 01/23/25 aerosol inhaler of breath or wheezing #6.7 grams fluticasone 100 mcg-salmeterol 50 1 ea inhalation BID PRN Shortness 01/23/25 mcg/dose blistr powdr for Of Breath Or Wheezing #60 ea inhalation (Advair Diskus) montelukast 10 mg tablet 10 mg PO DAILY #90 tabs 01/23/25 erythromycin 5 mg/gram (0.5 %) eye 0.5 inch ophthalmic (eye) TID #3.5 05/17/25 ointment grams Allergies Allergy/AdvReac Type Severity Reaction Status Date / Time bupropion (From Wellbutrin) AdvReac Intermediate Rash Verified 05/17/25 14:44 Review of Systems Constitutional: Constitutional: Denies headache(s) Eyes: Eyes: Denies blurry vision, Denies exophthalmos, Reports eye discharge, Reports irritation, Reports itchy eyes, Reports requires corrective lenses, Denies photophobia and Denies spots in vision ENT: Denies headache(s) Neurologic: Denies headache(s) Allergic/Immunologic: Allergic/Immunologic: Reports itchy eyes PMFSH Past Medical History Medical History Urothelial carcinoma of kidney S/p nephrectomy Anxiety Hemorrhoids with complication Asthma Surgical History History of kidney removal History of gastric surgery History of hemorrhoidectomy History of surgery Family History Family History Mother No problems noted. Father Diabetes High blood pressure CVA (cerebral vascular accident), Onset Age: 59 Brother Brain tumor Social History Social History Housing: Apartment Alcohol intake: current Alcohol intake frequency: holidays/special occasions only Patient Tobacco Use Status: Former Tobacco user Tobacco use type: Cigarette Years Smoked: 8 e-Cigarette/Vaping Use: Never Used Second Hand Smoke Exposure: No Advance Directives: No Advance Directives Information Provided: Yes Do you have a plan to hurt others: No Plan service: No Current occupational status: unemployed Cognitive needs: No Hearing needs: No Vision needs: Yes (glasses) Physical Exam ED Vital Signs: Vital Signs - 24 hr 05/17/25 14:41 Temperature 98.4 F Pulse Rate 86 Respiratory Rate 18 Blood Pressure 109/55 L Pulse Oximetry 99 Oxygen Delivery Method Room Air BMI result Body Mass Index 29.4 Const General: healthy appearing, comfortable, no acute distress, alert and awake Nutritional Appearance: well nourished Orientation/consciousness: patient oriented x3 HENMT Head: Yes normocephalic and Yes atraumatic Eyes Eyelids: Yes eyelids normal Conjunctivae: conjunctival abnormal bilateral conjunctival injection ( mild and diffuse) Sclerae: sclerae normal Corneas: corneas normal Pupils: Equal, round and reactive pupils present EOM: EOMs intact bilaterally Direct Ophthalmoscopy: No photophobia Neuro General: patient oriented x3 Cranial nerves: Yes Equal, round and reactive pupils present and Yes Bilaterally intact EOM present Cognition (Neuro): normal cognition Extrem Other: Moving all extremities well without any obvious deformities Medical Decision Making Medical Decision Making MDM Narrative: 45-year-old female presents for evaluation of bilateral eye redness, itching and discharge. She has mild conjunctival injection. History exam is consistent with conjunctivitis. This may be viral due to her recent influenza but we will treat with erythromycin ointment. She does not wear contacts Differential Diagnosis Differential Diagnoses: The differential diagnosis associated with the presentation includes conjunctivitis Foreign body Iritis Sinusitis Discharge Plan Discharge Clinical Impression: Conjunctivitis Patient Disposition: Home, Self-Care Instructions: Conjunctivitis (ED) Additional Instructions: your symptoms are consistent with pinkeye. This may be caused by a virus, but take the antibiotics as prescribed return for new or worsening symptoms Prescriptions: New erythromycin 5 mg/gram (0.5 %) ointment 0.5 inch ophthalmic (eye) TID Qty: 3.5 0RF No Action fluticasone propion-salmeterol [Advair Diskus] 100-50 mcg/dose blister with device 1 ea inhalation BID PRN (Reason: Shortness Of Breath Or Wheezing) Qty: 60 1RF albuterol sulfate 90 mcg/actuation HFA aerosol inhaler 1 inh inhalation QID PRN (Reason: shortness of breath or wheezing) Qty: 6.7 1RF montelukast 10 mg tablet 10 mg PO DAILY Qty: 90 1RF oxycodone 5 mg tablet 5 mg PO BID PRN Print Language: Vietnamese
--- OUTSIDE RECORDS SUMMARY | 2025-05-17 15:04 | XMS_ITS | Encounter Summary ---
Demographics Address [address], [facility] [address] [place] [address] Mobile Phone Home Phone Preferred Language en Marital Status Unknown Confucianism Affiliation Unknown Race Unknown Ethnic Group or Author Organization [facility] Address [address] [place] [address] Care Team Providers Care Electrical Assemblies Supervisor Name Role Phone Physician, No Pcp Primary Care Provider Unavaila ble Encounter Details Date Type Department Care Team (Late st Contact Info) Description 10/11/2024 Lab Requisition [facility] - Main Lab [address] [facility] [place] [address] Rupesh Monroe MD [address] [facility] [address] [place] [address] Dysuria Social History Tobacco Use [...] situ: Not identified 10/11/2024 4:38 PM EDT [facility] at 1638 EDT Clinical Information Z85.51 - H/O bladder neoplasm (malignant) R30.0 [id number] 10/11/2024 4:38 PM EDT [facility] Gross Description A. Urinary Bladder, Tumor: Labeled bladder tumor . Received in formalin is a 2.3 x 2.1 x 1.6 cm aggregate of friable, pink-shaw tissue fragments. The specimen is wrapped in paper and submitted in toto in 6 cassettes, multiple pieces each. /al 10/11/2024 4:38 PM EDT [facility] Disclaimer Unless otherwise specified, all tissue is 10% NB formalin fixed and paraffin embedded. Technical pathology services provided by [facility]rology at [address] [facility] [address], [place] [address] (CLIA #[id number]/Emma Mullins MD, Brick Loader) 10/11/2024 4:38 PM EDT [facility] Tissue Urinary bladder structure / Unknown 10/09/2024 10/11/2024 11:06 AM EDT us Rupesh Monroe MD LAB PATHOLOGY ORDERABLES Final Result [facility] [address] [place] [address], documented in this encounter Visit Diagnoses Diagnosis Dysuria documented in this encounter Care Teams Electrical Assemblies Supervisor Relationship Specialty Start Date End Date Physician, No Pcp PCP - General 11/28/24 documented as of this encounter
--- OUTSIDE RECORDS SUMMARY | 2025-05-17 15:04 | XMS_ITS | Encounter Summary ---
Demographics Address [address] [facility] [address] [place] [address] Mobile Phone Work Phone Home Phone Preferred Language es Marital Status Single Congregation Affiliation Unknown Race White Ethnic Group Unknown Author Organization [employer] Address [address] [facility] [address] [place] [address] Care Team Providers Care Office Automation Technician Name Role Phone Unavailable Primary Care Provider Unavailabl e Encounter Details Date Type Department Care Team (Latest Contact Info) Description 06/19/2019 Abstract [facility] CONVERSIONS Dental, Provider, DDS Social History Tobacco [...]
--- OUTSIDE RECORDS SUMMARY | 2025-05-17 15:04 | XMS_ITS | Encounter Summary ---
Author Organization [facility] Address [address] [facility] [address] [place] [address] Phone Care Team Providers Care Speed Runner Name Role Phone Rupesh Monroe MD Unavailable [phone] Alicia Vanegas MD Unavailable [phone] Hansel Orozco Primary Care Provider + Edson Washington DIGITAL ARTIST Unavailable Isabella [email or web address] Amanda Johnson DIGITAL ARTIST Unavailable [phone] Tati Ford RN Unavailable Guzman [email or web address].[facility] Lianna Ramires RN Unavailable [phone] Amanda Adams Unavailable Claudette@[email or web address] Gilbert Stinson RN Unavailable Mary@ [email or web address] Lianna Ramires RN Unavailable [phone] Pat Mcgill RN Unavailable Nurys@ [facility].[place].[facility] Encounter Details Date Type Department Care Team (Late st Contact Info) Description 01/29/2025 Procedure Pass [facility] [place], [place] [address] [address] Social History Tobacco Use Types Packs/Day [...] high school, GED, job training, learning the Mauritian language, technical skills, or developing parenting skills)? [...] st Contact Info) Description 03/11/2025 Procedure Pass [facility] MR Imaging, [place] [address] [place] [address] 06/06/2025 2:10 PM EST Blood Draw Laboratory Services, [address], 2nd [place] [address] Alicia Vanegas MD [address] [place] [phone] [email or web address]@[email or web address] 06/06/2025 3:00 PM EST Office [facility], [address] [place] [address] Alicia Vanegas MD [address] [place] [phone] Melida@[facility] 06/06/2025 3:30 PM EST Office Visit Adult Palliative Care, [address] [place] [address] Julianna Kenney MD, [place] [address] [place] [address] and [facility], Palliative Medicine JF 8 [place] [address] [email or web address] 06/06/2025 4:00 PM EST Infusion Infusion Therapy Services [facility] [address], [address] [place] [address] Alicia Vanegas MD [address] [place] [phone] Melida@[email or web address] Lianna Ramires RN [address] [place] [address] [email or web address] 06/11/2025 1:15 PM EST Appointment [facility] MR Imaging, [place] [address] Edson Manley MD, MPH [address] [place] [phone] STANISLAV@[facility] 06/18/2025 2:40 PM EST [facility] [address] [place] [address] Edson Manley MD, MPH [address] [place] [phone] [email or web address]@[facility] Scheduled Procedures Name Priority Associated Diagnoses Date/Ti me CYSTECTOMY WITH ILEAL CONDUIT Malignant neoplasm of posterior wall of urinary bladder documented as of this encounter Visit Diagnoses Not on filedocumented in this encounter Care Teams Speed Runner Relationship Specialty Start Date End Date Hansel Orozco PA [address] [place] [address] PCP - General Physician Detention Officer 01/01/25 Rupesh Monroe MD [address] [place] [phone] [email or web address] Referring Physician Urology 12/24/24 Alicia Vanegas MD [address] [place] [phone] Melida@[facility] Primary Oncologist Medical Oncology 12/25/24 Edson Washington, [facility] [address] [place] [address] Ramo@[email or web address] Administrative Personal Assistant Oncology 01/07/25 Amanda Johnson, [facility] [address] [place] [address] [email or web address] Administrative Personal Assistant Licensed Clinical Administrative Personal Assistant 02/03/25 Tati Ford, MARIJA [address] [place] [address] Elyssa@[facility] Primary Infusion Nurse 02/13/25 04/02/25 Lianna Ramires RN [address] [place] [phone] SLIM@[facility] Associate Infusion Nurse 02/20/25 04/06/25 Amanda Adams [address] [place] [address] Claudette@[email or web address] Lamp Cleaner Street Light 02/21/25 Gilbert Stinson RN [address] [place] [address] [email or web address] Primary Infusion Nurse 04/03/25 Lianna Ramires RN [address] [place] [address] [email or web address] Associate Infusion Nurse 02/19/25 Pat Mcgill, MARIJA [address] [place] [phone] Nurys@[email or web address] Primary Infusion Nurse 05/05/25 documented as of this encounter Additional Source Comments The information contained in this document represents components of the legal health record. It is not the complete legal health record.[facility]
--- OUTSIDE RECORDS SUMMARY | 2025-05-17 15:04 | XMS_ITS | Clinical Summary ---
Demographics Address [address] [facility] [address] [place] [address] Mobile Phone Work Phone Home Phone Preferred Language es Marital Status Single Congregation Affiliation Unknown Race White Ethnic Group Unknown Author Organization [employer] Address [address] [facility] 7t [place] [address] Care Team Providers Care Mini Bar Attendant Name Role Phone Unavailable Primary Care Provider [...] Most Recently Relevant to Health Maintenance Insurance [facility] * Guarantor: Moraima Jeffrey Account Type Relation to Patient Date of Phone Billing Address Dental Self [address] [place] [address] [facility] [place] [address] [place] [address] [place] [address]
--- OUTSIDE RECORDS SUMMARY | 2025-05-17 15:04 | XMS_ITS | Encounter Summary ---
Demographics Address [address], [facility] [address] [place] [address] Mobile Phone Home Phone Preferred Language en Marital Status Unknown Christian Affiliation Unknown Race Unknown Ethnic Group or Author Organization [facility] Address [address] [place] [address] Care Team Providers Care Meter Tester Name Role Phone Physician, No Pcp Primary Care Provider Unavaila ble Encounter Details Date Type Department Care Team (Late st Contact Info) Description 06/12/2024 Lab Requisition [facility] - Main Lab [address] [place] [address] Miguel Garcia PA [address] [place] [phone] Urinary tract infection, site not specified Social [...] Urine No growth 06/13/2024 1:16 PM EST [facility] Urine Urine specimen obtained by clean catch procedure / Unknown 06/12/2024 06/12/2024 6:12 PM EST us Miguel [facility] MICROBIOLOGY - GENERAL ORD ERABLES Final Result [facility] [address] [place] [address], documented in this encounter Visit Diagnoses Diagnosis Urinary tract infection, site not specified documented in this encounter Care Teams Meter Tester Relationship Specialty Start Date End Date Physician, No Pcp PCP - General 11/28/24 documented as of this encounter
--- OUTSIDE RECORDS SUMMARY | 2025-05-17 15:04 | XMS_ITS | Encounter Summary ---
Author Organization [facility] Address [address] [facility] [address] [place] [address] Phone Care Team Providers Care Remelt Worker Name Role Phone Rupesh Monroe MD Unavailable [phone] Alicia Vanegas MD Unavailable [phone] Hansel Orozco Primary Care Provider + Edson Washington EXECUTIVE SALES ASSISTANT Unavailable Isabella Fisher@[email or web address] Amanda Johnson EXECUTIVE SALES ASSISTANT Unavailable [phone] Tati Ford RN Unavailable Guzman [email or web address] Lianna Ramires RN Unavailable [phone] Amanda Adams Unavailable Claudette@[facility] Gilbert Stinson RN Unavailable Mary@ [email or web address] Lianna Ramires RN Unavailable [phone] Pat Mcgill RN Unavailable Nurys@ [facility] Encounter Details Date Type Department Care Team (Late st Contact Info) Description 01/29/2025 Procedure Pass [facility] Cancer [place], [place] [address] [address] Social History Tobacco Use Types [...] high school, GED, job training, learning the Cameroonian language, technical skills, or developing parenting skills)? [...] st Contact Info) Description 03/11/2025 Procedure Pass [facility] MR Imaging, [place] [address] [place] [address] 06/06/2025 2:10 PM EST Blood Draw Laboratory Services, [address], 2nd [place] [address] Alicia Vanegas MD [address] [place] [address] Melida@[facility] 06/06/2025 3:00 PM EST Office Visit [facility], [address] [place] [address] Alicia Vanegas MD [address] [place] [address] Melida@[facility] 06/06/2025 3:30 PM EST Office Visit Adult Palliative Care, [address] [place] [address] Julianna Kenney MD, [place] [address] [place] [address] and [facility], [facility] JF [address] [place] [address] [email or web address] 06/06/2025 4:00 PM EST Infusion Infusion Therapy Services [facility] [address], [address] [place] [address] Alicia Vanegas MD [address] [place] [address] Melida@[email or web address] .[facility] Lianna Ramires RN [address] [place] [phone] [email or web address] .[facility] 06/11/2025 1:15 PM EST Appointment [facility] MR Imaging, [place] [address] Edson Manley MD, MPH [address] [place] [phone] STANISLAV@[facility] 06/18/2025 2:40 PM EST Office Visit [facility] [address] [place] [address] Edson Manley MD, MPH [address] [place] [phone] STANISLAV@[facility] Scheduled Procedures Name Priority Associated Diagnoses Date/Ti me CYSTECTOMY WITH ILEAL CONDUIT Malignant neoplasm of posterior wall of urinary bladder documented as of this encounter Visit Diagnoses Not on filedocumented in this encounter Care Teams Remelt Worker Relationship Specialty Start Date End Date Hansel Orozco PA [address] [place] [address] PCP - General Physician Flyer Builder 01/01/25 Rupesh Monroe MD [address] [place] [phone] [email or web address] Referring Physician Urology 12/24/24 Alicia Vanegas MD [address] [place] [address] Melida@[facility] Primary Oncologist Medical Oncology 12/25/24 Edson Washington, [facility] [address] [place] [address] Ramo@[email or web address]. [facility] Director Patient Oncology 01/07/25 Amanda Johnson, [facility] [address] [place] [address] [email or web address] Director Patient Licensed Clinical Director Patient 02/03/25 Tati Ford, MARIJA [address] [place] [address] Elyssa@[email or web address] Primary Infusion Nurse 02/13/25 04/02/25 Lianna Ramires RN [address] [place] [address] SLIM@[facility] Associate Infusion Nurse 02/20/25 04/06/25 Amanda Adams [address] [place] [address] Claudette@[email or web address] Boat Builder And Repairer 02/21/25 Gilbert Stinson RN [address] [place] [address] [email or web address] Primary Infusion Nurse 04/03/25 Lianna Ramires RN [address] [place] [address] [email or web address] Associate Infusion Nurse 02/19/25 Pat Mcgill, MARIJA [address] [place] [phone] Nurys@[email or web address] Primary Infusion Nurse 05/05/25 documented as of this encounter Additional Source Comments The information contained in this document represents components of the legal health record. It is not the complete legal health record.[facility]
--- OUTSIDE RECORDS SUMMARY | 2025-05-17 15:04 | XMS_ITS | Encounter Summary ---
Demographics Address [address], [facility] [address] [place] [address] Mobile Phone Home Phone Preferred Language en Marital Status Unknown Caodaism Affiliation Unknown Race Unknown Ethnic Group or Author Organization [facility] Address [address] [place] [address] Care Team Providers Care Financial Retirement Plan Specialist Name Role Phone Physician, No Pcp Primary Care Provider Unavaila ble Encounter Details Date Type Department Care Team (Late st Contact Info) Description 11/28/2024 Lab Requisition [facility] - Main Lab [address] [facility] [place] [address] Rupesh Monroe MD [address] [facility] [address] [place] [address] Malignant neoplasm of lateral wall of bladder ([facility] V24, CMS/[facility] V28) Social History Tobacco Use Types Packs/Day [...] of lateral wall of bladder (CMS/HCC V24, CMS/[facility] V28) documented in this encounter Results * Anatomic pathology outside consult (11/27/2024) Final Diagnosis Urinary bladder-trans urethral resection bladder: -PAPILLARY UROTHELIAL CARCINOMA, HIGH GRADE -Tumor invades muscularis propria, (Detrusor muscle): -Lymphovascul ar invasion: Not identified -Urothelial carcinoma in situ: Not identified 12/02/2024 2:01 PM EDT [facility] HOSPITAL LAB at 1401 EDT Clinical Information Z85.51 H/O bladder neoplasm (malignant) C67.2 [id number] 12/02/2024 2:01 PM EDT [facility] Gross Description A. Urinary Bladder, Tumor: Labeled bladder tumor . Received in formalin is a 1.5 x 1.5 x 0.2 cm aggregate of friable, pink-shaw tissue fragments which are filtered through paper and submitted in toto in one cassette, multiple pieces, multiple levels. /rc 12/02/2024 2:01 PM EDT [facility] Disclaimer Unless otherwise specified, all tissue is 10% NB formalin fixed and paraffin embedded. Technical pathology services provided by [facility] Urology at [address] [facility] [address], [place] [address] (CLIA #[id number]/S neftali Mullins MD, Underwear Hemmer) 12/02/2024 2:01 PM EDT [facility] Tissue Urinary bladder structure / Unknown 11/27/2024 11/28/2024 4:24 PM EDT us Rupesh Monroe MD LAB PATHOLOGY ORDERABLES Final Result [facility] [address] [place] [address], documented in this encounter Visit Diagnoses Diagnosis Malignant neoplasm of lateral wall of bladder (CMS/HCC V24, CMS/HCC V28) Malignant neoplasm of lateral wall of urinary bladder documented in this encounter Care Teams Financial Retirement Plan Specialist Relationship Specialty Start Date End Date Physician, No Pcp PCP - General 11/28/24 documented as of this encounter
--- OUTSIDE RECORDS SUMMARY | 2025-05-17 15:04 | XMS_ITS | Encounter Summary ---
Demographics Address [address] [facility] [address] [place] [address] Mobile Phone Work Phone Home Phone Preferred Language es Marital Status Single Synagogue Affiliation Unknown Race White Ethnic Group Unknown Author Organization [employer] Address [address] [facility] [facility] [address] [place] [address] Care Team Providers Care Layout Operator Name Role Phone Unavailable Primary Care Provider Unavailabl e Encounter Details Date Type Department Care Team (Latest Contact Info) Description 06/19/2020 Abstract [facility] CONVERSIONS Dental, Provider, DDS Social History Tobacco [...]
--- OUTSIDE RECORDS SUMMARY | 2025-05-17 15:04 | XMS_ITS | Encounter Summary ---
Author Organization [facility] Address [address] [place] [address] Care Team Providers Care Horse Identifier Name Role Phone Physician, No Pcp Primary Care Provider Unavaila ble Encounter Details Date Type Department Care Team (Late st Contact Info) Description 10/28/2024 Lab Requisition [facility] - Main Lab [address] [facility] [place] [address] Rupesh Monroe MD [address] [facility] [address] [place] [address] Malignant neoplasm of lateral wall of bladder (CMS/HCC V24, CMS/[facility] V28) Social History Tobacco Use Types Packs/Day [...] situ: Not identified 10/30/2024 1:01 PM EDT [facility]) HOSPITAL LAB at 1301 EDT Clinical Information Z85.51 H/O bladder neoplasm (malignant) C67.2 [id number] 10/30/2024 1:01 PM EDT [facility] Gross Description A. Urinary Bladder, tumor: Labeled Bladder tumor . Received in formalin is a 1.7x1.0x0.6cm aggregate of friable, pink-shaw tissue fragments. The specimen is wrapped in paper and submitted in toto in 3 cassettes, multiple pieces each. /al 10/30/2024 1:01 PM EDT [facility] Disclaimer Unless otherwise specified, all tissue is 10% NB formalin fixed and paraffin embedded. Technical pathology services provided by [facility] Urology at [address] [facility] [address], [place] [address] (CLIA #[id number]/Emma Mullins MD, Ukrainian Folk Arts Instructor) 10/30/2024 1:01 PM EDT [facility] Tissue Urinary bladder structure / Unknown 10/25/2024 10/28/2024 3:26 PM EDT us Rupesh Monroe MD LAB PATHOLOGY ORDERABLES Final Result [facility] [address] [place] [address], documented in this encounter Visit Diagnoses Diagnosis Malignant neoplasm of lateral wall of bladder (CMS/HCC V24, CMS/HCC V28) Malignant neoplasm of lateral wall of urinary bladder documented in this encounter Care Teams Horse Identifier Relationship Specialty Start Date End Date Physician, No Pcp PCP - General 11/28/24 documented as of this encounter
--- OUTSIDE RECORDS SUMMARY | 2025-05-17 15:05 | XMS_ITS | Clinical Summary ---
Author Organization [facility] Address [address] [facility] [address] [place] [address] Phone Care Team Providers Care Sound Cutter Name Role Phone Rupesh Monroe MD Unavailable [phone] Alicia Vanegas MD Unavailable [phone] Hansel Orozco Primary Care Provider + Edson Washington MEDICAL IMAGING TECH Unavailable [email or web address] Amanda Johnson MEDICAL IMAGING TECH Unavailable [phone] Amanda Adams Unavailable [email or web address] Gilbert Stinson RN Unavailable [email or web address] Lianna Ramires RN Unavailable [phone] Pat Mcgill RN Unavailable [email or web address] Allergies No known active allergies Medications VENTOLIN [...] constipation. Active polyethylene glycol (MIRALAX) 17 gram packetIndications :Malignant neoplasm of overlapping sites of bladder Take 17 g by mouth nightly at bedtime. For constipation. 30 packet 2 02/04/20 25 Active OLANZapine (ZYPREXA) 2.5 MG tabletIndications :Malignant neoplasm of overlapping sites of bladder Take 1 tablet by mouth nightly on days 2-4 of chemotherapy cycle. 30 tablet 02/13/20 25 Active prochlorperazine (COMPAZINE) 10 MG tabletIndications :Malignant neoplasm of overlapping sites of bladder Take 1 tablet (10 mg total) by mouth every 6 (six) hours as needed (nausea). 30 tablet 2 02/13/20 25 Active LORazepam (ATIVAN) 0.5 MG tabletIndications :Malignant neoplasm of overlapping sites of bladder Take 1 tablet (0.5 mg total) by mouth every 6 (six) hours as needed for anxiety (nausea). 30 tablet 02/13/20 25 Active dexAMETHasone (DECADRON) 4 MG tabletIndications :Malignant neoplasm of overlapping sites of bladder Take 2 tablets by mouth each morning on days 2-4 of chemotherapy cycle. 30 tablet 02/15/20 25 Active ondansetron (ZOFRAN-ODT) 8 MG disintegrating tabletIndications :Malignant neoplasm of overlapping sites of bladder Take [...] DAY FOR 4 DAYS 02/05/20 25 Active senna (SENOKOT) 8.6 mg tablet Take 2 tablets by mouth 2 (two) times a day. 120 tablet 3 04/02/20 25 Active oxyCODONE 5 MG immediate release tablet Take 1 tablet (5 mg total) by mouth every 6 (six) hours as needed for pain (specific location in comments). CancerPain-part ial fill ok 12 tablet 04/29/20 25 Active oxyCODONE 5 MG immediate release tablet Take 1 tablet (5 mg total) by mouth every 6 (six) hours as needed for pain (specific location in comments). CancerPain-part ial fill ok 30 tablet 03/18/20 25 025 Discontinu ed(Reorder ) oseltamivir (TAMIFLU) 75 mg capsule Take 1 capsule (75 mg total) by mouth 2 (two) times a day for 5 days. 10 capsule 05/08/20 25 025 Active Problems Patient Care Coordination No te Formatting of this note migh t be different from the original. Pt w/ syncopal episode 02/12 after IV placement and lab draw on Y2. Noted to have severe anxiety. Should have all future lab appointments in a reclining chair. Contact [facility] PT-1 MART: [phone] Problem Noted Date Diagnosed Date Vaginal bleeding [...] Encounters Date Type Department Care Team Description 05/13/2025 10:30 AM EST Office Visit [facility], [facility] [place] [facility] [place] [address] [facility] 4th [place] [address] Edson Mnaley MD, MPH Malignant neoplasm of overlapping sites of bladder (Primary Dx) 05/12/2025 1:18 PM EST - 05/12/2025 11:59 PM EST Hospital Encounter [facility], Ct Scan - [address] [address] Jeniffer Grimaldo, PROCESS COORDINATOR Discharge Disposition: Home or Self Care 05/08/2025 Telephone [facility] for [facility]our[facility], [facility] [address] [facility], [address] [place] [address] Genevieve Abreu, RN Symptom Management 05/08/2025 Orders Only [facility] for [facility], [address], [address] [place] [address] Miguel Hinojosa PA-C 05/06/2025 12:00 PM EST Infusion Infusion Therapy Services [place], [facility] at [address] [address] Alicia Vanegas MD DepintEmily argueta RN Malignant neoplasm of overlapping sites of bladder (Primary Dx) 05/06/2025 11:00 AM EST Office Visit [facility] Genitourinary On[facility], [facility] at [address] [address] Belén Chowdhury PA-C [place], Kerry E, MD Carney, Megan E Malignant neoplasm of overlapping sites of bladder (Primary Dx) 05/06/2025 Orders Only [facility] [address] [place] [address] Edson Manley MD, MPH 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) 05/06/2025 Documentation [facility], [address], [address] [place] [address] Cynthia Canales, RN 05/05/2025 9:30 AM EST Office Visit Adult Palliative Care, [facility] at [address] [address] Julianna Kenney MD, [place] Panic attacks (Primary Dx); Anxiety; Malignant neoplasm of overlapping sites of bladder 04/30/2025 Orders Only [facility], [address]th [place] [address] Alicia Vanegas MD Malignant neoplasm of overlapping sites of bladder (Primary Dx) 04/30/2025 Orders Only [facility] for [facility], [facility] at [address] [address] Alicia Vanegas MD Malignant neoplasm of overlapping sites of bladder (Primary Dx) 04/29/2025 Documentation Social Work Department, [address] [address] Angie, Amanda 04/29/2025 Telephone Social Work Department, [address] [address] Angie, Amanda 04/29/2025 Orders Only [facility], [address] [address] Ana Quigley PA-C 04/28/2025 11:00 AM EST Infusion Infusion Therapy Services [place], [facility] at [address] [address] Alicia Vanegas MD Acharya, Sudha, RN Malignant neoplasm of overlapping sites of bladder (Primary Dx) 04/28/2025 10:00 AM EST Office Visit [facility], [address] [address] Jeniffer Grimaldo, PROCESS COORDINATOR Alicia Vanegas MD Malignant neoplasm of urinary bladder, unspecified site (Primary Dx) 04/28/2025 Procedure Pass [address] [address] 04/28/2025 Procedure Pass [address] [address] 04/28/2025 Procedure Pass [facility], Ct Scan - [facility] [address] [place] [address] 04/25/2025 Telephone [facility] for [facility], [facility] [address] [facility], [place] [address] Jacqueline Kang, RN Care Coordination 04/23/2025 Telephone [facility], [facility] [address] [facility], [address] [place] [address] Jacqueline Kang, RN Care Coordination 04/22/2025 Telephone [facility] for [facility], [facility] [address] [facility], [address] [place] [address] Jacqueline Kang, RN Care Coordination 04/21/2025 [facility] for Genitourinary Oncology, [facility] [address] [facility], [address] [place] [address] Jacqueline Kang, RN Care Coordination 04/16/2025 Documentation Social Work Department, [facility] at [address] [address] Amanda Adams 04/16/2025 Documentation Social Work Department, [facility] at [address] [address] Amanda Adams 04/15/2025 Telephone [facility] for [facility], [facility] [address] [facility], [address] [place] [address] Jacqueline Kang, RN Care Coordination 04/15/2025 Orders Only [facility], [facility] [address] [facility], [address] [place] [address] Alicia Vanegas MD Malignant neoplasm of urinary bladder, unspecified site (Primary Dx) 04/15/2025 Orders Only [facility] for [facility], [address], [address] [place] [address] Alicia Vanegas MD 04/04/2025 Telephone [facility] Genitourinary On[facility], [address], [address] [place] [address] Jacqueline Kang, RN Care Coordination; Symptom Management 04/02/2025 11:00 AM EST Infusion Infusion Therapy Services [address], [address] [place] [address] Alicia Vanegas MD Row, Meredith Feely, MARIJA Malignant neoplasm of overlapping sites of bladder (Primary Dx) 04/02/2025 10:00 AM EST Office Visit [facility], [address], [address] [place] [address] Jeniffer Grimaldo, PROCESS COORDINATOR Alicia Vanegas MD Malignant neoplasm of urinary bladder, unspecified site (Primary Dx) 04/02/2025 7:09 AM EST - 04/02/2025 11:59 PM EST Hospital Encounter [facility] [address] [place] [address] Florida Quintanilla FNP Discharge Disposition: Home or Self Care 04/01/2025 Telephone [facility] for [facility], [address], [address] [place] [address] Jacqueline Kang, RN Care Coordination 04/01/2025 Documentation Social Work Department, [facility] [place] [address] [facility] [address] [place] [address] Amanda Adams 03/28/2025 Social Work Social Work Department, [address] [address] Edson Washington LICSW 03/28/2025 Orders Only [facility], [facility] [address] [facility], [address] [place] [address] Alicia Vanegas MD Malignant neoplasm of urinary bladder, unspecified site (Primary Dx) 03/26/2025 12:30 PM EST Infusion Infusion Therapy Services [address], [address] [place] [address] Florida Quintanilla FNP Row, Meredith Feely, RN Malignant neoplasm of overlapping sites of bladder (Primary Dx) 03/26/2025 11:30 AM EST Office Visit [facility] for [facility], [address], [address] [place] [address] Florida Quintanilla FNP [place], Kerry E, MD Malignant neoplasm of urinary bladder, unspecified site (Primary Dx) 03/26/2025 Documentation [facility], [address], [address] [place] [address] Jacqueline Kang, RN 03/23/2025 Orders Only [facility] Blood Bank [address] [place] [address] Heber Boyd MD, MPH 03/21/2025 Social Work Social Work Department, [address] [address] Edson Washington MEDICAL IMAGING TECH 03/19/2025 11:30 AM EDT Office Visit [facility], [facility], [address], [address] [place] [address] Angélica Dawson MD, MSc Ovarian neoplasm (Primary Dx) 03/19/2025 Telephone [facility] for [facility], [facility] at [address] [place] [address] Herman Mccartney, RN Symptom Management; Care Coordination 03/18/2025 Orders Only [facility], [address], [address] [place] [address] Florida Quintanilla, CLINICAL OUTCOMES MANAGER 03/17/2025 Telephone [facility] for [facility], [facility] at [address] [address] Herman Mccartney, RN Symptom Management 03/14/2025 2:00 PM EDT Social Work Social Work Department, [address] [address] Alicia Vanegas MD Mapfunde, Kudzaiishe Irene, [facility] 03/14/2025 2:00 PM EDT Infusion Infusion Therapy Services [address], [address] [place] [address] Alicia Vanegas MD Thabit, Ranyah, MARIJA Malignant neoplasm of overlapping sites of bladder (Primary Dx) 03/14/2025 1:00 PM EDT Office Visit [facility], [address], [address] [place] [address] Alicia Vanegas MD Rubin, Rachel Emily, ANGELO Malignant neoplasm of urinary bladder, unspecified site (Primary Dx) 03/14/2025 Orders Only [facility] [address], [address] [place] [address] Alicia Vanegas MD Malignant neoplasm of overlapping sites of bladder (Primary Dx) 03/14/2025 Telephone [facility] for [facility], [facility] at [address] [address] Herman Mccartney, RN Care Coordination 03/13/2025 Telephone [facility] for [facility], [facility] [place] [address] [facility], [address] [place] [address] Gisela Garza, MARIJA Care Coordination 03/13/2025 Telephone [facility], [facility] [address] [facility], [address] [place] [address] Rebekah Pulido, RN Care Coordination 03/12/2025 Telephone [facility] for [facility], [facility] at [address] [address] Herman Mccartney, RN Care Coordination 03/12/2025 [facility] for Genitour[facility] On[facility], [facility] at [address] [address] Herman Mccartney, RN Care Coordination 03/12/2025 Telephone [facility] for [facility], [facility] at [address] [address] Herman Mccartney, RN Care Coordination 03/11/2025 1:40 PM EDT Office Visit [facility] [address] [address] Edson Manley MD, MPH 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) 03/11/2025 Orders Only [facility] for [facility], [facility] [place] [address] [facility], [address] [place] [address] Fallon Steward [facility] 03/11/2025 Telephone [facility] for [facility], [facility] at [address] [address] Herman Mccartney, RN 03/10/2025 Telephone [facility] for [facility], [facility] at [address] [address] Herman Mccartney, RN Symptom Management; Care Coordination 03/10/2025 Telephone [facility] Genitourinary Oncology, [facility] at [address] [address] Herman Mccartney, RN Care Coordination 03/10/2025 Orders Only [facility] for [facility], [facility] at [address] [address] Herman Mccartney, MARIJA Malignant neoplasm of urinary bladder, unspecified site (Primary Dx) 03/07/2025 11:30 AM EDT Infusion Infusion Therapy Services [address], [address] [place] [address] Alicia Vanegas MD Thabit, Ranyah, MARIJA Malignant neoplasm of overlapping sites of bladder (Primary Dx) 03/07/2025 10:30 AM EDT Office Visit [facility], [address], [address] [place] [address] Alicia Vanegas MD Rubin, Rachel Emily, ANGELO Malignant neoplasm of overlapping sites of bladder 03/05/2025 Telephone [facility] for [facility], [facility] at [address] [address] Herman Mccartney, MARIJA Care Coordination; Symptom Management 03/04/2025 Telephone [facility], [facility] at [address] [address] Herman Mccartney, MARIJA Care Coordination; Symptom Management 03/04/2025 Orders Only [facility], [facility] [address] [facility], [address] [place] [address] Florida Quintanilla FNP 02/21/2025 Documentation Social Work Department, [facility] at [address] [address] Amanda Adams 02/19/2025 1:00 PM EDT Social Work Social Work Department, [address] [address] Alicia Vanegas MD [place], Matthew S, [facility] 02/19/2025 12:30 PM EDT Infusion Infusion Therapy Services [address], [address] [place] [address] Alicia Vanegas MD O'Rourke, Karyn, RN Malignant neoplasm of overlapping sites of bladder (Primary Dx) 02/19/2025 11:30 AM EDT Office Visit [facility], [address], [address] [place] [address] Florida Quintanilla FNP Malignant neoplasm of overlapping sites of bladder (Primary Dx) 02/19/2025 Documentation [facility], [address], [address] [place] [address] Jacqueline Kang, RN 02/17/2025 Telephone [facility] for [facility], [facility] at [address] [address] Herman Mccartney, MARIJA from Last 3 Months Social History Tobacco [...] 15.1 oz) 025 10:34 AM EST Height 155 cm (5' 1.02 ) 02/12/2025 1:11 PM EDT Body Mass Index 27.55 02/12/2025 1:11 PM EDT Plan of Treatment Upcoming Encounters Date Type Department Care Team (Late st Contact Info) Description 03/11/2025 Procedure Pass [facility] MR Imaging, [place] [address] [place] [address] 06/06/2025 2:10 PM EST Blood Draw Laboratory Services, [address], 2nd [place] [address] Alicia Vanegas MD [address] [place] [address] [email or web address] 06/06/2025 3:00 PM EST Office Visit [facility] Gen[facility]our[facility] On[facility], [address], [address] [place] [address] Alicia Vanegas MD [address] [place] [address] [email or web address] .[email or web address] 06/06/2025 3:30 PM EST Office Visit Adult Palliative Care, [address], [address] [place] [address] Julianna Kenney MD, [place] [address] [place], [place] [address], Palliative Medicine 8 [place] [address] [email or web address] 06/06/2025 4:00 PM EST Infusion Infusion Therapy Services [place], [facility] [address], [address]th [place] [address] Alicia Vanegas MD [address] [place] [address] [email or web address] Lianna Ramires RN [address] [place] [address] [email or web address] 06/11/2025 1:15 PM EST Appointment [facility] Imaging, [address] [place] [address] Edson Manley MD, MPH [address] [place] [address] [email or web address] 06/18/2025 2:40 PM EST Office Visit [facility] [address] [place] [address] Edson Manley MD, MPH [address] [place] [address] [email or web address] Scheduled Procedures Name Priority Associated Diagnoses Date/Ti me CYSTECTOMY WITH ILEAL CONDUIT Malignant neoplasm of posterior wall of urinary bladder Health Maintenance Due Date Last Done Comments DEPRESSION SCREENING 1994 SMOKING Hx and SMOKELESS TOBACCO SCREENING 1995 HEPATITIS C SCREENING 2000 HIV ONE-TIME SCREENING (18-6 5 YEARS) 2000 PAP SMEAR 2003 MAMMOGRAM 2022 PNEUMOCOCCAL VACCINES (0-49 years) (2 of 2 - PCV) 08/11/2022 08/11/2021 INFLUENZA VACCINE (#1) 2024 0, 05/27/2019 COVID-19 VACCINE (2024-2 6 season) 2025 SCREENING FOR DIABETES 04/28/2028 04/28/2025 Adult Td,Tdap Booster 07/06/2028 07/06/2018 HEPATITIS A [...] Name Priority Date/Time Associated Diagnosis Comments CT NECK SOFT TISSUE WITH CONTRAST Routine 05/12/2025 2:23 PM EST Malignant neoplasm of urinary bladder, unspecified site CT ABDOMEN/PELVIS WITH CONTRAST Routine 05/12/2025 2:23 PM EST Malignant neoplasm of urinary bladder, unspecified site CT CHEST WITH CONTRAST Routine 2:23 PM EST Malignant neoplasm of urinary bladder, unspecified site CBC AND DIFFERENTIAL Routine 05/06/2025 10:48 AM EST Malignant neoplasm of overlapping sites of bladder COMPREHENSIVE METABOLIC PANEL (CMP) Routine 05/06/2025 10:48 AM EST Malignant neoplasm of overlapping sites of bladder MAGNESIUM Routine 05/06/2025 10:48 AM EST Malignant neoplasm of overlapping sites of bladder CBC AND DIFFERENTIAL Routine 05/06/2025 10:48 AM EST Malignant neoplasm of overlapping sites of bladder CBC AND DIFFERENTIAL Routine 04/28/2025 10:30 AM EST Malignant neoplasm of urinary bladder, unspecified site THYROID STIMULATING HORMONE (TSH) Routine 04/28/2025 10:30 AM EST Malignant neoplasm of urinary bladder, unspecified site COMPREHENSIVE METABOLIC PANEL (CMP) Routine 04/28/2025 10:30 AM EST Malignant neoplasm of urinary bladder, unspecified site CBC AND DIFFERENTIAL Routine 04/28/2025 10:30 AM EST Malignant neoplasm of urinary bladder, unspecified site CA-19-9 Routine 04/28/2025 10:30 AM EST Malignant neoplasm of urinary bladder, unspecified site INHIBIN A AND B, TUMOR MARKER Routine 04/28/2025 10:30 AM EST Malignant neoplasm of urinary bladder, unspecified site CARCINOEMBRYONIC ANTIGEN (CEA) Routine 04/28/2025 10:30 AM EST Malignant neoplasm of urinary bladder, unspecified site CA-125 Routine 04/28/2025 10:30 AM EST Malignant neoplasm of urinary bladder, unspecified site LAB ADD-ON Routine 04/02/2025 10:59 AM EST [...] of overlapping sites of bladder Ovarian mass from Last 3 Months Results * CT CHEST WITH CONTRAST (05/12/2025 2:23 PM EST) Anatomical Region Laterality Modality Chest Computed Tomogra phy 05/13/2025 6:11 AM EST Impressions 05/13/2025 6:31 AM EST No evidence for metastases. Narrative 05/13/2025 6:[address] CHEST WITH CONTRAST Referring clinician's provided indication for this examination in [facility]: *Urologic cancer, staging TECHNIQUE: Multidetector CT of [...] clinician's provided indication for this examination in [facility]:*Urologic cancer, staging TECHNIQUE: Multidetector CT of the [...] osseous lesions. IMPRESSION: No evidence for metastases. us Jeniffer Grimaldo PROCESS COORDINATOR IMG CT CHEST Final Resul t * CT ABDOMEN/PELVIS WITH CONTRAST (05/12/2025 2:23 [...] Tissues: No destructive osseous lesions. 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 Narrative 05/13/2025 8:[address] NECK SOFT TISSUE WITH CONTRAST Referring clinician's provided indication for this examination in [facility]: * Neck mass, initial workup TECHNIQUE: Multidetector-row [...] clinician's provided indication for this examination in [facility]: *Neck mass, initial workup TECHNIQUE: Multidetector-row CT [...] level of the thoracicinlet. us Jeniffer Grimaldo [facility] IM CT XSPECIALTY ORDERABLE S Final Result * (ABNORMAL) Comprehensive Metabolic Panel (CMP) (05/06/2025 10:48 AM EST) Only the most recent of8 resultswithin the time period is included. Sodium 138 136 - 145 mmol/L 05/06/2025 11:43 AM EST [facility] Potassium 4.8 3.4 - 5.1 mmol/L 05/06/2025 11:43 AM EST [facility] Chloride 103 98 - 107 mmol/L 05/06/2025 11:43 AM EST [facility] CO2 21 20 - 31 mmol/L 05/06/2025 11:43 AM EST [facility] BUN 19 6 - 23 mg/dL 05/06/2025 11:43 AM EST [facility] Creatinine 0.95 0.50 - 1.00 mg/dL 05/06/2025 11:43 AM EST [facility] Glucose 162(H) 70 - 99 mg/dL 05/06/2025 11:43 AM EST [facility] Calcium 9.6 8.5 - 10.5 mg/dL 05/06/2025 11:43 AM EST [facility] AST 24 <33 U/L 05/06/2025 11:43 AM EST [facility] ALT 19 <34 U/L 05/06/2025 11:43 AM EST [facility] Alkaline Phosphatase 83 40 - 130 U/L 05/06/2025 11:43 AM EST [facility] Bilirubin, Total 0.2 0.0 - 1.2 mg/dL 05/06/2025 11:43 AM EST [facility] Total Protein 7.0 6.4 - 8.3 g/dL 05/06/2025 11:43 AM EST [facility] Albumin 4.1 3.5 - 5.2 g/dL 05/06/2025 11:43 AM EST [facility] Globulin 2.9 1.9 - 4.1 g/dL 05/06/2025 11:43 AM EST [facility] eGFR 76 >59 mL/min/1.7 3m2 05/06/2025 11:43 AM EST [facility] Comment:Estimated glomerular filtration rate calculated using the CKD-EPI refit equation. Anion Gap 14 3 - 17 mmol/L 05/06/2025 11:43 AM EST [facility] Blood (Blood) Catheter/Line / Unknown 05/06/2025 10:48 AM EST 05/06/2025 10:55 AM EST us Alicia Vanegas MD LAB BLOOD BKR ORDERABLES Fi nal Result [facility] [address] [place] [address], [facility] [phone] * (ABNORMAL) CBC and Differential (05/06/2025 10:48 AM EST) Only the most recent of4 resultswithin the time period is included. WBC 8.25 4.00 - 11.00 K/uL 05/06/2025 11:00 AM EST [facility] RBC 3.45(L) 4.00 - 5.20 M/uL 05/06/2025 11:00 AM EST [facility] Hemoglobin 10.6(L) 12.0 - 16.0 g/dL 05/06/2025 11:00 AM EST [facility] Hematocrit 31.8(L) 36.0 - 46.0 % 05/06/2025 11:00 AM EST [facility] MCV 92.2 80.0 - 100.0 fL 05/06/2025 11:00 AM EST [facility] MCH 30.7 27.0 - 31.0 pg 05/06/2025 11:00 AM EST [facility] MCHC 33.3 32.0 - 36.0 g/dL 05/06/2025 11:00 AM EST [facility] MPV 11.0 8.4 - 12.0 fL 05/06/2025 11:00 AM EST [facility] RDW-CV 15.3(H) 11.5 - 14.5 % 05/06/2025 11:00 AM EST [facility] PLT 152 150 - 450 K/uL 05/06/2025 11:00 AM EST [facility] Neutrophils 48.0 % 05/06/2025 11:00 AM EST [facility] Lymphocytes 44.4 % 05/06/2025 11:00 AM EST [facility] Monocytes 4.2 % 05/06/2025 11:00 AM EST [facility] Eosinophils 2.7 % 05/06/2025 11:00 AM EST [facility] Basophils 0.5 % 05/06/2025 11:00 AM EST [facility] Imm Grans 0.2 % 05/06/2025 11:00 AM EST [facility] NRBC 0.0 <=0.0 /100 WBCs 05/06/2025 11:00 AM EST [facility] Absolute Neutrophils 3.96 1.92 - 7.60 K/uL 05/06/2025 11:00 AM EST [facility] Absolute Lymphocytes 3.66 0.72 - 4.10 K/uL 05/06/2025 11:00 AM EST [facility] Absolute Monocytes 0.35 0.16 - 1.10 K/uL 05/06/2025 11:00 AM EST [facility] Absolute Eosinophils 0.22 0.00 - 0.50 K/uL 05/06/2025 11:00 AM EST [facility] Absolute Basophils 0.04 0.00 - 0.15 K/uL 05/06/2025 11:00 AM EST [facility] Absolute Imm Grans 0.02 0.00 - 0.09 K/uL 05/06/2025 11:00 AM EST [facility] Absolute NRBC 0.00 <=0.00 K cells/uL 05/06/2025 11:00 AM EST [facility] Absolute Neutrophils 3.96 1.92 - 7.60 K/uL 05/06/2025 11:00 AM EST [facility] Diff Type Auto 05/06/2025 11:00 AM EST [facility] Blood (Blood) Catheter/Line / Unknown 05/06/2025 10:48 AM EST 05/06/2025 10:55 AM EST us Alicia Vanegas MD LAB BLOOD BKR ORDERABLES Fi nal Result Performing Organization Address [facility] Co de Phone Number [facility] [address] [phone] * Magnesium (05/06/2025 10:48 AM EST) Only the most recent of4 resultswithin the time period is included. Magnesium 1.9 1.7 - 2.6 mg/dL 05/06/2025 11:43 AM EST [facility] Blood (Blood) Catheter/Line / Unknown 05/06/2025 10:48 AM EST 05/06/2025 10:55 AM EST us lAicia Vanegas MD LAB BLOOD BKR ORDERABLES Fi nal Result Performing Organization Address City/[facility] Co de Phone Number [facility] [address] [place] [address], [facility] [phone] * Inhibin A and B, Tumor Marker (04/28/2025 10:30 AM EST) Pathologist [facility] [place] Inhibin A, Tumor Marker, S 9.6 pg/mL 05/01/2025 1:10 PM EST [facility] [employer] [facility] Comment: REFERENCE VALUE <98 (Premenopausal) <5.0 (Postmenopausal) ADDITIONAL INFORMATION This test has been modified from the machine burrer's instructions. Its performance characteristics were determined by [facility] in a manner consistent with CLIA requirements. This test has not been cleared or approved by the U.S. Food and Drug Administration. The testing method is an immunoenzymatic assay manufactured by [employer]. and performed on the [employer] 800. Values obtained with different assay methods or kits may be different and cannot be used interchangeably. Test results cannot be interpreted as absolute evidence for the presence or absence of malignant disease. Inhibin A values are not interpretable in females for the investigation of malignant disease. Inhibin B, S <10 pg/mL 05/01/2025 1:10 PM EST [facility] [employer] [facility] Comment: REFERENCE VALUE Premenopausal: <108 pg/mL (Follicular) <80 pg/mL (Luteal) Postmenopausal: <12 pg/mL ADDITIONAL INFORMATION The testing method is a manual immunoenzymatic assay manufactured by [employer]. Values obtained with different assay methods or kits may be different and cannot be used interchangeably. If this test is being ordered as a tumor marker, results cannot be interpreted as absolute evidence for the presence or absence of malignant disease. This test was developed and its performance characteristics determined by [facility] in a manner consistent with CLIA requirements. This test has not been cleared or approved by the U.S. Food and Drug Administration. Blood (Blood) Catheter/Line / Unknown 04/28/2025 10:30 AM EST 04/28/2025 10:46 AM EST Alicia Vanegas MD LAB BLOOD BKR ORDERABLES Fi nal Result ALIVIA HARVEY) [facility] [address] [place], [place] [address] [phone] * CA 19-9 (04/28/2025 10:30 AM EST) Only the most recent of2 resultswithin the time period is included. CA 19-9 <1 <=35 U/mL 04/28/2025 11:31 AM EST [facility] Blood (Blood) Catheter/Line / Unknown 04/28/2025 10:30 AM EST 04/28/2025 10:46 AM EST Narrative [facility] - 04/28/2025 11:31 AM EST Test performed by Charley electrochemiluminescent immunoassay (ECLIA). Results obtained by assays using different manufacturers or methods may not be comparable and cannot be used interchangeably for patient monitoring. Alicia Vanegas MD LAB BLOOD BKR ORDERABLES Fi nal Result Performing Organization Address City/[facility]/ZIP Co de Phone Number [facility] [address] [facility] [address] [place] [address], [facility] [phone] * CA 125 (04/28/2025 10:30 AM EST) Only the most recent of2 resultswithin the time period is included. CA 125 25 6 - 38 U/mL 04/28/2025 11:31 AM EST [facility] Comment: Pre-menopausal: 6-46 U/mL Post-menopausal: 6-32 U/mL Blood (Blood) Catheter/Line / Unknown 04/28/2025 10:30 AM EST 04/28/2025 10:46 AM EST Narrative [facility] - 04/28/2025 11:31 AM EST Test performed by Charley electrochemiluminescent immunoassay (ECLIA). Results obtained by assays using different manufacturers or methods may not be comparable and cannot be used interchangeably for patient monitoring. us Alicia Vanegas MD LAB BLOOD BKR ORDERABLES Fi nal Result Performing Organization Address [facility] de Phone Number [facility] [address] [place] [address], [facility] [phone] * Thyroid Stimulating Hormone (TSH) (04/28/2025 10:30 AM EST) Only the most recent of4 resultswithin the time period is included. TSH 0.50 0.40 - 5.00 uIU/mL 04/28/2025 11:27 AM EST [facility] Blood (Blood) Catheter/Line / Unknown 04/28/2025 10:30 AM EST 04/28/2025 10:46 AM EST us Alicia Vanegas MD LAB BLOOD BKR ORDERABLES Fi nal Result Performing Organization Address [facility] de Phone Number [facility] [address] [place] [address], [facility] [phone] * (ABNORMAL) Carcinoembryonic Antigen (CEA) (04/28/2025 10:30 AM EST) Only the most recent of2 resultswithin the time period is included. CEA 6.9(H) 0.0 - 3.7 ng/mL 04/28/2025 11:31 AM EST [facility] Comment: Non Smoker: <3.8 ng/mL Smoker: <5.0 ng/mL Blood (Blood) Catheter/Line / Unknown 04/28/2025 10:30 AM EST 04/28/2025 10:46 AM EST Narrative [facility] - 04/28/2025 11:31 AM EST Test performed by Charley electrochemiluminescent immunoassay (ECLIA). Results obtained by assays using different manufacturers or methods may not be comparable and cannot be used interchangeably for patient monitoring. us Alicia Vanegas MD LAB BLOOD BKR ORDERABLES Fi nal Result Performing Organization Address City/[facility]/ZIP Co de Phone Number [facility] [address] [facility] [address] [place] [address], [facility] [phone] * Lab Add-On (04/02/2025 10:59 AM EST) Specimen Date/Time 04/02/2025 11:47 AM EST [facility] Test Requested mg and phos 04/02/2025 11:47 AM EST [facility] Specimen Description 04/02/2025 11:47 AM EST [facility] Comments 04/02/2025 11:47 AM EST [facility] Was this request processed? Yes 04/02/2025 11:47 AM EST [facility] Other (Other) 04/02/2025 10: 59 AM EST 04/02/2025 10:59 AM EST Jeniffer Grimaldo CNP LAB GENERAL ORDERABLES Constance l Result [facility] [address] [place] [address] * (ABNORMAL) Differential, Manual (04/02/2025 10:12 AM EST) Neutrophils 22.3 % 04/02/2025 11:02 AM EST [facility] Bands 0.8 % 04/02/2025 11:02 AM EST [facility] Lymphocytes 73.1 % 04/02/2025 11:02 AM EST [facility] Monocytes 3.8 % 04/02/2025 11:02 AM EST [facility] Eosinophils 0.0 % 04/02/2025 11:02 AM EST [facility] Basophils 0.0 % 04/02/2025 11:02 AM EST [facility] Blasts 0.0 % 04/02/2025 11:02 AM EST [facility] Absolute Neutrophils 1.56(L) 1.92 - 7.60 K/uL 04/02/2025 11:02 AM EST [facility] Absolute Lymphocytes 4.95(H) 0.72 - 4.10 K/uL 04/02/2025 11:02 AM EST [facility] Absolute Monocytes 0.26 0.16 - 1.10 K/uL 04/02/2025 11:02 AM EST [facility] Absolute Eosinophils 0.00 0.00 - 0.50 K/uL 04/02/2025 11:02 AM EST [facility] Absolute Basophils 0.00 0.00 - 0.15 K/uL 04/02/2025 11:02 AM EST [facility] Absolute Blasts 0.00 <=0.00 K/uL 04/02/2025 11:02 AM EST [facility] Diff Type Manual 04/02/2025 11:02 AM EST [facility] Blood (Blood) Venipuncture / Unknown 04/02/2025 10:12 AM EST 04/02/2025 10:20 AM EST us Alicia Vanegas MD LAB BLOOD BKR ORDERABLES Fi nal Result [facility] [address] [place] [address] * Red Blood Cell (RBC) Morphology (04/02/2025 10:12 AM EST) RBC Morphology Reviewed 04/02/2025 11:02 AM EST [facility] Elliptocytes/Ov alocytes present 04/02/2025 11:02 AM EST [facility] Blood (Blood) Venipuncture / Unknown 04/02/2025 10:12 AM EST 04/02/2025 10:20 AM EST us Alicia Vanegas MD LAB BLOOD BKR ORDERABLES Fi nal Result Performing Organization Address City/[facility]/ZIP Co de Phone Number [facility] [address] [place] [address] * Thyroid Stimulating Hormone (TSH), with Reflex (04/02/2025 10:12 AM EST) TSH 0.53 0.40 - 5.00 uIU/mL 04/02/2025 10:54 AM EST [facility] Blood (Blood) Venipuncture / Unknown 04/02/2025 10:12 AM EST 04/02/2025 10:20 AM EST us Alicia Vanegas MD LAB BLOOD BKR ORDERABLES Fi nal Result Performing Organization Address [facility] Co de Phone Number [facility] [address] [place] [phone] * Phosphorus (04/02/2025 10:12 AM EST) Phosphorus 2.7 2.5 - 4.5 mg/dL 04/02/2025 12:07 PM EST [facility] Blood (Blood) Venipuncture / Unknown 04/02/2025 10:12 AM EST 04/02/2025 10:20 AM EST us Jeniffer Grimaldo CNP LAB BLOOD BKR ORDERABLES Fi nal Result Performing Organization Address City/[facility] Co de Phone Number [facility] [address] [place] [phone] * NM PET CT Skull Base to [...] [facility] due to differences in technique. Therefore,quantification will be provided for the current examination and onlyqualitative statements will be made about changes in FDG uptake. HEAD AND NECK: New focal uptake in the right neck anterolateral to the [id number] without discretely measurable anatomic correlate, SUV max [...] edited thereport originally created by Julia Duffy. [place] Quintanilla [facility] IMG NM PET Final Result * (ABNORMAL) POCT Glucose (04/02/2025 7:36 AM EST) Glucose 124(H) 70 - 99 mg/dL 04/02/2025 7:42 AM EST [facility] CT & MRI SUITE Blood (Blood) 04/02/2025 7:3 6 AM EST 04/02/2025 7:42 AM EST [place] Anna Walker CLINICAL OUTCOMES MANAGER LAB POCT DOCKED DEVIC E UNSOLICTED RESULTS Final Result [facility] CT & MRI [address] [place] [address] * Type and Screen (Conversion) (03/23/2025 8:49 AM EST) Hold Tube Completed? Yes 03/23/2025 8:57 AM EST [facility] BLOOD [place] Blood (Blood) 03/23/2025 8:4 9 AM EST 03/23/2025 8:49 AM EST us Heber Boyd MD, MPH LAB BLOOD BANK TEST ORDERAB LES Final Result Performing Organization Address City/[facility]/ZIP Co de Phone Number [facility] AND [facility] BLOOD [facility] [place] [address] [address] * Inhibin A & B, tumor marker (03/19/2025 2:12 PM EDT) INHBN A TUMOR SUNI. 16 pg/mL [facility] [address] Comment: (NOTE) REFERENCE VALUE <98 (Premenopausal) <5.0 (Postmenopausal) ADDITIONAL INFORMATION This test has been modified from the machine burrer's instructions. Its performance characteristics were determined by [facility] in a manner consistent with CLIA requirements. This test has not been cleared or approved by the U.S. Food and Drug Administration. The testing method is an immunoenzymatic assay manufactured by [employer] and performed on the [employer] DxI 800. Values obtained with different assay methods or kits may be different and cannot be used interchangeably. Test results cannot be interpreted as absolute evidence for the presence or absence of malignant disease. Inhibin A values are not interpretable in females for the investigation of malignant disease. INHIBN B, INFERTILITY <10 pg/mL [facility] [address] Comment: (NOTE) REFERENCE VALUE Premenopausal: <108 pg/mL (Follicular) <80 pg/mL (Luteal) Postmenopausal: <12 pg/mL ADDITIONAL INFORMATION The testing method is a manual immunoenzymatic assay manufactured by [employer]. Values obtained with different assay methods or kits may be different and cannot be used interchangeably. If this test is being ordered as a tumor marker, results cannot be interpreted as absolute evidence for the presence or absence of malignant disease. This test was developed and its performance characteristics determined by [facility] in a manner consistent with CLIA requirements. This test has not been cleared or approved by the U.S. Food and Drug Administration. Blood 03/19/2025 2:12 PM EDT 03/19/2025 2:26 PM EDT us Angélica Dawson MD, MSc LAB BLOOD ORDERABLES Final Re sult Performing Organization Address [facility] de Phone Number [facility] [address] [place] [address] * HCG (tumor marker) (03/19/2025 2:12 PM EDT) HCG BETA 1.8 <2.1 mIU/mL [facility] Comment: PREMENOPAUSAL REF.RANGE - <=2.0 mIU/mL POSTMENOPAUSAL REF.RANGE - <=8.0 mIU/mL Blood 03/19/2025 2:12 PM EDT 03/19/2025 2:26 PM EDT Angélica Dawson MD, MSc LAB BLOOD ORDERABLES Final Re sult Performing Organization Address City/[facility]/ZIP Co de Phone Number [facility] [address] [place] [address] * AFP (non-maternal specimens) (03/19/2025 2:12 PM EDT) [facility] AFP (NON-MATERNAL) 3.6 <8.4 ng/mL [facility] Blood 03/19/2025 2:12 PM EDT 03/19/2025 2:26 PM EDT us Angélica Dawson MD, MSc LAB BLOOD BKR ORDERABLES Constance l Result Performing Organization Address [facility] Co de Phone Number [facility] [address] [place] [phone] * (ABNORMAL) CBC and differential (03/19/2025 2:12 PM EDT) Only the most recent of4 resultswithin the time period is included. [facility] WBC 7.95 4.00 - 10.00 K/uL [facility] RBC 4.01 3.90 - 6.00 M/uL [facility] HGB 12.0 11.5 - 16.4 g/dL [facility] HCT 36.0 36.0 - 48.0 % [facility] PLT 188 150 - 450 K/uL [facility] MCV 89.8 80.0 - 100.0 fL [facility] MCH 29.9 27.0 - 32.0 pg [facility] MCHC 33.3 32.0 - 36.0 g/dL [facility] RDW 13.3 11.5 - 14.5 % [facility] MPV 10.2 8.4 - 12.0 fL [facility] NRBC 0.00 0 /100 WBCs [facility] ABSOLUTE NRBC 0.00 0 K/uL [facility] DIFF METHOD Auto [facility] NEUTS 61.4 48.0 - 76.0 % [facility] LYMPHS 37.2 18.0 - 41.0 % [facility] MONOS 0.6(L) 4.0 - 11.0 % [facility] EOS 0.1 0.0 - 5.0 % [facility] BASOS 0.3 0.0 - 1.5 % [facility] % IMMATURE GRANS 0.4 0.0 - 1.0 % [facility] ABSOLUTE NEUTS 4.88 1.92 - 7.60 K/uL [facility] ABSOLUTE LYMPHS 2.96 0.72 - 4.10 K/uL [facility] ABSOLUTE MONOS 0.05(L) 0.16 - 1.10 K/uL [facility] ABSOLUTE EOS 0.01 0.00 - 0.50 K/uL [facility] ABSOLUTE BASOS 0.02 0.00 - 0.15 K/uL [facility] ABS IMMATURE GRANS 0.03 0.00 - 0.10 K/uL [facility] Blood 03/19/2025 2:12 PM EDT 03/19/2025 2:26 PM EDT Angélica Dawson MD, MSc LAB BLOOD BKR ORDERABLES Constance alba Result [facility] [address] [place] [phone] * Type and Screen (ABO,Rh,Antibody Screen) (03/19/2025 2:12 PM EDT) Expiration Date of Sample 03/22/2025 11:59 PM 03/19/2025 3:37 PM EDT [facility]ing [facility] ABO Type O 03/19/2025 3:37 PM EDT [facility] Rh Type Positive 03/19/2025 3:37 PM EDT [facility] Antibody Screen Negative 03/19/2025 3:37 PM EDT [facility] Blood 03/19/2025 2:12 PM EDT 03/19/2025 2:26 PM EDT us Angélica Dawson MD, MSc LAB BLOOD BANK TEST ORDERABLE S Final Result [facility] [address] [place] [address] * Lab Add On: magnesium (03/14/2025 2:38 PM EDT) TEST REQUESTED MAGNESIUM [facility] Comments (Chemistry) TEST TO BE ADDED ON TO EXISTING SPECIMEN [facility] Blood 03/14/2025 2:38 PM EDT 03/14/2025 2:40 PM EDT us Ana Kidd PROCESS COORDINATOR LAB BLOOD ORDERABLES Constance l Result [facility] [address] [place] [phone] from Last 3 Months [address] [place] [address] [place] [address] [facility] [facility] ACO [facility] ACO [facility] ACO Advance Directives For more information, please contact: [phone] (9AM - 5PM [facility], Monday-Monday) Documents on File Type Date Recorded Patient Outbound Sales Agent Expl anation Healthcare Proxy 02/19/2025 11:26 AM Care Teams Sound Cutter Relationship Specialty Start Date End Date Hansel Orozco PA [address] [place] [phone] PCP - General Physician Head Filter Tank Tender Helper 01/01/25 Rupesh Monroe MD [address] [address] [email or web address] Referring Physician Urology 12/24/24 Alicia Vanegas MD [address] [place] [phone] [email or web address] Primary Oncologist Medical Oncology 12/25/24 Edson Washington, [address] [id number] [email or web address] Allocation Analyst Oncology 01/07/25 Amanda Johnson, [facility] [address] [place] [address] [email or web address] Allocation Analyst Licensed Clinical Allocation Analyst 02/03/25 Amanda Adams [address] [place] [phone] [email or web address] Loan [email or web address] 02/21/25 Gilbetr Stinson RN [address] [place] [phone] [email or web address] Primary Infusion Nurse 04/03/25 Lianna Ramires RN [address] [place] [phone] [email or web address] Associate Infusion Nurse 02/19/25 Pat Mcgill, MARIJA [address] [place] [phone] [email or web address] Primary Infusion Nurse 05/05/25 Additional Source Comments The information contained in this document represents components of the legal health record. It is not the complete legal health record.[facility]
--- OUTSIDE RECORDS SUMMARY | 2025-05-17 15:05 | XMS_ITS ---
Author Organization [facility] Address [address] [facility] [address] [place] [address] Phone Care Team Providers Care Electrical Line Splicer Name Role Phone Rupesh Monroe MD Unavailable [phone] Alicia Vanegas MD Unavailable [phone] Hansel Orozco Primary Care Provider + Edson Washington FACE AND FILL PACKER Unavailable Isabella Fisher@[email or web address] Amanda Johnson FACE AND FILL PACKER Unavailable [phone] Amanda Adams Unavailable Claudette@[facility] Gilbert Stinson RN Unavailable Mary@ [facility].[place].[facility] Lianna Ramires RN Unavailable [phone] Pat Mcgill RN Unavailable Nurys@ [facility] Active Problems Patient Care Coordination No te Formatting of this note migh t be different from the original. Pt w/ syncopal episode 02/12 after IV placement and lab draw on Y2. Noted to have severe anxiety. Should have all future lab appointments in a reclining chair. Contact [facility]-1 MART: [phone] Problem Noted Date Diagnosed Date Vaginal bleeding [...] Medications Current Day (Day 1 , Cycle 5 - Planned for 05/19/2025) Next Day (Day 1, Cycle 6 - Planned for 06/16/2025) CISplatin (PLATINOL) IVPB 27 0 mLdurvalumab (IMFINZI)durvalumab (IMFINZI) IVPB Baggemcitabine (GEMZAR) IVPB durvalumab (IMFINZI) 1,500 mg in sodium chloride 0.9% 140 mL IVPB durvalumab (IMFINZI) 1,500 mg in sodium chloride 0.9% 140 mL IVPB Past Treatment and Therapy Plans No past plan information found.
--- OUTSIDE RECORDS SUMMARY | 2025-05-17 15:05 | XMS_ITS | Encounter Summary ---
Author Organization [facility] Address [address] [facility] [address] [place] [address] Phone Care Team Providers Care Photonic Laboratory Technician Name Role Phone Rupesh Monroe MD Unavailable [phone] Alicia Vanegas MD Unavailable [phone] Hansel Orozco Primary Care Provider + Edson Washington AIR CARGO AGENT Unavailable Isabella Fisher@[facility].[place] Amanda Johnson AIR CARGO AGENT Unavailable [phone] Amanda Adams Unavailable Claudette@[facility] Gilbert Stinson RN Unavailable Mary@ [facility].[place].[facility] Lianna Ramires RN Unavailable [phone] Pat Mcgill RN Unavailable Nurys@ [facility].[place].[facility] Encounter Details Date Type Department Care Team (Late st Contact Info) Description 04/28/2025 Procedure Pass [facility], Ct Scan - [facility] [address] [place] [address] Social History Tobacco Use Types Packs/Day Years [...] high school, GED, job training, learning the Azerbaijani language, technical skills, or developing parenting skills)? [...] st Contact Info) Description 03/11/2025 Procedure Pass [facility] MR Imaging, [place] [address] 06/06/2025 2:10 PM EST Blood Draw Laboratory Services, [address], 2nd [place] [address] Alicia Vanegas MD [address] [place] [address] Melida@[facility] 06/06/2025 3:00 PM EST Office Visit [facility], [address], [address] [place] [address] Alicia Vanegas MD [address] [place] [address] Melida@[facility] 06/06/2025 3:30 PM EST Office Visit Adult Palliative Care, [address], [address] [place] [address] Julianna Kenney MD, MS [address] [place], [place] [address]am and [facility], Palliative Medicine JF [address] [place] [address] [email or web address] 06/06/2025 4:00 PM EST Infusion Infusion Therapy Services [facility] [address], [address], [address] [place] [address] Alicia Vanegas MD [address] [place] [address] Melida@[facility] .[facility] Lianna Ramires RN [address] [place] [address] SLIM@[facility] .[facility] 06/11/2025 1:15 PM EST Appointment [facility] MR Demarcus, [place] [address] Edson Manley MD, MPH [address] [place] [address] STANISLAV@[facility] 06/18/2025 2:40 PM EST Office Visit [facility] [address] [place] [address] Edson Manley MD, MPH [address] [place] [address] STANISLAV@[facility] Scheduled Procedures Name Priority Associated Diagnoses Date/Ti me CYSTECTOMY WITH ILEAL CONDUIT Malignant neoplasm of posterior wall of urinary bladder documented as of this encounter Visit Diagnoses Not on filedocumented in this encounter Care Teams Photonic Laboratory Technician Relationship Specialty Start Date End Date Hansel Orozco PA [address] [place] [address] PCP - General Physician Avionics Installer 01/01/25 Rupesh Monroe MD [address] [place] [address] [email or web address] .[facility] Referring Physician Urology 12/24/24 Alicia Vanegas MD [address] [place] [address] Melida@[facility] Primary Oncologist Medical Oncology 12/25/24 Edson Washington, [address] [address] Ramo@[facility]. [facility] County Manager Oncology 01/07/25 Amanda Johnson, AIR CARGO AGENT [address] [place] [address] [email or web address] County Manager Licensed Clinical County Manager 02/03/25 Amanda Adams [address] [place] [address] Claudette@[facility] Financial Institution Treasurer 02/21/25 Gilbert Stinson RN [address] [place] [address] Mary@[facility] Primary Infusion Nurse 04/03/25 Lianna Ramires RN [address] [place] [phone] SLIM@[facility] Associate Infusion Nurse 02/19/25 Pat Mcgill RN [address] [place] [phone] Nurys@[facility] Primary Infusion Nurse 05/05/25 documented as of this encounter Additional Source Comments The information contained in this document represents components of the legal health record. It is not the complete legal health record.[facility]
--- OUTSIDE RECORDS SUMMARY | 2025-05-17 15:05 | XMS_ITS | Clinical Summary ---
Author Organization [address] [facility] Address [address] [place] [address] Phone Care Team Providers Care C++ Quant Developer Name Role Phone Physician, No Pcp Primary Care Provider Unavaila ble Social History Tobacco Use Types Packs/Day Years [...] Cervical Cancer Screening: P ap Smear 2003 HPV Vaccines (1 - 3-dose SCD M series) 2009 DTaP,Tdap,and Td Vaccines (2 - Td or Tdap) 02/06/2022 02/07/2012 Depression Screening 05/22/2024 Cholesterol Screening (Lipid Panel) 06/13/2024 HIV Screening 06/13/2024 Hepatitis C Screening 06/13/2024 Social Influencers of Health Screening 06/13/2024 COVID-19 Vaccine (1 - 2024-2 6 season) 2025 Influenza Vaccine (#1) 2025 02/07/2012 RSV Immunization Adult Patie nts (1 - 1-dose 75+ series) 2057 HIB [...] on patient's age to complete this topic Insurance [facility] Care Teams C++ Quant Developer Relationship Specialty Start Date End Date Physician, No Pcp PCP - General 11/28/24
--- OUTSIDE RECORDS SUMMARY | 2025-05-17 15:05 | XMS_ITS | Encounter Summary ---
Author Organization [facility] Address [address] [facility] [address] [place] [address] Phone Care Team Providers Care Car Framer Name Role Phone Rupesh Monroe MD Unavailable [phone] Alicia Vanegas MD Unavailable [phone] Hansel Orozco Primary Care Provider + Edson Washington BULK PLANT OPERATOR Unavailable Isabella Fisher@[facility].[place].[facility] Amanda Johnson BULK PLANT OPERATOR Unavailable [phone] Amanda Adams Unavailable Claudette@[facility] Gilbert Stinson RN Unavailable Mary@ [facility].[place] Lianna Ramires RN Unavailable [phone] Pat Mcgill RN Unavailable Nurys@ [facility].[place].[facility] Encounter Details Date Type Department Care Team (Late st Contact Info) Description 04/28/2025 Procedure Pass [facility], Ct Scan - [facility] [address] [place] [address] Social History Tobacco Use Types Packs/Day Years [...] high school, GED, job training, learning the Anguillan language, technical skills, or developing parenting skills)? [...] st Contact Info) Description 03/11/2025 Procedure Pass [facility] MR Imaging, [place] [address] 06/06/2025 2:10 PM EST Blood Draw Laboratory Services, [address], [address] [place] [address] Alicia Vanegas MD [address] [place] [phone] Melida@[facility] 06/06/2025 3:00 PM EST Office Visit [facility], [address] [place] [address] Alicia Vanegas MD [address] [place] [address] Melida@[facility] 06/06/2025 3:30 PM EST Office Visit Adult Palliative Care, [address], [address] [place] [address] Julianna Kenney MD, MS [address] [place], [place] [address]am and [facility], Palliative Medicine JF [address] [place] [address] [email or web address] 06/06/2025 4:00 PM EST Infusion Infusion Therapy Services [facility] [address], [address], [address] [place] [address] Alicia Vanegas MD [address] [place] [address] Melida@[facility] .[facility] Lianna Ramires RN [address] [place] [address] SLIM@[facility] .[facility] 06/11/2025 1:15 PM EST Appointment [facility] MR Demarcus, [place] [address] Edson Manley MD, MPH [address] [place] [phone] STANISLAV@[facility] 06/18/2025 2:40 PM EST Office Visit [facility] [address] [place] [address] Edson Manley MD, MPH [address] [place] [address] STANISLAV@[facility] Scheduled Procedures Name Priority Associated Diagnoses Date/Ti me CYSTECTOMY WITH ILEAL CONDUIT Malignant neoplasm of posterior wall of urinary bladder documented as of this encounter Visit Diagnoses Not on filedocumented in this encounter Care Teams Car Framer Relationship Specialty Start Date End Date Hansel Orozco PA [address] [place] [address] PCP - General Physician Social Service Director 01/01/25 Rupesh Monroe MD [address] [place] [address] [email or web address] .[facility] Referring Physician Urology 12/24/24 Alicia Vanegas MD [address] [place] [phone] Melida@[facility] Primary Oncologist Medical Oncology 12/25/24 Edson Washington, [address] [address] Ramo@[facility]. [facility] Fuel Oil Truck Driver Oncology 01/07/25 Amanda Johnson, BULK PLANT OPERATOR [address] [place] [address] [email or web address] Fuel Oil Truck Driver Licensed Clinical Fuel Oil Truck Driver 02/03/25 Amanda Adams [address] [place] [address] Claudette@[facility] Water Regulator And Valve Repairer 02/21/25 Gilbert Stinson RN [address] [place] [address] Mary@[email or web address] Primary Infusion Nurse 04/03/25 Lianna Ramires RN [address] [place] [address] SLIM@[facility] Associate Infusion Nurse 02/19/25 Pat Mcgill RN [address] [place] [phone] Nurys@[facility] Primary Infusion Nurse 05/05/25 documented as of this encounter Additional Source Comments The information contained in this document represents components of the legal health record. It is not the complete legal health record.[facility]
--- OUTSIDE RECORDS SUMMARY | 2025-05-17 15:05 | XMS_ITS | Encounter Summary ---
Author Organization [facility] Address [address] [facility] [address] [place] [address] Phone Care Team Providers Care Rad Technologist Name Role Phone Rupesh Monroe MD Unavailable [phone] Alicia Vanegas MD Unavailable [phone] Hansel Orozco Primary Care Provider + Edson Washington CHIEF CLERK Unavailable Isabella Fisher@[facility].[email or web address].[facility] Amanda Johnson CHIEF CLERK Unavailable [phone] Amanda Adams Unavailable Claudette@[facility] Gilbert Stinson RN Unavailable Mary@ [facility].[place].[facility] Lianna Ramires RN Unavailable [phone] Pat Mcgill RN Unavailable Nurys@ [facility].[place].[facility] Encounter Details Date Type Department Care Team (Late st Contact Info) Description 04/28/2025 Procedure Pass [facility], Ct Scan - [facility] [address] [place] [address] Social History Tobacco Use Types Packs/Day Years [...] GED, job training, learning the [place] language, technical skills, or developing parenting skills)? [...] st Contact Info) Description 03/11/2025 Procedure Pass [facility] MR Imaging, [place] [address] 06/06/2025 2:10 PM EST Blood Draw Laboratory Services, [address], 2[address] [place] [address] Alicia Vanegas MD [address] [place] [address] Melida@[facility] 06/06/2025 3:00 PM EST Office Visit [facility], [address], [address] [place] [address] Alicia Vanegas MD [address] [place] [address] Melida@[facility] 06/06/2025 3:30 PM EST Office Visit Adult Palliative Care, [address], [address] [place] [address] Julianna Kenney MD, MS [address] [place], [place] [address]am and [facility], Palliative Medicine JF [address] [place] [address] [email or web address] 06/06/2025 4:00 PM EST Infusion Infusion Therapy Services [facility] [address], [address], [address] [place] [address] Alicia Vanegas MD [address] [place] [address] Melida@[facility] .[facility] Lianna Ramires RN [address] [place] [address] SLIM@[facility] .[facility] 06/11/2025 1:15 PM EST Appointment [facility] MR Demarcus, [place] [address] Edson Manley MD, MPH [address] [place] [address] STANISLAV@[facility] 06/18/2025 2:40 PM EST Office Visit [facility] [address] [place] [address] Edson Manley MD, MPH [address] [place] [address] STANISLAV@[facility] Scheduled Procedures Name Priority Associated Diagnoses Date/Ti me CYSTECTOMY WITH ILEAL CONDUIT Malignant neoplasm of posterior wall of urinary bladder documented as of this encounter Visit Diagnoses Not on filedocumented in this encounter Care Teams Rad Technologist Relationship Specialty Start Date End Date Hansel Orozco PA [address] [place] [address] PCP - General Physician Sales Driver 01/01/25 Rupesh Monroe MD [address] [place] [phone] [email or web address] .[facility] Referring Physician Urology 12/24/24 Alicia Vanegas MD [address] [place] [address] Melida@[facility] Primary Oncologist Medical Oncology 12/25/24 Edson Washington, [address] [address] Ramo@[facility]. [facility] Textile Artist Oncology 01/07/25 Amanda Johnson, CHIEF CLERK [address] [place] [address] [email or web address] Textile Artist Licensed Clinical Textile Artist 02/03/25 Amanda Adams [address] [place] [address] Claudette@[facility] Porcelain Enameling Supervisor 02/21/25 Gilbert Stinson RN [address] [place] [address] Mary@[email or web address] Primary Infusion Nurse 04/03/25 Lianna Ramires RN [address] [place] [address] SLIM@[facility] Associate Infusion Nurse 02/19/25 Pat Mcgill RN [address] [place] [phone] Nurys@[facility] Primary Infusion Nurse 05/05/25 documented as of this encounter Additional Source Comments The information contained in this document represents components of the legal health record. It is not the complete legal health record.[facility]
== END 2025-05-17 15:46 | disposition home or self-care (01) ==
PROVIDERS: Emergency Provider Emergency Medicine; PCP Internal Medicine
DX: H10.9 Unspecified conjunctivitis (principal); H57.13 Ocular pain, bilateral
CPT/HCPCS: 99281; 99282